=== PATIENT | male | born 2005 | race Caucasian/White ===

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

== ENCOUNTER 2025-09-18 11:54 | Emergency (ER) | payer BC, SELFPAY ==
[2025-09-18 11:54] VITALS: BP 126/90; PULSE 66; RESP 16; TEMP 36.1; O2SAT 100; BMI 19.9
[2025-09-18] MEDS: Lidocaine 1% /Epi 1:100 (20ml) 20 ML Vial INFILT (12:06)
[2025-09-18 12:18] VITALS: BP 126/90; PULSE 66; RESP 16; TEMP 36.8; O2SAT 100
--- NOTE | 2025-09-18 14:58 | ED.VIS.LOWEX ---
HPI History of Present Illness Chief Complaint: Laceration Informant: patient Narrative Narrative: 20-year-old male presenting to the emergency room with chief complaint of leg laceration. Patient states the laceration using the cutting blade. He is noted that the bleeding stopped. Since last tetanus he believes within the last 5 to 10 years. He is not wishing to be updated today. Tetanus Immunization: 5-10 years [facility] Medical History Acute frontal sinusitis, unspecified Acute otitis media, right Acute conjunctivitis, left eye Acute sinusitis, unspecified Acute pharyngitis, unspecified Lab test negative for COVID-19 virus Febrile seizure Home Medications ?Medication ?Instructions ?Recorded ?Last Taken ?Type levetiracetam 1,000 mg tablet 2,000 mg PO BID 05/19/20 09/18/25 History clobazam 10 mg tablet 10 mg PO BID 09/18/25 09/18/25 History clobazam 20 mg tablet 20 mg PO BID 09/18/25 09/18/25 History lamotrigine 100 mg tablet 100 mg PO BID 09/18/25 09/18/25 History lamotrigine 200 mg tablet 200 mg PO BID 09/18/25 09/18/25 History Allergy/AdvReac Type Severity Reaction Status Date / Time amoxicillin Allergy Hives Verified 09/18/25 11:57 hydromorphone (From Dilaudid) AdvReac Severe Other Verified 09/18/25 11:57 Family History Grandmother Hypertension Cancer CVA (cerebral vascular accident) Grandfather Hypertension Myocardial infarction Surgical History History of appendectomy S/P appendectomy Social History household members: spouse housing: house Smoking Status: Never smoker ROS ROS ED Constitutional Constitutional ED: Denies chills, fever(s) or weight loss Eyes Eyes: Denies change in vision or diplopia ENT ENT ED: Denies ear pain, rhinorrhea or sore throat Cardiovascular Cardiovascular: Denies chest pain, orthopnea, palpitations or racing heartbeat Respiratory/Chest Respiratory/Chest: Denies cough, dyspnea or orthopnea Gastrointestinal Gastrointestinal: Denies abdominal pain, diarrhea, nausea or vomiting Genitourinary Genitourinary ED: Denies dysuria, hematuria or urinary frequency Musculoskeletal Musculoskeletal: Denies arthralgias or myalgias Integumentary Reports other Details: Left leg laceration ; Denies abscess or rash Neurologic Neurologic: Denies headache(s) or weakness Psychiatric Psychiatric: Denies anxiety, depression, suicidal ideation or suicidal thoughts Endocrine Endocrinology: Denies polydipsia, polyphagia or polyuria Allergic/Immunologic Allergic/Immunologic ED: Denies mouth swelling, tongue swelling or urticaria EXAM Physical Exam Const Vital Signs: 09/18/25 11:54 09/18/25 12:18 Temperature 97 F L 98.3 F Temperature Source Temporal Pulse Rate 66 66 Respiratory Rate 16 16 Blood Pressure 126/90 H 126/90 H Blood Pressure Mean 102 102 Pulse Ox 100 100 Oxygen Delivery Method Room Air Positive well nourished and well developed General Appearance ED: well developed and NAD HEENT Reports normocephalic, head/scalp atraumatic and moist mucous membranes Eyes PERRL and EOMs intact bilaterally Neck no lymphadenopathy, supple and no JVD Resp normal respiratory effort and clear to auscultation bilaterally Cardio regular rate, regular rhythm and no murmurs GI normal to inspection, nondistended, normoactive bowel sounds and non-tender Palpation: soft Back/Spine no CVA tenderness and normal ROM Extremity Extremity Narrative: There is a 1 cm linear laceration over the anterior proximal left leg. There is no active bleeding. Neurovascular intact. No obvious foreign bodies. General Extremety ED: Negative for edema General Extremity: Negative for edema Neuro oriented x3 and CN's II-XII intact bilaterally Sensorium / Orientation: alert Motor Exam: strength 5/5 throughout Psych mental status grossly normal Mood & Affect: Negative for depressed or tearful Skin no rashes or lesions noted and no wounds MDM MDM MDM Narrative Medical decision making narrative: Differential diagnosis includes but not limited to laceration neurovascular injury tendon injury bone injury acute blood loss anemia Patient clinically appears well. Wound was locally anesthetized using 1% lidocaine with epinephrine. Was washed with Shur-Clens and explored. 2 simple interrupted 4-0 Ethilon sutures were placed. Good wound edge approximation homeostasis occurred. 1 was dressed. Local wound care discussed with patient stitches need to be removed in 10 days. History & Record Review Discussion w/independent historian: Patient Discharge Plan Triage Chief Complaint: Laceration ED Provider: Chris Guerra Dx/Rx/DC Orders Clinical Impression: Laceration of leg Instructions: ED Laceration, All Closures Prescriptions: No Action levetiracetam 1,000 MG tablet 2,000 mg PO BID clobazam 20 mg tablet 20 mg PO BID clobazam 10 mg tablet 10 mg PO BID lamotrigine 200 mg tablet 200 mg PO BID lamotrigine 100 mg tablet 100 mg PO BID Primary Care Provider: Leoncio Martínez Referrals: Leoncio Martínez MD [Primary Care Provider, Medical] - 10 Day for suture removal Print Language: Azeri Disposition Disposition: Home, Self Care Discharge Date/Time: 09/18/25 12:40
== END 2025-09-18 12:40 | disposition home or self-care (01) ==
LOC: ED 12:38
PROVIDERS: Emergency Provider Emergency Medicine; PCP Family Medicine; Visit Provider Emergency Medicine
DX: S81.812A Laceration without foreign body, left lower leg, initial encounter (principal); W26.8XXA Contact with other sharp object(s), not elsewhere classified, initial encounter
CPT/HCPCS: 12001; 99282

== ENCOUNTER 2025-09-29 14:44 | Emergency (ER) | payer BC, OTHER, SELFPAY ==
[2025-09-29 14:44] VITALS: BP 128/89; PULSE 65; RESP 18; TEMP 35.8; O2SAT 99; BMI 19.5
--- NOTE | 2025-09-29 15:31 | EX.ED.UPPERE ---
HPI History of Present Illness HPI Narrative: Patient presents with right thumb laceration that occurred today. Patient states he got a brand-new knife and was opening and closing it. Patient states that when he was closing it, the blade cut his right thumb. Patient describes the pain as burning. Patient states it is worse with movement. Patient denies any paresthesias or weakness. Patient states his last tetanus was approximately 89 years ago. Patient denies any paresthesias or weakness. Patient denies any other injuries. Chief Complaint: Laceration Informant: patient Occured/Mechanism Comment: Accidentally cut with a knife Onset/Context/Timing Onset: Today Context: Sudden Onset Timing: Continuous Quality of Pain: Burning Location: Right thumb Worsened by: Movement Relieved by: Nothing Associated Symptoms Associated Symptoms: Negative for Parasthesia, Weakness or Loss of Funtion Narrative Tetanus Immunization: 5-10 years [facility] Medical History (Updated 09/29/25 @ 16:[address] J Carlos Ricardo, DO) Seizures Acute frontal sinusitis, unspecified Acute otitis media, right Acute conjunctivitis, left eye Acute sinusitis, unspecified Acute pharyngitis, unspecified Lab test negative for COVID-19 virus Febrile seizure Home Medications ?Medication ?Instructions ?Recorded ?Last Taken ?Type levetiracetam 1,000 mg tablet 2,000 mg PO BID 05/19/20 09/18/25 History clobazam 10 mg tablet 10 mg PO BID 09/18/25 09/18/25 History clobazam 20 mg tablet 20 mg PO BID 09/18/25 09/18/25 History lamotrigine 100 mg tablet 100 mg PO BID 09/18/25 09/18/25 History lamotrigine 200 mg tablet 200 mg PO BID 09/18/25 09/18/25 History Allergy/AdvReac Type Severity Reaction Status Date / Time amoxicillin Allergy Hives Verified 09/29/25 15:24 hydromorphone (From Dilaudid) AdvReac Severe Other Verified 09/29/25 15:24 Family History Grandmother Hypertension Cancer CVA (cerebral vascular accident) Grandfather Hypertension Myocardial infarction Surgical History History of appendectomy S/P appendectomy Social History household members: spouse housing: house Smoking Status: Current every day smoker tobacco type: e-cigarettes ROS ROS ED Constitutional Constitutional ED: Denies chills or fever(s) Eyes Eyes: Denies blurry vision or change in vision ENT ENT ED: Denies rhinorrhea or sore throat Cardiovascular Cardiovascular: Denies chest pain or palpitations Respiratory/Chest Respiratory/Chest: Denies cough or dyspnea Gastrointestinal Gastrointestinal: Denies nausea or vomiting Genitourinary Genitourinary ED: Denies dysuria or hematuria Musculoskeletal Musculoskeletal: Denies back pain or neck pain Integumentary Denies abscess or rash Neurologic Neurologic: Denies headache(s) or weakness Allergic/Immunologic Allergic/Immunologic ED: Denies mouth swelling or urticaria EXAM Physical Exam Const Vital Signs: 09/29/25 14:44 Temperature 96.4 F L Temperature Source Temporal Pulse Rate 65 Respiratory Rate 18 Blood Pressure 128/89 H Blood Pressure Mean 102 Pulse Ox 99 Oxygen Delivery Method Room Air Positive well nourished and well developed General Appearance ED: well developed and NAD HEENT Reports moist mucous membranes normocephalic Neck full ROM Extremity Extremity Narrative: There is a 1.5 cm full-thickness linear laceration over the dorsal aspect of the distal phalanx of the right thumb near the IP joint. There is mild bleeding. There are no foreign bodies noted. There are no tendon lacerations noted. Strength is 5/5 in flexion and extension of the IP and MP joints. Sensation was intact to light touch in all digits. Capillary refill was less than 2 seconds in all digits. Neuro oriented x3, CN's II-XII intact bilaterally, moves all extremities, no focal motor deficits and no sensory deficits noted Sensorium / Orientation: alert Motor Exam: strength 5/5 throughout Psych mental status grossly normal MDM MDM MDM Narrative Medical decision making narrative: The wound was cleaned and irrigated with copious amounts of normal saline. The wound was anesthetized with 1% plain lidocaine via digital block. The wound was closed with 3 simple interrupted #4-0 nylon sutures under sterile technique. Patient tolerated the procedure well. Bacitracin dressing was applied. Patient was instructed to keep the wound clean and dry. Patient was instructed to follow-up in 7 to 10 days for wound recheck and suture removal. Patient understood and was agreeable with the plan. All questions were answered. Discharge Plan Triage Chief Complaint: Laceration ED Provider: J Carlos Ricardo Dx/Rx/DC Orders Clinical Impression: Laceration of right thumb without foreign body without damage to nail, Seizures Instructions: ED Hand Laceration- All Closures Prescriptions: No Action levetiracetam 1,000 MG tablet 2,000 mg PO BID clobazam 20 mg tablet 20 mg PO BID clobazam 10 mg tablet 10 mg PO BID lamotrigine 200 mg tablet 200 mg PO BID lamotrigine 100 mg tablet 100 mg PO BID Primary Care Provider: Leoncio Martínez Referrals: Leoncio Martínez MD [Primary Care Provider, Medical] - 7 Days for suture removal Print Language: Grenadian Disposition Disposition: Home, Self Care
[2025-09-29] MEDS: Lidocaine 1% (20 ml mdv) 20 ML Vial INFILT (15:36)
--- OUTSIDE RECORDS SUMMARY | 2025-09-29 15:55 | XMS RPT_ITS | CCD ---
Author Organization [facility] Care Team Providers Care Design Leader Name Role Phone ZELDA PATTERSON Unavailable Unavailable REFERRED, SELF Unavailable Unavailable DELMAR LEBRON Unavailable Unavailable ZELDA PATTERSON Unavailable Unavailable REFERRED, SELF Unavailable Unavailable DELMAR LEBRON Unavailable Unavailable Adarsh Perez MD Primary Care Provider Adarsh Perez MD Unavailable Leoncio Vallejo MD Primary Care Provider Adarsh Perez MD Unavailable Leoncio Vallejo MD Primary Care Provider Leoncio Vallejo MD Primary Care Provider Stephani Pham MD Unavailable Serjio Bhatia Attending Unavailable Adarsh Perez Primary Care Unavailable Adarsh Perez Referring Unavailable Brody Hunt Attending Unavailable Leoncio Vallejo Care Unavailable Memo CULVER, Ya Unavailable Unavailable LEONCIO VALLEJO Primary Care Unavailable GINO, ARIELID NADER Admitting Unavailgudelia ELLER, FARID NADER Attending Unavailgudelia e LEONCIO VALLEJO Primary Care Unavailable EZ LEE Attending Unavailable LEONCIO VALLEJO Referring Unavailable LEONCIO VALLEJO Primary Care Unavailable Adarsh Perez MD Unavailable Leoncio Vallejo MD Primary Care Provider Stephani Pham MD Unavailable Leoncio Vallejo MD Primary Care Provider [phone] Stephani Pham MD Unavailable Unavailable Ana KELLY MACHINE OPERATOR.PAPER TESTING SUPERVISOR, Glenis Unavailable Ritesh KELLY MACHINE OPERATOR.PAPER TESTING SUPERVISOR, Lesley A Unavailable [phone] Suppan KELLY MACHINE OPERATOR.Awilda CAMPline A Unavailable [phone] Suppan KELLY MACHINE OPERATOR.PAPER TESTING SUPERVISORLesley A Unavailable [phone] LEONCIO VALLEJO Primary Care Unavailable MEGAN DIMAS Referring Unavailable ARMIN MARTINEZ Attending UnavailLEONCIO Grijalva Primary Care Unavailable JACK ALMAZAN Attending Unavailabl anne-marie SELF Referring Unavailable LEONCIO VALLEJO Primary Care Unavailable ERNESTO NOONAN Attending Unavailable HUSAM VALENTIN Referring Unavailable LEONCIO VALLEJO Primary Care Unavailable LEONCIO VALLEJO Primary Care Unavailable YENY DO Referring Unavailable LEONCIO VALLEJO Primary Care Unavailable JACK ALMAZAN Attending Unavailabl e Allergies Allergy Classification Reported Allergen(s) Allergy Type Date of Onset Reaction(s) Facility (20 sources) amoxicillin; Translations: [AMOXICILLIN] Drug Allergy 5 [facility] Repository (2 sources) HYDROmorphone; Translations: [HYDROMORPHONE (BULK)] Drug Allergy 2 Other: See Comments [facility] Work Phone: (20 sources) HYDROmorphone; Translations: [HYDROMORPHONE] Drug Allergy 2 Vomiting [facility] Medications Current Medications Medication Drug Class(es) Dates Sig (Normalized) Sig (Original) azithromycin 250 mg oral tablet (2 sources) Macrolide Antimicrobial Start: 08-05-2021 End: 08-22-2021 Azithromycin Active 250 MG PO daily August 22, 2021 12:00am 2 tablets today, then 1 tablet daily on days 2 through 11 benzonatate 100 mg oral capsule (1 source) Non-narcotic Antitussive Start: 07-03-2025 End: 07-13-2025 take 1 capsule by mouth three times daily as needed benzonatate (TESSALON PERLE) 100 mg capsule Indications: Bacterial sinusitis Take 1 capsule by mouth three times a day as needed for up to 10 days. 30 capsule 07/03/2025 07/13/2025 Active cloBAZam 10 mg oral tablet (20 sources) Benzodiazepine Start: 05-18-2025 End: 11-14-2025 take 1 tablet by mouth twice daily cloBAZam (ONFI) 10 mg tab tablet Indications: Partial symptomatic epilepsy with complex partial seizures, intractable, with status epilepticus (HCC) Take 1 tablet by mouth two times a day for 180 days. (In addition to 20 mg tabs = 30 mg BID) 180 tablet 1 05/18/2025 11/14/2025 Active Start: 05-15-2025 End: 11-11-2025 take 1.5 tablets by mouth twice daily cloBAZam (ONFI) 20 mg tab tablet Take 1.5 tablets by mouth two times a day for 180 days. 270 tablet 1 05/15/2025 05/18/2025 Discontinued Start: 02-01-2025 End: 11-14-2025 take 1 tablet by mouth twice daily cloBAZam (ONFI) 20 mg tab tablet Indications: Partial symptomatic epilepsy with complex partial seizures, intractable, with status epilepticus (HCC) Take 1 tablet by mouth two times a day for 180 days. (In addition to 10 mg tabs = 30 mg BID) 180 tablet 1 05/18/2025 11/14/2025 Active Start: 02-01-2025 End: 02-08-2025 take 0.5 tablet by mouth once daily in the morning cloBAZam (ONFI) 10 mg tab tablet Indications: Generalized convulsive epilepsy (HCC) Take 0.5 tablets by mouth every morning for 7 days. 4 tablet 02/01/2025 02/08/2025 Active Start: 11-02-2024 End: 05-22-2025 take 1 tablet by mouth once daily at bedtime, then take 0.5 tablet by mouth once daily cloBAZam (ONFI) 20 mg tab tablet Indications: Generalized convulsive epilepsy (HCC) Take 1 tablet by mouth daily at bedtime AND 0.5 tablets once daily. Do all this for 180 days. 135 tablet 1 11/23/2024 02/01/2025 Discontinued Start: 06-13-2024 End: 12-10-2024 take 1 tablet by mouth once daily at bedtime cloBAZam (ONFI) 10 mg tab tablet Indications: Generalized convulsive epilepsy (HCC) Take 1 tablet by mouth daily at bedtime for 180 days. 90 tablet 1 06/13/2024 11/02/2024 Discontinued Start: 05-20-2024 End: 06-19-2024 cloBAZam (ONFI) 10 mg tab ta blet Indications: Generalized convulsive epilepsy (HCC) Take 0.5 tablets at bedtime for 7 days, then take 1 tablet at bedtime. 27 tablet 05/20/2024 06/13/2024 Discontinued doxycycline hyclate 100 mg oral capsule (1 source) Tetracycline-class Drug Start: 07-03-2025 End: 07-10-2025 take 1 capsule by mouth twice daily doxycycline hyclate (VIBRAMYCIN) 100 mg capsule Indications: Bacterial sinusitis Take 1 capsule by mouth two times a day for 7 days. 14 capsule 07/03/2025 07/10/2025 Active enteric contrast (will be provided with radiology test) (3 sources) Start: 08-18-2022 End: 08-19-2022 enteric contrast (will be provided with radiology test) Indications: Right upper quadrant abdominal pain , Left upper quadrant abdominal pain , Contusion of abdominal wall, subsequent encounter , Abdominal pain, unspecified abdominal location For CT ABD/PEL W IVCON Routine order Administer, As Directed One Time Only, via Oral, Rectal, both Oral and Rectal, Enteric Tube, Stoma or Indwelling Catheter, Enteric Contrast as designated per enteric contrast guidelines 1 Each 0 08/18/2022 08/19/2022 Suspended Start: 08-18-2022 End: 08-19-2022 enteric contrast (will be pr ovided with radiology test) Indications: Right upper quadrant abdominal pain , Left upper quadrant abdominal pain , Contusion of abdominal wall, subsequent encounter , Abdominal pain, unspecified abdominal location For CT ABD/PEL W IVCON Routine order Administer, As Directed One Time Only, via Oral, Rectal, both Oral and Rectal, Enteric Tube, Stoma or Indwelling Catheter, Enteric Contrast as designated per enteric contrast guidelines 1 Each 0 08/18/2022 08/19/2022 Active Comment on above: For CT ABD/PEL W IVC ON Routine order Administer, As Directed One Time Only, via Oral, Rectal, both Oral and Rectal, Enteric Tube, Stoma or Indwelling Catheter, Enteric Contrast as designated per enteric contrast guidelines famotidine 20 mg oral tablet (5 sources) Histamine-2 Receptor Antagonist Start: End: take 1 tablet by mouth twice daily famotidine (PEPCID) 20 mg tablet Take 1 tablet by mouth twice daily. 60 tablet 0 04/04/2022 05/09/2022 Discontinued Comment on above: Take 1 tablet by caitie twice daily. fluticasone propionate 0.05 mg/actuat metered dose nasal spray (1 source) Corticosteroid Start: take 2 spray(s) by mouth once daily fluticasone (FLONASE) 50 mcg/actuation nasal spray Indications: Bacterial sinusitis Use 2 sprays in each nostril once daily. Rinse mouth after use. 1 each 1 07/03/2025 Active iv contrast (will be provided with radiology test) (7 sources) Start: End: inject 1 dose intravenously once iv contrast (will be provided with radiology test) MRI Brain Inject, intravenously, once for 1 dose.No IV access, insert saline lock prior to beginning of sedation, infusion, injection of imaging exam.Discontinue saline lock post exam. If Pt. has a central line or IVAD, may access for administration according to line specific nursing protocol.Once exam is complete flush line and de-access according to line specific nursing protocol in the MR contrast administration guidelines link 1 Each 09/28/2024 09/29/2024 Active Start: 03-25-2023 End: 05-22-2023 inject 1 dose intravenously once iv contrast (will be provided with radiology test) MRI Brain Inject, intravenously, once for 1 dose.No IV access, insert saline lock prior to beginning of sedation, infusion, injection of imaging exam.Discontinue saline lock post exam. If Pt. has a central line or IVAD, may access for administration according to line specific nursing protocol.Once exam is complete flush line and de-access according to line specific nursing protocol in the MR contrast administration guidelines link 1 Each 0 03/25/2023 05/22/2023 Discontinued Start: 03-25-2023 inject 1 dose intravenously on ce iv contrast (will be provided with radiology test) MRI Brain Inject, intravenously, once for 1 dose.No IV access, insert saline lock prior to beginning of sedation, infusion, injection of imaging exam.Discontinue saline lock post exam. If Pt. has a central line or IVAD, may access for administration according to line specific nursing protocol.Once exam is complete flush line and de-access according to line specific nursing protocol in the MR contrast administration guidelines link 1 Each 0 03/25/2023 Active Start: 08-18-2022 End: 08-19-2022 iv contrast (will be provide d with radiology test) Indications: Right upper quadrant abdominal pain , Left upper quadrant abdominal pain , Contusion of abdominal wall, subsequent encounter , Abdominal pain, unspecified abdominal location CT ABD/PEL -Inject, intravenously, once for 1 dose.No IV access, insert saline lock prior to the beginning of sedation, infusion, injection of imaging exam. Discontinue saline lock post exam. If Pt. has a central line or IVAD, may access for administration according to line specific nursing protocol. Once exam is complete flush line and de-access according to line specific nursing protocol in the CT contrast administration guidelines link. 1 Each 0 08/18/2022 08/19/2022 Suspended Start: 08-18-2022 End: 08-19-2022 iv contrast (will be provide d with radiology test) Indications: Right upper quadrant abdominal pain , Left upper quadrant abdominal pain , Contusion of abdominal wall, subsequent encounter , Abdominal pain, unspecified abdominal location CT ABD/PEL -Inject, intravenously, once for 1 dose.No IV access, insert saline lock prior to the beginning of sedation, infusion, injection of imaging exam. Discontinue saline lock post exam. If Pt. has a central line or IVAD, may access for administration according to line specific nursing protocol. Once exam is complete flush line and de-access according to line specific nursing protocol in the CT contrast administration guidelines link. 1 Each 0 08/18/2022 08/19/2022 Active Start: 02-04-2022 End: 02-05-2022 inject 1 dose intravenously once iv contrast (will be provided with radiology test) MRI Brain Inject, intravenously, once for 1 dose.No IV access, insert saline lock prior to beginning of sedation, infusion, injection of imaging exam.Discontinue saline lock post exam. If Pt. has a central line or IVAD, may access for administration according to line specific nursing protocol.Once exam is complete flush line and de-access according to line specific nursing protocol in the MR contrast administration guidelines link 1 Each 0 02/04/2022 02/05/2022 Active Comment on above: MRI Brain Inject, in travenously, once for 1 dose.No IV access, insert saline lock prior to beginning of sedation, infusion, injection of imaging exam.Discontinue saline lock post exam. If Pt. has a central line or IVAD, may access for administration according to line specific nursing protocol.Once exam is complete flush line and de-access according to line specific nursing protocol in the MR contrast administration guidelines link CT ABD/PEL -Inject, intravenously, once for 1 dose.No IV access, insert saline lock prior to the beginning of sedation, infusion, injection of imaging exam. Discontinue saline lock post exam. If Pt. has a central line or IVAD, may access for administration according to line specific nursing protocol. Once exam is complete flush line and de-access according to line specific nursing protocol in the CT contrast administration guidelines link. lamoTRIgine 100 mg oral tablet (20 sources) Mood Stabilizer, Anti-epileptic Agent Start: 10-15-20 End: 05-19-20 take 1 tablet by mouth twice daily lamoTRIgine (LAMICTAL) 100 mg tablet Indications: Generalized convulsive epilepsy (HCC) Take 1 tablet by mouth two times a day. (along with 200 mg tabs, =600 mg/day) 180 tablet 3 05/19/2024 Active Start: 10-15-2023 End: 05-19-2024 take 1 tablet by mouth twice daily lamoTRIgine (LAMICTAL) 200 mg tablet Indications: Partial symptomatic epilepsy with complex partial seizures, intractable, with status epilepticus (HCC) Take 1 tablet by mouth two times a day. (along with 100 mg tabs, = 600 mg/day) 180 tablet 3 05/19/2024 Active Start: 08-10-2023 take 1 tablet by caitie th twice daily lamoTRIgine (LAMICTAL) 100 mg tablet Indications: Generalized convulsive epilepsy (HCC) Take 1 tablet by mouth two times a day. (along with 200 mg tabs, =600 mg/day) 180 tablet 1 08/10/2023 Active Start: 11-13-2021 End: 08-07-2023 take 1 tablet by mouth twice daily lamoTRIgine (LAMICTAL) 100 mg tablet Indications: Generalized convulsive epilepsy (HCC) Take 1 tablet by mouth twice daily. (along with 200 mg tabs, =600 mg/day) 180 tablet 1 02/16/2023 08/07/2023 Discontinued Start: 11-13-2021 End: 07-29-2023 take 1 tablet by mouth twice daily lamoTRIgine (LAMICTAL) 200 mg tablet Indications: Partial symptomatic epilepsy with complex partial seizures, intractable, with status epilepticus (HCC) Take 1 tablet by mouth two times a day. (along with 100 mg tabs, = 600 mg/day) 180 tablet 0 07/29/2023 Active Start: 08-22-2021 take 1 tablet by mouth once La motrigine (Lamictal) 25 mg tablet Active 25 MG PO ONCE August 22, 2021 12:00am Comment on above: Take 1 tablet by caitie th twice daily. (along with 100 mg tabs, = 600 mg/day) Take 1 tablet by caitie th twice daily. (along with 200 mg tabs, =600 mg/day) Take 1 tablet by caitie th two times a day. (along with 100 mg tabs, = 600 mg/day) Take 1 tablet by caitie th two times a day. (along with 200 mg tabs, =600 mg/day) levETIRAcetam 1000 mg oral tablet (20 sources) Start: End: take 1 tablet by mouth twice daily levETIRAcetam (KEPPRA) 500 mg tablet Take 1 tablet by mouth two times a day. Take with 750mg tablets. Total dose = 2000mg BID 180 tablet 1 08/05/2024 11/03/2024 Discontinued Start: 05-19-2024 End: 11-03-2025 take 2 tablets by mouth twice daily levETIRAcetam (KEPPRA) 1,000 mg tablet Indications: Partial symptomatic epilepsy with complex partial seizures, intractable, with status epilepticus (HCC) Take 2 tablets by mouth two times a day. 360 tablet 3 11/03/2024 11/03/2025 Active Start: 03-11-2024 End: 05-19-2024 take 1 tablet by mouth twice daily levETIRAcetam (KEPPRA) 500 mg tablet Take 1 tablet by mouth two times a day. Take with 750mg tablets. Total dose = 2000mg BID 180 tablet 1 03/11/2024 05/19/2024 Discontinued Start: 02-01-2024 End: 05-01-2024 take 1 tablet by mouth once daily at bedtime levETIRAcetam (KEPPRA) 500 mg tablet Take 1 tablet by mouth daily at bedtime. Take with two 750mg tablets at bedtime for a total night time dose of 2000mg 90 tablet 0 02/01/2024 03/11/2024 Discontinued Start: 11-12-2023 End: 11-11-2024 take 2 tablets by mouth twice daily levETIRAcetam (KEPPRA) 750 mg tablet Indications: Generalized convulsive epilepsy (HCC) Take 2 tablets by mouth two times a day. 360 tablet 3 11/12/2023 05/19/2024 Discontinued Start: 05-25-2023 End: 07-29-2023 levETIRAcetam (KEPPRA) 500 m g tablet Indications: Generalized convulsive epilepsy (HCC) 3 tabs twice daily = 3000 mg/d 540 tablet 0 07/29/2023 Active Start: 04-17-2022 End: 05-25-2023 levETIRAcetam (KEPPRA) 500 m g tablet Indications: Generalized convulsive epilepsy (HCC) 5 tabs twice daily = 5000 mg/d 900 tablet 1 02/16/2023 05/25/2023 Discontinued (Adjust Sig - Block E-Cancel) Start: 11-13-2021 levETIRAcetam (KEPPRA) 500 mg tablet Indications: Generalized convulsive epilepsy (HCC) 6 tabs twice daily = 6000 mg/d 1080 tablet 3 11/13/2021 Active Start: 05-19-2020 take 2000 mg by mout h twice daily Levetiracetam Active 2000 MG PO TWICE A DAY May 19, 2020 12:00am Comment on above: 6 tabs twice daily = 6000 mg/d 5 tabs twice daily = 5000 mg/d 3 tabs twice daily = 3000 mg/d Take 2 tablets by mo uth two times a day. Take 1 tablet by caitie th daily at bedtime. Take with two 750mg tablets at bedtime for a total night time dose of 2000mg lidocaine 0.04 mg/mg medicated patch (8 sources) Antiarrhythmic, Amide Local Anesthetic Start: 08-21-20 End: 11-28-19 23 lidocaine (SALONPAS) 4 % patch Apply 1 Patch as directed once daily as needed (pain) for up to 7 doses. 7 Patch 0 08/21/2022 11/28/2022 Discontinued Comment on above: Apply 1 Patch as dir ected once daily as needed (pain) for up to 7 doses. midazolam 50 mg/ml nasal spray (20 sources) Benzodiazepine Start: 11-13-19 End: 06-04-20 midazolam (NAYZILAM) 5 mg/spray (0.1 mL) nasal spray Indications: Generalized convulsive epilepsy (HCC) Use 1 spray in one nostril as needed for seizures. May repeat dose in alternate nostril after 10 minutes based on response and tolerability. 2 Each 05/20/2024 Active Comment on above: Use 1 spray in one n ostril as needed for seizures. May repeat dose in alternate nostril after 10 minutes based on response and tolerability. naproxen 500 mg oral tablet (1 source) Nonsteroidal Anti-inflammatory Drug Start: 08-16-20 take 1 tablet by mouth twice daily Naproxen (Naprosyn) 500 mg tablet Active 500 MG PO TWICE A DAY August 16, 2022 12:00am oxyCODONE hydrochloride 5 mg oral tablet (2 sources) Opioid Agonist Start: 08-21-20 End: 08-26-20 take 1 tablet by mouth every six hours as needed for pain oxyCODONE IR (ROXICODONE) 5 mg immediate release tablet Indications: Liver laceration, grade IV, with open wound into cavity, initial encounter , Closed fracture of multiple ribs of right side, initial encounter Take 1 tablet by mouth every 6 hours as needed for pain for up to 5 days. 10 tablet 0 08/21/2022 08/26/2022 Active Comment on above: Take 1 tablet by caitie every 6 hours as needed for pain for up to 5 days. promethazine hydrochloride 25 mg oral tablet (1 source) Phenothiazine Start: 08-17-20 take 25 mg by mouth every six hours Promethazine Active 25 MG PO EVERY 6 HOURS August 17, 2022 12:00am sennosides, senior care 8.6 mg oral tablet (2 sources) Start: 08-21-20 End: 08-26-20 take 1 tablet by mouth twice daily senna (SENOKOT) 8.6 mg tab Take 1 tablet by mouth twice daily for 5 days. 10 tablet 0 08/21/2022 08/26/2022 Active Comment on above: Take 1 tablet by caitie th twice daily for 5 days. valACYclovir 1000 mg oral tablet (2 sources) Herpesvirus Nucleoside Analog DNA Polymerase Inhibitor, Herpes Simplex Virus Nucleoside Analog DNA Polymerase Inhibitor, Herpes Zoster Virus Nucleoside Analog DNA Polymerase Inhibitor Start: 09-03-20 End: 09-10-20 take 1 tablet by mouth three times daily valACYclovir (VALTREX) 1 gram Take 1 tablet by mouth three times a day for 7 days. 21 tablet 0 09/03/2023 09/10/2023 Active Comment on above: Take 1 tablet by caitie th three times a day for 7 days. Completed/Discontinued Medications Medication Drug Class(es) Dates Sig (Normalized) Sig (Original) [id number] 200 actuat albuterol 0.09 mg/actuat metered dose inhaler (13 sources) beta2-Adrenergic Agonist Start: 12-18-2021 End: 06-25-2022 take 2 puff(s) by inhalation every four hours as needed for wheezing albuterol HFA (PROVENTIL HFA, VENTOLIN HFA) 90 mcg/actuation inhaler Inhale 2 Puffs as instructed every 4 hours as needed for wheezing/shortness of breath (and 20 min prior to exercise). 18 g 0 12/18/2021 06/25/2022 Discontinued Comment on above: Inhale 2 Puffs as in structed every 4 hours as needed for wheezing/shortness of breath (and 20 min prior to exercise). predniSONE 10 mg oral tablet (3 sources) Start: 09-03-2023 predniSONE (DELTASONE) 10 mg tablet Take 4 tabs daily for 3 days, then 2 tabs daily for 3 days, then 1 tab daily for 3 days with food. 21 tablet 0 09/03/2023 Active Comment on above: Take 4 tabs daily fo r 3 days, then 2 tabs daily for 3 days, then 1 tab daily for 3 days with food. tobramycin 3 mg/ml ophthalmic solution (1 source) Aminoglycoside Antibacterial Start: 08-05-2021 End: 08-22-2021 take 0.3 drop(s) into the eye(s) every two hours Tobramycin (Tobrex) 0.3 % drops Discontinued 1 DRP OPHTHALMIC Q2H 5 August 05, 2021 12:00am August 22, 2021 8:27am to left eye for 5 days while awake Problems Active Problems Problem Classification Problem Date Documented Date Episodic/Chronic Abdominal pain (6 sources) Right upper quadrant pain; Translations: [Right upper quadrant pain] Onset: 08-18-2022 Episodic Allergic reactions (1 source) Inflammatory dermatosis; Translations: [Dermatitis, unspecified] 09-04-2023 Episodic Asthma (20 sources) Mild intermittent asthma; Translations: [Mild intermittent asthma, uncomplicated] Onset: 05-20-2020 09-15-2020 Chronic Bacterial infection; unspecified site (1 source) Other specified bacterial agents as the cause of diseases classified elsewhere; Translations: [Bacterial sinusitis] Onset: 07-03-2025 Episodic Chronic kidney disease (20 sources) Chronic kidney disease stage 2; Translations: [Chronic kidney disease, stage 2 (mild)] Onset: 06-15-2022 Resolved: 11-28-2022 Chronic Deficiency and other anemia (1 source) Anemia; Translations: [Anemia, unspecified] Episodic Epilepsy; convulsions (20 sources) Localization-related epilepsy; Translations: [Localization-related (focal) (partial) symptomatic epilepsy and epileptic syndromes with simple partial seizures, not intractable, without status epilepticus] Onset: 04-27-2020 Resolved: 10-22-2020 10-22-2020 Chronic Esophageal disorders (1 source) Gastroesophageal reflux disease without esophagitis; Translations: [Gastro-esophageal reflux disease without esophagitis] Chronic Genitourinary symptoms and ill-defined conditions (1 source) Proteinuria; Translations: [Proteinuria, unspecified] Episodic Nausea and vomiting (2 sources) Post-tussive vomiting; Translations: [Vomiting, unspecified] Episodic Open wounds of head; neck; and trunk (1 source) Unspecified open wound of abdominal wall, unspecified quadrant without penetration into peritoneal cavity, initial encounter; Translations: [Liver laceration, grade IV, with open wound into cavity, initial encounter] Onset: 08-21-2022 Episodic Other and unspecified benign neoplasm (20 sources) Benign neoplasm of brain, supratentorial; Translations: [Benign neoplasm of brain, supratentorial] Onset: 08-02-2020 10-22-2020 Chronic Other and unspecified benign neoplasm (1 source) Benign neoplasm of brain; Translations: [Benign neoplasm of brain, unspecified] Chronic Other diseases of kidney and ureters (1 source) Renal impairment; Translations: [Disorder of kidney and ureter, unspecified] Episodic Other endocrine disorders (1 source) Hypoglycemia; Translations: [Hypoglycemia, unspecified] Chronic Other fractures (1 source) Closed fracture of multiple ribs; Translations: [Multiple fractures of ribs, right side, subsequent encounter for fracture with delayed healing] Episodic Other fractures (1 source) Multiple fractures of ribs, right side, initial encounter for closed fracture; Translations: [Closed fracture of multiple ribs of right side, initial encounter] Onset: 08-21-2022 Episodic Other hereditary and degenerative nervous system conditions (1 source) Essential tremor; Translations: [Essential tremor] Chronic Other lower respiratory disease (1 source) Pleurodynia; Translations: [Pleurodynia] Onset: 08-21-2022 Episodic Other lower respiratory disease (1 source) Cough; Translations: [Acute cough] 07-03-2025 Episodic Other nervous system disorders (20 sources) Mass lesion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 for 5 days. - lidocaine (SALONPAS) 4 % patch Apply 1 Patch as directed once daily as needed (pain) for up to 7 doses. - oxyCODONE IR (ROXICODONE) 5 mg immediate release tablet Take 1 tablet by mouth every 6 hours as needed for pain for up to 5 days. - levETIRAcetam (KEPPRA) 500 mg tablet 5 tabs twice daily = 5000 mg/d - midazolam (NAYZILAM) 5 mg/spray (0.1 mL) nasal spray Use 1 spray in one nostril as needed for seizures. May repeat dose in alternate nostril after 10 minutes based on response and tolerability. - lamoTRIgine (LAMICTAL) 200 mg tablet Take 1 tablet by mouth twice daily. (along with 100 mg tabs, = 600 mg/day) - lamoTRIgine (LAMICTAL) 100 mg tablet Take 1 tablet by mouth twice daily. (along with 200 mg tabs, =600 mg/day) Meds Comments as of 06/29/2009: Problem List As Of Date 08/22/2022 Noted Resolved Acute appendicitis with localized peritonitis [*09/22/2016 08/02/2020 Vaccination not carried out because of caregive*06/23/2019 Simple febrile convulsions (HCC) [R56.00] 04/26/2020 08/02/2020 Convulsions (HCC) [R56.9] 04/26/2020 10/22/2020 Generalized convulsive epilepsy (HCC) [G40.309] 04/27/2020 10/22/2020 Epilepsy (HCC) [G40.909] 04/30/2020 10/22/2020 Recurrent seizures (HCC) [G40.909] 05/20/2020 10/22/2020 Mild intermittent asthma without complication [*05/20/2020 Generalized seizure (HCC) [R56.9] 08/02/2020 10/22/2020 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] 08/02/2020 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] 08/02/2020 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] 10/22/2020 CKD (chronic kidney disease) stage 2, GFR 60-89*06/15/2022 Liver laceration, grade IV, without open wound *08/18/2022 Accidental collision with stationary object [W2*08/21/2022 08/21/2022 Closed fracture of multiple ribs of right side *08/21/2022 Contusion of right lung [S27.321A] 08/21/2022 ABLA (acute blood loss anemia) [D62] 08/21/2022 Encounter Status:Closed by SUNG, DEBBIE on 08/22/22 Normal [facility] Basic metabolic 2000 panelon 08-21-2022 Anion gap [Moles/Vol] 10 mmol/L Normal 9-18 [facility] Comment on above: Order Comment: Speci men Type: BLOOD SPECIMEN Ordering Facility: [facility] Address: [address] [place] [address] Performed By: #### 2 4323-8, 3040-3 #### [facility] CLIA [id number] [address] [place] [address] [place] Calcium [Mass/Vol] 9.3 mg/dL Normal 8.5-10.2 [facility] Comment on above: Order Comment: Speci men Type: BLOOD SPECIMEN Ordering Facility: [facility] Address: [address] [place] [address] Performed By: #### 2 4323-8, 3040-3 #### [facility] CLIA [id number] [address] [place] [address] [place] Chloride [Moles/Vol] 100 mmol/L Normal 97-105 [facility] Comment on above: Order Comment: Speci men Type: BLOOD SPECIMEN Ordering Facility: [facility] Address: [address] [place] [address] Performed By: #### 2 4323-8, 3040-3 #### [facility] CLIA [id number] [address] [place] [address] [place] CO2 [Moles/Vol] 31 mmol/L High 22-30 [facility] Comment on above: Order Comment: Speci men Type: BLOOD SPECIMEN Ordering Facility: [facility] Address: [address] [place] [address] Performed By: #### 2 4323-8, 3040-3 #### [facility] CLIA [id number] [address] [place] [address] [place] Creatinine [Mass/Vol] 0.94 mg/dL Normal 0.73-1.22 [facility] Comment on above: Order Comment: Speci men Type: BLOOD SPECIMEN Ordering Facility: [facility] Address: [address] [place] [address] Performed By: #### 2 4323-8, 3040-3 #### [facility] CLIA [id number] [address] [place] [address] [place] ESTIMATED GLOMERULAR FILTRATION RATE 121 mL/min/1.73m??? Normal >=60 [facility] Comment on above: Order Comment: Gokul garcia Type: BLOOD SPECIMEN Ordering Facility: [facility] Address: [address] [place] [address] Result Comment: Magda mated Glomerular Filtration Rate (eGFR) is calculated using the 2020 CKD-EPI creatinine equation. This equation utilizes serum creatinine, sex, and age as parameters. The creatinine assay has traceable calibration to isotope dilution-mass spectrometry. Refer to KDIGO guidelines for clinical interpretation. In patients with unstable renal function, e.g. those with acute kidney injury, the eGFR may not accurately reflect actual GFR. Performed By: #### 2 4323-8, 3040-3 #### [facility] CLIA [id number] [address] [place], [place] [id number] [place] Glucose [Mass/Vol] 94 mg/dL Normal 74-99 [facility] Comment on above: Order Comment: Gokul garcia Type: BLOOD SPECIMEN Ordering Facility: [facility] Address: [address] [place] [address] Result Comment: The [place] [employer] (ADA) provides guidance for cutoff values for fasting glucose and random glucose. The ADA defines fasting as no caloric intake for at least 8 hours. Fasting plasma glucose results between 100 to 125 mg/dL indicate increased risk for diabetes (prediabetes). Fasting plasma glucose results greater than or equal to 126 mg/dL meet the criteria for diagnosis of diabetes. In the absence of unequivocal hyperglycemia, results should be confirmed by repeat testing. In a patient with classic symptoms of hyperglycemia or hyperglycemic crisis, random plasma glucose results greater than or equal to 200 mg/dL meet the criteria for diagnosis of diabetes. Reference: Standards of Medical Care in Diabetes 2016, [place] [employer] Association. Diabetes Care. 2016.39(Suppl 1). Performed By: #### 2 4323-8, 3040-3 #### [facility] CLIA [id number] [address] [place] [address] [place] Potassium [Moles/Vol] 4.0 mmol/L Normal 3.7-5.1 [facility] Comment on above: Order Comment: Speci men Type: BLOOD SPECIMEN Ordering Facility: [facility] Address: [address] [place] [address] Performed By: #### 2 4323-8, 3040-3 #### [facility] CLIA [id number] [address] [place] [address] [place] Sodium [Moles/Vol] 141 mmol/L Normal 136-144 [facility] Comment on above: Order Comment: Speci men Type: BLOOD SPECIMEN Ordering Facility: [facility] Address: [address] [place] [address] Performed By: #### 2 4323-8, 3039-3 #### [facility] CLIA [id number] [address] Urea nitrogen [Mass/Vol] 10 mg/dL Normal 9-24 [facility] Comment on above: Order Comment: Speci men Type: BLOOD SPECIMEN Ordering Facility: [facility] Address: [address] [place] [address] Performed By: #### 2 4323-8, 3040-3 #### [facility] CLIA [id number] [address] [place] [address] [facility] CBC panel Auto (Bld)on 08-21 Erythrocyte distribution width (RBC) [Ratio] 13.5 % Normal 11.5-15.0 [facility] Comment on above: Order Comment: Speci men Type: BLOOD SPECIMEN Ordering Facility: [facility] Address: [address] [place] [address] Performed By: #### 2 4323-8, 3040-3 #### [facility] CLIA [id number] [address] Hematocrit (Bld) [Volume fraction] 29.2 % Low 39.0-51.0 [facility] Comment on above: Order Comment: Speci men Type: BLOOD SPECIMEN Ordering Facility: [facility] Address: [address] [place] [address] Performed By: #### 2 4323-8, 3040-3 #### [facility] CLIA [id number] [address] [place], [place] [address] [place] [address] [place] Hemoglobin (Bld) [Mass/Vol] 9.3 g/dL Low 13.0-17.0 [facility] Comment on above: Order Comment: Speci men Type: BLOOD SPECIMEN Ordering Facility: [facility] Address: [address] [place] [address] Performed By: #### 2 4323-8, 0-3 #### [facility] CLIA [id number] [address] MCH (RBC) [Entitic mass] 26.9 pg Normal 26.0-34.0 [facility] Comment on above: Order Comment: Speci men Type: BLOOD SPECIMEN Ordering Facility: [facility] Address: [address] [place] [address] Performed By: #### 2 4323-8, 3040-3 #### [facility] CLIA [id number] [address] [place] [address] [place] [facility] MCHC (RBC) [Mass/Vol] 31.8 g/dL Normal 30.5-36.0 [facility] Comment on above: Order Comment: Speci men Type: BLOOD SPECIMEN Ordering Facility: [facility] Address: [address] [place] [address] Performed By: #### 2 4323-8, 3040-3 #### [facility] CLIA [id number] [address] [place] [address] [facility] MCV (RBC) [Entitic vol] 84.4 fL Normal 80.0-100.0 [facility] Comment on above: Order Comment: Speci men Type: BLOOD SPECIMEN Ordering Facility: [facility] Address: [address] [place] [address] Performed By: #### 2 4323-8, 3040-3 #### [facility] CLIA [id number] [address] [place] [address] [place] Nucleated RBC (Bld) [#/Vol] 10*3/uL Normal <0.01 [facility] Comment on above: Order Comment: Speci men Type: BLOOD SPECIMEN Ordering Facility: [facility] Address: [address] [place] [address] Performed By: #### 2 4323-8, 3040-3 #### [facility] CLIA [id number] [address] [place] [address] [place] Platelet mean volume (Bld) [Entitic vol] 11.0 fL Normal 9.0-12.7 [facility] Comment on above: Order Comment: Speci men Type: BLOOD SPECIMEN Ordering Facility: [facility] Address: [address] [place] [address] Performed By: #### 2 4323-8, 3040-3 #### [facility] CLIA [id number] [address] [place], [place] [address] [place] [address] [place] Platelets (Bld) [#/Vol] 276 10*3/uL Normal 150-400 [facility] Comment on above: Order Comment: Speci men Type: BLOOD SPECIMEN Ordering Facility: [facility] Address: [address] [place] [address] Performed By: #### 2 4323-8, 3040-3 #### [facility] CLIA [id number] [address] [place] [address] [place] [facility] [place] RBC (Bld) [#/Vol] 3.46 10*6/uL Low 4.20-6.00 [facility] Comment on above: Order Comment: Speci men Type: BLOOD SPECIMEN Ordering Facility: [facility] Address: [address] [place] [address] Performed By: #### 2 4323-8, 3 #### [facility] CLIA [id number] [address] [place] [address] [facility] WBC (Bld) [#/Vol] 5.11 10*3/uL Normal 3.70-11.00 [facility] Comment on above: Order Comment: Speci men Type: BLOOD SPECIMEN Ordering Facility: [facility] Address: [address] [place] [address] [place] [address] Performed By: #### 2 4323-8, 3 #### [facility] CLIA [id number] [address] [place] [address] [facility] CNDSon 08-21-2022 CNDS HNO ID: [id number] Author: Yoli Graf APRN.PAPER TESTING SUPERVISOR Service: General Surgery Author Type: Nurse Practitioner Type: Discharge Summary Filed: 08/21/2022 2:32 PM Note Text: ----- Attestation signed by Maria De Jesus Hernandez MD at 08/21/2022 6:11 PM Attending Note I discussed with resident. The patient was not examined by the attending. I reviewed the resident's note. I agree with the resident's assessment and plan unless otherwise noted. Signature: Maria De Jesus Hernandez MD Date: 08/21/2022. Time: 6:11 PM ----- DISCHARGE SUMMARY PATIENT NAME: Penny Robin Code Status: Full Code Highest Readmission Risk Score: 13 The 30 day readmissions risk score is derived from an internally validated risk model which evaluates patient level characteristics, utilization history, medication orders and lab results up until the day of discharge. Patients with a score of 40 or above are considered highest risk for readmission. Specific patient level drivers will be listed at the bottom of the summary. Admission Information Admission Information ADMIT DATE: 08/18/2022 DISCHARGE DATE: 08/21/2022 MY DOCTORS AND MEDICAL TEAM: My Main Hospital Doctor: Melissa Eller MD Primary Care Provider: Leoncio Vallejo MD My Medical Team Members: Treatment Team: Attending Provider: Melissa Eller MD MY CONDITION AT DISCHARGE: Stable REASON I WAS IN THE HOSPITAL: Collision with object SUMMARY OF WHAT HAPPENED WHILE I WAS IN THE HOSPITAL: You were admitted at [facility] on 08/18/2022 following a collision with an object while playing [employer] tag. As part of your trauma evaluation you received CT scans of your chest, abdomen, and pelvis. These images revealed the following injuries: 1. RLL pulmonary contusion 2. Right 7-10 rib fractures 3. Grade IV liver injury with hemoperitoneum You were monitored closely and your blood counts remained stable. You were able to tolerate solid food and walk without assistance. Your injuries will heal over time without intervention. You will need to make follow up appointments with your primary care provider. Please call our trauma clinic at [phone] with any questions or concerns. OTHER PROBLEMS/DIAGNOSIS: Principal Problem: Liver laceration, grade IV, without open wound into cavity Active Problems: Closed fracture of multiple ribs of right side Contusion of right lung ABLA (acute blood loss anemia) Resolved Problems: Accidental collision with stationary object OPERATIONS PERFORMED WHILE IN THE HOSPITAL: None IMPORTANT TEST/PROCEDURES: No procedures performed TEST RESULTS NOT AVAILABLE AT THIS TIME: No pending results Discharge Disposition Discharge Disposition: Home With Self Care Activity When You Leave the Hospital Limited to: Do not lift more than 15lbs for the next 6 weeks No contact sports or activities which place you at risk for abdominal trauma for 6 months May bathe and shower May drive Diet Instructions Resume your pre-hospital diet For Pain When You Leave the Hospital If you become constipated, you may use any ntno-mpn-wdzsffl treatment such as Milk of Magnesia, Sennakot, Prune Juice, Suppositories, etc. in addition to the stool softener/fiber supplement No alcohol or driving while on pain medication Use acetaminophen (Tylenol) as recommended on the bottle Use the dispensed medication (see prescription) You should use an uuig-yvc-zmhtodq stool softener (Docusate sodium) and/or a fiber supplement (Metamucil, Fiber Con) every day while taking prescribed pain medication Call Your Doctor If There is severe pain at the operative site You have lightheadedness, fainting, or confusion You have pain and swelling in your legs, especially if it is only on one side and not the other You have persistent nausea/vomiting over 24 hours Your temperature is greater than 101F Follow Up Appointments Follow-Up Appointment When: In 2 weeks Patient/Parents to call for appointment?: Yes Leoncio Vallejo MD [phone] [address] [facility] [address] PCP Requested Referral Additional Provider to Provider Information: Principal Problem: Liver laceration, grade IV, without open wound into cavity Active Problems: Closed fracture of multiple ribs of right side Contusion of right lung ABLA (acute blood loss anemia) Resolved Problems: Accidental collision with stationary object Treatment Team: Attending Provider: Melissa Eller MD Transitions of Care Critical Issues: SPECIALIST FOLLOW-UP: PCP LABS AND PROCEDURES PENDING AT DISCHARGE: No pending results. FOLLOW-UP APPOINTMENTS ALREADY SCHEDULED WITH A [facility] PROVIDER: Future Appointments Date Time Provider Department Center 11/13/2022 2:40 PM [facility] (more content not included)... Normal [facility] Hepatic function 2000 panelo n 08-21-2022 Albumin [Mass/Vol] 4.5 g/dL Normal 3.9-4.9 [facility] Comment on above: Order Comment: Gokul garcia Type: BLOOD SPECIMEN Ordering Facility: [facility] Address: [address] [place] [id number] Performed By: #### 2 4323-8, 3040-3 #### [facility] CLIA [id number] [address] [place] [address] [place] ALP [Catalytic activity/Vol] 104 U/L Normal 55-149 [facility] Comment on above: Order Comment: Gokul garcia Type: BLOOD SPECIMEN Ordering Facility: [facility] Address: [address] Performed By: #### 2 4323-8, 3040-3 #### [facility] CLIA [id number] [address] [place], [place] [address] [place] [address] [place] With P-5'-P [Catalytic activity/Vol] 238 U/L High 10-54 [facility] Comment on above: Order Comment: Speci men Type: BLOOD SPECIMEN Ordering Facility: [facility] Address: [address] [place] [address] Performed By: #### 2 4323-8, 3040-3 #### [facility] CLIA [id number] [address] [place], [place] [address] [place] [address] AST With P-5'-P [Catalytic activity/Vol] 129 U/L High 14-40 [facility] Comment on above: Order Comment: Speci men Type: BLOOD SPECIMEN Ordering Facility: [facility] Address: [address] [place] [address] Performed By: #### 2 4323-8, 0-3 #### [facility] CLIA [id number] [address] [place] Bilirubin [Mass/Vol] 0.5 mg/dL Normal 0.2-1.3 [facility] Comment on above: Order Comment: Speci men Type: BLOOD SPECIMEN Ordering Facility: [facility] Address: [address] [place] [address] Performed By: #### 2 4323-8, 3040-3 #### [facility] CLIA [id number] [address] [place], [place] [address] [place] [address] Bilirubin.conjugated [Mass/Vol] mg/dL Normal <0.2 [facility] Comment on above: Order Comment: Speci men Type: BLOOD SPECIMEN Ordering Facility: [facility] Address: [address] [place] [address] Performed By: #### 2 4323-8, 3040-3 #### [facility] CLIA [id number] [address] [place] [address] [facility] Protein [Mass/Vol] 6.1 g/dL Low 6.3-8.0 [facility] Comment on above: Order Comment: Speci men Type: BLOOD SPECIMEN Ordering Facility: [facility] Address: [place] [address] Performed By: #### 2 4323-8, 3040-3 #### [facility] CLIA [id number] [address] [place] [address] [facility] [place] THERAPY NTon 08-21-2022 THERAPY NT HNO ID: [id number] Author: TONY Hernandes/Lucila Service: Occupational Therapy Author Type: Occupational Therapist Type: Therapy (PT/OT/Speech/Resp) Filed: 08/21/2022 1:19 PM Note Text: OCCUPATIONAL THERAPY MISSED VISIT SERVICE DATE: 08/21/2022 SERVICE TIME: 1317 to 1317 ROOM: [place] [address] Patient not seen due to No Skilled Needs. Reviewed pt's chart and discussed with PT. Pt has no skilled OT needs at this time. Will sign off. SIGNATURE: TONY Hernandes/Lucila PATIENT NAME: Penny Robin DATE: August 21, 2022 TIME: 1:19 PM Normal [facility] THERAPY NT HNO ID: [id number] Author: Rupal Max PT Service: Physical Therapy Author Type: Physical Therapist Type: Therapy (PT/OT/Speech/Resp) Filed: 08/21/2022 9:14 AM Note Text: Physical Therapy Evaluation SERVICE DATE: 08/21/2022 SERVICE TIME: 0837 to 0852 ROOM: [place] [address] Recommended Discharge Disposition: Home Recommended Discharge Disposition Comments: with family assist Anticipated Discharge Needs: Physical Assist at Home Physical Assist at Home for: Cleaning;Laundry;Meals PT 6 Clicks Score: 22 Reason for Hospital Admission: hit R side on barricade during laser tag Relevant Past Medical History: nothing on file Response to Therapy Interventions: Good participation in activities Home Environment Patient Lives With: Family Assistance Available: Part-Time Entry To Home: Stairs Number Of Stairs Into Home: 2 Number Of Stairs To Bed/Bath: flight Equipment Owned: (no medical equipment) Prior Functional Level: Within Functional Limits Prior Functional Level Comments: patient completely independent prior to admission Patient Report: Agreeable to PT session mobility performed during session in bold, other mobility completed during prior session and may no longer be correct or appropriate to complete. CURRENT FUNCTIONAL STATUS: Most recent performance Current Functional Mobility Assist Level Additional Information Rolling Independent Supine to Sit Independent Sit to Supine Independent Scooting Sit to Stand Stand By Assistance Stand to Sit Stand By Assistance Bed to Chair Toilet/Commode Gait Contact Guard Assistance Gait Device: None Gait Distance (feet): 2x75ft Stairs Contact Guard Assistance Stairs Device: Rail Number of Stairs: 12 Curb Step Car Transfer Blank gray indicate activity not attempted General Deviations/Observations: Michelle decreased Range of Motion: WFL Strength: WFL Balance: Static Sitting;Dynamic Sitting;Dynamic Standing;Static Standing Static Sitting Balance: Good Patient able to maintain balance without handhold support, limited postural sway Dynamic Sitting Balance: Good Patient accepts moderate challenge, able to maintain balance while picking up object off floor Static Standing Balance: Good Patient able to maintain balance without handhold support, limited postural sway Dynamic Standing Balance: Good Patient accepts moderate challenge, able to maintain balance while picking up object off floor JH-HLM: 7: Walk 25 feet or more Learning/Educational Needs: Discharge Plan Goals for Plan of Care: Patient /Caregiver Goals: Go Home Patient will be discontinued from Physical Therapy when no further skilled needs are identified in this setting. PLAN: PT Frequency: Discontinue therapy services Reasons Therapy Services Discontinued: No skilled needs Plan of Care developed with: Patient TREATMENT INTERVENTIONS: Therapy Diagnosis: No Skilled Need Interventions Provided: Evaluation $ Evaluation-Low (85692) Billed Units: 1 unit Discussed splinted coughing to assist with pain control. Discussed importance in using incentive spirometer. Training AND education provided in: Benefits of in-hospital mobility, Expected functional level, Role of Physical Therapy, Home safety The following therapeutic skills were used: Cues for sequencing/proper technique for activity, Cuing tactile, Cuing verbal, Cuing visual, Movement facilitation, Muscle activation facilitation, Postural alignment correction, Physical assist Skilled Treatment Time (minutes): 15 Please see discipline specific clinical documentation flowsheet for complete details for this therapy evaluation/treatment. SIGNATURE: Rupal Max PT PATIENT NAME: Penny Robin DATE: August 21, 2022 TIME: 9:14 AM Normal [facility] Basic metabolic 2000 panelon 08-20-2022 Anion gap [Moles/Vol] 8 mmol/L Low 9-18 [facility] Comment on above: Order Comment: Speci men Type: BLOOD SPECIMEN Ordering Facility: [facility] Address: [address] [place] [address] Performed By: #### 2 4323-8, 3040-3 #### [facility] CLIA [id number] [address] [place] [address] [place] Calcium [Mass/Vol] 9.4 mg/dL Normal 8.5-10.2 [facility] Comment on above: Order Comment: Speci men Type: BLOOD SPECIMEN Ordering Facility: [facility] Address: [address] [place] [address] Performed By: #### 2 4323-8, 3040-3 #### [facility] CLIA [id number] [address] [place] [address] [place] Chloride [Moles/Vol] 99 mmol/L Normal 97-105 [facility] Comment on above: Order Comment: Speci men Type: BLOOD SPECIMEN Ordering Facility: [facility] Address: [address] [place] [address] Performed By: #### 2 4323-8, 3040-3 #### [facility] CLIA [id number] [address] [place] [address] [place] CO2 [Moles/Vol] 29 mmol/L Normal 22-30 [facility] Comment on above: Order Comment: Speci men Type: BLOOD SPECIMEN Ordering Facility: [facility] Address: [address] [place] [address] Performed By: #### 2 4323-8, 3040-3 #### [facility] CLIA [id number] [address] [place] [address] [place] Creatinine [Mass/Vol] 0.96 mg/dL Normal 0.73-1.22 [facility] Comment on above: Order Comment: Speci men Type: BLOOD SPECIMEN Ordering Facility: [facility] Address: [address] [place] [address] Performed By: #### 2 4323-8, 0-3 #### [facility] CLIA [id number] [address] [place], [place] [address] [place] ESTIMATED GLOMERULAR FILTRATION RATE 117 mL/min/1.73m??? Normal >=60 [facility] Comment on above: Order Comment: Gokul garcia Type: BLOOD SPECIMEN Ordering Facility: [facility] Address: [address] [place] [address] Result Comment: Magda mated Glomerular Filtration Rate (eGFR) is calculated using the 2020 CKD-EPI creatinine equation. This equation utilizes serum creatinine, sex, and age as parameters. The creatinine assay has traceable calibration to isotope dilution-mass spectrometry. Refer to KDIGO guidelines for clinical interpretation. In patients with unstable renal function, e.g. those with acute kidney injury, the eGFR may not accurately reflect actual GFR. Performed By: #### 2 4323-8, 3039-3 #### [facility] CLIA [id number] [address] [place] [address] [place] Glucose [Mass/Vol] 110 mg/dL High 74-99 [facility] Comment on above: Order Comment: Gokul garcia Type: BLOOD SPECIMEN Ordering Facility: [facility] Address: [address] [place] [address] Result Comment: The [place] Diabetes Association (ADA) provides guidance for cutoff values for fasting glucose and random glucose. The ADA defines fasting as no caloric intake for at least 8 hours. Fasting plasma glucose results between 100 to 125 mg/dL indicate increased risk for diabetes (prediabetes). Fasting plasma glucose results greater than or equal to 126 mg/dL meet the criteria for diagnosis of diabetes. In the absence of unequivocal hyperglycemia, results should be confirmed by repeat testing. In a patient with classic symptoms of hyperglycemia or hyperglycemic crisis, random plasma glucose results greater than or equal to 200 mg/dL meet the criteria for diagnosis of diabetes. Reference: Standards of Medical Care in Diabetes 2016, [place] [employer] Association. Diabetes Care. 2016.39(Suppl 1). Performed By: #### 2 4323-8, 3040-3 #### [facility] CLIA [id number] [address] [place] [address] [place] Potassium [Moles/Vol] 3.7 mmol/L Normal 3.7-5.1 [facility] Comment on above: Order Comment: Speci men Type: BLOOD SPECIMEN Ordering Facility: [facility] Address: [address] [place] [address] Performed By: #### 2 4323-8, 3040-3 #### [facility] CLIA [id number] [address] [place] [address] [place] Sodium [Moles/Vol] 136 mmol/L Normal 136-144 [facility] Comment on above: Order Comment: Speci men Type: BLOOD SPECIMEN Ordering Facility: [facility] Address: [address] [place] [address] Performed By: #### 2 4323-8, 0-3 #### [facility] CLIA [id number] [address] [place] [address] [place] Urea nitrogen [Mass/Vol] 7 mg/dL Low 9-24 [facility] Comment on above: Order Comment: Speci men Type: BLOOD SPECIMEN Ordering Facility: [facility] Address: [address] [place] [address] Performed By: #### 2 4323-8, 0-3 #### [facility] CLIA [id number] [address] [place] [address] [facility] [place] CASE MANAGEMon 08-20-2022 CASE MANAGEM HNO ID: [id number] Author: BERENICE Garay Service: ? Author Type: Associate Project Manager Type: Care Mgt Progress Note Filed: 08/20/2022 10:55 AM Note Text: CARE MANAGEMENT PROGRESS NOTE SERVICE DATE: 08/20/2022 SERVICE TIME: 10:50 AM LOS: 2 days ALCOHOL USE HISTORY: 1. Consumption Screening Male 5 or more drinks in one session:No More than 2 drinks per day:No More than 14 drinks per week:No 2. Have you ever felt you should cut down on your drinking? No 3. Have people annoyed you by criticizing your drinking? No 4. Have you ever felt bad or guilty about drinking? No 5. 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 CAGE Screening? No 7. If patient has a positive screen CAGE or Consumption, what is their total number of drinks per day? 0 8. Date of last alcohol use: na ALCOHOL/DRUG HISTORY: Marijuana Has drinking/drug use affected your work performance? No Has drinking/drug use caused you to miss work? No Has drinking/drug use affected your relationships? No Has drinking/drug use affected your health? No Has drinking/drug use had legal consequences? No Do you have a history of substance abuse treatment? Yes MENTAL HEALTH HISTORY: Do you have a history of mental health issues? No Have you ever had any behavioral problems/anger management issues? No PSYCHOSOCIAL ASSESSMENT: Current living situation: mother, father, sister Social supports: family and friends. Do you have a family history of alcohol/drug use? No Do you have a family history of mental health issues? No Significant childhood events (trauma, abuse, neglect)? no Current or past history of abuse/neglect? No Cultural beliefs related to alcohol/drug use? No Self care issues? No Difficulty communicating with others? No Financial difficulties? No Currently employed? Yes Student? No Past or present ? No PLAN/RECOMMENDATIONS: Patient Education: na Recommended/Reviewed Abstinence for the following: na Motivation to seek treatment at this time: Low Barriers to seeking treatment: No barriers identified Treatment Referral: na Other Referrals: na Sw spoke to patient, patient denies any use of marijuana. Patient declined resources. Patient does not feel he has any issues with marijuana or any other drug. SIGNATURE: BERENICE Silva PATIENT NAME: Penny Robin DATE: August 20, 2022 TIME: 10:50 AM PAGER/CONTACT #: [phone] Normal [facility] CBC panel Auto (Bld)on 08-20 Erythrocyte distribution width (RBC) [Ratio] 13.3 % Normal 11.5-15.0 [facility] Comment on above: Order Comment: Speci men Type: BLOOD SPECIMEN Ordering Facility: [facility] Address: [address] [address] Performed By: #### 5 8410-2 #### [facility] CLIA [id number] [address] Hematocrit (Bld) [Volume fraction] 26.5 % Low 39.0-51.0 [facility] Comment on above: Order Comment: Speci men Type: BLOOD SPECIMEN Ordering Facility: [facility] Address: [address] [place] [address] Performed By: #### 5 8410-2 #### [facility] CLIA [id number] [address] Hemoglobin (Bld) [Mass/Vol] 8.5 g/dL Low 13.0-17.0 [facility] Comment on above: Order Comment: Speci men Type: BLOOD SPECIMEN Ordering Facility: [facility] Address: [address] [place] [address] Performed By: #### 5 8410-2 #### [facility] CLIA [id number] [address] MCH (RBC) [Entitic mass] 27.0 pg Normal 26.0-34.0 [facility] Comment on above: Order Comment: Speci men Type: BLOOD SPECIMEN Ordering Facility: [facility] Address: [address] [place] [address] Performed By: #### 5 8410-2 #### [facility] CLIA [id number] [address] STATES OF [facility] MCHC (RBC) [Mass/Vol] 32.1 g/dL Normal 30.5-36.0 [facility] Comment on above: Order Comment: Speci men Type: BLOOD SPECIMEN Ordering Facility: [facility] Address: [address] [address] Performed By: #### 5 8410-2 #### [facility] CLIA [id number] [address] MCV (RBC) [Entitic vol] 84.1 fL Normal 80.0-100.0 [facility] Comment on above: Order Comment: Speci men Type: BLOOD SPECIMEN Ordering Facility: [facility] Address: [address] [address] Performed By: #### 5 8410-2 #### [facility] CLIA [id number] [address] [place] Nucleated RBC (Bld) [#/Vol] 10*3/uL Normal <0.01 [facility] Comment on above: Order Comment: Speci men Type: BLOOD SPECIMEN Ordering Facility: [facility] Address: [address] [address] Performed By: #### 5 8410-2 #### [facility] CLIA [id number] [address] [place] Platelet mean volume (Bld) [Entitic vol] 10.5 fL Normal 9.0-12.7 [facility] Comment on above: Order Comment: Speci men Type: BLOOD SPECIMEN Ordering Facility: [facility] Address: [address] [address] Performed By: #### 5 8410-2 #### [facility] CLIA [id number] [address] [place] Platelets (Bld) [#/Vol] 259 10*3/uL Normal 150-400 [facility] Comment on above: Order Comment: Speci men Type: BLOOD SPECIMEN Ordering Facility: [facility] Address: [address] [address] Performed By: #### 5 8410-2 #### [facility] CLIA [id number] [address] [place] RBC (Bld) [#/Vol] 3.15 10*6/uL Low 4.20-6.00 [facility] Comment on above: Order Comment: Speci men Type: BLOOD SPECIMEN Ordering Facility: [facility] Address: [address] [address] Performed By: #### 5 8410-2 #### [facility] CLIA [id number] [address] [place] WBC (Bld) [#/Vol] 5.74 10*3/uL Normal 3.70-11.00 [facility] Comment on above: Order Comment: Speci men Type: BLOOD SPECIMEN Ordering Facility: [facility] Address: [address] [place] [address] Performed By: #### 5 8410-2 #### [facility] CLIA [id number] [address] [place] Erythrocyte distribution width (RBC) [Ratio] 13.2 % Normal 11.5-15.0 [facility] Comment on above: Order Comment: Speci men Type: BLOOD SPECIMEN Ordering Facility: [facility] Address: [address] [place] [address] Performed By: #### 2 4323-8, 3040-3 #### [facility] CLIA [id number] [address] [place] [address] OF [facility] Hematocrit (Bld) [Volume fraction] 27.1 % Low 39.0-51.0 [facility] Comment on above: Order Comment: Speci men Type: BLOOD SPECIMEN Ordering Facility: [facility] Address: [address] [place] [address] Performed By: #### 2 4323-8, 3040-3 #### [facility] CLIA [id number] [address] [place] Hemoglobin (Bld) [Mass/Vol] 8.6 g/dL Low 13.0-17.0 [facility] Comment on above: Order Comment: Speci men Type: BLOOD SPECIMEN Ordering Facility: [facility] Address: [address] [place] [address] Performed By: #### 2 4323-8, 3040-3 #### [facility] CLIA [id number] [address] [place], [place] [address] [place] [address] [place] MCH (RBC) [Entitic mass] 26.8 pg Normal 26.0-34.0 [facility] Comment on above: Order Comment: Speci men Type: BLOOD SPECIMEN Ordering Facility: [facility] Address: [address] [address] Performed By: #### 2 4323-8, 0-3 #### [facility] CLIA [id number] [address] [place] [address] [place] MCHC (RBC) [Mass/Vol] 31.7 g/dL Normal 30.5-36.0 [facility] Comment on above: Order Comment: Speci men Type: BLOOD SPECIMEN Ordering Facility: [facility] Address: [address] [address] Performed By: #### 2 4323-8, 3039-3 #### [facility] CLIA [id number] [address] [place] [address] [place] MCV (RBC) [Entitic vol] 84.4 fL Normal 80.0-100.0 [facility] Comment on above: Order Comment: Speci men Type: BLOOD SPECIMEN Ordering Facility: [facility] Address: [address] [place] [address] Performed By: #### 2 4323-8, 3039-3 #### [facility] CLIA [id number] [address] [place] [address] [place] Nucleated RBC (Bld) [#/Vol] 10*3/uL Normal <0.01 [facility] Comment on above: Order Comment: Speci men Type: BLOOD SPECIMEN Ordering Facility: [facility] Address: [address] [address] Performed By: #### 2 4323-8, 0-3 #### [facility] CLIA [id number] [address] [place] Platelet mean volume (Bld) [Entitic vol] 10.7 fL Normal 9.0-12.7 [facility] Comment on above: Order Comment: Speci men Type: BLOOD SPECIMEN Ordering Facility: [facility] Address: [address] [place] [address] Performed By: #### 2 4323-8, 3040-3 #### [facility] CLIA [id number] [address] [place] [address] [facility] Platelets (Bld) [#/Vol] 240 10*3/uL Normal 150-400 [facility] Comment on above: Order Comment: Speci men Type: BLOOD SPECIMEN Ordering Facility: [facility] Address: [address] [address] Performed By: #### 2 4323-8, 3040-3 #### [facility] CLIA [id number] [address] [place] [address] [facility] RBC (Bld) [#/Vol] 3.21 10*6/uL Low 4.20-6.00 [facility] Comment on above: Order Comment: Speci men Type: BLOOD SPECIMEN Ordering Facility: [facility] Address: [address] [address] Performed By: #### 2 4323-8, 3040-3 #### [facility] CLIA [id number] [address] [place] [address] [facility] WBC (Bld) [#/Vol] 5.85 10*3/uL Normal 3.70-11.00 [facility] Comment on above: Order Comment: Speci men Type: BLOOD SPECIMEN Ordering Facility: [facility] Address: [address] [place] [address] Performed By: #### 2 4323-8, 3040-3 #### [facility] CLIA [id number] [address] [place] [address] [facility] CONSULT PROGon 08-20-2022 CONSULT PROG HNO ID: [id number] Author: Melvin Blevins MD Service: General Surgery Author Type: Resident Type: Consult Progress Note Filed: 08/20/2022 7:36 AM Note Text: ----- Attestation signed by Leoncio Aguilera MD at 08/20/2022 12:40 PM Surgical Critical Care Addendum/Attestation: I evaluated Penny Robin on 08/20/2022. I have personally seen and examined this patient and participated in the valle components of this encounter with the multi-disciplinary ICU team. I discussed the management of this case with the resident and reviewed/confirmed their documentation, attached or in separate note. I personally reviewed today's actual images, the associated image reports, and current labs. I supervised the ordering of additional testing, imaging, labs, and/or consultations. The patient and/or family were fully informed of the findings and plan of care. They had the opportunity to ask questions and raise any issues of concern, all of which were answered and dealt with by me to their stated satisfaction. Appropriate to transfer to the floor. Doing well, progressive mobility. Multi-modal pain control. May need PT/OT evaluation. Leoncio Aguilera MD ----- INPATIENT SICU PROGRESS NOTE SERVICE DATE: 08/20/2022 SERVICE TIME: 7:23 AM Subjective Patient seen and examined this morning, resting in bed comfortably. He mentions that since walking yesterday he's had slightly increased pain in his right chest.. He mentions his belly pain is improving. He is currently breathing without difficulty however noted discomfort with maximal expiration on spirometry. Current Facility-Administered Medications Medication Dose Route Frequency potassium chloride ER 20-40 mEq tab(s) (K-DUR, KLOR-CON) 20-40 mEq ORAL/FEEDING TUBE PRN Or potassium chloride iv piggyback 20 mEq/100 mL 20 mEq INTRAVENOUS PRN magnesium sulfate 2 g in sterile water 50 ml 2 g INTRAVENOUS PRN phosphorus 500 mg tab(s) (K PHOS NEUTRAL) 500 mg ORAL/FEEDING TUBE PRN(NO DISPENSE) calcium gluconate 4 g in NaCl 0.9% 250 mL 4 g INTRAVENOUS PRN NaCl 0.9% iv flush bag 20 mL INTRAVENOUS PRN sodium chloride 0.9 % (flush) 3-5 mL (BD POSIFLUSH) 3-5 mL INTRAVENOUS q 12 H oxyCODONE IR 5-10 mg tab(s) (ROXICODONE) 5-10 mg ORAL q 6 H PRN lidocaine 4 % 1 Patch (SALONPAS) 1 Patch TRANSDERMAL DAILY AT 9 PM And lidocaine patch - REMOVE OTHER DAILY And lidocaine - VERIFY PATCH OTHER q 8 H methocarbamol 750 mg tab(s) (ROBAXIN) 750 mg ORAL QID PRN morphine 2 mg injection 2 mg INTRAVENOUS q 3 H PRN senna 8.6 mg tab(s) (SENOKOT) 8.6 mg ORAL BID lamoTRIgine 300 mg tab(s) (LaMICtal) 300 mg ORAL BID levETIRAcetam (KEPPRA) tab(s) 2,500 mg 2,500 mg ORAL BID ipratropium-albuterol 3 mL nebulizer solution (DUONEB) 3 mL INHALATION q 4 H PRN acetaminophen 1,000 mg tab(s) (TYLENOL) 1,000 mg ORAL QID Objective VITAL SIGNS BP 107/51 Pulse 63 Temp (Src) 96.8 (Axillary) Resp 19 Ht 5' 8 (1.73m) Wt 136 lb 11 oz (62.0kg) SpO2 99% BMI 20.79 kg/(m2). O2 Therapy: Room Air Temp (24hrs), Av.1 ?C (97 ?F), Min:36 ?C (96.8 ?F), Max:36.5 ?C (97.7 ?F) Date 08/19/22699 - 08/20/22 0659 08/20/22699 - 08/21/22 0659 Shift 2342-2302 8068-0833 5507-0659 24 Hour Total 1161-9145 5622-9060 9809-2898 24 Hour Total INTAKE PO 600 360 960 PO 600 360 960 Shift Total 600 360 960 OUTPUT Urine 1850 206 588 5179 Void (ml) 1850 570 678 7167 Shift Total 1850 948 888 0505 Weight (kg) 59.9 59.9 62 62 62 62 62 62 PHYSICAL EXAM: GENERAL: Alert. No distress. Resting comfortably. NEURO: AANDOx3. No focal neurologic deficits. Sensation grossly intact. HEENT: Normocephalic. Atraumatic. EOMI. LUNGS: Unlabored breathing. Equal excursion bilaterally. CARDIAC: Regular rate, on tele, Good perfusion throughout. ABDOMEN: TTP over the over the abdomen. No rebound or guarding. EXTREMITIES: [place]. No deformities. SKIN: No obvious jaundice or pallor. DATA: Diagnostic tests reviewed for today's visit: No results for input(s): BODSITE, CTYPE, PH, PCO2, PO2, BE, HCO3, CO2CT, O2HB, COHB, MHGB, TEMP, PHTC, PCO2T, PO2T, O2AD in the last 72 hours. Recent Labs 08/20/22 03508/19/22195508/19/22 1125 08/19/22 0356 08/18/22 1915 08/18/22 1515 08/18/22 1202 CREAT 0.96 -- -- 1.02 -- 0.98 1.03 BUN 7* -- -- 11 -- 15 15 NA 136 -- -- 140 -- 135* 139 K 3.7 -- -- 3.6* -- 3.8 4.1 CHLOR 99 -- -- 101 -- 98 101 CO2 29 -- -- 31* -- 28 28 ANION 8* -- -- 8* -- 9 10 GLUC 110* -- -- 100* -- 94 90 CA 9.4 -- -- 9.1 -- 8.9 9.3 P 3.5 -- -- 3.7 -- -- -- MG 1.8 -- -- 2.0 -- -- -- ALB 4.5 -- -- 4.3 -- 4.4 4.7 AST 94* -- -- 101* -- 132* 156* ALT 212* -- -- 239* -- 266* 311* ALKPHOS 87 -- -- 79 -- 76 82 TBILI 0.5 -- -- 0.4 -- 0.5 0.5 WBC 5.85 6.37 6.00 6.61 8.21 7.28 10.59 HB 8.6* 8.3* 8.3* 8.1* 8 (more content not included)... Normal [facility] Hepatic function 2000 panelo n 08-20-2022 Albumin [Mass/Vol] 4.5 g/dL Normal 3.9-4.9 [facility] Comment on above: Order Comment: Speci men Type: BLOOD SPECIMEN Ordering Facility: [facility] Address: [address] [place] [address] Performed By: #### 2 4323-8, 3040-3 #### [facility] CLIA [id number] [address] ALP [Catalytic activity/Vol] 87 U/L Normal 55-149 [facility] Comment on above: Order Comment: Gokul garcia Type: BLOOD SPECIMEN Ordering Facility: [facility] Address: [address] [place] [address] Performed By: #### 2 4323-8, 3040-3 #### [facility] CLIA [id number] [address] [place] ALT With P-5'-P [Catalytic activity/Vol] 212 U/L High 10-54 [facility] Comment on above: Order Comment: Speci men Type: BLOOD SPECIMEN Ordering Facility: [facility] Address: [address] [place] [address] Performed By: #### 2 4323-8, 3040-3 #### [facility] CLIA [id number] [address] [place] AST With P-5'-P [Catalytic activity/Vol] 94 U/L High 14-40 [facility] Comment on above: Order Comment: Speci men Type: BLOOD SPECIMEN Ordering Facility: [facility] Address: [address] [place] [address] Performed By: #### 2 4323-8, 3040-3 #### [facility] CLIA [id number] [address] [place] [address] [place] Bilirubin [Mass/Vol] 0.5 mg/dL Normal 0.2-1.3 [facility] Comment on above: Order Comment: Speci men Type: BLOOD SPECIMEN Ordering Facility: [facility] Address: [address] [place] [address] Performed By: #### 2 4323-8, 3040-3 #### [facility] CLIA [id number] [address] [place] [address] [place] Bilirubin.conjugated [Mass/Vol] mg/dL Normal <0.2 [facility] Comment on above: Order Comment: Speci men Type: BLOOD SPECIMEN Ordering Facility: [facility] Address: [address] [place] [address] Performed By: #### 2 4323-8, 3040-3 #### [facility] CLIA [id number] [address] [place] Protein [Mass/Vol] 6.0 g/dL Low 6.3-8.0 [facility] Comment on above: Order Comment: Speci men Type: BLOOD SPECIMEN Ordering Facility: [facility] Address: [address] [place] [address] Performed By: #### 2 4323-8, 3040-3 #### [facility] CLIA [id number] [address] [place] [address] [place] Magnesium SerPl-mCncon 08-20 Magnesium [Mass/Vol] 1.8 mg/dL Normal 1.7-2.3 [facility] [facility] Comment on above: Order Comment: Speci men Type: BLOOD SPECIMEN Ordering Facility: [facility] Address: [address] [place] [address] Performed By: #### 2 4323-8, 3040-3 #### [facility] CLIA [id number] [address] [place] [address] [facility] Phosphate SerPl-mCncon 08-20 Phosphate [Mass/Vol] 3.5 mg/dL Normal 2.7-4.8 [facility] Comment on above: Order Comment: Gokul garcia Type: BLOOD SPECIMEN Ordering Facility: [facility] Address: [address] [place] [address] Performed By: #### 2 4323-8, 3040-3 #### [facility] CLIA [id number] [address] [place], [place] [address] [place] ALLIED HEALTHon 08-19-2022 ALLIED HEALTH HNO ID: [id number] Author: RT Jacqueline(R) Service: Radiology Author Type: Technologist Type: Allied Health Filed: 08/19/2022 1:13 AM Note Text: Radiology Service Progress Note PATIENT NAME: Penny Robin DATE OF SERVICE: August 19, 2022 TIME: 1:13 AM PATIENT IDENTITY VERIFICATION COMPLETED USING TWO (2) IDENTIFIERS: Name and Date of confirmed by patient verbally and Name and Date of confirmed by identification band. FALL SCREENING: Has the patient had 2 falls in the last year or 1 fall with injury or currently using an Ambulatory Assistive Device (Walker, Cane, Wheelchair, Crutches, etc.)? Inpatient: Screened on floor PATIENT GENDER DATA: Male PATIENT RELEVANT IMPLANT DATA REVIEWED: Not Applicable RADIOLOGY DEPARTMENT: CT; Exam(s) Completed: Chest PERIPHERAL IV DATA: Not applicable SIGNED BY: RT Jacqueline(R) August 19, 2022 1:13 AM Normal [facility] Basic metabolic 2000 panelon 08-19-2022 Anion gap [Moles/Vol] 8 mmol/L Low 9-18 [facility] Comment on above: Order Comment: Gokul garcia Type: BLOOD SPECIMEN Ordering Facility: [facility] Address: [address] [place] [id number] Performed By: #### 2 4323-8, 0-3 #### [facility] CLIA [id number] [address] [place], [place] [address] [facility] [place] Calcium [Mass/Vol] 9.1 mg/dL Normal 8.5-10.2 [facility] Comment on above: Order Comment: Gokul garcia Type: BLOOD SPECIMEN Ordering Facility: [facility] Address: [address] [place] [address] Performed By: #### 2 4323-8, 3040-3 #### [facility] CLIA [id number] [address] [place] [address] [place] Chloride [Moles/Vol] 101 mmol/L Normal 97-105 [facility] Comment on above: Order Comment: Speci men Type: BLOOD SPECIMEN Ordering Facility: [facility] Address: [address] [place] [address] Performed By: #### 2 4323-8, 0-3 #### [facility] CLIA [id number] [address] [place] [address] [place] CO2 [Moles/Vol] 31 mmol/L High 22-30 [facility] Comment on above: Order Comment: Speci men Type: BLOOD SPECIMEN Ordering Facility: [facility] Address: [address] [place] [address] Performed By: #### 2 4323-8, 0-3 #### [facility] CLIA [id number] [address] [place] [address] [place] Creatinine [Mass/Vol] 1.02 mg/dL Normal 0.73-1.22 [facility] Comment on above: Order Comment: Speci men Type: BLOOD SPECIMEN Ordering Facility: [facility] Address: [address] [place] [address] Performed By: #### 2 4323-8, 3040-3 #### [facility] CLIA [id number] [address] [place] [address] [facility] ESTIMATED GLOMERULAR FILTRATION RATE 109 mL/min/1.73m??? Normal >=60 [facility] Comment on above: Order Comment: Speci men Type: BLOOD SPECIMEN Ordering Facility: [facility] Address: [address] [place] [address] Result Comment: Magda mated Glomerular Filtration Rate (eGFR) is calculated using the 2020 CKD-EPI creatinine equation. This equation utilizes serum creatinine, sex, and age as parameters. The creatinine assay has traceable calibration to isotope dilution-mass spectrometry. Refer to KDIGO guidelines for clinical interpretation. In patients with unstable renal function, e.g. those with acute kidney injury, the eGFR may not accurately reflect actual GFR. Performed By: #### 2 4323-8, 0-3 #### [facility] CLIA [id number] [address] [place] [address] [place] Glucose [Mass/Vol] 100 mg/dL High 74-99 [facility] Comment on above: Order Comment: Gokul garcia Type: BLOOD SPECIMEN Ordering Facility: [facility] Address: [address] [place], [place] [address] Result Comment: The [place] Diabetes Association (ADA) provides guidance for cutoff values for fasting glucose and random glucose. The ADA defines fasting as no caloric intake for at least 8 hours. Fasting plasma glucose results between 100 to 125 mg/dL indicate increased risk for diabetes (prediabetes). Fasting plasma glucose results greater than or equal to 126 mg/dL meet the criteria for diagnosis of diabetes. In the absence of unequivocal hyperglycemia, results should be confirmed by repeat testing. In a patient with classic symptoms of hyperglycemia or hyperglycemic crisis, random plasma glucose results greater than or equal to 200 mg/dL meet the criteria for diagnosis of diabetes. Reference: Standards of Medical Care in Diabetes 2016, [place] Diabetes Association. Diabetes Care. 2016.39(Suppl 1). Performed By: #### 2 4323-8, 3039-3 #### [facility] CLIA [id number] [address] [place] [address] [place] Potassium [Moles/Vol] 3.6 mmol/L Low 3.7-5.1 [facility] Comment on above: Order Comment: Gokul garcia Type: BLOOD SPECIMEN Ordering Facility: [facility] Address: [address] [place] [address] Performed By: #### 2 4323-8, 3039-3 #### [facility] CLIA [id number] [address] [place] [address] [place] Sodium [Moles/Vol] 140 mmol/L Normal 136-144 [facility] Comment on above: Order Comment: Gokul garcia Type: BLOOD SPECIMEN Ordering Facility: [facility] Address: [place] [address] Performed By: #### 2 4323-8, 3040-3 #### [facility] CLIA [id number] [address] [place] [address] [facility] Urea nitrogen [Mass/Vol] 11 mg/dL Normal 9-24 [facility] Comment on above: Order Comment: Speci men Type: BLOOD SPECIMEN Ordering Facility: [facility] Address: [place] [address] Performed By: #### 2 4323-8, 3040-3 #### [facility] CLIA [id number] [address] [place] [address] [facility] CASE MGT INIT ASSESon 2021 CASE MGT INIT ASSES HNO ID: [id number] Author: BERENICE Garay Service: ? Author Type: Associate Project Manager Type: Care Mgt Initial Assessment Filed: 08/19/2022 3:09 PM Note Text: CARE MANAGEMENT: ASSESSMENT AND DISCHARGE PLAN SERVICE DATE: August 19, 2022 SERVICE TIME: 1:29 PM PRIMARY CARE PHYSICIAN: Leoncio Vallejo MD Primary Contact: Extended Emergency Contact Information Primary Emergency Contact: Rashard Duarte Address: [address] [place] [address] Relation: Mother Secondary Emergency Contact: Ez Robin Address: [address] [place] [address] Mobile Relation: Father ADMISSION STATUS: Inpatient Insurance Provider: [employer] PPO NEEDS PRIOR TO DISCHARGE Needs Prior to Discharge: (medical clearance) POTENTIAL TRANSITION PLANS To Be Determined Based on clinical judgement, Care Management will address the following needs: Medical;Cognitive;Social; Functional Patient's perception of need for this admission: ADVANCE DIRECTIVES Current Advance Directive: 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: To have reduction in pain;To have reduction in symptoms;To improve my functional status;To return home to life as it was Under the care of a PCP?: Yes, Internal Provider Provider Name: dr vallejo Does the patient have transportation upon discharge?: Yes Use of any community resources?: No Does the patient have a stable and supportive living arrangement and home setting?: Yes Any potential risks related to substance abuse and/or behavioral health?: Yes Based on clinical judgement, Care Management will address the following needs: Medical;Cognitive;Social; Functional CAREGIVER ASSESSMENT Caregiver is ready, willing and able to meet the patient's needs as recommended by the inter-professional team:: Yes Patient's transition needs and plan for meeting these needs: dc tbd MEDICAL Medical Needs: Two or more chronic diseases Health Issues Impacting Discharge Plan: (trauma ran into barricade at [employer], liver lac grade iv, hx brain tumor, +marijuana) Medication Adherance I am convinced of the importance of my prescription medication: 0 - Agree Completely I worry that my prescription medication will do more harm than good to me : 0 - Disagree Completely I feel financially burdened by my qcw-sq-xemtnv expenses for my prescription medication:: 0 - Disagree Completely Risk Score: 0 Patient is categorized as: Low risk < 2 SOCIAL Living Arrangements: Home Lives With: Mother;Father;Other: See Comment (sister) Financial Resources: Employed Supportive Patient Contact:: Yes Contact Resources: Family Family Name/Phone: rashard crawford [phone] Is Patient Psychosocially Complex?: Yes, refer to Social Work Contact Resources: Family Family Name/Phone: rashard crawford [phone] Health Literacy How often do you need to have someone help you when you read instructions, pamphlets, or other written material from your doctor or pharmacy? : 1 - Never How confident are you filling out medical forms by yourself?: 1 - Extremely If Patient scores > 3 on either question, the following interventions were put into place:: Patient did not score > 3 on either question. Food Insecurity: No Food Insecurity Worried About Running Out of Food in the Last Year: Never true Ran Out of Food in the Last Year: Never true Financial Resource Strain: Low Risk Difficulty of Paying Living Expenses: Not hard at all Transportation Needs: No Transportation Needs Lack of Transportation (Medical): No Lack of Transportation (Non-Medical): No Housing Stability: Low Risk Unable to Pay for Housing in the Last Year: No Number of Places Lived in the Last Year: 1 Unstable Housing in the Last Year: No BEHAVIORAL/COGNITIVE Psychosocial Psychosocial Needs: Chemical Dependency Drug of Choice: marijuana Treatment: None FUNCTIONAL How do you manage to accomplish the following: Independent: Ambulation;Bathe/Shower;D ress;Meals/Meal Prep;Going to the bathroom;Medication Management;Transportation to appointments/community Services/Needs//Equipment Does Patient Currently Receive Any Community Services or Home Care?: None Equipment Prior to Admission: None Has the Patient Been in a Skilled Nu (more content not included)... Normal [facility] CBC panel Auto (Bld)on 08-19 Erythrocyte distribution width (RBC) [Ratio] 13.2 % Normal 11.5-15.0 [facility] Comment on above: Order Comment: Gokul garcia Type: BLOOD SPECIMEN Ordering Facility: [facility] Address: [address] [place] [address] Performed By: #### 5 8410-2 #### [facility] CLIA [id number] [address] [place] [address] [place] Hematocrit (Bld) [Volume fraction] 25.3 % Low 39.0-51.0 [facility] Comment on above: Order Comment: Gokul garcia Type: BLOOD SPECIMEN Ordering Facility: [facility] Address: [address] [place] [address] Performed By: #### 5 8410-2 #### [facility] CLIA [id number] [address] [place] [address] [place] Hemoglobin (Bld) [Mass/Vol] 8.3 g/dL Low 13.0-17.0 [facility] Comment on above: Order Comment: Gokul garcia Type: BLOOD SPECIMEN Ordering Facility: [facility] Address: [address] [place], [place] [address] Performed By: #### 5 8410-2 #### [facility] CLIA [id number] [address] [place] [address] MCH (RBC) [Entitic mass] 27.6 pg Normal 26.0-34.0 [facility] Comment on above: Order Comment: Speci men Type: BLOOD SPECIMEN Ordering Facility: [facility] Address: [address] [place] [address] Performed By: #### 5 8410-2 #### [facility] CLIA [id number] [address] [place] [address] MCHC (RBC) [Mass/Vol] 32.8 g/dL Normal 30.5-36.0 [facility] Comment on above: Order Comment: Speci men Type: BLOOD SPECIMEN Ordering Facility: [facility] Address: [address] [place] [address] Performed By: #### 5 8410-2 #### [facility] CLIA [id number] [address] [place] [address] MCV (RBC) [Entitic vol] 84.1 fL Normal 80.0-100.0 [facility] Comment on above: Order Comment: Speci men Type: BLOOD SPECIMEN Ordering Facility: [facility] Address: [address] [place] [address] Performed By: #### 5 8410-2 #### [facility] CLIA [id number] [address] [place] [address] Nucleated RBC (Bld) [#/Vol] 10*3/uL Normal <0.01 [facility] Comment on above: Order Comment: Speci men Type: BLOOD SPECIMEN Ordering Facility: [facility] Address: [address] [place] [address] Performed By: #### 5 8410-2 #### [facility] CLIA [id number] [address] [place] [address] Platelet mean volume (Bld) [Entitic vol] 10.6 fL Normal 9.0-12.7 [facility] Comment on above: Order Comment: Speci men Type: BLOOD SPECIMEN Ordering Facility: [facility] Address: [address] [place] [address] Performed By: #### 5 8410-2 #### [facility] CLIA [id number] [address] [place] [address] [place] Platelets (Bld) [#/Vol] 211 10*3/uL Normal 150-400 [facility] Comment on above: Order Comment: Speci men Type: BLOOD SPECIMEN Ordering Facility: [facility] Address: [address] [place] [address] Performed By: #### 5 8410-2 #### [facility] CLIA [id number] [address] [place] [address] [place] RBC (Bld) [#/Vol] 3.01 10*6/uL Low 4.20-6.00 [facility] Comment on above: Order Comment: Speci men Type: BLOOD SPECIMEN Ordering Facility: [facility] Address: [address] [place] [address] Performed By: #### 5 8410-2 #### [facility] CLIA [id number] [address] [place], [place] [address] [place] [address] [place] WBC (Bld) [#/Vol] 6.37 10*3/uL Normal 3.70-11.00 [facility] Comment on above: Order Comment: Speci men Type: BLOOD SPECIMEN Ordering Facility: [facility] Address: [address] [place] [address] Performed By: #### 5 8410-2 #### [facility] CLIA [id number] [address] [place], [place] [address] [place] [address] [place] Erythrocyte distribution width (RBC) [Ratio] 13.2 % Normal 11.5-15.0 [facility] Comment on above: Order Comment: Speci men Type: BLOOD SPECIMEN Ordering Facility: [facility] Address: [address] [place] [address] Performed By: #### 2 4323-8, 0-3 #### [facility] CLIA [id number] [address] [place], [place] [address] [place] [address] [place] Hematocrit (Bld) [Volume fraction] 25.6 % Low 39.0-51.0 [facility] Comment on above: Order Comment: Speci men Type: BLOOD SPECIMEN Ordering Facility: [facility] Address: [address] [place] [address] Performed By: #### 2 4323-8, 3039-3 #### [facility] CLIA [id number] [address] [place] [address] [facility] [place] Hemoglobin (Bld) [Mass/Vol] 8.3 g/dL Low 13.0-17.0 [facility] Comment on above: Order Comment: Speci men Type: BLOOD SPECIMEN Ordering Facility: [facility] Address: [address] [place] [address] Performed By: #### 2 4323-8, 3039-3 #### [facility] CLIA [id number] [address] [place] MCH (RBC) [Entitic mass] 27.0 pg Normal 26.0-34.0 [facility] Comment on above: Order Comment: Speci men Type: BLOOD SPECIMEN Ordering Facility: [facility] Address: [address] [place] [address] Performed By: #### 2 4323-8, 3039-3 #### [facility] CLIA [id number] [address] [place] [address] [place] MCHC (RBC) [Mass/Vol] 32.4 g/dL Normal 30.5-36.0 [facility] Comment on above: Order Comment: Speci men Type: BLOOD SPECIMEN Ordering Facility: [facility] Address: [address] [place] [address] Performed By: #### 2 4323-8, 0-3 #### [facility] CLIA [id number] [address] [place] [address] [place] MCV (RBC) [Entitic vol] 83.4 fL Normal 80.0-100.0 [facility] Comment on above: Order Comment: Speci men Type: BLOOD SPECIMEN Ordering Facility: [facility] Address: [address] [place] [address] Performed By: #### 2 4323-8, 3040-3 #### [facility] CLIA [id number] [address] [place] [address] [place] Nucleated RBC (Bld) [#/Vol] 10*3/uL Normal <0.01 [facility] Comment on above: Order Comment: Speci men Type: BLOOD SPECIMEN Ordering Facility: [facility] Address: [address] [place] [address] Performed By: #### 2 4323-8, 3040-3 #### [facility] CLIA [id number] [address] [place] [address] [place] Platelet mean volume (Bld) [Entitic vol] 10.9 fL Normal 9.0-12.7 [facility] Comment on above: Order Comment: Speci men Type: BLOOD SPECIMEN Ordering Facility: [facility] Address: [address] [place] [address] Performed By: #### 2 4323-8, 3040-3 #### [facility] CLIA [id number] [address] [place] [address] [place] Platelets (Bld) [#/Vol] 214 10*3/uL Normal 150-400 [facility] Comment on above: Order Comment: Speci men Type: BLOOD SPECIMEN Ordering Facility: [facility] Address: [address] [place] [address] Performed By: #### 2 4323-8, 3040-3 #### [facility] CLIA [id number] [address] [place] [address] [place] RBC (Bld) [#/Vol] 3.07 10*6/uL Low 4.20-6.00 [facility] Comment on above: Order Comment: Speci men Type: BLOOD SPECIMEN Ordering Facility: [facility] Address: [address] [place] [address] Performed By: #### 2 4323-8, 3040-3 #### [facility] CLIA [id number] [address] [place] [address] [place] WBC (Bld) [#/Vol] 6.00 10*3/uL Normal 3.70-11.00 [facility] Comment on above: Order Comment: Speci men Type: BLOOD SPECIMEN Ordering Facility: [facility] Address: [address] [place] [address] Performed By: #### 2 4323-8, 0-3 #### [facility] CLIA [id number] [address] [place] [address] [place] Erythrocyte distribution width (RBC) [Ratio] 13.2 % Normal 11.5-15.0 [facility] Comment on above: Order Comment: Speci men Type: BLOOD SPECIMEN Ordering Facility: [facility] Address: [address] [place] [address] Performed By: #### 2 4323-8, 0-3 #### [facility] CLIA [id number] [address] [place] [address] [place] Hematocrit (Bld) [Volume fraction] 24.9 % Low 39.0-51.0 [facility] Comment on above: Order Comment: Speci men Type: BLOOD SPECIMEN Ordering Facility: [facility] Address: [address] [place] [address] Performed By: #### 2 4323-8, 3040-3 #### [facility] CLIA [id number] [address] [place] [address] [place] Hemoglobin (Bld) [Mass/Vol] 8.1 g/dL Low 13.0-17.0 [facility] Comment on above: Order Comment: Speci men Type: BLOOD SPECIMEN Ordering Facility: [facility] Address: [address] [place] [address] Performed By: #### 2 4323-8, 0-3 #### [facility] CLIA [id number] [address] MCH (RBC) [Entitic mass] 27.4 pg Normal 26.0-34.0 [facility] Comment on above: Order Comment: Speci men Type: BLOOD SPECIMEN Ordering Facility: [facility] Address: [address] [place] [address] Performed By: #### 2 4323-8, 3039-3 #### [facility] CLIA [id number] [address] MCHC (RBC) [Mass/Vol] 32.5 g/dL Normal 30.5-36.0 [facility] Comment on above: Order Comment: Speci men Type: BLOOD SPECIMEN Ordering Facility: [facility] Address: [address] [place] [address] Performed By: #### 2 4328, 3039-3 #### [facility] CLIA [id number] [address] MCV (RBC) [Entitic vol] 84.1 fL Normal 80.0-100.0 [facility] Comment on above: Order Comment: Speci men Type: BLOOD SPECIMEN Ordering Facility: [facility] Address: [address] [place] [address] Performed By: #### 2 [address], 3039-3 #### [facility] CLIA [id number] [address] Nucleated RBC (Bld) [#/Vol] 10*3/uL Normal <0.01 [facility] Comment on above: Order Comment: Speci men Type: BLOOD SPECIMEN Ordering Facility: [facility] Address: [address] [place] [address] Performed By: #### 2 4323-8, 0-3 #### [facility] CLIA [id number] [address] [place], [place] [address] [place] [address] [place] Platelet mean volume (Bld) [Entitic vol] 10.6 fL Normal 9.0-12.7 [facility] Comment on above: Order Comment: Speci men Type: BLOOD SPECIMEN Ordering Facility: [facility] Address: [address] [place] [address] Performed By: #### 2 4323-8, 3040-3 #### [facility] CLIA [id number] [address] [place] [address] [facility] [place] Platelets (Bld) [#/Vol] 193 10*3/uL Normal 150-400 [facility] Comment on above: Order Comment: Speci men Type: BLOOD SPECIMEN Ordering Facility: [facility] Address: [address] [place] [address] Performed By: #### 2 4323-8, 3040-3 #### [facility] CLIA [id number] [address] [place] [address] [place] RBC (Bld) [#/Vol] 2.96 10*6/uL Low 4.20-6.00 [facility] Comment on above: Order Comment: Speci men Type: BLOOD SPECIMEN Ordering Facility: [facility] Address: [address] [place] [address] Performed By: #### 2 4323-8, 3040-3 #### [facility] CLIA [id number] [address] [place] [address] [place] WBC (Bld) [#/Vol] 6.61 10*3/uL Normal 3.70-11.00 [facility] Comment on above: Order Comment: Speci men Type: BLOOD SPECIMEN Ordering Facility: [facility] Address: [address] [place] [address] Performed By: #### 2 4323-8, 3040-3 #### [facility] CLIA [id number] [address] [place] [address] [facility] CT CHEST WO IVCONon 08-19-[address] CHEST WO IVCON * * *Final Report* * * DATE OF EXAM: Aug 19 2022 1:12AM [facility] 0541 - CT CHEST WO IVCON / PROCEDURE REASON: Chest trauma, blunt (Ped 0-18y) * * * * Physician Interpretation * * * * EXAMINATION: CHEST CT WITHOUT CONTRAST CLINICAL HISTORY: Blunt trauma Technique: Spiral CT acquisition of the chest from the thoracic inlet to the upper abdomen without contrast. MQ: CTCWO_6 CT Radiation dose: Integrated Dose-length product (DLP) for this visit = 213 mGy*cm CT Dose Reduction Employed: mAs-kVp adjusted based on patient size-age Comparison: Chest radiograph 08/18/2022, CT abdomen and pelvis 08/18/2022 RESULT: Limitations: Lack of IV contrast. Lines, tubes, and devices: None. Lung parenchyma and airways: Groundglass opacities at the right lower lobe favored to represent contusion. Pleural space: No pleural effusion. No pleural thickening. Lower neck, lymph nodes, and mediastinum: The imaged thyroid gland is normal. No lymphadenopathy in the supraclavicular, axillary, mediastinal, or hilar regions. Heart, pericardium, and thoracic vessels: Limited evaluation of the mediastinum and vasculature due to lack of IV contrast. Bones and soft tissues: Transverse fracture of the posterior ninth rib. Contour deformities of the lateral 10th and anterior seventh and eighth ribs suspicious for nondisplaced fractures. Upper abdomen: Laceration at the right hepatic lobe is seen but better characterized on the study with IV contrast performed on 08/18/2022. Similar degree of hemoperitoneum in the upper abdomen. Persistent intraluminal enteric contrast into the colon. [employer] (topogram) images: No additional findings. IMPRESSION: 1. Right lower lobe pulmonary contusion. 2. Transverse fracture of the posterior ninth rib and nondisplaced fractures of the right seventh, eighth, and 10th ribs. 3. Right hepatic lobe laceration and hemoperitoneum better visualized on the prior study. Ergonomics Engineer: PSCJenna Transcribe Date/Time: Aug 19 2022 1:19A Dictated by : NINO DIOR MD This examination was interpreted and the report reviewed and electronically signed by: NINO DIOR MD on Aug 19 2022 1:37AM EST [id number] Normal [facility] Hepatic function 2000 panelo n 11-01-2022 Albumin [Mass/Vol] 4.3 g/dL Normal 3.9-4.9 [facility] Comment on above: Order Comment: Speci men Type: BLOOD SPECIMEN Ordering Facility: [facility] Address: [address] [place] [address] Performed By: #### 2 4323-8, 3040-3 #### [facility] CLIA [id number] [address] [place], [place] [address] [place] [address] [place] ALP [Catalytic activity/Vol] 79 U/L Normal 55-149 [facility] Comment on above: Order Comment: Speci men Type: BLOOD SPECIMEN Ordering Facility: [facility] Address: [address] [place] [address] Performed By: #### 2 4323-8, 3040-3 #### [facility] CLIA [id number] [address] [place] [address] [place] ALT With P-5'-P [Catalytic activity/Vol] 239 U/L High 10-54 [facility] Comment on above: Order Comment: Speci men Type: BLOOD SPECIMEN Ordering Facility: [facility] Address: [address] [place] [address] Performed By: #### 2 4323-8, 3040-3 #### [facility] CLIA [id number] [address] [place], [place] [address] [place] [address] [place] AST With P-5'-P [Catalytic activity/Vol] 101 U/L High 14-40 [facility] Comment on above: Order Comment: Speci men Type: BLOOD SPECIMEN Ordering Facility: [facility] Address: [address] [place] [address] Performed By: #### 2 4323-8, 3040-3 #### [facility] CLIA [id number] [address] [place] [address] [place] Bilirubin [Mass/Vol] 0.4 mg/dL Normal 0.2-1.3 [facility] Comment on above: Order Comment: Speci men Type: BLOOD SPECIMEN Ordering Facility: [facility] Address: [address] [place] [address] Performed By: #### 2 4323-8, 3040-3 #### [facility] CLIA [id number] [address] [place] [address] Bilirubin.conjugated [Mass/Vol] mg/dL Normal <0.2 [facility] Comment on above: Order Comment: Speci men Type: BLOOD SPECIMEN Ordering Facility: [facility] Address: [address] [place] [address] Performed By: #### 2 4323-8, 3040-3 #### [facility] CLIA [id number] [address] [place] [address] OF [facility] Protein [Mass/Vol] 5.8 g/dL Low 6.3-8.0 [facility] Comment on above: Order Comment: Speci men Type: BLOOD SPECIMEN Ordering Facility: [facility] Address: [address] [place] [address] Performed By: #### 2 4323-8, 0-3 #### [facility] CLIA [id number] [address] [place] [address] Magnesium SerPl-mCncon 08-19 Magnesium [Mass/Vol] 2.0 mg/dL Normal 1.7-2.3 [facility] Comment on above: Order Comment: Speci men Type: BLOOD SPECIMEN Ordering Facility: [facility] Address: [address] [place] [address] Performed By: #### 2 4323-8, 3040-3 #### [facility] CLIA [id number] [address] Microorganism Spec Culton Microorganism identified Cx Nom (Unsp spec) CULTURE, MRSA SCREEN: Negative for methicillin resistant Staphylococcus aureus Normal [facility] Comment on above: Performed By: #### 1 1475-1 ####[facility] [id number] [address] STATES OF [facility] NUTRITIONon 08-19-2022 NUTRITION HNO ID: [id number] Author: Varun Ramirez RD Service: Nutrition Therapy Author Type: Registered Dietitian Type: Nutrition Filed: 08/19/2022 2:22 PM Note Text: NUTRITION THERAPY INITIAL ASSESSMENT SERVICE DATE: 08/19/2022 SERVICE TIME: 2:20 PM Nutrition Assessment: Recommended Malnutrition Diagnosis: Mild Protein-Calorie Malnutrition In the context of: Acute Illness or Injury Based on: Insufficient Energy Intake;Decline in Functional Status Nutrition Diagnosis: Problem: Increased nutrient needs Related to: Trauma As evidenced by: Medical condition;Medications and treatments;Imaging studies Estimated kilocalorie needs: 1717-9493 Calorie Calculation Method: 30-35 kcals/kg Estimated protein needs (grams): 90-120 Grams protein determined by: 1.5 - 2.0 g/kg Care Plan: Follow for diet advancement to goal Supplements: Ensure Clear 1) remains on clears, patient reports tolerating liquids well. Will order ensure clear for now, change to high protein/higher kcal supplement as diet advances. Monitor and Evaluation: Meet greater than 75% of estimated needs;Monitor bowel function;Monitor labs, I/Os, vital signs, weight;Monitor fluid/electrolyte balance HPI: 16 yo male presents with Trauma/ran into [employer] while playing laser tag. Injuries include: liver laceration, rib Fx.resides in ICU Active Hospital Problems Diagnosis Date Noted Liver laceration, grade IV, with open wound into cavity, initial encounter 08/18/2022 Intake History: Nutrition Intake Prior to Admission: Less than 75% estimated energy needs greater than or equal to 5 days Current Nutrition Intake: 0-25% estimated energy needs Diet Orders (From admission, onward) Start Ordered 08/18/221899 DIET LIQUID START NOW Question Answer Comment Liquid Diet CLEAR LIQUID Child's Feeding Age/Diet YOUTH (7-18YRS) 08/18/22 1855 Anthropometrics: Height: 172.7 cm (5' 8) Weight: 59.9 kg (132 lb 0.9 oz) Dosing Weight: 60 kg (132 lb 4.4 oz) Body mass index is 20.08 kg/m?. Normal Weight change percentage over time: pt endorses stable wt, noted per historical documented wts that wt has decreased by 6% over the past 9 monthls-not clinically significant in this time frame-unclear etiology Physical Exam: Subcutaneous fat loss: Mild (suspect baseline) Muscle loss: No muscle loss Potential micronutrient deficiency: No deficiency identified Edema/Ascites: No edema GI Symptoms: Abdominal pain;Early satiety;Anorexia Functional Status: Regressed Potential Signs of Inflammation: Imaging studies;Critically ill MNT Billing: $ Initial Assessment: 1-15 minutes SIGNATURE: Varun Ramirez RD PATIENT NAME: Penny Robin DATE: August 19, 2022 TIME: 2:20 PM Normal [facility] Phosphate SerPl-mCncon 08-19 Phosphate [Mass/Vol] 3.7 mg/dL Normal 2.7-4.8 [facility] Comment on above: Order Comment: Gokul garcia Type: BLOOD SPECIMEN Ordering Facility: [facility] Address: [address] [place] [address] Performed By: #### 2 4323-8, 3040-3 #### [facility] CLIA [id number] [address] OF [facility] CBC panel Auto (Bld)on 08-18 Erythrocyte distribution width (RBC) [Ratio] 13.1 % Normal 11.5-15.0 [facility] Comment on above: Order Comment: Gokul garcia Type: BLOOD SPECIMEN Ordering Facility: [facility] Address: [address] [place] [address] Performed By: #### 2 4323-8, 3040-3 #### [facility] CLIA [id number] [address] [place] [address] [place] Hematocrit (Bld) [Volume fraction] 24.4 % Low 39.0-51.0 [facility] Comment on above: Order Comment: Gokul garcia Type: BLOOD SPECIMEN Ordering Facility: [facility] Address: [address] [place] [address] Performed By: #### 2 4323-8, 3040-3 #### [facility] CLIA [id number] [address] [place] [address] [place] Hemoglobin (Bld) [Mass/Vol] 8.1 g/dL Low 13.0-17.0 [facility] Comment on above: Order Comment: Speci men Type: BLOOD SPECIMEN Ordering Facility: [facility] Address: [address] [place] [address] Performed By: #### 2 4323-8, 0-3 #### [facility] CLIA [id number] [address] [place] [address] MCH (RBC) [Entitic mass] 27.5 pg Normal 26.0-34.0 [facility] Comment on above: Order Comment: Speci men Type: BLOOD SPECIMEN Ordering Facility: [facility] Address: [address] [place] [address] Performed By: #### 2 4323-8, 3039-3 #### [facility] CLIA [id number] [address] [place] [address] MCHC (RBC) [Mass/Vol] 33.2 g/dL Normal 30.5-36.0 [facility] Comment on above: Order Comment: Speci men Type: BLOOD SPECIMEN Ordering Facility: [facility] Address: [address] [place] [address] Performed By: #### 2 4323-8, 3039-3 #### [facility] CLIA [id number] [address] [place] [address] OF [facility] MCV (RBC) [Entitic vol] 82.7 fL Normal 80.0-100.0 [facility] Comment on above: Order Comment: Speci men Type: BLOOD SPECIMEN Ordering Facility: [facility] Address: [address] [place] [address] Performed By: #### 2 4323-8, 0-3 #### [facility] CLIA [id number] [address] [place] [address] Nucleated RBC (Bld) [#/Vol] 10*3/uL Normal <0.01 [facility] Comment on above: Order Comment: Speci men Type: BLOOD SPECIMEN Ordering Facility: [facility] Address: [address] Performed By: #### 2 4323-8, 3040-3 #### [facility] CLIA [id number] [address] [place] [address] [place] Platelet mean volume (Bld) [Entitic vol] 11.2 fL Normal 9.0-12.7 [facility] Comment on above: Order Comment: Speci men Type: BLOOD SPECIMEN Ordering Facility: [facility] Address: [address] [place] [address] Performed By: #### 2 4323-8, 3040-3 #### [facility] CLIA [id number] [address] [place] [address] [facility] [place] Platelets (Bld) [#/Vol] 197 10*3/uL Normal 150-400 [facility] Comment on above: Order Comment: Speci men Type: BLOOD SPECIMEN Ordering Facility: [facility] Address: [address] [place], [place] [address] Performed By: #### 2 4323-8, 0-3 #### [facility] CLIA [id number] [address] [place] [address] [place] RBC (Bld) [#/Vol] 2.95 10*6/uL Low 4.20-6.00 [facility] Comment on above: Order Comment: Speci men Type: BLOOD SPECIMEN Ordering Facility: [facility] Address: [address] Performed By: #### 2 4323-8, 3040-3 #### [facility] CLIA [id number] [address] [place] [address] [place] WBC (Bld) [#/Vol] 8.21 10*3/uL Normal 3.70-11.00 [facility] Comment on above: Order Comment: Speci men Type: BLOOD SPECIMEN Ordering Facility: [facility] Address: [address] [place] [address] Performed By: #### 2 4323-8, 3040-3 #### [facility] CLIA [id number] [address] [place] [address] [place] Erythrocyte distribution width (RBC) [Ratio] 12.6 % Normal 11.5-15.0 [facility] Comment on above: Order Comment: Speci men Type: BLOOD SPECIMEN Ordering Facility: [facility] Address: [address] [place] [address] Performed By: #### 5 8410-2 #### [facility] CLIA [id number] [address] [place] Hematocrit (Bld) [Volume fraction] 24.8 % Low 39.0-51.0 [facility] Comment on above: Order Comment: Speci men Type: BLOOD SPECIMEN Ordering Facility: [facility] Address: [address] [place] [address] Performed By: #### 5 8410-2 #### [facility] CLIA [id number] [address] [place] Hemoglobin (Bld) [Mass/Vol] 8.0 g/dL Low 13.0-17.0 [facility] Comment on above: Order Comment: Speci men Type: BLOOD SPECIMEN Ordering Facility: [facility] Address: [address] [place] [address] Performed By: #### 5 8410-2 #### [facility] CLIA [id number] [address] [place] MCH (RBC) [Entitic mass] 27.3 pg Normal 26.0-34.0 [facility] Comment on above: Order Comment: Speci men Type: BLOOD SPECIMEN Ordering Facility: [facility] Address: [address] [place] [address] Performed By: #### 5 8410-2 #### [facility] CLIA [id number] [address] [place] MCHC (RBC) [Mass/Vol] 32.3 g/dL Normal 30.5-36.0 [facility] Comment on above: Order Comment: Speci men Type: BLOOD SPECIMEN Ordering Facility: [facility] Address: [address] [place] [address] Performed By: #### 5 8410-2 #### [facility] CLIA [id number] [address] [place] [id number] [place] [address] [place] MCV (RBC) [Entitic vol] 84.6 fL Normal 80.0-100.0 [facility] Comment on above: Order Comment: Speci men Type: BLOOD SPECIMEN Ordering Facility: [facility] Address: [address] [place] [address] Performed By: #### 5 8410-2 #### [facility] CLIA [id number] [address] [place] [address] [place] Platelet mean volume (Bld) [Entitic vol] 10.8 fL Normal 9.0-12.7 [facility] Comment on above: Order Comment: Speci men Type: BLOOD SPECIMEN Ordering Facility: [facility] Address: [address] [place] [address] Performed By: #### 5 8410-2 #### [facility] CLIA [id number] [address] [place] [address] [place] Platelets (Bld) [#/Vol] 190 10*3/uL Normal 150-400 [facility] Comment on above: Order Comment: Speci men Type: BLOOD SPECIMEN Ordering Facility: [facility] Address: [address] [place] [address] Performed By: #### 5 8410-2 #### [facility] CLIA [id number] [address] [place] [address] [place] RBC (Bld) [#/Vol] 2.93 10*6/uL Low 4.20-6.00 [facility] Comment on above: Order Comment: Speci men Type: BLOOD SPECIMEN Ordering Facility: [facility] Address: [address] [place] [address] Performed By: #### 5 8410-2 #### [facility] CLIA [id number] [address] [place] [address] [place] WBC (Bld) [#/Vol] 7.28 10*3/uL Normal 3.70-11.00 [facility] Comment on above: Order Comment: Speci men Type: BLOOD SPECIMEN Ordering Facility: [facility] Address: [address] [place] [id number] Performed By: #### 5 8410-2 #### [facility] CLIA [id number] [address] [place] [address] [facility] [place] CT ABD/PEL W IVCONon 022 CT ABD/PEL W IVCON * * *Final Report* * * DATE OF EXAM: Aug 18 2022 2:38PM [facility] 0530 - CT ABD/PEL W IVCON / PROCEDURE REASON: multiple diagnoses * * * * Physician Interpretation * * * * EXAMINATION: CT ABDOMEN AND PELVIS WITH IV CONTRAST CLINICAL HISTORY: Acute trauma, history of seizures. TECHNIQUE: CT of the abdomen and pelvis was performed using standard technique, scanning from just above the dome of the diaphragm to the symphysis pubis. MQ: CTAP_3 Contrast: IV: 100 ml of Omnipaque 300 Oral: 50 ml of 50ML Omnipaque [address] Radiation dose: Integrated Dose-length product (DLP) for this visit = 301.14 mGy*cm. CT Dose Reduction Employed: Automated exposure control (AEC) COMPARISON: None. RESULT: Liver: Significant posttraumatic parenchymal injury involve segment 7 and 5 consistent with parenchymal hematoma and laceration of at least grade 3 level.. Biliary: No bile duct dilation. Gallbladder is unremarkable. Spleen: No mass. No splenomegaly. No CT evidence of acute splenic injury Pancreas: No mass or duct dilation. Adrenals: No mass. Kidneys: Symmetrical nephrogram phase. No signs of acute renal trauma. GI tract: No dilation or wall thickening. Lymph nodes: No abdominal or pelvic lymphadenopathy. Mesentery/Peritoneum: Moderate volume of free fluid throughout the abdomen and pelvis with increased density dependent portion of the pelvis on axial image 101 most consistent with hematoma level related to hemoperitoneum. Retroperitoneum: No mass. Vasculature: Aorta appears unremarkable. Pelvis: No mass, ascites or fluid collection. Bones/Soft Tissues: Nonspecific sclerotic changes upper lumbar vertebral bodies. Correlation with medical history. No destructive lesions or acute fracture of the lumbosacral spine or pelvis. Lower thorax: Slightly displaced acute fracture posterior lateral right ninth rib axial image 14 and coronal image 59. IMPRESSION: 1.Significant posttraumatic parenchymal injury involve segment 7 and 5 consistent with parenchymal hematoma and laceration of at least grade 3 level.. 2.Moderate volume of free fluid throughout the abdomen and pelvis with increased density dependent portion of the pelvis on axial image 101 most consistent with hematoma level related to hemoperitoneum. 3.Slightly displaced acute fracture posterior lateral right ninth rib axial image 14 and coronal image 59. Note. Patient was sent immediately/directly from outpatient radiology to the emergency room upon visualization of the CT images. CRITICAL TEST/RESULTS: Acuity: Critical Finding: Active (arterial) bleeding, e.g. GI retroperitoneal, aortic rupture, leaking/ruptured aneurysm, etc. Communication: Communicated with Dr. Lee on 1447 hours on 08/18/2022 via verbal communication. Ergonomics Engineer: MARICHUY Transcribe Date/Time: Aug 18 2022 2:42P Dictated by : DANNA GLOVER MD This examination was interpreted and the report reviewed and electronically signed by: DANNA GLOVER MD on Aug 18 2022 2:56PM EST [id number] CRITICAL!! Invalid Interpretation Code [facility] Radiology Result CRITICAL!! Abnormal [facility] Comprehensive metabolic 2000 panelon 08-18-2022 Albumin [Mass/Vol] 4.4 g/dL Normal 3.9-4.9 [facility] Comment on above: Order Comment: Gokul garcia Type: BLOOD SPECIMEN Ordering Facility: [facility] Address: [address] [id number] Performed By: #### 2 4323-8, 3040-3 #### [facility] CLIA [id number] [address] [place] [address] OF [facility] ALP [Catalytic activity/Vol] 76 U/L Normal 55-149 [facility] Comment on above: Order Comment: Gokul garcia Type: BLOOD SPECIMEN Ordering Facility: [facility] Address: [address] [place] [place] [address] Performed By: #### 2 4323-8, 3040-3 #### [facility] CLIA [id number] [address] [facility] [place] [place] [address] [place] ALT With P-5'-P [Catalytic activity/Vol] 266 U/L High 10-54 [facility] Comment on above: Order Comment: Speci men Type: BLOOD SPECIMEN Ordering Facility: [facility] Address: [address] [place] [address] Performed By: #### 2 4323-8, 3040-3 #### [facility] CLIA [id number] [address] [place] [address] [place] Anion gap [Moles/Vol] 9 mmol/L Normal 9-18 [facility] Comment on above: Order Comment: Speci men Type: BLOOD SPECIMEN Ordering Facility: [facility] Address: [address] [place] [address] Performed By: #### 2 4323-8, 3040-3 #### [facility] CLIA [id number] [address] [place] [address] [place] AST With P-5'-P [Catalytic activity/Vol] 132 U/L High 14-40 [facility] Comment on above: Order Comment: Speci men Type: BLOOD SPECIMEN Ordering Facility: [facility] Address: [address] [place] [address] Performed By: #### 2 4323-8, 3040-3 #### [facility] CLIA [id number] [address] [place] [address] [place] Bilirubin [Mass/Vol] 0.5 mg/dL Normal 0.2-1.3 [facility] Comment on above: Order Comment: Speci men Type: BLOOD SPECIMEN Ordering Facility: [facility] Address: [address] [place] [address] Performed By: #### 2 4323-8, 3040-3 #### [facility] CLIA [id number] [address] [place] [address] [place] Calcium [Mass/Vol] 8.9 mg/dL Normal 8.5-10.2 [facility] Comment on above: Order Comment: Speci men Type: BLOOD SPECIMEN Ordering Facility: [facility] Address: [address] [place] [address] Performed By: #### 2 4323-8, 3040-3 #### [facility] CLIA [id number] [address] [place] [address] [place] Chloride [Moles/Vol] 98 mmol/L Normal 97-105 [facility] Comment on above: Order Comment: Speci men Type: BLOOD SPECIMEN Ordering Facility: [facility] Address: [address] [place] [address] Performed By: #### 2 4323-8, 0-3 #### [facility] CLIA [id number] [address] [place] [address] [place] CO2 [Moles/Vol] 28 mmol/L Normal 22-30 [facility] Comment on above: Order Comment: Speci men Type: BLOOD SPECIMEN Ordering Facility: [facility] Address: [address] [place] [address] Performed By: #### 2 4323-8, 3039-3 #### [facility] CLIA [id number] [address] [place] [address] [place] Creatinine [Mass/Vol] 0.98 mg/dL Normal 0.73-1.22 [facility] Comment on above: Order Comment: Speci men Type: BLOOD SPECIMEN Ordering Facility: [facility] Address: [address] [place] [address] Performed By: #### 2 4323-8, 3040-3 #### [facility] CLIA [id number] [address] [place] [address] [place] ESTIMATED GLOMERULAR FILTRATION RATE 115 mL/min/1.73m??? Normal >=60 [facility] Comment on above: Order Comment: Speci men Type: BLOOD SPECIMEN Ordering Facility: [facility] Address: [address] [place] [address] Result Comment: Magda mated Glomerular Filtration Rate (eGFR) is calculated using the 2020 CKD-EPI creatinine equation. This equation utilizes serum creatinine, sex, and age as parameters. The creatinine assay has traceable calibration to isotope dilution-mass spectrometry. Refer to KDIGO guidelines for clinical interpretation. In patients with unstable renal function, e.g. those with acute kidney injury, the eGFR may not accurately reflect actual GFR. Performed By: #### 2 4323-8, 0-3 #### [facility] CLIA [id number] [address] [place] [address] [place] Glucose [Mass/Vol] 94 mg/dL Normal 74-99 [facility] Comment on above: Order Comment: Gokul garcia Type: BLOOD SPECIMEN Ordering Facility: [facility] Address: [address] [place] [address] Result Comment: The [place] Diabetes Association (ADA) provides guidance for cutoff values for fasting glucose and random glucose. The ADA defines fasting as no caloric intake for at least 8 hours. Fasting plasma glucose results between 100 to 125 mg/dL indicate increased risk for diabetes (prediabetes). Fasting plasma glucose results greater than or equal to 126 mg/dL meet the criteria for diagnosis of diabetes. In the absence of unequivocal hyperglycemia, results should be confirmed by repeat testing. In a patient with classic symptoms of hyperglycemia or hyperglycemic crisis, random plasma glucose results greater than or equal to 200 mg/dL meet the criteria for diagnosis of diabetes. Reference: Standards of Medical Care in Diabetes 2016, [place] [employer] Association. Diabetes Care. 2016.39(Suppl 1). Performed By: #### 2 4323-8, 3039-3 #### [facility] CLIA [id number] [address] [place] [address] [place] Potassium [Moles/Vol] 3.8 mmol/L Normal 3.7-5.1 [facility] Comment on above: Order Comment: Gokul garcia Type: BLOOD SPECIMEN Ordering Facility: [facility] Address: [address] [place], [place] [address] Performed By: #### 2 4323-8, 0-3 #### [facility] CLIA [id number] [address] [place] [address] [place] Protein [Mass/Vol] 5.7 g/dL Low 6.3-8.0 [facility] Comment on above: Order Comment: Speci men Type: BLOOD SPECIMEN Ordering Facility: [facility] Address: [address] [place] [address] Performed By: #### 2 4323-8, 3040-3 #### [facility] CLIA [id number] [address] [place] [address] [place] Sodium [Moles/Vol] 135 mmol/L Low 136-144 [facility] Comment on above: Order Comment: Speci men Type: BLOOD SPECIMEN Ordering Facility: [facility] Address: [address] [place] [address] Performed By: #### 2 4323-8, 3040-3 #### [facility] CLIA [id number] [address] [place] Urea nitrogen [Mass/Vol] 15 mg/dL Normal 9-24 [facility] Comment on above: Order Comment: Speci men Type: BLOOD SPECIMEN Ordering Facility: [facility] Address: [address] [place] [address] Performed By: #### 2 4323-8, 3040-3 #### [facility] CLIA [id number] [address] [place] [address] [facility] [place] ED NOTEon 08-18-2022 ED NOTE HNO ID: [id number] Author: Zoya Farooq RN Service: Emergency Medicine Author Type: Registered Nurse Type: ED Notes Filed: 08/18/2022 6:39 PM Note Text: Waiting on Keppra from pharmacy. Med room checked [facility] ED NOTE HNO ID: [id number] Author: Zoya Farooq RN Service: Emergency Medicine Author Type: Registered Nurse Type: ED Notes Filed: 08/18/2022 5:51 PM Note Text: Surgery resident at bedside [facility] ED NOTE HNO ID: [id number] Author: Zoya Farooq RN Service: Emergency Medicine Author Type: Registered Nurse Type: ED Notes Filed: 08/18/2022 5:48 PM Note Text: Called away from patient care for trauma [facility] ED NOTE HNO ID: [id number] Author: Zoya Farooq RN Service: Emergency Medicine Author Type: Registered Nurse Type: ED Notes Filed: 08/18/2022 5:13 PM Note Text: PT PLACED ON [employer] FOR CLINICAL MONITORING [facility] ED NOTE HNO ID: [id number] Author: Timothy Rod RN Service: ? Author Type: Registered Nurse Type: ED Notes Filed: 08/18/2022 5:08 PM Note Text: Bed: 08-ED Expected date: Expected time: Means of arrival: Comments: [place] tx-liver lac [facility] ED NOTE HNO ID: [id number] Author: Sharmaine Harvey RN Service: ? Author Type: Registered Nurse Type: ED Notes Filed: 08/18/2022 4:18 PM Note Text: [facility] arrives Report given [facility] ED NOTE HNO ID: [id number] Author: Sharmaine Harvey RN Service: ? Author Type: Registered Nurse Type: ED Notes Filed: 08/18/2022 3:24 PM Note Text: Radiology at bedside for CXR [facility] ED NOTE HNO ID: [id number] Author: Sharmaine Harvey RN Service: ? Author Type: Registered Nurse Type: ED Notes Filed: 08/18/2022 3:00 PM Note Text: Pt arrives awake, alert Denies dizziness, denies nausea States abdominal pain has improved since Thursday but still hurts [facility] ED NOTE HNO ID: [id number] Author: Sharmaine Harvey RN Service: ? Author Type: Registered Nurse Type: ED Notes Filed: 08/18/2022 2:59 PM Note Text: Pt arrives via hospital wheelchair from radiology Reports playing laser tag on Thursday evening when he ran into a crate hitting right side of abdomen Seen in [place] ED Thursday night Pain continued, seen by PCP. Outpatient CT ordered Pt to [place] radiology for CT Radiologist reading CT directed pt to ED due to liver laceration [facility] ED PROV NOTEon 08-18-2022 ED PROV NOTE HNO ID: [id number] Author: Briana Kirby MD Service: Emergency Medicine Author Type: Physician Type: ED Provider Notes Filed: 08/19/2022 12:31 AM Note Text: ED Provider Note Patient Name: Penny Robin : 2005 SERVICE DATE: 08/18/22 History Patient presents with: Abdominal Pain: Pt arrives to the ED aox[facility] from [facility]. Pt is a transfer for surgery consult. Pt was playing laser tag on Thursday when he ran into a box and hit his right side. Pt went to [place] Thursday night was told he had a rib fracture sent home. Pt went to his pcp and was sent back to [facility] for CT and found to have a grade 3 liver lac. Pt denies pain at this time. This patient is an 16-year-old male presented to the emergency department as transfer from outside hospital for a grade 3 liver laceration. Patient past medical history significant for seizures. The rest of his reported past medical and surgical history as documented below in the chart. Patient was playing laser tag on Thursday. While playing laser tag, he hit his right lower ribs against something. For this reason, he went to [facility]. At that time, patient was noted to have rib fracture. Patient went to his primary care physician for follow-up today. Primary care physician recommended that the patient go to the emergency department for CT. Patient evaluated in the [place] emergency department where CT was done and showed at least grade 3 liver laceration. Patient complaining of pain in abdomen. He states that it is generalized, however worse in the right upper quadrant. Patient denies nausea, constipation, diarrhea. Patient denies fevers, chills, nausea, vomiting, chest pain, shortness of breath, abdominal pain, urinary symptoms or numbness milligram. PAST MEDICAL HISTORY Diagnosis Date Acute appendicitis with localized peritonitis 09/22/2016 Brain tumor (HCC) [facility] - PAST MEDICAL HISTORY OF 02/05/2005 Febrile Seizure Simple febrile convulsions (HCC) 04/26/2020 PAST SURGICAL HISTORY Procedure Laterality Date LAPAROSCOPIC APPENDECTOMY 09/19/16 FAMILY HISTORY Problem Relation Age of Onset Hypertension Maternal Grandfather Heart Maternal Grandfather 2 [place], living Stroke Maternal Grandfather living No Known Problems Mother No Known Problems Father No Known Problems Maternal Grandmother Diabetes Paternal Grandmother Hypertension Paternal Grandfather No Known Problems Sister Social History Tobacco Use Smoking status: Never Passive exposure: Yes Smokeless tobacco: Never Tobacco comments: Both parents - outside the home Vaping Use Vaping Use: Never used Substance and Sexual Activity Alcohol use: Not on file Drug use: Not on file Sexual activity: Not on file ALLERGIES Allergen Reactions Amoxicillin Hives Dilaudid [[employer]* Other: See Comments Vasovagal syncope Review of Systems Constitutional: Negative for chills and fever. HENT: Negative for ear discharge, ear pain, hearing loss, sinus pressure, sinus pain, sore throat and voice change. Eyes: Negative for photophobia, pain, discharge, redness, itching and visual disturbance. Respiratory: Negative for cough, chest tightness, shortness of breath and wheezing. Cardiovascular: Negative for chest pain, palpitations and leg swelling. Gastrointestinal: Positive for abdominal pain. Negative for abdominal distention, blood in stool, constipation, diarrhea, nausea and vomiting. Genitourinary: Negative for decreased urine volume, dysuria, flank pain, frequency and hematuria. Musculoskeletal: Negative for back pain, neck pain and neck stiffness. Skin: Negative for color change and rash. Neurological: Negative for dizziness, syncope, light-headedness, numbness and headaches. Hematological: Negative for adenopathy. Does not bruise/bleed easily. Physical Exam Vitals [08/18/22 1711] BP Pulse Temp Temp src Resp SpO2 Weight Height 104/69 75 36.7 ?C (98.1 ?F) Oral 18 100 % 62.1 kg (137 lb) 1.727 m (5' 8) Physical Exam Constitutional: General: He is not in acute distress. Appearance: He is not toxic-appearing. HENT: Head: Normocephalic and atraumatic. Right Ear: Tympanic membrane, ear canal and external ear normal. There is no impacted cerumen. Left Ear: Tympanic membrane, ear canal and external ear normal. There is no impacted cerumen. Nose: Nose normal. No congestion or rhinorrhea. Mouth/Throat: Mouth: Mucous membranes are moist. Pharynx: Oropharynx is clear. No oropharyngeal exudate or posterior oropharyngeal erythema. Eyes: General: No scleral icterus. Right eye: No discharge. Left eye: No discharge. Extraocular Movements: Extraocular movements intact. Conjunctiva/sclera: Conjunctivae normal. Pupils: Pupils are equal, round, and reactive to light. Cardiovascular: Rate and Rhythm: Normal rate and regular rhythm. Pulses: Normal pulses. Heart sounds: Normal heart sounds. (more content not included)... [facility] ED PROV NOTE HNO ID: [id number] Author: Ez Lee MD Service: Emergency Medicine Author Type: Physician Type: ED Provider Notes Filed: 08/18/2022 11:19 PM Note Text: ED Provider Note Patient Name: Penny Robin : 2005 SERVICE DATE: 08/18/22 History Patient presents with: Abdominal Pain This is an 16-year-old white male presenting from outpatient radiology. Patient states that on Thursday evening he was playing laser tag with friends and they were going hard at it and he ran into a crate with his right lower rib area. He states that he went to [facility] that evening and they did an x-ray and that prior to discharge he passed out and states that they thought it was related to the Dilaudid medication he was given. He does not believe that he had CT imaging or lab work. He states he saw his doctor today who ordered an outpatient CT and he was told to immediately come to the ER. He complains of pain in his right lower rib/right upper abdominal area. He has had no syncopal episodes since. He denied that he hit his head or sustained loss of consciousness initially. He denies neck pain or back pain. He denies significant shortness of breath. He has had no rectal bleeding no vomiting no fevers or chills. No extremity injury other than an abrasion to the elbow that is nontender. No numbness or tingling. PAST MEDICAL HISTORY Diagnosis Date - Acute appendicitis with localized peritonitis 09/22/2016 - Brain tumor (HCC) - [facility] - PAST MEDICAL HISTORY OF 02/05/2005 Febrile Seizure - Simple febrile convulsions (HCC) 04/26/2020 PAST SURGICAL HISTORY Procedure Laterality Date - LAPAROSCOPIC APPENDECTOMY 09/19/16 FAMILY HISTORY Problem Relation Age of Onset - Hypertension Maternal Grandfather - Heart Maternal Grandfather 2 [place], living - Stroke Maternal Grandfather living - No Known Problems Mother - No Known Problems Father - No Known Problems Maternal Grandmother - Diabetes Paternal Grandmother - Hypertension Paternal Grandfather - No Known Problems Sister Social History Tobacco Use - Smoking status: Never Passive exposure: Yes - Smokeless tobacco: Never - Tobacco comments: Both parents - outside the home Vaping Use - Vaping Use: Never used Substance and Sexual Activity - Alcohol use: Not on file - Drug use: Not on file - Sexual activity: Not on file ALLERGIES Allergen Reactions - Amoxicillin Hives Review of Systems All other systems reviewed and are negative. Physical Exam Vitals [08/18/22 1452] BP Pulse Temp Temp src Resp SpO2 Weight Height 128/82 90 36.8 ?C (98.2 ?F) Temporal 18 100 % 60.3 kg (133 lb) -- Physical Exam Vitals and nursing note reviewed. Constitutional: Appearance: He is well-developed. HENT: Head: Normocephalic and atraumatic. Mouth/Throat: Mouth: Mucous membranes are moist. Pharynx: No pharyngeal swelling or oropharyngeal exudate. Eyes: Extraocular Movements: Extraocular movements intact. Pupils: Pupils are equal, round, and reactive to light. Cardiovascular: Rate and Rhythm: Normal rate and regular rhythm. Heart sounds: Normal heart sounds. Pulmonary: Effort: Pulmonary effort is normal. Breath sounds: Normal breath sounds. Chest: Chest wall: Tenderness (Right lower posterior lateral) present. Abdominal: General: There is no distension. Palpations: Abdomen is soft. Tenderness: There is generalized abdominal tenderness (Tenderness worse in the right upper quadrant and right lower quadrant). Hernia: No hernia is present. Genitourinary: Comments: Pelvis stable Musculoskeletal: Comments: No CT LS spine tenderness, no extremity bony tenderness, full range of motion throughout Skin: General: Skin is warm and dry. Capillary Refill: Capillary refill takes less than 2 seconds. Comments: Abrasion and ecchymosis noted over the right lower rib/right upper quadrant area Minimal abrasion over right elbow no bony tenderness Neurological: General: No focal deficit present. Mental Status: He is alert. Psychiatric: Mood and Affect: Mood normal. Diagnostic Testing ED Labs Ordered and Reviewed CBC - Abnormal; Notable for the following components: Result Value Ref Range RBC 2.93 (*) 4.20 - 6.00 m/uL Hemoglobin 8.0 (*) 13.0 - 17.0 g/dL Hematocrit 24.8 (*) 39.0 - 51.0 % All other components within normal limits COMP METABOLIC PANEL - Abnormal; Notable for the following components: Protein, Total 5.7 (*) 6.3 - 8.0 g/dL AST 132 (*) 14 - 40 U/L ALT 266 (*) 10 - 54 U/L Sodium 135 (*) 136 - 144 mmol/L All other components within normal limits ALCOHOL/ETHANOL BLD - Normal LIPASE BLD - Normal PROTHROMBIN TIME/PT - Normal ACTIVATED PTT - Normal Narrative: Unfractionated Heparin Therapeutic Ranges: Standard Heparin Nomogram: 53 to 78 seconds (anti-Xa level of 0.3 to 0.7 U/ml) Low Dose/ACS Nomogram: 49 to 67 seconds (anti-Xa level of 0.2 to 0.5 (more content not included)... [facility] Ethanol SerPl-mCncon 022 Ethanol [Mass/Vol] mg/dL Normal <11 [facility] Comment on above: Order Comment: Speci men Type: BLOOD SPECIMEN Ordering Facility: [facility] Address: [address] [place], [place] [address] Performed By: #### 5 8410-2 #### [facility] CLIA [id number] [address] [place] [address] [place] HISTORY PHYSICALon HISTORY PHYSICAL HNO ID: [id number] Author: Melissa Eller MD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 pressure has progressively worsened particularly over the last 5 to 7 days. No complaints of fever, chills, sweats, cough/shortness of breath, myalgias, fatigue, headache, loss of taste/smell, runny nose, or nausea/vomiting/diarrhea appreciated. No bivj-gal-[id number] products currently being taken to assist with symptoms. No other associated symptoms and no other alleviating/aggravating factors. ROS Const Constitutional: No other (As above) Exam Const General: cooperative, healthy appearing, uncomfortable and no acute distress Nutritional Appearance: average body habitus and well nourished Orientation: alert, awake and oriented x3 HENMT Head: normal to inspection Ears: hearing grossly normal bilaterally, external ears normal, TM's normal bilaterally and EAC's normal Nose: external nose normal, nares normal, septum normal and no nasal discharge Face and sinus: normal facial exam, face symmetric and sinus tenderness frontal (Exacerbated with flexion at the waist/forehead down); not ethmoid and not maxillary Mouth: oral mucosae normal, lip normal, tongue normal and moist mucous membranes Throat: posterior oropharynx normal, tonsils normal, uvula midline and postnasal drainage (Trace purulent) Eyes General: appearance normal, both eyes and all related structures Neck Neck: normal visual inspection, full ROM, no lymphadenopathy, no meningeal signs and supple Neck mass: No Thyroid: thyroid normal Lymphatic: no lymphadenopathy noted Chest Chest palpation inspection: normal inspection of the chest Resp Effort Inspection: normal respiratory effort, able to speak in complete sentences and no cough Auscultation: Bilateral: Clear to Auscultation Cardio Palpation: normal PMI Rate: regular rate Rhythm: regular rhythm Heart Sounds: S1 normal, S2 normal, no gallops, no murmurs and no rubs Pulses: radial pulses present GI Inspection: normal to inspection Skin General: no rashes or lesions noted Neuro General: patient alert, patient awake, patient oriented x3 and gait normal Cognition: normal cognition Speech: speech normal Gait: normal gait Motor: muscle tone normal throughout Sensory Exam: no sensory deficits noted Psych Appearance: grossly normal Mental Status: mental status grossly normal Mood: congruent mood Affect: normal affect Speech and Movement: speech and movement normal Attitude: cooperative Thought Process: normal Thought Content: normal Judgment: judgment good Coding Level of Care Code Off vis,est,level 2 Diagnoses Acute frontal sinusitis, unspecified J01.10 Acute pharyngitis, unspecified J02.9 Assessment and Plan Assessment and Plan (1) Acute frontal sinusitis, unspecified: Status: Acute (2) Acute pharyngitis, unspecified: Status: Acute Orders: Orders: POC Rapid Strep A Today J02.9 Plan - Serjio Small (more content not included)... Normal [facility] EMERGENCY DEPARTMENTon 04-22 [place] [address] HEALTH INFORMATION MANAGEMENT EMERGENCY DEPARTMENT : Signed Patient: Penny Robin Acct:[id number] MRUN : [id number] : 2005 Sex: M Loc: ED ADM Date: Room/Bed: DISC Date: 04/21/20 _ History of Present Illness - General Chief Complaint: Seizure Stated Complaint: unresponsiveness for minutes Symptom onset: 1950 HPI: Pt comes in via EMS - states Dad witnessed seizure. Unsure of exactly how long it lasted. EMS states postictal upon arrival to patient; however has lessened en route to hospital. Pt alert and oriented upon arrival to ED. Time Seen by Provider: 04/21/20 20:14 Nurses Notes Reviewed and Agreed With?: Yes EMS Run Sheet Reviewed: Not available @ present Source: Patient, Family, EMS Mode of Transport: [facility] - History of Present Illness Initial Comments: 14-year-old male who was brought in by EMS with history of unresponsiveness that lasted a few minutes. The event was witnessed by the father and it may have been a seizure. They noticed him go to the ground and shake. Mother states history of febrile seizures but no actual seizures presently. Patient is alert and oriented presently. Patient was at a barbecue. Has had no alcohol. Patient has eaten and drink as usual. No recent fever or illness. NO Exposure to the coronavirus. Pt is from out of town. Complaint: possible seizure, shaking Onset/Timin -: minutes(s) Description of Episode: Complains of: loss of consciousness, shaking -: minutes(s) Witnessed: yes - by other (father) Context: Complains of: other (history of febrile seizure). Denies: known seizure disorder Place: street/outdoors Possible Precipitating Event: denies: head injury, fever, drug use, alcohol withdrawal, lack of sleep, stress, medication Associated Symptoms: confusion, malaise, syncope. denies: chest pain, fever/chills, loss of appetite, rash, shortness of breath Treatments Prior to Arrival: none - Related Data Allergies Allergy/AdvReac Type Severity Reaction Status Date / Time amoxicillin Allergy Verified 04/21/20 20:24 Home medications and allergies reviewed: Yes Review of System - Constitutional Constitutional: Present: see HPI, Well developed, Well nourished, well hydrated, Non-toxic, malaise, other (? seizure). Absent: fever - Eyes Both Eyes (ROS): Present: no symptoms reported. Absent: drainage, decreased acuity, inflammation, pain, vision change - Nose,Throat,Mouth Nose (ROS): Absent: no symptoms reported, clots, pain Throat: Present: no symptoms reported. Absent: pain, swelling, discharge Mouth: Present: no symptoms reported. Absent: clots, pain, swelling - Respiratory Respiratory: Present: no symptoms reported. Absent: cough, short of breath, wheezing - CV Cardiology: Present: syncope. Absent: chest pain, edema, palpitations - GI Gastrointestinal/Abdomina l: Absent: abdominal pain, diarrhea, nausea, vomiting - Genitourinary Symptoms: Absent: no symptoms reported, dysuria, frequency, hematuria, pain, urgency - Neuro Neurological: Present: see HPI, headache, seizure. Absent: anxiety, emotional problems, numbness, paresthesia, tingling, tremors, weakness - Muskuloskeletal Musculoskeletal: Present: no symptoms reported. Absent: back pain, joint pain, joint swelling - Integumentary Skin: Present: no symptoms reported. Absent: lesions, rash - Allergic/Immunologic Immunological/Allergic: Present: no symptoms reported - Hematologic Hematologic/Lymphatic: Present: no symptoms reported. Absent: easy bleeding, easy bruising, swollen glands - Endocrine Endocrine: Present: no symptoms reported - Psychiatric Psychiatric: Present: Normal Affect, Normal Mood, Oriented. Absent: Depressed - All Others/Exceptions All Other Systems: Reviewed and Negative Except Where Noted in Documentation ED PMH/Social HX/Family HX - [place]-Suicide Severity Rating Scale 1) Wish to be :: No 2) Suicidal Thoughts:: No General Exam - General Limitations: Complains of: altered mental status Constitutional: Present: see HPI, Well developed, Well nourished, well hydrated, Non-toxic, malaise, other (? seizure). Absent: fever - Head Head exam: Present: atraumatic, normocephalic, normal inspection - Eye Eye exam: Present: normal apperance, normal accomodation, EOMI Pupils: Present: PERRL - ENT ENT exam: Present: normal orophraynx, mucous membranes moist, TMs clear w/ good light reflex, normal external ear exam, No Nasal Discharge, Posterior Pharynx Non-erethemetous - Neck Neck exam: Present: full ROM, Supple. Absent: tenderness, meningismus, Posterior Lymphadenopathy, Anterior Lymphadenopathy - Respiratory Respiratory exam: Present: lungs clear and equal bilaterally. Absent: respiratory distress, wheezes, rales, rhonchi, decreased breath sounds, accessory muscle use, chest wall tenderness, prolonged expiratory phase - Cardiovascular Cardiovascular Exam: Present: regular rate, normal rhythm, normal heart sounds. Absent: murmur, rubs, gallop, clicks - GI/Abdominal GI/Abdominal exam: Present: soft, non tender, normal bowel sounds. Absent: guarding, rebound, rigid, diminished bowel sounds, mass, bruit, tenderness - Extremities Exam Extremities exam: Present: normal inspection, neurovascularly intact, full ROM, normal reflexes, normal/equal pulses. Absent: calf tenderness, tenderness - Back Exam Back exam: Present: normal inspection, full ROM. Absent: tenderness, muscle spasm, cervical tenderness, thoracic tenderness, lumbar tenderness - Neurological Exam Neurological exam: Present: alert, oriented X3, CN II-XII intact, normal gait - Psychiatric Psychiatric exam: Present: normal affect, normal mood, flat affect - Skin Skin Color: Present: Normal, [place]. Absent: Rash Skin exam: Present: warm, dry - Vital Signs Vital Signs 04/21/20 20:10 Temperature 98.2 F Pulse Rate [ 96 Pulse Ox] Respiratory 17 Rate Blood Pressure 135/78 [right arm] O2 Sat by Pulse 96 Oximetry(%) Course - Reevaluation(s) Reevaluation #1: 04/21/20 20:44 Lab work. Urinalysis and CT scan brain pending. Fluid bolus continued Seizure MDM - Lab Data Result diagrams: 04/21/20 20:31 04/21/20 20:31 Lab Results 04/21/20 04/21/20 04/21/20 Range/Units 20:31 20:31 20:31 WBC 8.2 (3.6-10.8) K/uL RBC 5.52 (4.13-5.69) M/uL Hgb 15.0 (12.4-17.3) g/dL Hct 45.1 (36.7-50.6) % MCV 81.7 (80.0-94.0) fL MCH 27.2 (27.0-31.0) pg MCHC 33.3 (33.0-37.0) g/dL RDW 13.6 (11.5-14.5) % Plt Count 268 (148-402) K/uL MPV 9.3 (7.4-10.4) fL Neut % (Auto) 54.7 (43.0-65.0) % Lymph % (Auto) 36.7 (17.0-45.5) % [place] % (Auto) 6.8 (5.5-11.7) % Eos % (Auto) 1.3 (0.9-2.9) % Baso % (Auto) 0.5 (0.2-1.0) % Absolute Neuts (auto) 4.5 (2.2-4.8) K/uL Absolute Lymphs (auto) 3.0 H (1.3-2.9) K/uL Absolute Monos (auto) 0.6 (0.3-0.8) K/uL Absolute Eos (auto) 0.1 (0.0-0.2) K/uL Absolute Basos (auto) 0 (0.0-0.1) K/uL Nucleated RBC % 0 % Nucleated RBCs # 0 K/uL Sodium 140 (132-145) mmol/L Potassium 3.4 (3.3-5.1) mmol/L Chloride 102 (94-110) mmol/L Total Carbon Dioxide 26 (21-34) mmol/L Anion Gap 15.4 (8.0-16.0) mmol/L BUN 11.9 (3.2-26.9) mg/dL Creatinine 0.97 (0.50-1.17) mg/dL Est GFR (MDRD) Af Amer > 60 (>60) Est GFR (MDRD) Non-Af > 60 (>60) BUN/Creatinine Ratio 12 (6-20) Glucose 87 (65-100) mg/dL Specific [place] (1.015-1.025) Calcium 8.7 (8.2-10.0) mg/dL Total Bilirubin 0.50 (0.00-0.99) mg/dL AST 20 (3-39) U/L ALT 26 (13-66) U/L Alkaline Phosphatase 102 (40-530) U/L Total Protein 7.0 (6.1-8.2) g/dL Albumin 4.5 (3.4-5.0) g/dL Globulin 2.5 (1.5-4.5) g/dL Albumin/Globulin Ratio 1.8 (1.1-2.5) Urine Color P. yellow (Yellow) Urine Appearance Clear (Clear) Urine pH 5 Ur Specific [place] 1.025 (1.015-1.025) Urine Protein 25 A (Negative) Urine Ketones 5 A (Negative) Urine Blood 25 A (Negative) Urine Nitrite Negative (Negative) Urine Bilirubin Negative (Negative) Urine Urobilinogen Normal (Normal-1.0) mg/dL Ur Leukocyte Esterase Negative (Negative) Urine RBC 0-2 (0 - 2) /hpf Urine WBC 0-2 (0 - 6) /hpf Urine Bacteria 1+ (0 - 1+) /hpf Urine Glucose Normal (Negative) Opiates Screen ng/mL Ur Barbiturates Screen ng/mL Phencyclidine Screen ng/mL Amphetamines Screen ng/mL Benzodiazepines Screen ng/mL Cocaine Screen ng/mL Marijuana (THC) Screen ng/mL 04/21/20 Range/Units 20:31 WBC (3.6-10.8) K/uL RBC (4.13-5.69) M/uL Hgb (12.4-17.3) g/dL Hct (36.7-50.6) % MCV (80.0-94.0) fL MCH (27.0-31.0) pg MCHC (33.0-37.0) g/dL RDW (11.5-14.5) % Plt Count (148-402) K/uL MPV (7.4-10.4) fL Neut % (Auto) (43.0-65.0) % Lymph % (Auto) (17.0-45.5) % [place] % (Auto) (5.5-11.7) % Eos % (Auto) (0.9-2.9) % Baso % (Auto) (0.2-1.0) % Absolute Neuts (auto) (2.2-4.8) K/uL Absolute Lymphs (auto) (1.3-2.9) K/uL Absolute Monos (auto) (0.3-0.8) K/uL Absolute Eos (auto) (0.0-0.2) K/uL Absolute Basos (auto) (0.0-0.1) K/uL Nucleated RBC % % Nucleated RBCs # K/uL Sodium (132-145) mmol/L Potassium (3.3-5.1) mmol/L Chloride (94-110) mmol/L Total Carbon Dioxide (21-34) mmol/L Anion Gap (8.0-16.0) mmol/L BUN (3.2-26.9) mg/dL Creatinine (0.50-1.17) mg/dL Est GFR (MDRD) Af Amer (>60) Est GFR (MDRD) Non-Af (>60) BUN/Creatinine Ratio (6-20) Glucose (65-100) mg/dL Specific [place] 1.025 (1.015-1.025) Calcium (8.2-10.0) mg/dL Total Bilirubin (0.00-0.99) mg/dL AST (3-39) U/L ALT (13-66) U/L Alkaline Phosphatase (40-530) U/L Total Protein (6.1-8.2) g/dL Albumin (3.4-5.0) g/dL Globulin (1.5-4.5) g/dL Albumin/Globulin Ratio (1.1-2.5) Urine Color (Yellow) Urine Appearance (Clear) Urine pH 5.0 Ur Specific [place] (1.015-1.025) Urine Protein (Negative) Urine Ketones (Negative) Urine Blood (Negative) Urine Nitrite (Negative) Urine Bilirubin (Negative) Urine Urobilinogen (Normal-1.0) mg/dL Ur Leukocyte Esterase (Negative) Urine RBC (0 - 2) /hpf Urine WBC (0 - 6) /hpf Urine Bacteria (0 - 1+) /hpf Urine Glucose (Negative) Opiates Screen Negative ng/mL Ur Barbiturates Screen Negative ng/mL Phencyclidine Screen Negative ng/mL Amphetamines Screen Negative ng/mL Benzodiazepines Screen Negative ng/mL Cocaine Screen Negative ng/mL Marijuana (THC) Screen Negative ng/mL Orders: Medications Sodium Chloride (Sodium Chloride 0.9 % 1000 Ml) 1,000 mls @ 999 mls/hr IV .Q1H1M PRN PRN Reason: INTRAVENOUS Stop: 05/22/20 20:16 Last Admin: 04/21/20 21:02 Dose: 999 mls/hr Documented by: BRITTNEE Discontinued Medications Sodium Chloride (Squad 0.9% Sodium Chloride) 1,000 mls @ 1,000 mls/hr IV .Q1H STA Stop: 04/21/20 21:36 Last Infusion: 04/21/20 21:03 Dose: 0 mls/hr Documented by: BRITTNEE Ibuprofen (Motrin 600 Mg Tablet) 600 mg PO ONE ONE Stop: 04/21/20 20:16 Last Admin: 04/21/20 20:33 Dose: 600 mg Documented by: BRITTNEE Ondansetron HCl (Zofran 4 Mg/2 Ml Injection) 4 mg IVP ONE ONE Stop: 04/21/20 20:16 Last Admin: 04/21/20 20:33 Dose: 4 mg Documented by: BRITTNEE Labs 04/21/20 20:14 CT BRAIN WO [CT] Stat 04/21/20 20:15 Ibuprofen [Motrin 600 mg Tablet] 600 mg PO ONE ONE Normal Saline 0.9% 1000 ml [Sodium Chloride 0.9 % 1000 ml] 1,000 ml IV 999 mls/hr Ondansetron HCl/Pf [Zofran 4 mg/2 ml Injection] 4 mg IVP ONE ONE 04/21/20 20:31 CBC w/Auto Differential [HEM] Stat Comprehensive Metabolic Panel [CHM] Stat UA w/micrscopic-reflex culture [URN] Stat Urine Drug Screening [CHM] Stat 04/21/20 20:37 Squad 0.9% Sodium Chloride 1,000 ml IV 1,000 mls/hr 04/21/20 20:56 RIBS 2V UNIL INCL PA CHEST [DIAG] Stat 04/21/20 21:39 Incentive Spirometry(Resp) [RESP] ONE - Radiology Data Radiology Report: Radiology report reviewed,see report for findings IMPRESSIONS Brain CT 04/21/20 20:14 IMPRESSION: No acute intracranial abnormality. Ribs w/Chest X-Ray 04/21/20 20:56 IMPRESSION: Nondisplaced incomplete fracture right 9th rib may be present seen on a single view. No acute displaced fractures or pneumothorax. - Medical Decision Making 14-year-old male who was brought in by EMS with history of unresponsiveness that lasted a few minutes. The event was witnessed by the father and it may have been a seizure. They noticed him go to the ground and shake. Mother states history of febrile seizures but no actual seizures presently. Patient is alert and oriented presently. Patient was at a barbecue. Has had no alcohol. Patient has eaten and drink as usual. No recent fever or illness. NO Exposure to the coronavirus. Pt is from out of town. IV placed IV bolus [address] scan brain completed negative. Chest x-ray rib series shows R 9th rib nondisplaced fracture on the right. Lab work reviewed generally normal some mild dehydration noted on UA. Pain improved with Motrin. Syncopal event of unknown etiology could be dehydration but possibly seizure related. No history of seizures other than febrile as a child. Patient did fractures rib on the fall. Patient improved though after IV fluids. Diagnosis syncope with collapse/? seizure/ninth rib fracture right/mild dehydration. Fluids rest. Incentive spirometer as needed. Motrin [id number] for pain. Return if seizure recurs or syncope recurs. Call pediatrics on Thursday. - Differential Diagnosis Seizure Differential Diagonsis: Considered: Syncope, Arrhythmia, Other Metabolic condition Other Differential Diagnosis: ? seizure ED Discharge Summary - Discharge Data Clinical Impression: Syncope and collapse, Seizure, R 9th rib fracture, Dehydration Condition: Good Disposition: 01 HOME, SELF-CARE Referrals: MARCO COVARRUBIAS APRN PAPER TESTING SUPERVISOR [Primary Care Provider] - Additional Instructions: Use incentive spirometer as directed. Motrin as needed for pain. Follow up with PCP. Return if symptoms reoccur. Fluids. Rest. Don't overexert. Home medications and allergies reviewed: Yes Time Seen by Provider: 04/21/20 20:14 - Consultation I saw and examined the patient: Yes Nurses Notes Reviewed and Agreed With?: Yes - Dictation Amendments/Documentation: [employer] Document Only Electronically Generated By: JERE KIRKPATRICK DO Generated Date/Time: 04/21/202037 Electronically Signed By: JERE KIRKPATRICK DO Signed Date/Time 04/21/202203 Co Signed Electronically By: Co Signed Date/Time: CC: MARCO COVARRUBIAS APRN, CNP Normal [facility] CBC w/Auto Differentialon Anemia [employer] Normal [facility] Comment on above: Performed By: #### C BC #### [facility] [address] [place], [place] [id number] Anisocytosis Ql (Bld) [employer] Normal [facility] Comment on above: Performed By: #### C BC #### [facility] [address] [place], [place] [id number] Basophils Abs. # 0.0 K/uL Normal 0.0-0.1 [facility] Comment on above: Performed By: #### C BC #### [facility] [address] [place], [place] [id number] Basophils/100 WBC (Bld) [employer] Normal [facility] Comment on above: Performed By: #### C BC #### [facility] [place] [address] [place] [address] Basophils/100 WBC (Bld) 0.5 % Normal 0.2-1.0 [facility] Comment on above: Performed By: #### C BC #### [facility] [place] [address] [place] [address] Bosophillia # [employer] Normal [facility] Comment on above: Performed By: #### C BC #### [facility] [place] [address] [place] [address] Eosinophils (Bld) [#/Vol] 0.1 10*3/uL Normal 0.0-0.2 [facility] Comment on above: Performed By: #### C BC #### [facility] [place] [address] [place] [address] Eosinophils (Bld) [#/Vol] [employer] Normal [facility] Comment on above: Performed By: #### C BC #### [facility] [place] [address] [place] [address] Eosinophils/100 WBC (Bld) 1.3 % Normal 0.9-2.9 [facility] Comment on above: Performed By: #### C BC #### [facility] [place] [address] [place] [address] Eosinophils/100 WBC (Bld) [employer] Normal [facility] Comment on above: Performed By: #### C BC #### [facility] [place] [address] [place] [address] Erythocytosis [employer] Normal [facility] Comment on above: Performed By: #### C BC #### [facility] [place] [address] [place] [address] Erythrocyte distribution width (RBC) [Ratio] 13.6 % Normal 11.5-14.5 [facility] Comment on above: Performed By: #### C BC #### [facility] [place] [address] [place] [address] Hematocrit (Bld) [Volume fraction] 45.1 % Normal 36.7-50.6 [facility] Comment on above: Performed By: #### C BC #### [facility] [place] [address] [facility] [place] [address] Hemoglobin (Bld) [Mass/Vol] 15.0 g/dL Normal 12.4-17.3 [facility] Comment on above: Performed By: #### C BC #### [facility] [place] [address] [place] [address] Hypochromia [employer] Normal [facility] Comment on above: Performed By: #### C BC #### [facility] [place] [address] [place] [address] Large Platelets [employer] Normal [facility] Comment on above: Performed By: #### C BC #### [facility] [place] [address] [place] [address] Leukocytosis [employer] Normal [facility] Comment on above: Performed By: #### C BC #### [facility] [place] [address] [place] [address] Leukopenia [employer] Normal [facility] Comment on above: Performed By: #### C BC #### [facility] [place] [address] [place] [address] Lymphocytes (Bld) [#/Vol] [employer] Normal [facility] Comment on above: Performed By: #### C BC #### [facility] [place] [address] [place] [address] Lymphocytes (Bld) [#/Vol] 3.0 10*3/uL High 1.3-2.9 [facility] Comment on above: Performed By: #### C BC #### [facility] [place] [address] [place] [address] Lymphocytes/100 WBC (Bld) [employer] Normal [facility] Comment on above: Performed By: #### C BC #### [facility] [place] [address] [place] [address] Lymphocytes/100 WBC (Bld) 36.7 % Normal 17.0-45.5 [facility] Comment on above: Performed By: #### C BC #### [facility] [address] [place] [address] Lymphocytosis # [employer] Normal [facility] Comment on above: Performed By: #### C BC #### [facility] [address] [place] [address] Lymphocytosis % [employer] Normal [facility] Comment on above: Performed By: #### C BC #### [facility] [address] [place] [address] Macrocytosis [employer] Normal [facility] Comment on above: Performed By: #### C BC #### [facility] [address] [place] [address] MCH (RBC) [Entitic mass] 27.2 pg Normal 27.0-31.0 [facility] Comment on above: Performed By: #### C BC #### [facility] [place] [address] [place] [address] MCHC (RBC) [Mass/Vol] 33.3 g/dL Normal 33.0-37.0 [facility] Comment on above: Performed By: #### C BC #### [facility] [place] [address] [facility] [address] MCV (RBC) [Entitic vol] 81.7 fL Normal 80.0-94.0 [facility] Comment on above: Performed By: #### C BC #### [facility] [place] [address] [place] [address] Microcytosis [employer] Normal [facility] Comment on above: Performed By: #### C BC #### [facility] [place] [address] [facility] [address] Monocytes (Bld) [#/Vol] 0.6 10*3/uL Normal 0.3-0.8 [facility] Comment on above: Performed By: #### C BC #### [facility] [place] [address] [facility] [address] Monocytes/100 WBC (Bld) 6.8 % Normal 5.5-11.7 [facility] Comment on above: Performed By: #### C BC #### [facility] [place] [address] [facility] [address] Monocytosis % [employer] Normal [facility] Comment on above: Performed By: #### C BC #### [facility] [place] [address] [facility] [address] Neutropenia # [employer] Normal [facility] Comment on above: Performed By: #### C BC #### [facility] [place] [address] [facility] [address] Neutropenia % [employer] Normal [facility] Comment on above: Performed By: #### C BC #### [facility] [place] [address] [facility] [address] Neutrophils (Bld) [#/Vol] [employer] Normal [facility] Comment on above: Performed By: #### C BC #### [facility] [place] [address] [place] [address] Neutrophils Abs. # 4.5 K/uL Normal 2.2-4.8 [facility] Comment on above: Performed By: #### C BC #### [facility] [place] [address] [place] [address] Neutrophils/100 WBC (Bld) [employer] Normal [facility] Comment on above: Performed By: #### C BC #### [facility] [place] [address] [place] [address] Neutrophils/100 WBC (Bld) 54.7 % Normal 43.0-65.0 [facility] Comment on above: Performed By: #### C BC #### [facility] [place] [address] [place] [address] Nucleated RBC (Bld) [#/Vol] 0.0 10*3/uL Normal [facility] Comment on above: Performed By: #### C BC #### [facility] [place] [address] [place] [address] Nucleated RBC/100 WBC (Bld) [Ratio] 0.0 % Normal [facility] Comment on above: Performed By: #### C BC #### [facility] [place] [address] [place] [address] Pancytopenia [employer] Normal [facility] Comment on above: Performed By: #### C BC #### [facility] [place] [address] [place] [address] Platelet mean volume (Bld) [Entitic vol] 9.3 fL Normal 7.4-10.4 [facility] Comment on above: Performed By: #### C BC #### [facility] [place] [address] [place] [address] Platelets (Bld) [#/Vol] 268 10*3/uL Normal 148-402 [facility] Comment on above: Performed By: #### C BC #### [facility] [place] [address] [place] [address] Poikilocytosis [employer] Normal [facility] Comment on above: Performed By: #### C BC #### [facility] [place] [address] [place] [address] RBC (Bld) [#/Vol] 5.52 10*6/uL Normal 4.13-5.69 [facility] Comment on above: Performed By: #### C BC #### [facility] [place] [address] [place] [address] Small Platelets [employer] Normal [facility] Comment on above: Performed By: #### C BC #### [facility] [place] [address] [place] [address] Thrombocytopenia [employer] Normal [facility] Comment on above: Performed By: #### C BC #### [facility] [place] [address] [place] [address] Thrombocytopenia. [employer]ODUCER Normal [facility] Comment on above: Performed By: #### C BC #### [facility] [place] [address] [facility] [place] [address] Thrombocytosis [employer] Normal [facility] Comment on above: Performed By: #### C BC #### [facility] [place] [address] [place] [address] WBC (Bld) [#/Vol] 8.2 10*3/uL Normal 3.6-10.8 [facility] Comment on above: Performed By: #### C BC #### [facility] [address] [place] [address] CT BRAIN WOon 04-21-2020 CT BRAIN WO EXAMINATION: CT OF THE HEAD WITHOUT CONTRAST 04/21/2020 8:44 pm TECHNIQUE: CT of the head was performed without the administration of intravenous contrast. COMPARISON: None. HISTORY: ORDERING SYSTEM PROVIDED HISTORY: ?seizure FINDINGS: BRAIN/VENTRICLES: There is no acute intracranial hemorrhage, mass effect or midline shift. No abnormal extra-axial fluid collection. The quinones-white differentiation is maintained without evidence of an acute infarct. There is no evidence of hydrocephalus. ORBITS: The visualized portion of the orbits demonstrate no acute abnormality. SINUSES: The visualized paranasal sinuses and mastoid air cells demonstrate no acute abnormality. SOFT TISSUES/SKULL: No acute abnormality of the visualized skull or soft tissues. IMPRESSION: No acute intracranial abnormality. Normal [facility] Comprehensive Metabolic Pane brisa 04-21-2020 Albumin [Mass/Vol] 4.5 g/dL Normal 3.4-5.0 [facility] Comment on above: Performed By: #### C MP #### [facility] [address] [place] [address] Albumin/Globulin [Mass ratio] 1.8 {ratio} Normal 1.1-2.5 [facility] Comment on above: Performed By: #### C MP #### [facility] [address] [place] [address] ALP [Catalytic activity/Vol] 102 U/L Normal 40-530 [facility] Comment on above: Performed By: #### C MP #### [facility] [address] [place] [address] ALT [Catalytic activity/Vol] 26 U/L Normal 13-66 [facility] Comment on above: Performed By: #### C MP #### [facility] [address] [place] [address] Anion gap [Moles/Vol] 15.4 mmol/L Normal 8.0-16.0 [facility] Comment on above: Performed By: #### C MP #### [facility] [place] [address] [place] [address] AST [Catalytic activity/Vol] 20 U/L Normal 3-39 [facility] Comment on above: Performed By: #### C MP #### [facility] [address] [place] [address] Bilirubin Ql (U) 0.50 mg/dL Normal 0.00-0.99 [facility] Comment on above: Performed By: #### C MP #### [facility] [address] [place] [address] Calcium [Mass/Vol] 8.7 mg/dL Normal 8.2-10.0 [facility] Comment on above: Performed By: #### C MP #### [facility] [address] [place] [address] Chloride [Moles/Vol] 102 mmol/L Normal 94-110 [facility] Comment on above: Performed By: #### C MP #### [facility] [address] [place] [address] CO2 [Moles/Vol] 26 mmol/L Normal 21-34 [facility] Comment on above: Performed By: #### C MP #### [facility] [address] [place] [address] Creatinine [Mass/Vol] 0.97 mg/dL Normal 0.50-1.17 [facility] Comment on above: Performed By: #### C MP #### [facility] [address] [place] [address] GFR/1.73 sq M predicted among blacks MDRD (S/P/Bld) [Vol rate/Area] mL/min/{1.73_m2} Normal >60 [facility] Comment on above: Performed By: #### C MP #### [facility] [address] [place] [address] GFR/1.73 sq M predicted among non-blacks MDRD (S/P/Bld) [Vol rate/Area] mL/min/{1.73_m2} Normal >60 [facility] Comment on above: Performed By: #### C MP #### [facility] [address] [place] [address] Globulin (S) [Mass/Vol] 2.5 g/dL Normal 1.5-4.5 [facility] Comment on above: Performed By: #### C MP #### [facility] [address] [place] [address] Glucose [Mass/Vol] 87 mg/dL Normal 65-100 [facility] Comment on above: Performed By: #### C MP #### [facility] [address] [place] [address] Potassium [Moles/Vol] 3.4 mmol/L Normal 3.3-5.1 [facility] Comment on above: Performed By: #### C MP #### [facility] [address] [place] [address] Protein [Mass/Vol] 7.0 g/dL Normal 6.1-8.2 [facility] Comment on above: Performed By: #### C MP #### [facility] [address] [place] [address] Sodium [Moles/Vol] 140 mmol/L Normal 132-145 [facility] Comment on above: Performed By: #### C MP #### [facility] [address] [place] [address] Urea nitrogen [Mass/Vol] 11.9 mg/dL Normal 3.2-26.9 [facility] Comment on above: Performed By: #### C MP #### [facility] [address] [place] [address] Urea nitrogen/Creatinine [Mass ratio] 12 mg/mg Normal 6-20 [facility] Comment on above: Performed By: #### C MP #### [facility] [address] [place] [address] RIBS 2V UNIL INCL PA CHESTon 04-21-2020 RIBS 2V UNIL INCL PA CHEST EXAMINATION: XRAY VIEWS OF RIGHT RIBS WITH 2 XRAY VIEWS OF THE CHEST 04/21/2020 9:11 pm COMPARISON: None. HISTORY: ORDERING SYSTEM PROVIDED HISTORY: R lower rib pain FINDINGS: No displaced rib fractures. Nondisplaced, incompletely fracture of the right 9th rib may be present. No pneumothorax. Normal bone density. IMPRESSION: Nondisplaced incomplete fracture right 9th rib may be present seen on a single view. No acute displaced fractures or pneumothorax. Normal [facility] UA w/Micrscopic-reflex cultu reon 04-21-2020 Appearance (U) Clear Normal Clear [facility] Comment on above: Performed By: #### U AMRC #### [facility] [address] [place] [address] Bacteria 1+ /hpf Normal 0 - 1+ [facility] Comment on above: Performed By: #### U AMRC #### [facility] [address] [place] [address] Bilirubin Ql (U) Negative Normal Negative [facility] Comment on above: Performed By: #### U AMRC #### [facility] [address] [place] [address] Blood 25 Abnormal Negative [facility] Comment on above: Performed By: #### U AMRC #### [facility] [place] [address] [facility] [place] [address] Casts LM.LPF (Urine sed) [#/Area] [employer] Normal [facility] Comment on above: Performed By: #### U AMRC #### [facility] [place] [address] [facility] [place] [address] Color (U) P. YELLOW Normal Yellow [facility] Comment on above: Performed By: #### U AMRC #### [facility] [place] [address] [facility] [place] [address] Crystals LM Nom (Urine sed) [employer] Normal [facility] Comment on above: Performed By: #### U AMRC #### [facility] [place] [address] [place] [address] Epithelial cells LM.HPF (Urine sed) [#/Area] [employer] Normal 0 - 6 [facility] Comment on above: Performed By: #### U AMRC #### [facility] [place] [address] [place] [address] Glucose [Mass/Vol] NORMAL Normal Negative [facility] Comment on above: Performed By: #### U AMRC #### [facility] [place] [address] [facility] [place] [address] Ketones Ql (U) 5 Abnormal Negative [facility] Comment on above: Performed By: #### U AMRC #### [facility] [place] [address] [facility] [place] [address] Leukocytes Esterase Negative Normal Negative [facility] Comment on above: Performed By: #### U AMRC #### [facility] [place] [address] [facility] [place] [address] Mucus Ql (Urine sed) [employer] Normal [facility] Comment on above: Performed By: #### U AMRC #### [facility] [place] [address] [place] [address] Nitrite Ql (U) Negative Normal Negative [facility] Comment on above: Performed By: #### U AMRC #### [facility] [address] [place] [address] pH (U) 5 [pH] Normal [facility] Comment on above: Performed By: #### U AMRC #### [facility] [address] [place] [address] Protein [Mass/Vol] 25 Abnormal Negative [facility] Comment on above: Performed By: #### U AMRC #### [facility] [address] [place] [address] RBC (Bld) [#/Vol] 0-2 Normal 0 - 2 [facility] Comment on above: Performed By: #### U AMRC #### [facility] [address] [place] [address] Trichomonas [employer] Normal [facility] Comment on above: Performed By: #### U AMRC #### [facility] [place] [address] [place] [address] Urobilinogen Qn (U) NORMAL Normal Normal-1.0 [facility] Comment on above: Performed By: #### U AMRC #### [facility] [place] [address] [place] [address] WBC (Bld) [#/Vol] 0-2 Normal 0 - 6 [facility] Comment on above: Performed By: #### U AMRC #### [facility] [place] [address] [place] [address] Yeast LM Ql (Urine sed) [employer] [facility] Comment on above: Performed By: #### U AMRC #### [facility] [place] [address] [place] [address] Other [employer] [facility] Comment on above: Performed By: #### U AMRC #### [facility] [place] [address] [place] [address] Urine Drug Screeningon 04-21 Amphetamines Ql (U) Negative [facility] Comment on above: Order Comment: Drug Screen Comment No Result Comment: cuto ff 1000 ng/mL Performed By: #### D RUGR #### [facility] [place] [address] [place] [address] Barbiturates Negative [facility] Comment on above: Order Comment: Drug Screen Comment No Result Comment: cuto ff 200 ng/mL Performed By: #### D RUGR #### [facility] [place] [address] [place] [address] Benzodiazepines Ql (U) Negative [facility] Comment on above: Order Comment: Drug Screen Comment No Result Comment: cuto ff 200 ng/mL Performed By: #### D RUGR #### [facility] [place] [address] [place] [address] Cocaine Ql (U) Negative [facility] Comment on above: Order Comment: Drug Screen Comment No Result Comment: cuto ff 300 ng/mL Performed By: #### D RUGR #### [facility] [place] [address] [place] [address] Opiates Ql (U) Negative [facility] Comment on above: Order Comment: Drug Screen Comment No Result Comment: cuto ff 300 ng/mL Performed By: #### D RUGR #### [facility] [place] [address] [facility] [place] [address] pH (Bld) 5.0 Normal 5.0-8.0 [facility] Comment on above: Order Comment: Drug Screen Comment No Performed By: #### D RUGR #### [facility] [place] [address] [facility] [place] [address] Phencyclidine Ql (U) Negative Normal [facility] Comment on above: Order Comment: Drug Screen Comment No Result Comment: cuto ff 25 ng/mL Performed By: #### D RUGR #### [facility] [place] [address] [place] [address] Specific gravity (U) [Rel density] 1.025 Normal 1.015-1.025 [facility] Comment on above: Order Comment: Drug Screen Comment No Performed By: #### D RUGR #### [facility] [place] [address] [place] [address] Performed By: #### U AMRC #### [facility] [place] [address] [place] [address] THC Negative [facility] Comment on above: Order Comment: Drug Screen Comment No Result Comment: cuto ff 50 ng/mL Performed By: #### D RUGR #### [facility] [place] [address] [place] [address] - - Normal [facility] Comment on above: Order Comment: Drug Screen Comment No Result Comment: . Drug Screen Comment: This assay provides a preliminary unconfirmed analytical test result that may be suitable for the clinical management of patients in certain situations. Some rcmn-cdv-mrfrhor medications, as well as adulterants, may cause inaccurate results. Screen only testing does not meet the [facility] Forensic Urine Drug Testing Program requirements as a forensic urine drug test for workplace testing. . Performed By: #### D RUGR #### [facility] [place] [address] [place] [id number] Progress Noteon 08-19-2017 [employer] Authentication Interface Message Text Patient ID: Penny Robin is a 11 y.o. male. His chief complaint(s)include: Fever (headache).Assessment:1. Viral syndrome2. Nonintractable episodic headache, unspecified headache typePlan:Penny was seen today for fever.Diagnoses and all orders for this visit:Viral syndromeNonintractable episodic headache, unspecified headache type- ibuprofen (MOTRIN) 200 MG tablet; Take 2 Tabs (400 mg) by mouth every 6hours as needed for Pain Take with meals.No Follow-up on file.Likely viral syndrome with maybe some migraine. He is developing congestion.Subjective:He is accompanied by his mother.FeverThe duration has been 3 days.The patient's symptoms have included headaches. The patient's symptoms haveincluded no congestion, no rhinorrhea, no cough, no diarrhea and no vomiting.The patient has had a maximum temperature of 100.4 degrees. The patient's homemanagement has included acetaminophen and ibuprofen.Review of SystemsConstitutional: Positive for fever.Objective:Physical ExamConstitutional: He appears well. He is active. No distress.HENT:Head: Atraumatic.Right Ear: Tympanic membrane normal.Left Ear: Tympanic membrane normal.Nose: Nasal discharge (mild) present.Mouth/Throat: Mucous membranes are moist.Eyes: Conjunctivae are normal.Cardiovascular: Normal rate and regular rhythm.No murmur heard.Pulmonary/Chest: Breath sounds normal. There is normal air entry.Neurological: He is alert. No cranial nerve deficit. Coordination and gaitnormal.Vitals reviewed: Temperature 36.9 C (98.4 F), temperature source Temporal,weight 57 kg. Normal [facility] Progress Noteon 06-01-2017 [employer] Authentication Interface Message Text Patient ID: Penny Robin is a 11 y.o. male. His chief complaint(s)include: 11 YEAR WELL CHILD.Assessment:1. Encounter for routine child health examination without abnormal findings2. Exercise counseling3. Encounter for dietary counseling and surveillancePlan:Penny was seen today for 11 year well child.Diagnoses and all orders for this visit:Encounter for routine child health examination without abnormal findings- Behavioral/Emotional Assessment w Score - PHQ-9Exercise counselingEncounter for dietary counseling and surveillanceNo Follow-up on file.No Hep A today. Cannot wait the 15 minute wait.HPV refused at this time by Mom.Subjective:The patient's reason for visit is Well Check 11 Year. He is accompanied by hismother.11 YEAR WELL CHILDSchool and ActivitiesSchool Grade: 8th grade.His school performance includes: doing well and getting A's.Eating:Penny eats regular meals including fruits and vegetables.Activities & Sports:He plays individual sports and plays competitive sports. (Band)Drugs:He does not use tobacco.Suicidality:He has ways to cope with stress. He has no depression.OutputUrine and Stool Pattern:Urine and Stool Pattern: Normal stool pattern, normal urine pattern.Stool Consistency: softSleepSleeping Difficulty: no difficulty sleepingHours of sleep at a time: 8Teen Anticipatory GuidanceThe following anticipatory guidance was reviewed during the visit:Nutrition: limit junk food/fast food and soft drinks.Safety: use safety helmet/gear with activities.Health: don't use tobacco/ alcohol/ drugs/ diet pills/ inhalants.Primary Care Review of SystemsObjective:Physical ExamConstitutional: He appears well. He is active. No distress.HENT:Head: Atraumatic.Right Ear: Tympanic membrane and external ear normal.Left Ear: Tympanic membrane and external ear normal.Nose: Nose normal.Mouth/Throat: Mucous membranes are moist. Dentition is normal. Oropharynx isclear.Eyes: Conjunctivae and EOM are normal. No strabismus. Pupils are equal, round,and reactive to light.Neck: Normal range of motion. Neck supple. Thyroid normal. No adenopathy.Cardiovascular : Normal rate, regular rhythm, S1 normal and S2 normal. Pulsesare palpable.No murmur heard.Pulmonary/Chest: Breath sounds normal. No respiratory distress. Exhibits nodeformity.Abdominal: Soft. Bowel sounds are normal. He exhibits no distension and no mass.There is no hepatosplenomegaly. There is no tenderness.Genitourinary: Testes normal and penis normal. No inguinal hernia noted.Musculoskeletal: Normal range of motion. Back: He exhibits no scoliosis.Neurological: He is alert. He has normal strength. He exhibits normal muscletone. Gait normal.Skin: No rash noted. No pallor. Skin is warm. Normal [facility] Vital Signs Date Time Vital Sign Value Performing Clinician Faci lity 07-03-2025 10:02-0400 Body height 170.2 cm Armin Martinez MD Work Phone: [facility] 07-03-2025 10:02-0400 Body mass index (BMI) [Ratio] 21.02 kg/m2 Armin Martinez MD Work Phone: [facility] 07-03-2025 10:02-0400 Body temperature 98.1 [degF] Armin Martinez MD Work Phone: [facility] 07-03-2025 10:02-0400 Body weight 60.87 kg Armin Martinez MD Work Phone: [facility] 07-03-2025 10:02-0400 Diastolic blood pressure 82 mm[Hg] Armin Martinez MD Work Phone: [facility] 07-03-2025 10:02-0400 Heart rate 81 /min Armin Martinez MD Work Phone: [facility] 07-03-2025 10:02-0400 SaO2% (BldA) [Mass fraction] 95 % Armin Martinez MD Work Phone: [facility] 07-03-2025 10:02-0400 Systolic blood pressure 120 mm[Hg] Armin Martinez MD Work Phone: [facility] 02-21-2025 12:55-0400 Body height 171.8 cm Ernesto Noonan DO Work Phone: [facility] 02-21-2025 12:55-0400 Body mass index (BMI) [Ratio] 21.04 kg/m2 Ernesto Noonan DO Work Phone: [facility] 02-21-2025 12:55-0400 Body temperature 98.01 [degF] Ernesto Noonan DO Work Phone: [facility] 02-21-2025 12:55-0400 Body weight 62.1 kg Ernestoluis Shelbyer DO Work Phone: [facility] 02-21-2025 12:55-0400 Diastolic blood pressure 64 mm[Hg] Ernesto Zahler DO Work Phone: [facility] 02-21-2025 12:55-0400 Heart rate 72 /min Ernesto Maggiehler DO Work Phone: [facility] 02-21-2025 12:55-0400 Respiratory rate 18 /min Ernestoluis Shelbyer DO Work Phone: [facility] 02-21-2025 12:55-0400 SaO2% (BldA) [Mass fraction] 98 % Ernesto Shelbyer DO Work Phone: [facility] 02-21-2025 12:55-0400 Systolic blood pressure 116 mm[Hg] Ernesto Heroner DO Work Phone: [facility] 09-04-2023 09:59-0500 Body temperature 97 [degF] Leoncio Vallejo MD Work Phone: [facility] 09-04-2023 09:59-0500 Body weight 57.61 kg Leoncio Vallejo MD Work Phone: [facility] 09-04-2023 09:59-0500 Diastolic blood pressure 72 mm[Hg] Leoncio Vallejo MD Work Phone: [facility] 09-04-2023 09:59-0500 Heart rate 64 /min Leoncio Vallejo MD Work Phone: [facility] 09-04-2023 09:59-0500 SaO2% (BldA) [Mass fraction] 97 % Leoncio Vallejo MD Work Phone: [facility] 09-04-2023 09:59-0500 Systolic blood pressure 104 mm[Hg] Leoncio Vallejo MD Work Phone: [facility] 09-03-2023 11:32-0500 Body temperature 97.7 [degF] Izzy Grady APRN.CNP Work Phone: [facility] 09-03-2023 11:32-0500 Body weight 57.7 kg Izzy Grady KELLY MACHINE OPERATOR.PAPER TESTING SUPERVISOR Work Phone: [facility] 09-03-2023 11:32-0500 Diastolic blood pressure 78 mm[Hg] Izzy Grady KELLY MACHINE OPERATOR.PAPER TESTING SUPERVISOR Work Phone: [facility] 09-03-2023 11:32-0500 Heart rate 71 /min Izzy Grady KELLY MACHINE OPERATOR.PAPER TESTING SUPERVISOR Work Phone: [facility] 09-03-2023 11:32-0500 Respiratory rate 16 /min Izzy Grady KELLY MACHINE OPERATOR.PAPER TESTING SUPERVISOR Work Phone: [facility] 09-03-2023 11:32-0500 SaO2% (BldA) [Mass fraction] 97 % Izzy Grady KELLY MACHINE OPERATOR.PAPER TESTING SUPERVISOR Work Phone: [facility] 09-03-2023 11:32-0500 Systolic blood pressure 118 mm[Hg] Izzy Grady KELLY MACHINE OPERATOR.PAPER TESTING SUPERVISOR Work Phone: [facility] 05-22-2023 11:46-0400 Body height 170.2 cm Leoncio Vallejo MD Work Phone: [facility] 05-22-2023 11:46-0400 Body temperature 97.2 [degF] Leoncio Vallejo MD Work Phone: [facility] 05-22-2023 11:46-0400 Body weight 58.97 kg Leoncio Vallejo MD Work Phone: [facility] 05-22-2023 11:46-0400 Diastolic blood pressure 92 mm[Hg] Leoncio Vallejo MD Work Phone: [facility] 05-22-2023 11:46-0400 Heart rate 68 /min Leoncio Vallejo MD Work Phone: [facility] 05-22-2023 11:46-0400 SaO2% (BldA) [Mass fraction] 98 % Leoncio Vallejo MD Work Phone: [facility] 05-22-2023 11:46-0400 Systolic blood pressure 116 mm[Hg] Leoncio Vallejo MD Work Phone: [facility] 02-19-2023 10:42-0400 Body height 172.4 cm Husam Valentin MD Work Phone: [facility] 02-19-2023 10:42-0400 Body temperature 97.39 [degF] Husam Valentin MD Work Phone: [facility] 02-19-2023 10:42-0400 Body weight 63.7 kg Husam Valentin MD Work Phone: [facility] 02-19-2023 10:42-0400 Diastolic blood pressure 65 mm[Hg] Husam Valentin MD Work Phone: [facility] 02-19-2023 10:42-0400 Heart rate 59 /min Husam Valentin MD Work Phone: [facility] 02-19-2023 10:42-0400 Respiratory rate 18 /min Husam Valentin MD Work Phone: [facility] 02-19-2023 10:42-0400 SaO2% (BldA) [Mass fraction] 100 % Husam Valentin MD Work Phone: [facility] 02-19-2023 10:42-0400 Systolic blood pressure 119 mm[Hg] Husam Valentin MD Work Phone: [facility] 11-28-2022 08:31-0500 Body height 175.3 cm Leoncio Vallejo MD Work Phone: [facility] 11-28-2022 08:31-0500 Body weight 58.97 kg Leoncio Vallejo MD Work Phone: [facility] 11-28-2022 08:31-0500 Diastolic blood pressure 78 mm[Hg] Leoncio Vallejo MD Work Phone: [facility] 11-28-2022 08:31-0500 Heart rate 65 /min Leoncio Vallejo MD Work Phone: [facility] 11-28-2022 08:31-0500 SaO2% (BldA) [Mass fraction] 98 % Leoncio Vallejo MD Work Phone: [facility] 11-28-2022 08:31-0500 Systolic blood pressure 108 mm[Hg] Leoncio Vallejo MD Work Phone: [facility] 09-02-2022 13:52-0500 Body height 175.3 cm Leoncio Vallejo MD Work Phone: [facility] 09-02-2022 13:52-0500 Body weight 59.24 kg Leoncio Vallejo MD Work Phone: [facility] 09-02-2022 13:52-0500 Diastolic blood pressure 58 mm[Hg] Leoncio Vallejo MD Work Phone: [facility] 09-02-2022 13:52-0500 Heart rate 72 /min Leoncio Vallejo MD Work Phone: [facility] 09-02-2022 13:52-0500 SaO2% (BldA) [Mass fraction] 97 % Leoncio Vallejo MD Work Phone: [facility] 09-02-2022 13:52-0500 Systolic blood pressure 92 mm[Hg] Leoncio Vallejo MD Work Phone: [facility] 08-18-2022 11:17-0400 Body weight 60.33 kg Leoncio Vallejo MD Work Phone: [facility] 08-18-2022 11:17-0400 Diastolic blood pressure 68 mm[Hg] Leoncio Vallejo MD Work Phone: [facility] 08-18-2022 11:17-0400 Heart rate 83 /min Leoncio Vallejo MD Work Phone: [facility] 08-18-2022 11:17-0400 SaO2% (BldA) [Mass fraction] 98 % Leoncio Vallejo MD Work Phone: [facility] 08-18-2022 11:17-0400 Systolic blood pressure 102 mm[Hg] Leoncio Vallejo MD Work Phone: [facility] 08-17-2022 02:01-0400 Diastolic blood pressure 65 mm[Hg] [facility] Work Phone: 08-17-2022 02:01-0400 Heart rate 65 /min [facility] Work Phone: 08-17-2022 02:01-0400 Respiratory rate 18 /min [facility] Work Phone: 08-17-2022 02:01-0400 SaO2% (BldA) [Mass fraction] 100 % [facility] Work Phone: 08-17-2022 02:01-0400 Systolic blood pressure 116 mm[Hg] [facility] Work Phone: 08-16-2022 19:37-0400 Body height 175.26 cm [facility] Work Phone: 08-16-2022 19:37-0400 Body mass index (BMI) [Percentile] Per age and sex 25.3 % [facility] Work Phone: 08-16-2022 19:37-0400 Body mass index (BMI) [Ratio] 20.7 kg/m2 [facility] Work Phone: 08-16-2022 19:37-0400 Body temperature 98.1 [degF] [facility] Work Phone: 08-16-2022 19:37-0400 Body weight 63.5 kg [facility] Work Phone: 06-25-2022 12:34-0400 Body height 175.3 cm Eric Le DO Work Phone: [facility] 06-25-2022 12:34-0400 Body mass index (BMI) [Percentile] Per age and sex 9.35 % Eric Le DO Work Phone: [facility] 06-25-2022 12:34-0400 Body weight 59.05 kg Eric Le DO Work Phone: [facility] 09-07-2022 12:34-0400 Diastolic blood pressure 72 mm[Hg] Eric Caseycio DO Work Phone: [facility] 06-25-2022 12:34-0400 Heart rate 77 /min Ericanthony Caseycio DO Work Phone: [facility] 06-25-2022 12:34-0400 Systolic blood pressure 113 mm[Hg] Ericanthony Caseycio DO Work Phone: [facility] 05-09-2022 08:44-0400 Body weight 58.06 kg Leoncio Vallejo MD Work Phone: [facility] 05-09-2022 08:44-0400 Diastolic blood pressure 62 mm[Hg] Leoncio Vallejo MD Work Phone: [facility] 05-09-2022 08:44-0400 Heart rate 60 /min Leoncio Vallejo MD Work Phone: [facility] 05-09-2022 08:44-0400 Systolic blood pressure 98 mm[Hg] Leoncio Vallejo MD Work Phone: [facility] 04-04-2022 08:20-0400 Body temperature 97.59 [degF] Adarsh Perez MD Work Phone: [facility] 04-04-2022 08:20-0400 Body weight 61.78 kg Adarsh Perez MD Work Phone: [facility] 04-04-2022 08:20-0400 Heart rate 60 /min Adarsh Perez MD Work Phone: [facility] 04-04-2022 08:20-0400 Respiratory rate 18 /min Adarsh Perez MD Work Phone: [facility] Encounters Encounter Date Encounter Type Care Provider Facility Start: 07-03-2025 End: 07-03-2025 Patient encounter procedure Armin Martinez MD Work Phone: [facility] [place] Comment on above: Bacterial sinusitis (Primary Dx); Acute cough; Acute pharyngitis, unspecified etiology Start: 07-03-2025 End: 07-03-2025 ambulatory ARMIN MARTINEZ Facility:[facility] Start: 05-17-2025 End: 05-18-2025 ambulatory Jack Almazan MD Work Phone: Neurology Comment on above: Clobazam pills Start: 05-16-2025 End: 05-19-2025 Telephone encounter Jack Almazan MD Work Phone: Neurology Comment on above: Forms (BMV) Start: 05-15-2025 End: 05-15-2025 Telemedicine consultation with patient Jack Almazan MD Work Phone: Neurology Start: 05-15-2025 End: 05-15-2025 ambulatory Jack Almazan MD Work Phone: Neurology Comment on above: Localization-related (focal) (partial) symptomatic epilepsy and epileptic syndromes with complex partial seizures, intractable, without status epilepticus (HCC) Start: 02-21-2025 End: 03-20-2025 Patient encounter procedure Ernesto Noonan DO Work Phone: Pediatric Hematology Start: 02-21-2025 End: 03-20-2025 ambulatory Ernesto Noonan DO Work Phone: Pediatric Hematology Comment on above: Temporal lobe lesion (Primary Dx); 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); Partial symptomatic epilepsy with complex partial seizures, not intractable, without status epilepticus (HCC) Start: 02-21-2025 ambulatory LEONCIO VALLEJO Facility :[facility] Start: 02-21-2025 End: 02-21-2025 Subsequent hospital visit by physician Mri 6 Radio Main Q (I-Stat/1.5t/3t) Work Phone: MRI Q Comment on above: 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] Start: 01-29-2025 End: 02-01-2025 ambulatory Jack Almazan MD Work Phone: Neurology Comment on above: Focal seizures Start: 11-24-2024 End: 11-24-2024 Telephone encounter Jack Almazan MD Work Phone: Neurology Start: 11-23-2024 End: 11-23-2024 ambulatory Jack Almazan MD Work Phone: Neurology Comment on above: Partial symptomatic epilepsy with complex partial seizures, intractable, with status epilepticus (HCC) (Primary Dx); Generalized convulsive epilepsy (HCC) Start: 11-23-2024 End: 11-23-2024 Telemedicine consultation with patient Jack Almazan MD Work Phone: Neurology Start: 11-03-2024 End: 11-03-2024 Refill Jack Almazan MD Work Phone: Neurology Comment on above: Refill Request Start: 11-03-2024 End: 11-08-2024 Refill Jack Almazan MD Work Phone: Neurology Comment on above: Refill Request Missed work for foca ls Start: 11-02-2024 End: 11-02-2024 Telephone encounter Megan Dimas APRN.PAPER TESTING SUPERVISOR Work Phone: [facility] Comment on above: Seizures (/) Start: 09-28-2024 End: 09-28-2024 Orders Only Yeny Do APRN.PAPER TESTING SUPERVISOR Work Phone: Pediatric Hematology Comment on above: Temporal lobe lesion (Primary Dx); Partial symptomatic epilepsy with complex partial seizures, not intractable, without status epilepticus (HCC) Start: 09-05-2024 End: 09-06-2024 ambulatory Jack Almazan MD Work Phone: Neurology Comment on above: Medical card Start: 08-05-2024 End: 08-05-2024 Refill Jack Almazan MD Work Phone: Neurology Comment on above: Refill Request Start: 07-12-2024 End: 07-12-2024 Telephone encounter Timothy Johnson Research Coordinator Neurology Comment on above: Research (IRB [id number]) Start: 06-29-2024 End: 06-29-2024 Telephone encounter Timothy Johnson Research Coordinator Neurology Comment on above: Research (IRB [id number] 5) Start: 06-22-2024 End: 06-22-2024 Telephone encounter Timothy Johnson Research Coordinator Neurology Comment on above: Research (IRB [id number]) Start: 06-13-2024 End: 06-13-2024 ambulatory Jack Almazan MD Work Phone: Neurology Comment on above: Clobazam Refill Request Start: 05-23-2024 Telephone encounter Jack Almazan MD Work Phone: Neurology Comment on above: Medication Authoriza tion (Clobazam) Start: 05-20-2024 Telephone encounter Selena davila PA-C Work Phone: Neurology Start: 05-19-2024 End: 05-19-2024 ambulatory Jack Almazan MD Work Phone: Neurology Comment on above: Partial symptomatic epilepsy with complex partial seizures, intractable, with status epilepticus (HCC) (Primary Dx); Generalized convulsive epilepsy (HCC) Start: 05-19-2024 End: 05-19-2024 Telemedicine consultation with patient Jack Almazan MD Work Phone: Neurology Start: 03-07-2024 Telephone encounter Jack Almazan MD Work Phone: Neurology Comment on above: Medication Concern Start: 02-01-2024 Telephone encounter Reshma sarmiento PA-C Work Phone: [facility] Comment on above: Patient Question Seizures Start: 09-18-2023 Telephone encounter Stephani hawley MD Work Phone: Neurology Comment on above: Other (Call to [facility] next physician after Dr. Pham retires) Start: 09-04-2023 End: 09-04-2023 Patient encounter procedure Leoncio Vallejo MD Work Phone: [facility] [place] Comment on above: Dermatitis (Primary Dx) Start: 09-03-2023 End: 09-03-2023 Patient encounter procedure Izzy Grady APRN.PAPER TESTING SUPERVISOR Work Phone: [facility] Comment on above: Rash (Primary Dx) Start: 08-07-2023 Refill Stephnai Pham MD Work Phone: Neurology Comment on above: Refill Request Start: 07-29-2023 Refill Stephani Pham MD Work Phone: Neurology Comment on above: Refill Request Start: 05-25-2023 Chart abstracting Stephani xie MD Work Phone: Neurology Comment on above: Clinical Update Start: 05-25-2023 Telephone encounter Stephani hawley MD Work Phone: Neurology Comment on above: Patient Update; Tasneem tment Planning Start: 05-22-2023 End: 05-22-2023 Patient encounter procedure Leoncio Vallejo MD Work Phone: [facility] [place] Comment on above: Vomiting, unspecifie d vomiting type, unspecified whether nausea present (Primary Dx); Partial symptomatic epilepsy with complex partial seizures, not intractable, without status epilepticus (HCC); Weight loss; Insomnia, unspecified type Start: 02-20-2023 Chart abstracting Stephani xie MD Work Phone: Neurology Comment on above: Clinical Update Start: 02-19-2023 End: 02-19-2023 ambulatory Husam Valentin MD Work Phone: Pediatric Hematology Comment on above: Temporal lobe lesion (Primary Dx); 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); Partial symptomatic epilepsy with complex partial seizures, not intractable, without status epilepticus (HCC) Start: 02-19-2023 End: 02-19-2023 Patient encounter procedure Husam Valentin MD Work Phone: [facility] Start: 02-17-2023 Telephone encounter Stephani hawley MD Work Phone: Neurology Comment on above: Medication Authoriza tion (Nayzilam) Start: 02-16-2023 Refill Stephani Pham MD Work Phone: Neurology Comment on above: Refill Request Start: 12-11-2022 ambulatory Stephani Pham MD Work Phone: Neurology Comment on above: Labs for Kodleo Start: 12-11-2022 E-mail encounter fro m caregiver Stephani Pham MD Work Phone: [facility] Start: 12-11-2022 Telephone encounter Leoncio Vallejo MD Work Phone: [facility] [place] Comment on above: Patient Update Start: 11-28-2022 End: 11-28-2022 Patient encounter procedure Leoncio Vallejo MD Work Phone: [facility] [place] Comment on above: Contusion of right l nithin, subsequent encounter (Primary Dx); Liver laceration, grade IV, without open wound into cavity, subsequent encounter; Anemia, unspecified type Start: 10-24-2022 End: 10-24-2022 ambulatory Stephani Pham MD Work Phone: Neurology Comment on above: Partial symptomatic epilepsy with complex partial seizures, not intractable, without status epilepticus (HCC) (Primary Dx); Generalized convulsive epilepsy (HCC); Partial symptomatic epilepsy with complex partial seizures, intractable, with status epilepticus (HCC) Start: 10-24-2022 End: 10-24-2022 Telemedicine consultation with patient Stephani Pham MD Work Phone: [facility] Start: 10-15-2022 Telephone encounter Stephani hawley MD Work Phone: Neurology Comment on above: Forms (BMV) Start: 09-03-2022 Telephone encounter Lenocio Vallejo MD Work Phone: [facility] [place] Comment on above: critical lab value; Results Start: 09-02-2022 End: 09-02-2022 Patient encounter procedure Leoncio Vallejo MD Work Phone: [facility] [place] Comment on above: Liver laceration, gr naeem IV, without open wound into cavity, subsequent encounter (Primary Dx); CKD (chronic kidney disease) stage 2, GFR 60-89 ml/min; ABLA (acute blood loss anemia); Closed fracture of multiple ribs of right side with delayed healing, subsequent encounter Start: 08-29-2022 Telephone encounter Kimberly RIBEIRO Comment on above: Follow Up Phone Call (All Clear) Start: 08-22-2022 Telephone encounter Leoncio Vallejo MD Work Phone: Family [facility] Comment on above: Follow Up Phone Call Question Start: 08-19-2022 Chart abstracting Stephani xie MD Work Phone: Neurology Comment on above: Clinical Update Start: 08-18-2022 End: 08-21-2022 Evaluation and management of inpatient [facility] Facility:[facility] Start: 08-18-2022 End: 08-18-2022 Emergency department patient visit [facility] Facility:[facility] Start: 08-18-2022 ambulatory [facility] Facility :[facility] Start: 08-18-2022 End: 08-18-2022 Subsequent hospital visit by physician [facility] Comment on above: Left upper quadrant pain [R10.12] Start: 08-18-2022 End: 08-18-2022 Patient encounter procedure Leoncio Vallejo MD Work Phone: [facility] Comment on above: Contusion of rib on right side, subsequent encounter (Primary Dx); Right upper quadrant abdominal pain; Left upper quadrant abdominal pain; Contusion of abdominal wall, subsequent encounter; Abdominal pain, unspecified abdominal location Start: 08-16-2022 End: 08-17-2022 Emergency department patient visit [facility] Facility:[facility] Start: 08-16-2022 End: 08-17-2022 Emergency department patient visit [facility]gency Department Start: 06-25-2022 End: 06-25-2022 Patient encounter procedure Eric Le DO Work Phone: [facility] Comment on above: Non-nephrotic range proteinuria (Primary Dx); Elevated serum creatinine Start: 06-20-2022 End: 06-20-2022 Subsequent hospital visit by physician [facility] Work Phone: Radiology Comment on above: CKD (chronic kidney disease) stage 2, GFR 60-89 ml/min [N18.2] Start: 06-15-2022 Telephone encounter Leoncio Vallejo MD Work Phone: [facility] [place] Comment on above: Results; Appointment ; Additional Labs Start: 05-20-2022 Telephone encounter Stephani hawley MD Work Phone: Neurology Comment on above: Medication Authoriza tion Start: 05-12-2022 Telephone encounter Leoncio Vallejo MD Work Phone: [facility] [place] Comment on above: Results Start: 05-09-2022 End: 05-09-2022 Patient encounter procedure Leoncio Vallejo MD Work Phone: [facility] [place] Comment on above: Well adult exam (Malka marco Dx); Temporal lobe lesion; Partial symptomatic epilepsy with complex partial seizures, not intractable, without status epilepticus (HCC); Mild intermittent asthma without complication; GERD without esophagitis; 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) Start: 05-09-2022 End: 05-09-2022 Patient encounter status Leoncio Vallejo MD Work Phone: [facility] [place] Start: 04-21-2022 Chart abstracting Stephani xie MD Work Phone: Neurology Comment on above: Clinical Update Start: 04-14-2022 Telephone encounter Stephani hawley MD Work Phone: Neurology Comment on above: Patient Update Start: 04-10-2022 Telephone encounter Adarsh gaytan MD Work Phone: [facility] [place] Comment on above: Results Start: 04-04-2022 End: 04-04-2022 Office outpatient visit 25 minutes Adarsh Perez MD Work Phone: [facility] [place] Comment on above: Post-tussive emesis (Primary Dx); Essential tremor; Mild intermittent asthma without complication; Partial symptomatic epilepsy with complex partial seizures, not intractable, without status epilepticus (HCC) Start: 03-31-2022 Chart abstracting Stephani xie MD Work Phone: Neurology Comment on above: Clinical Update Start: 03-06-2022 Telephone encounter Stephani hawley MD Work Phone: Neurology Comment on above: Forms ([facility] - Patient Assistance Program Application) Start: 02-04-2022 Orders Only Barb Gray APRN.PAPER TESTING SUPERVISOR Work Phone: Pediatric Hematology Comment on above: Brain mass Start: 08-22-2021 End: 08-22-2021 ambulatory Serjio Bhatia Facility:[facility] Start: 08-19-2017 End: 08-19-2017 Ambulatory [facility] Start: 06-01-2017 End: 06-01-2017 Ambulatory [facility] Procedures Date Procedure Procedure Detail Performing Clinician Start: 02-21-2025 Mri brain brain stem w/o w/contrast material Yeny Do APRN.PAPER TESTING SUPERVISOR Work Phone: Start: 08-18-2022 Ct abdomen & pelvis w/contrast material Leoncio Vallejo MD Work Phone: Start: 08-16-2022 X-ray of chest posteroanterior view Start: 06-20-2022 Us retroperitoneal r eal time w/image complete Leoncio Vallejo MD Work Phone: Start: 12-18-2021 Adult depression scr eening assessment Barb Gray APRN.PAPER TESTING SUPERVISOR Work Phone: Plan of Treatment Date Care Activity Detail Author Start: 07-03-2026 Annual PCP Team Bridge Painter Helper nancy Disease Visit Annual PCP Team Chronic Disease Visit [facility] Start: 05-29-2026 Urine microalbumin profile [facility] Start: 06-19-2025 Influenza vaccination C [facility] Start: 04-24-2025 End: 04-24-2025 ambulatory Neurology Comment on above: LMOM & sent MYC msg to R/S 02/09/25 EA; LVM 03/15/25 - AT , LMOM & sent MYC msg to R/S 02/09/25 EA; Start: 02-21-2025 End: 02-21-2025 ambulatory 02/21/2025 1:15 PM EDT Visit (SP) Office Pediatric Hematology [address] [place] [address] Husam Valentin MD [address] [place] [id number] F/U Pediatric Hematology Comment on above: F/U Start: 02-21-2025 End: 02-21-2025 Patient encounter procedure 02/21/2025 11:10 AM EDT Appointment MRI Q [address] [id number] MRI BRAIN WO/W IVCON [52672 (CPT )] MRI Q Comment on above: MRI BRAIN WO/W IVCON [61789 (CPT )] Start: 02-20-2025 End: 02-20-2025 ambulatory 02/20/2025 2:00 PM EDT [facility] [address] [place] [address] Jack Almazan MD [address] [place] [address] 3mo [facility] Comment on above: 3mo [facility] Start: 02-16-2025 End: 10-28-2025 MR Brain WO and W contrast IV MRI BRAIN WO/W IVCON Radiology Routine Temporal lobe lesion Partial symptomatic epilepsy with complex partial seizures, not intractable, without status epilepticus (HCC) Expected: 02/16/2025 (Approximate), Expires: 10/28/2025 [facility] Work Phone: Comment on above: Expected: 02/16/2025 (Approximate), Expires: 10/28/2025 Start: 11-23-2024 End: 11-23-2024 [facility] 11/23/2024 2:40 PM EST [facility] [address] [place] [address] Jack Almazan MD [address] [place] [address] Medical card for driving renewal and med refills Neurology Comment on above: Medical card for dri ving renewal and med refills Start: 11-03-2024 End: 11-03-2024 ambulatory 11/03/2024 7:00 AM EST Results Only [place] [facility] [address] [place] [address] [place] [facility] Start: 11-02-2024 End: 02-01-2025 CLOBAZAM CLOBAZAM Lab Routine Generalized convulsive epilepsy (HCC) Expected: 11/02/2024, Expires: 02/01/2025 [facility] Work Phone: Comment on above: Expected: 11/02/2024 , Expires: 02/01/2025 Start: 11-02-2024 End: 02-01-2025 lamoTRIgine [Mass/volume] in Serum or Plasma LAMOTRIGINE Lab Routine Generalized convulsive epilepsy (HCC) Expected: 11/02/2024, Expires: 02/01/2025 [facility] Comment on above: Expected: 11/02/2024 , Expires: 02/01/2025 Start: 11-02-2024 End: 02-01-2025 levETIRAcetam [Mass/volume] in Serum or Plasma LEVETIRACETAM Lab Routine Generalized convulsive epilepsy (HCC) Expected: 11/02/2024, Expires: 02/01/2025 [facility] Comment on above: Expected: 11/02/2024 , Expires: 02/01/2025 Start: 09-04-2024 Annual PCP Team Bridge Painter Helper nancy Disease Visit Annual PCP Team Chronic Disease Visit [facility] Start: 08-22-2024 Mri brain brain stem w/o w/contrast material MRI BRAIN WO/W IVCON Radiology Routine Temporal lobe lesion 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) Expected: 08/22/2024 (Approximate) [facility] Work Phone: Comment on above: Expected: 08/22/2024 (Approximate) Start: 07-08-2024 Annual PCP Team Bridge Painter Helper nancy Disease Visit Annual PCP Team Chronic Disease Visit [facility] Start: 06-19-2024 Covid-19 Vaccine () Covid-19 Vaccine () [facility] Start: 09-01-2024 Covid-19 Vaccine ( season) Covid-19 Vaccine ( season) [facility] Start: 06-19-2024 Influenza vaccination [facility] Start: 05-22-2024 ANNUAL PCP TEAM MACHINE SPLITTER NANCY DISEASE VISIT ANNUAL PCP TEAM CHRONIC DISEASE VISIT [facility] Start: 05-19-2024 End: 05-19-2024 Follow-up encounter 05/19/2024 2:00 PM EDT [facility] [address] [facility] [place] [address] Jack Almazan MD [address] [place] [address] follow up Neurology Comment on above: follow up Start: 04-17-2024 Influenza vaccination Influenza Vacc ine (#1) [facility] Comment on above: Postponed from 06/19 (Declined at this time) Start: 11-28-2023 ANNUAL PCP TEAM MACHINE SPLITTER NANCY DISEASE VISIT ANNUAL PCP TEAM CHRONIC DISEASE VISIT [facility] Start: 11-28-2023 COVID-19 VACCINE (#1) COVID-19 VACCI NE (#1) [facility] Comment on above: Postponed from 02/25 (Declined at this time) Start: 09-03-2023 End: 12-03-2023 Herpes simplex virus+Varicella zoster virus DNA [Presence] in Unspecified specimen by ERICA with probe detection HSV1,2/VZV [facility] Lab Routine Rash Expected: 09/03/2023, Expires: 12/03/2023 [facility] Work Phone: Comment on above: Expected: 09/03/2023 , Expires: 12/03/2023 Start: 09-02-2023 ANNUAL PCP TEAM MACHINE SPLITTER NANCY DISEASE VISIT ANNUAL PCP TEAM CHRONIC DISEASE VISIT [facility] Start: 09-02-2023 SERUM CREATININE SERUM CREATININE [facility] Start: 08-21-2023 SERUM CREATININE SERUM CREATININE [facility] Start: 08-19-2023 SERUM CREATININE SERUM CREATININE [facility] Start: 08-18-2023 ANNUAL PCP TEAM MACHINE SPLITTER NANCY DISEASE VISIT ANNUAL PCP TEAM CHRONIC DISEASE VISIT [facility] Start: 06-25-2023 SERUM CREATININE SERUM CREATININE [facility] Start: 06-19-2023 Covid-19 Vaccine ( season) Covid-19 Vaccine () [facility] Start: 06-19-2023 Influenza vaccination C [facility] Start: 06-14-2023 SERUM CREATININE SERUM CREATININE [facility] Start: 05-22-2023 End: 07-22-2023 Comprehensive metabolic 2000 panel - Serum or Plasma [facility] Work Phone: Comment on above: Expected: 05/22/2023 , Expires: 07/22/2023 Start: 05-22-2023 End: 07-22-2023 lamoTRIgine [Mass/volume] in Serum or Plasma [facility] Work Phone: Comment on above: Expected: 05/22/2023 , Expires: 07/22/2023 Start: 05-22-2023 End: 07-22-2023 levETIRAcetam [Mass/volume] in Serum or Plasma [facility] Work Phone: Comment on above: Expected: 05/22/2023 , Expires: 07/22/2023 Start: 05-22-2023 End: 07-22-2023 Thyrotropin [Units/volume] in Serum or Plasma [facility] Work Phone: Comment on above: Expected: 05/22/2023 , Expires: 07/22/2023 Start: 05-09-2023 ANNUAL PCP TEAM MACHINE SPLITTER NANCY DISEASE VISIT ANNUAL PCP TEAM CHRONIC DISEASE VISIT [facility] Start: 04-17-2023 Influenza vaccination INFLUENZA (#1) [facility] Comment on above: Postponed from 06/19 (Declined at this time) Start: 04-04-2023 ANNUAL PCP TEAM MACHINE SPLITTER NANCY DISEASE VISIT ANNUAL PCP TEAM CHRONIC DISEASE VISIT [facility] Start: 12-18-2022 Adult depression screening assessment DEPRESSION SCREENING [facility] Start: 11-28-2022 End: 01-28-2023 CBC W Auto Differential panel - Blood CBC + DIFF Lab Routine Anemia, unspecified type Expected: 11/28/2022, Expires: 01/28/2023 [facility] Work Phone: Comment on above: Expected: 11/28/2022 , Expires: 01/28/2023 Start: 11-28-2022 End: 01-28-2023 Hepatic function 2000 panel - Serum or Plasma HEPATIC FUNCTION PNL Lab Routine Liver laceration, grade IV, without open wound into cavity, subsequent encounter Expected: 11/28/2022, Expires: 01/28/2023 [facility] Work Phone: Comment on above: Expected: 11/28/2022 , Expires: 01/28/2023 Start: 10-24-2022 End: 12-24-2022 lamoTRIgine [Mass/volume] in Serum or Plasma LAMOTRIGINE Lab Routine Partial symptomatic epilepsy with complex partial seizures, not intractable, without status epilepticus (HCC) Expected: 10/24/2022, Expires: 12/24/2022 [facility] Work Phone: Comment on above: Expected: 10/24/2022 , Expires: 12/24/2022 Start: 10-24-2022 End: 12-24-2022 levETIRAcetam [Mass/volume] in Serum or Plasma LEVETIRACETAM Lab Routine Partial symptomatic epilepsy with complex partial seizures, not intractable, without status epilepticus (HCC) Expected: 10/24/2022, Expires: 12/24/2022 [facility] Work Phone: Comment on above: Expected: 10/24/2022 , Expires: 12/24/2022 Start: 10-19-2022 DEPRESSION ASSESSMENT DEPRESSION ASS ESSMENT [facility] Start: 09-15-2022 ASTHMA ACTION PLAN ASTHMA ACTION RAJAN N [facility] Start: 09-03-2022 End: 11-03-2022 Glucose [Mass/volume] in Serum or Plasma GLUCOSE RANDOM BLD Lab Routine Hypoglycemia Expected: 09/03/2022, Expires: 11/03/2022 [facility] Work Phone: Comment on above: Expected: 09/03/2022 , Expires: 11/03/2022 Start: 09-03-2022 End: 11-03-2022 Hemoglobin A1c in Blood HGB A1C Lab Routine Hypoglycemia Expected: 09/03/2022, Expires: 11/03/2022 [facility] Work Phone: Comment on above: Expected: 09/03/2022 , Expires: 11/03/2022 Start: 09-02-2022 End: 11-02-2022 CBC W Auto Differential panel - Blood [facility] Work Phone: Comment on above: Expected: 09/02/2022 , Expires: 11/02/2022 Start: 09-02-2022 End: 11-02-2022 Comprehensive metabolic 2000 panel - Serum or Plasma [facility] Work Phone: Comment on above: Expected: 09/02/2022 , Expires: 11/02/2022 Start: 09-02-2022 End: 11-02-2022 Iron and Iron binding capacity panel - Serum or Plasma [facility] Work Phone: Comment on above: Expected: 09/02/2022 , Expires: 11/02/2022 Start: 08-18-2022 End: 10-18-2022 CBC W Auto Differential panel - Blood [facility] Work Phone: Comment on above: Expected: 08/18/2022 , Expires: 10/18/2022 Start: 08-18-2022 End: 10-18-2022 Comprehensive metabolic 2000 panel - Serum or Plasma [facility] Work Phone: Comment on above: Expected: 08/18/2022 , Expires: 10/18/2022 Start: 08-18-2022 End: 10-18-2022 Lipase [Enzymatic activity/volume] in Serum or Plasma [facility] Work Phone: Comment on above: Expected: 08/18/2022 , Expires: 10/18/2022 Start: 08-17-2022 Incentive spirometry [facility] Work Phone: Start: 07-31-2022 ANNUAL PCP TEAM MACHINE SPLITTER NANCY DISEASE VISIT ANNUAL PCP TEAM CHRONIC DISEASE VISIT [facility] Start: 06-25-2022 End: 08-25-2022 ALBUMIN/CREAT RATIO RND UR [facility] Work Phone: Comment on above: Expected: 06/25/2022 , Expires: 08/25/2022 Start: 06-19-2022 Influenza vaccination C [facility] Start: 05-12-2022 End: 07-12-2022 Basic metabolic 2000 panel - Serum or Plasma BASIC METABOLIC PNL Lab Routine Renal insufficiency Expected: 05/12/2022, Expires: 07/12/2022 [facility] Work Phone: Comment on above: Expected: 05/12/2022 , Expires: 07/12/2022 Start: 05-12-2022 End: 07-12-2022 Urinalysis complete panel - Urine URINALYSIS, WITH MICROSCOPIC Lab Routine Renal insufficiency Expected: 05/12/2022, Expires: 07/12/2022 [facility] Work Phone: Comment on above: Expected: 05/12/2022 , Expires: 07/12/2022 Start: 05-09-2022 End: 07-09-2022 CBC W Auto Differential panel - Blood [facility] Work Phone: Comment on above: Expected: 05/09/2022 , Expires: 07/09/2022 Start: 05-09-2022 End: 07-09-2022 Comprehensive metabolic 2000 panel - Serum or Plasma [facility] Work Phone: Comment on above: Expected: 05/09/2022 , Expires: 07/09/2022 Start: 04-14-2022 End: 06-14-2022 lamoTRIgine [Mass/volume] in Serum or Plasma LAMOTRIGINE Lab Routine Partial symptomatic epilepsy with complex partial seizures, not intractable, without status epilepticus (HCC) Expected: 04/14/2022, Expires: 06/14/2022 [facility] Work Phone: Comment on above: Expected: 04/14/2022 , Expires: 06/14/2022 Start: 04-14-2022 End: 06-14-2022 levETIRAcetam [Mass/volume] in Serum or Plasma LEVETIRACETAM Lab Routine Partial symptomatic epilepsy with complex partial seizures, not intractable, without status epilepticus (HCC) Expected: 04/14/2022, Expires: 06/14/2022 [facility] Work Phone: Comment on above: Expected: 04/14/2022 , Expires: 06/14/2022 Start: 04-04-2022 End: 06-04-2022 GLUC RYANN, 5-HR NON-GEST, 75 GM, FASTING GLUC RYANN, 5-HR NON-GEST, 75 GM, FASTING Lab Routine Post-tussive emesis Essential tremor Expected: 04/04/2022, Expires: 06/04/2022 [facility] Work Phone: Comment on above: Expected: 04/04/2022 , Expires: 06/04/2022 Start: 10-19-2021 DEPRESSION ASSESSMENT DEPRESSION ASS ESSMENT [facility] Start: 09-15-2021 ASTHMA CONTROL TEST ASTHMA CONTROL T EST [facility] Start: 2021 Anxiety Screening Anxiety Screening [facility] Start: 2021 Depression Screening Depression Scre ening [facility] Start: 2021 HEPATITIS C SCREENING HEPATITIS C [facility] Start: 2021 Hepatitis C screening Hepatitis C [facility] Start: 2021 HIV SCREENING HIV SCREENING [facility] Start: 2021 HIV screening HIV Screening [facility] Start: 2021 SPIROMETRY SPIROMETRY [facility] Start: 2019 Meningococcal B Vacc ine (1 of 2 - Standard) Meningococcal B Vaccine (1 of 2 - Standard) [facility] Start: 2019 Meningococcal B Vaccine: Consider Based On Risk (1 of 2 - Patient Seeks Protection) Meningococcal B Vaccine: Consider Based On Risk (1 of 2 - Patient Seeks Protection) [facility] Start: 2019 MENINGOCOCCAL B: Consider based on risk (1 of 2 - Patient Seeks Protection) MENINGOCOCCAL B: Consider based on risk (1 of 2 - Patient Seeks Protection) [facility] Start: 2018 HPV Vaccine (1 - Mal e 3-dose series) HPV Vaccine (1 - Male 3-dose series) [facility] Start: 2017 PEDS TO ADULT TRANSITION ANNUAL ASSESSMENT PEDS TO ADULT TRANSITION ANNUAL ASSESSMENT [facility] Start: 2015 PEDS TO ADULT TRANSITION INITIAL DISCUSSION PEDS TO ADULT TRANSITION INITIAL DISCUSSION [facility] Start: 2014 HPV VACCINE (1 - Mal e 2-dose series) HPV VACCINE (1 - Male 2-dose series) [facility] Start: 2013 MENINGOCOCCAL B: Consider based on risk (1 of 2 - Risk Bexsero 2-dose series) MENINGOCOCCAL B: Consider based on risk (1 of 2 - Risk Bexsero 2-dose series) [facility] Start: 2012 HPV VACCINE (1 - Mal e 2-dose series) HPV VACCINE (1 - Male 2-dose series) [facility] Start: 2009 PNEUMOCOCCAL (1 - PCV) PNEUMOCOCCAL (1 - PCV) [facility] Start: 2009 Pneumococcal vaccination Pneumococcal Vaccine (1 - PCV) [facility] Start: 2008 COVID-19 VACCINE (#1) COVID-19 VACCI NE (#1) [facility] Start: 2008 COVID-19 VACCINE (1) COVID-19 VACCIN E (1) [facility] Start: 02-26-2004 COVID-19 VACCINE (#1) COVID-19 VACCI NE (#1) [facility] Microalbumin/Creatin ine panel in random Urine ALBUMIN QUANT 24H UR Lab Routine CKD (chronic kidney disease) stage 2, GFR 60-89 ml/min Ordered: 06/15/2022 [facility] Work Phone: Comment on above: Ordered: 06/15/2022 End: 03-06-2023 Mri brain brain stem w/o w/contrast material MRI BRAIN WO/W IVCON Radiology Routine Brain mass 1 Occurrences starting 02/04/2022 until 03/06/2023 [facility] Work Phone: Comment on above: 1 Occurrences starti ng 02/04/2022 until 03/06/2023 Patient Education Bruises (Contu sions) Understanding Vasovagal Syncope ED Bruise, Rib [facility] Work Phone: Patient referral [facility] Work Phone: End: 07-15-2023 US KIDNEY/BLADDER US KIDNEY/BLADDER Radiology Routine CKD (chronic kidney disease) stage 2, GFR 60-89 ml/min 1 Occurrences starting 06/15/2022 until 07/15/2023 [facility] Work Phone: Comment on above: 1 Occurrences starti ng 06/15/2022 until 07/15/2023 [facility] Immunizations Immunization Date Immunization Notes Care Provider Fa cili 09-15-2020 influenza, injectabl e, quadrivalent, contains preservative Barb Gray KELLY MACHINE OPERATOR.PAPER TESTING SUPERVISOR Work Phone: [facility] 09-15-2020 meningococcal polysaccharide (groups A, C, Y and W-135) diphtheria toxoid conjugate vaccine (MCV4P) Barb Gray KELLY MACHINE OPERATOR.PAPER TESTING SUPERVISOR Work Phone: [facility] 09-15-2020 influenza virus vacc ine, unspecified formulation Stephani Pham MD Work Phone: [facility] 05-29-2016 hepatitis A vaccine, pediatric/adolescent dosage, 2 dose schedule Barb Gray KELLY MACHINE OPERATOR.PAPER TESTING SUPERVISOR Work Phone: [facility] Work Phone: 05-29-2016 meningococcal polysaccharide (groups A, C, Y and W-135) diphtheria toxoid conjugate vaccine (MCV4P) Barb Isaac KELLY MACHINE OPERATOR.PAPER TESTING SUPERVISOR Work Phone: [facility] 05-29-2016 tetanus toxoid, redu ronen diphtheria toxoid, and acellular pertussis vaccine, adsorbed Barb Gray KELLY MACHINE OPERATOR.PAPER TESTING SUPERVISOR Work Phone: [facility] 09-08-2014 influenza, seasonal, injectable Barb Gray KELLY MACHINE OPERATOR.PAPER TESTING SUPERVISOR Work Phone: [facility] Work Phone: 07-31-2012 influenza virus vacc ine, live, attenuated, for intranasal use Barb Gray KELLY MACHINE OPERATOR.PAPER TESTING SUPERVISOR Work Phone: [facility] Work Phone: 08-08-2011 influenza virus vacc ine, live, attenuated, for intranasal use Barb Gray KELLY MACHINE OPERATOR.PAPER TESTING SUPERVISOR Work Phone: [facility] Work Phone: 09-13-2010 influenza virus vacc ine, live, attenuated, for intranasal use Barb Gray KELLY MACHINE OPERATOR.PAPER TESTING SUPERVISOR Work Phone: [facility] Work Phone: 08-13-2010 influenza virus vacc ine, live, attenuated, for intranasal use Barb Gray KELLY MACHINE OPERATOR.PAPER TESTING SUPERVISOR Work Phone: [facility] Work Phone: 08-22-2009 novel Influenza-H1N1 -09, live virus for nasal administration Leoncio Vallejo MD Work Phone: [facility] 09-08-2008 diphtheria, tetanus toxoids and acellular pertussis vaccine Barb Gray KELLY MACHINE OPERATOR.PAPER TESTING SUPERVISOR Work Phone: [facility] 09-08-2008 measles, mumps and rubella virus vaccine Barb Gray KELLY MACHINE OPERATOR.PAPER TESTING SUPERVISOR Work Phone: [facility] 09-08-2008 poliovirus vaccine, inactivated Barb Gray KELLY MACHINE OPERATOR.PAPER TESTING SUPERVISOR Work Phone: [facility] 09-08-2008 varicella virus vaccine Chanell on Gray KELLY MACHINE OPERATOR.PAPER TESTING SUPERVISOR Work Phone: [facility] 08-09-2008 influenza virus vacc ine, live, attenuated, for intranasal use Barb Gray KELLY MACHINE OPERATOR.PAPER TESTING SUPERVISOR Work Phone: [facility] Work Phone: 09-06-2007 influenza virus vacc ine, unspecified formulation Barb Gray KELLY MACHINE OPERATOR.PAPER TESTING SUPERVISOR Work Phone: [facility] Work Phone: 09-02-2006 influenza virus vacc ine, unspecified formulation Barb Gray KELLY MACHINE OPERATOR.PAPER TESTING SUPERVISOR Work Phone: [facility] Work Phone: 11-28-2004 diphtheria, tetanus toxoids and acellular pertussis vaccine Barb Gray KELLY MACHINE OPERATOR.PAPER TESTING SUPERVISOR Work Phone: [facility] 11-28-2004 haemophilus influenz ae type b vaccine, HbOC conjugate Barb Gray KELLY MACHINE OPERATOR.PAPER TESTING SUPERVISOR Work Phone: [facility] 11-28-2004 pneumococcal conjuga te vaccine, 7 valent Barb Gray KELLY MACHINE OPERATOR.PAPER TESTING SUPERVISOR Work Phone: [facility] 09-24-2004 influenza virus vacc ine, unspecified formulation Barb Gray KELLY MACHINE OPERATOR.PAPER TESTING SUPERVISOR Work Phone: [facility] Work Phone: 08-30-2004 measles, mumps and rubella virus vaccine Barb Gray KELLY MACHINE OPERATOR.PAPER TESTING SUPERVISOR Work Phone: [facility] 08-30-2004 varicella virus vaccine Chanell on Gray KELLY MACHINE OPERATOR.PAPER TESTING SUPERVISOR Work Phone: [facility] 05-29-2004 hepatitis B vaccine, pediatric or pediatric/adolescent dosage Barb Gray KELLY MACHINE OPERATOR.PAPER TESTING SUPERVISOR Work Phone: [facility] 05-25-2004 pneumococcal conjuga te vaccine, 7 valent Barb Gray KELLY MACHINE OPERATOR.PAPER TESTING SUPERVISOR Work Phone: [facility] 02-26-2004 diphtheria, tetanus toxoids and acellular pertussis vaccine Barb Gray KELLY MACHINE OPERATOR.PAPER TESTING SUPERVISOR Work Phone: [facility] 02-26-2004 haemophilus influenz ae type b vaccine, HbOC conjugate Barb Gray KELLY MACHINE OPERATOR.PAPER TESTING SUPERVISOR Work Phone: [facility] 02-26-2004 poliovirus vaccine, inactivated Barb Gray KELLY MACHINE OPERATOR.PAPER TESTING SUPERVISOR Work Phone: [facility] 01-03-2004 diphtheria, tetanus toxoids and acellular pertussis vaccine Barb Gray KELLY MACHINE OPERATOR.PAPER TESTING SUPERVISOR Work Phone: [facility] 01-03-2004 haemophilus influenz ae type b vaccine, HbOC conjugate Barb Gray KELLY MACHINE OPERATOR.PAPER TESTING SUPERVISOR Work Phone: [facility] 01-03-2004 pneumococcal conjuga te vaccine, 7 valent Barb Gray KELLY MACHINE OPERATOR.PAPER TESTING SUPERVISOR Work Phone: [facility] 01-03-2004 poliovirus vaccine, inactivated Barb Gray KELLY MACHINE OPERATOR.PAPER TESTING SUPERVISOR Work Phone: [facility] 2003 hepatitis B vaccine, pediatric or pediatric/adolescent dosage Barb Gray KELLY MACHINE OPERATOR.PAPER TESTING SUPERVISOR Work Phone: [facility] 2003 diphtheria, tetanus toxoids and acellular pertussis vaccine Barb Gray KELLY MACHINE OPERATOR.PAPER TESTING SUPERVISOR Work Phone: [facility] 2003 haemophilus influenz ae type b vaccine, HbOC conjugate Barb Gray KELLY MACHINE OPERATOR.PAPER TESTING SUPERVISOR Work Phone: [facility] 2003 pneumococcal conjuga te vaccine, 7 valent Barb Gray KELLY MACHINE OPERATOR.PAPER TESTING SUPERVISOR Work Phone: [facility] 2003 poliovirus vaccine, inactivated Barb Gray KELLY MACHINE OPERATOR.PAPER TESTING SUPERVISOR Work Phone: [facility] 2003 hepatitis B vaccine, pediatric or pediatric/adolescent dosage Barb Gray KELLY MACHINE OPERATOR.PAPER TESTING SUPERVISOR Work Phone: [facility] Payers Date Payer Category Payer Private Health Insurance [facility] DIONI EST [id number] 2024 Unknown [id number] 2022 [facility] BLUE CARD PPO OOS [id number] 2022 Unknown [id number] 2021 Unknown [employer]ERE[employer] PANCHAL SS PPO [id number] 2021-Present [phone] [address] [place] [address] PPO [id number] 2021 Unknown [id number] 2021 Unknown [id number] 2021 Self-pay [id number] Unknown [id number] Unknown [id number] Unknown [id number] Social History Date Type Detail Facility Start: 04-13-2018 End: 06-25-2022 Tobacco smoking status NHIS Never smoked tobacco [facility] Work Phone: Start: 08-01-2021 End: 07-03-2025 Alcohol intake Not Asked [facility] Start: 2003 Sex Assigned At Male [facility] Start: 03-24-2022 End: 09-02-2022 Exposure to SARS-CoV-2 (event) Not sure [facility] Start: 05-08-2022 End: 11-28-2022 History SDOH Alcohol Frequency 1 [facility] Start: 05-08-2022 History SDOH Alcohol Std Drinks 98 [facility] Start: 05-08-2022 End: 11-28-2022 History SDOH Social Connections Phone 5 [facility] Start: 05-08-2022 End: 11-28-2022 History SDOH Social Connections [employer] 2 [facility] Start: 05-08-2022 End: 11-28-2022 History SDOH Social Connections Living 7 [facility] Start: 05-08-2022 End: 11-28-2022 History SDOH Physical Activity MPS 9 [facility] History of tobacco use Passive smoker [facility] Start: 04-13-2018 End: 06-25-2022 Tobacco use and exposure Smokeless tobacco non-user [facility] Start: 06-06-2022 End: 06-16-2022 Exposure to SARS-CoV-2 (event) Unable to assess [facility] Work Phone: Start: 06-25-2022 Tobacco Comment Both parents - outside the home [facility] Start: 08-16-2022 Tobacco smoking status NHIS Unknown if ever smoked [facility] Work Phone: Start: 09-19-2016 None [facility] Work Phone: Start: 10-21-2020 With Family [facility] Work Phone: Start: 11-28-2022 History SDOH Alcohol Std Drinks 0 [facility] Start: 11-27-2022 End: 02-19-2023 History of Social function [facility] Start: 11-27-2022 End: 02-19-2023 Social connection and isolation panel [facility] Do you belong to any clubs or organizations such as sikh groups, unions, fraternal or athletic groups, or school groups? No [facility] Are you now , , , , never or living with a partner? Never [facility] How often to you hav e a drink containing alcohol? Never [facility] Start: 09-19-2012 How many standard drinks containing alcohol do you have on a typical day? Patient does not drink [facility] Do you feel stress - tense, restless, nervous, or anxious, or unable to sleep at night because your mind is troubled all the time - these days [OSQ] Not at all [facility] (I/We) worried wheth er (my/our) food would run out before (I/we) got money to buy more. Never true [facility] Start: 04-27-2020 Gender identity Identifies as male gender (finding) [facility] Start: 04-27-2020 Sexual orientation Heterosexual (finding) [facility] Functional Status Date Assessment Result Facility 08-21-2022 Are you deaf, or do you have serious difficulty hearing No 08/21/2022 3:14 PM Tere Alcala, ABIOLA No [facility] 08-21-2022 Are you blind, or do you have serious difficulty seeing, even when wearing glasses No 08/21/2022 3:14 PM Tere Alcala, ABIOLA No [facility] 08-21-2022 Do you have serious difficulty walking or climbing stairs No 08/21/2022 3:14 PM Tere Alcala RN No [facility] 08-21-2022 Do you have difficul ty dressing or bathing No 08/21/2022 3:14 PM Tere Alcala, ABIOLA No [facility] 08-21-2022 Because of a physica l, mental, or emotional condition, do you have difficulty doing errands alone such as visiting a physician's office or shopping No 08/21/2022 3:14 PM Tere Alcala, ABIOLA No [facility] Mental Status Date Assessment Result Facility 08-21-2022 Because of a physica l, mental, or emotional condition, do you have serious difficulty concentrating, remembering, or making decisions No 08/21/2022 3:14 PM Tere Alcala, ABIOLA No [facility] Clinical Notes 08-02-2020 to 07-03-2025 Patient InstructionsArmin Martinez MD - 07/03/2025 10:08 AM EDTTelephone Encounter - Isabel Issa RN - 05/19/2025 1:52 PM EDTPatient InstructionsPatient Instructions Note Date & Type Note Facility 07-03-2025 Instructions Armin Martinez MD - 07/03/2025 10:25 AM EDT - Begin doxycycline 1 pill twice daily for 7 days to treat sinusitis. - Use Flonase nasal spray (nasal steroid): 2 sprays in each nostril once daily; rinse your mouth after each use to help prevent thrush. - Take Tessalon Perles for cough up to 3 times a day as needed for up to 10 days. - Perform nasal saline rinses or use a neti pot 1-2 times daily, following package directions. - Run a humidifier in your room at night to relieve nasal dryness. - Drink plenty of fluids to help thin mucus and stay hydrated. - Wash your hands frequently and wear a mask when coughing to reduce spread to others. - If you develop high fever, worsening cough, increased green/yellow or bloody mucus, new chest pain, shortness of breath, or wheezing, call our office. - If symptoms do not improve within 1 week or get worse at any time, contact us sooner. - You may return to work tomorrow; a note for today s absence has been provided. documented in this encounter [facility] 07-03-2025 Note HNO ID: [id number] Author: ARMIN MARTINEZ MD Service: ? Author Type: Physician Type: Progress Notes Filed: 07/03/2025 10:35 Note Text: Chief Complaint Patient presents with: Nasal Congestion: Started on or around 9/4 or 9/5 Cough: Coughing so hard that it causes him to vomit. Chest tightness and shortness of breath. Some wheezing. Recording using [employer] software for draft documentation of the visit was discussed with the patient/authorized healthcare representative; all questions welcomed and answered. Patient/authorized healthcare representative agreed to proceed HPI Penny Robin is a 19 year old male who presents here today for Above Complaints. Accompanied today by his mother. URI Symptoms: - Onset 10-11 days ago. - Persistent rhinorrhea, postnasal drip, and cough. - Coughing episodes severe enough to induce emesis 1-2 times daily. - Penny reports myalgias, managed with Tylenol; Advil used once with less efficacy. - Denies use of OTC medications for cough or nasal congestion. - Symptoms initially improved but worsened today. - Daughter contracted illness from Penny. - No at-home COVID or flu testing performed. - Reports chills, but no documented fevers. - Sore throat throughout illness, possibly secondary to coughing. - Occasional headaches, not necessarily related to current illness. - Coughing episodes lead to transient dyspnea, lasting until forgotten. - Increased fatigue noted. - Anosmia due to nasal congestion. - Sinus pain and pressure, particularly in the nasal bridge. - Denies otalgia or aural fullness. - Denies lymphadenopathy. - Reports purulent sputum, described as dark yellow orange and occasionally green. - No history of asthma or COPD; history of exercise-induced bronchospasm. Past medical history, appointments, medications, allergies reviewed. Previous Medical History PAST MEDICAL HISTORY Diagnosis Date Acute appendicitis with localized peritonitis 09/22/2016 Brain tumor (HCC) [facility] - PAST MEDICAL HISTORY OF 02/05/2005 Febrile Seizure Simple febrile convulsions (HCC) 04/26/2020 Previous Surgical History PAST SURGICAL HISTORY Procedure Laterality Date LAPAROSCOPIC APPENDECTOMY 09/19/16 Family History FAMILY HISTORY Problem Relation Age of Onset Hypertension Maternal Grandfather Heart Maternal Grandfather 2 MN, living Stroke Maternal Grandfather living No Known Problems Mother No Known Problems Father No Known Problems Maternal Grandmother Diabetes Paternal Grandmother Hypertension Paternal Grandfather No Known Problems Sister Patient Allergies ALLERGIES Allergen Reactions Amoxicillin Hives Dilaudid [[employer]* Vomiting Current Medications Current Outpatient Medications on File Prior to Visit Medication Sig cloBAZam (ONFI) 20 mg tab tablet Take 1 tablet by mouth two times a day for 180 days. (In addition to 10 mg tabs = 30 mg BID) cloBAZam (ONFI) 10 mg tab tablet Take 1 tablet by mouth two times a day for 180 days. (In addition to 20 mg tabs = 30 mg BID) levETIRAcetam (KEPPRA) 1,000 mg tablet Take 2 tablets by mouth two times a day. midazolam (NAYZILAM) 5 mg/spray (0.1 mL) nasal spray Use 1 spray in one nostril as needed for seizures. May repeat dose in alternate nostril after 10 minutes based on response and tolerability. lamoTRIgine (LAMICTAL) 200 mg tablet Take 1 tablet by mouth two times a day. (along with 100 mg tabs, = 600 mg/day) lamoTRIgine (LAMICTAL) 100 mg tablet Take 1 tablet by mouth two times a day. (along with 200 mg tabs, =600 mg/day) No current facility-administered medications on file prior to visit. Social History SOCIAL HISTORY[1] Review of Symptoms REVIEW OF SYSTEMS See HPI EXAM: BP 120/82 Pulse 81 Temp 36.7 ?C (98.1 ?F) Ht 170.2 cm (5' 7) Wt 60.9 kg (134 lb 3.2 oz) SpO2 95% BMI 21.02 kg/m? General Appearance: Ill appearing, non toxic. Skin: Skin color, texture, turgor normal, no suspicious rashes or lesions. Head: Normocephalic, no masses, lesions, tenderness or abnormalities. Eyes: Anicteric sclera. Pupils are equally round and reactive to light. Extraocular movements are intact. . Ears: External ears normal, canals clear. Nose/Sinuses: Positive findings: mucosa erythematous and swollen. Negative for TTP over sinuses. Oropharynx: Negative findings: lips normal without lesions, buccal mucosa normal, gums healthy, teeth intact, non-carious, palate normal, tongue midline and normal and Positive findings: mild oropharyngeal erythema. Neck: Supple, no adenopathy; thyroid symmetric, normal size, no bruits. Lungs: Lungs clear to auscultation. No wheezing, rhonchi, rales.. Heart: RRR without murmur, gallop, or rubs. No ectopy. Health Maintenance List HPV Vaccine(1 - Male 3-dose series) Never done Meningococcal B Vaccine(1 of 2 - Standard) Never done Depression Screening Never done Anxiety Screening Never done Hepatitis C Screening Never done HIV (more content not included)... [facility] 07-03-2025 History of Presen t illness Narrative Chief Complaint Patient presents with: Nasal Congestion: Started on or around 4 or 06/23 Cough: Coughing so hard that it causes him to vomit. Chest tightness and shortness of breath. Some wheezing. Recording using [employer] software for draft documentation of the visit was discussed with the patient/authorized healthcare representative; all questions welcomed and answered. Patient/authorized healthcare representative agreed to proceed HPI Penny Robin is a 19 year old male who presents here today for Above Complaints. Accompanied today by his mother. URI Symptoms: - Onset 10-11 days ago. - Persistent rhinorrhea, postnasal drip, and cough. - Coughing episodes severe enough to induce emesis 1-2 times daily. - Penny reports myalgias, managed with Tylenol; Advil used once with less efficacy. - Denies use of OTC medications for cough or nasal congestion. - Symptoms initially improved but worsened today. - Daughter contracted illness from Penny. - No at-home COVID or flu testing performed. - Reports chills, but no documented fevers. - Sore throat throughout illness, possibly secondary to coughing. - Occasional headaches, not necessarily related to current illness. - Coughing episodes lead to transient dyspnea, lasting until forgotten. - Increased fatigue noted. - Anosmia due to nasal congestion. - Sinus pain and pressure, particularly in the nasal bridge. - Denies otalgia or aural fullness. - Denies lymphadenopathy. - Reports purulent sputum, described as dark yellow orange and occasionally green. - No history of asthma or COPD; history of exercise-induced bronchospasm. Past medical history, appointments, medications, allergies reviewed. Previous Medical History PAST MEDICAL HISTORY Diagnosis Date Acute appendicitis with localized peritonitis 09/22/2016 Brain tumor (HCC) PMH - PAST MEDICAL HISTORY OF 02/05/2005 Febrile Seizure Simple febrile convulsions (HCC) 04/26/2020 Previous Surgical History PAST SURGICAL HISTORY Procedure Laterality Date LAPAROSCOPIC APPENDECTOMY 09/19/16 Family History FAMILY HISTORY Problem Relation Age of Onset Hypertension Maternal Grandfather Heart Maternal Grandfather 2 MN, living Stroke Maternal Grandfather living No Known Problems Mother No Known Problems Father No Known Problems Maternal Grandmother Diabetes Paternal Grandmother Hypertension Paternal Grandfather No Known Problems Sister Patient Allergies ALLERGIES Allergen Reactions Amoxicillin Hives Dilaudid [Hydromorp* Vomiting Current Medications Current Outpatient Medications on File Prior to Visit Medication Sig cloBAZam (ONFI) 20 mg tab tablet Take 1 tablet by mouth two times a day for 180 days. (In addition to 10 mg tabs = 30 mg BID) cloBAZam (ONFI) 10 mg tab tablet Take 1 tablet by mouth two times a day for 180 days. (In addition to 20 mg tabs = 30 mg BID) levETIRAcetam (KEPPRA) 1,000 mg tablet Take 2 tablets by mouth two times a day. midazolam (NAYZILAM) 5 mg/spray (0.1 mL) nasal spray Use 1 spray in one nostril as needed for seizures. May repeat dose in alternate nostril after 10 minutes based on response and tolerability. lamoTRIgine (LAMICTAL) 200 mg tablet Take 1 tablet by mouth two times a day. (along with 100 mg tabs, = 600 mg/day) lamoTRIgine (LAMICTAL) 100 mg tablet Take 1 tablet by mouth two times a day. (along with 200 mg tabs, =600 mg/day) No current facility-administered medications on file prior to visit. Social History SOCIAL HISTORY[1] Review of Symptoms REVIEW OF SYSTEMS See HPI EXAM: BP 120/82 Pulse 81 Temp 36.7 C (98.1 F) Ht 170.2 cm (5' 7) Wt 60.9 kg (134 lb 3.2 oz) SpO2 95% BMI 21.02 kg/m General Appearance: Ill appearing, non toxic. Skin: Skin color, texture, turgor normal, no suspicious rashes or lesions. Head: Normocephalic, no masses, lesions, tenderness or abnormalities. Eyes: Anicteric sclera. Pupils are equally round and reactive to light. Extraocular movements are intact. . Ears: External ears normal, canals clear. Nose/Sinuses: Positive findings: mucosa erythematous and swollen. Negative for TTP over sinuses. Oropharynx: Negative findings: lips normal without lesions, buccal mucosa normal, gums healthy, teeth intact, non-carious, palate normal, tongue midline and normal and Positive findings: mild oropharyngeal erythema. Neck: Supple, no adenopathy; thyroid symmetric, normal size, no bruits. Lungs: Lungs clear to auscultation. No wheezing, rhonchi, rales.. Heart: RRR without murmur, gallop, or rubs. No ectopy. Health Maintenance List HPV Vaccine(1 - Male 3-dose series) Never done Meningococcal B Vaccine(1 of 2 - Standard) Never done Depression Screening Never done Anxiety Screening Never done Hepatitis C Screening Never done HIV Screening Never done Asthma Control Test due on 09/15/2021 Asthma Action Plan due on 09/15/2022 Influenza Vaccine(1) due on 06/19/2025 DTaP,Tdap,Td Vaccine(7 - Td or Tdap) due on 05/29/2026 Annual PCP Team Chronic Disease Visit due on 07/03/2026 Hepatitis B Vaccine Completed 1. Bacterial sinusitis (J32.9) 2. Acute cough (R05.1) 3. Acute pharyngitis, unspecified etiology (J02.9) - Persistent symptoms for 10-11 days with ongoing sinus pain, nasal congestion, postnasal drip, and cough with emesis. - Exam notable for mild pharyngeal erythema and swelling/redness of nasal mucosa; no evidence of pneumonia or otitis media. - Start doxycycline 1 tablet PO BID for 7 days. - Start Tessalon Perles TID PRN for 10 days. - Start Flonase 2 sprays per nostril once daily; instructed to rinse mouth after use to prevent thrush. - Advised use of humidifier at night and nasal saline rinses or neti pot 1-2 times daily as directed. - Encourage increased fluid intake, hand hygiene, and mask use when coughing to reduce transmission. - Reviewed [id number] options (Mucinex, Delsym, cough drops) if additional symptom relief needed. - Discussed signs warranting earlier follow-up: high fever, worsening cough, increased or bloody sputum, new chest pain, shortness of breath, or wheezing. - Return if no improvement in one week or sooner if symptoms worsen. Armin Martinez MD [1] Social History Tobacco Use Smoking status: Never Passive exposure: Yes Smokeless tobacco: Never Tobacco comments: Both parents - outside the home Vaping Use Vaping status: Never Used documented in this encounter [facility] 05-19-2025 Telephone encounter Note BMV form signed. Isabel Issa RN [facility] 05-19-2025 Miscellaneous Notes BMV form signed. Isabel Issa RN BMV form completed, sent to Dr. Almazan via [employer] [place] for review and signature. Copies to [employer]. Isabel Issa RN Seizures started - 5yrs ago Last seizure - 04/2025 ASM's - LEV, LTG, CLB Last levels - 11/03/24 Last visit - 05/15/25 BMV form pended for signed visit note. Isabel Issa RN Form received: From (agency / facility): BMV line service person (if given): Penny Robin Phone #: [phone] (home) Fax # : [phone] Information requested: Request for physician statement Patient of Dr. Almazan Forwarded to nurse. documented in this encounter [facility] 05-17-2025 Telephone encounter Note BMV form completed, sent to Dr. Almazan via [employer] [place] for review and signature. Copies to [employer]. Isabel Issa RN [facility] 05-17-2025 Jack Angel MD - 05/17/2025 3:00 PM EDT Summary of the things we discussed today: - For the next week, take clobazam 20 mg in the morning and 30 mg at bedtime. - Beginning the following week, increase clobazam to 30 mg in the morning and 30 mg at bedtime. - Continue your current doses of Keppra (levetiracetam) 2000 mg twice daily and lamotrigine 300 mg twice daily. - Have blood drawn to check levels of your seizure medications as ordered. - Consider presurgical evaluation for further management of your seizures. - If you experience intolerable side effects or any new concerns, contact the clinic promptly. Please call my office if you have more seizures or with any seizure related concerns. Seizure precautions - No driving in the state of [place] until seizure free for 6 months. Please check with local state authorities for state specific driving regulations. - No operating heavy machines - No swimming without supervision or bathing in a bathtub due to risk of drowning in the event of a seizure. Patient may shower. - Avoid unsafe heights, including ladders, due to risk of fall-related injury in the event of a seizure. - Seizure precipitating factors discussed including not taking seizure medications as prescribed, stress, excessive caffeine intake, energy drinks, alcohol, sleep deprivation or any identifiable seizure precipitating factor. Jack Almazan MD Associate Staff, Epilepsy [facility] May 17, 2025 Office phone: [phone] documented in this encounter [facility] 05-17-2025 Note HNO ID: [id number] Author: JACK ALMAZAN MD Service: ? Author Type: Physician Type: Progress Notes Filed: 05/17/2025 15:03 Note Text: [facility] Patient Name: Penny Robin Date of : 2005 ESTABLISHED EPILEPSY CLINIC NOTE 05/15/2025 3:20 PM Reason for Visit: Epilepsy and Follow Up Clinical Summary: Mr. Robin is a 18 year old right-handed male seen in [facility]. We had a visit using: [employer] I received consent from the patient to perform the visit using this platform. I have communicated my name and active licensure. The patient's identity and physical location were verified at the time of this visit. Either the patient or their legal healthcare representative has been informed of the risks and benefit of - and alternatives to - treatment through a remote evaluation and consents to proceed with the evaluation remotely. At today's visit, the patient is accompanied by: Mom Recording using [employer] software for draft documentation of the visit was discussed with the patient/authorized healthcare representative; all questions welcomed and answered. Patient/authorized healthcare representative agreed to proceed EPILEPSY CLASSIFICATION Left Temporal Lobe Epilepsy Seizures: 1. 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 Previously, at 1 year of age, he had a single brief brief febrile seizure (his sister also had a single febrile seizure at 2 years of age). EEG in 04/2020 showed left temporo-parietal sharp waves (P7>T7,P3) and continuous slowing in that area. MRI in 04/2020 showed a focal region of cortical expansion and T2 / FLAIR hyperintensity centered along the mid to posterior aspect of the lateral left temporal lobe. Features are consistent with low grade tumor or malformation of cortical development. Dr. 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 In 04/2020, Penny was started on levetiracetam. On 05/20/2020, he was admitted following seizure recurrence (his second seizure ever). Levetiracetam was increased from 2000 mg/d to 4000 mg/d. Overnight video EEG again showed sharp waves and continuous slowing in the left temporo-parietal region. In 07/2020, repeat MRI showed no change in size or configuration of the low-grade tumor, with faint gadolinium enhancement. On 10/21/2020, on levetiracetam 4000 mg/d, Penny had a 3-minute generalized tonic clonic seizure with tongue bite, followed by vomiting, lethargy, and confusion. The seizure occurred shortly after going back to bed after awakening early to take his morning medication - his mother heard a thud, went into the room, and found him in the convulsion. In summary - Penny has experienced the following generalized tonic clonic seizures. - 04/21/2020 - on no medication - 05/20/2020 - on levetiracetam 2000 mg/d, with level 13.1 mg/l - 10/21/2020 - on levetiracetam 4000 mg/d, with level 35.7 mg/l in 08/2020 (usual range 12-45 mg/l) In 10/2020, We discussed the potential risks and benefits of surgery for tumor resection in detail, as well as the potential risks of ongoing epilepsy. On 10/22/2020, Penny expressed that he wished to defer surgery if possible. On 10/26/2020, Penny expressed that he had changed his mind and wanted to pursue surgery sooner rather than later. In 01/2021, functional MRI showed significant left dominance for language tasks. Rhyming / passive listening task activation overlaped with the left temporal cortical lesion. Surgical options may be complicated. If seizures persist despite strong trials of at least 2 medications, then we will proceed to Epilepsy Management Conference. After extensive discussion, it was elected to try at least one more medications before proceeding to consider surgery. In 10/2020, he changed to oxcarbazepine, with no further seizures since then. In 12/2020, a change to lamotrigine was initiated, because of stuttering speech on the oxcarbazepine. In 05/2021, on lamotrigine 400 mg/d, level was 6.3 mg/l on 400 mg/d (usual range 1-13 mg/l). Lamotrigine was increased to 500 (more content not included)... [facility] 05-17-2025 History of Presen t illness Narrative [facility] Patient Name: Penny Robin Date of : 2005 ESTABLISHED EPILEPSY CLINIC NOTE 05/15/2025 3:20 PM Reason for Visit: Epilepsy and Follow Up Clinical Summary: Mr. Robin is a 18 year old right-handed male seen in [facility]. We had a visit using: [employer] I received consent from the patient to perform the visit using this platform. I have communicated my name and active licensure. The patient's identity and physical location were verified at the time of this visit. Either the patient or their legal healthcare representative has been informed of the risks and benefit of - and alternatives to - treatment through a remote evaluation and consents to proceed with the evaluation remotely. At today's visit, the patient is accompanied by: Mom Recording using ambient AI software for draft documentation of the visit was discussed with the patient/authorized healthcare representative; all questions welcomed and answered. Patient/authorized healthcare representative agreed to proceed EPILEPSY CLASSIFICATION Left Temporal Lobe Epilepsy Seizures: 1. 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 Previously, at 1 year of age, he had a single brief brief febrile seizure (his sister also had a single febrile seizure at 2 years of age). EEG in 04/2020 showed left temporo-parietal sharp waves (P7>T7,P3) and continuous slowing in that area. MRI in 04/2020 showed a focal region of cortical expansion and T2 / FLAIR hyperintensity centered along the mid to posterior aspect of the lateral left temporal lobe. Features are consistent with low grade tumor or malformation of cortical development. Dr. 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 In 04/2020, Penny was started on levetiracetam. On 05/20/2020, he was admitted following seizure recurrence (his second seizure ever). Levetiracetam was increased from 2000 mg/d to 4000 mg/d. Overnight video EEG again showed sharp waves and continuous slowing in the left temporo-parietal region. In 07/2020, repeat MRI showed no change in size or configuration of the low-grade tumor, with faint gadolinium enhancement. On 10/21/2020, on levetiracetam 4000 mg/d, Penny had a 3-minute generalized tonic clonic seizure with tongue bite, followed by vomiting, lethargy, and confusion. The seizure occurred shortly after going back to bed after awakening early to take his morning medication - his mother heard a thud, went into the room, and found him in the convulsion. In summary - Penny has experienced the following generalized tonic clonic seizures. - 04/21/2020 - on no medication - 05/20/2020 - on levetiracetam 2000 mg/d, with level 13.1 mg/l - 10/21/2020 - on levetiracetam 4000 mg/d, with level 35.7 mg/l in 08/2020 (usual range 12-45 mg/l) In 10/2020, We discussed the potential risks and benefits of surgery for tumor resection in detail, as well as the potential risks of ongoing epilepsy. On 10/22/2020, Penny expressed that he wished to defer surgery if possible. On 10/26/2020, Penny expressed that he had changed his mind and wanted to pursue surgery sooner rather than later. In 01/2021, functional MRI showed significant left dominance for language tasks. Rhyming / passive listening task activation overlaped with the left temporal cortical lesion. Surgical options may be complicated. If seizures persist despite strong trials of at least 2 medications, then we will proceed to Epilepsy Management Conference. After extensive discussion, it was elected to try at least one more medications before proceeding to consider surgery. In 10/2020, he changed to oxcarbazepine, with no further seizures since then. In 12/2020, a change to lamotrigine was initiated, because of stuttering speech on the oxcarbazepine. In 05/2021, on lamotrigine 400 mg/d, level was 6.3 mg/l on 400 mg/d (usual range 1-13 mg/l). Lamotrigine was increased to 500 mg/d and oxcarbazepine was weaned (last dose 07/17/2021). Lamotrigine level on 07/24/2021 was 9.6 mg/l (with levetiracetam) and 7.9 mg/l on 08/14/2021. It was recommended to increase the lamotrigine to 600 mg/d. Since then, on lamotrigine and levetiracetam, Penny has had no further seizures and the stuttering resolved. NOTE - On 08/16/2022, Penny sustained severe traumatic abdominal injury when he ran full force into a barricade while playing laser tag with friends. Injuries included right hepatic lobe laceration and hemoperitoneum, transverse fracture of the posterior ninth 9th rib and nondisplaced fractures of the right 7th, 8th, and 10th ribs, and right lower lobe pulmonary contusion. He was admitted for care of the injuries, and healed without sequelae. In 03/2022, levetiracetam level was again on the high side - 53.7 mg/l (usual range 12-45 mg/l). It was recommended to decrease the dose from 6000 to 5000 mg/d (with lamotrigine). In 05/2023, Lobito reported a 2-week history of not sleeping well and a 1-week history of vomiting every 3 days or so at about 20 minutes after taking his medication. In 05/2023, 5-hour post-dose peak levetiracetam and lamotrigine levels were high. In 05/2023, Lobito reported a 2-week history of not sleeping well and a 1-week history of vomiting every 3 days or so at about 20 minutes after taking his medication. In 05/2023, 5-hour post-dose peak levetiracetam and lamotrigine levels were high. It was recommended to reduce the levetiracetam incrementally from 5000 to 3000 mg/d and continue the current lamotrigine. Levetiracetam and lamotrigine could be further reduced if needed. If vomiting persists, then I recommend to consult with his PCP for assessment of possible effects from the previous abdominal trauma and surgery. 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 MRIs have shown stable findings. Generalized tonic clonic seizures started at 14 years of age and persisted on high dose levetiracetam, then came under control when lamotrigine was added. Last seizure was in 10/2020, on levetiracetam alone. Penny has been hesitant to wean the levetiracetam. With the lesion not growing and seizures under good control, it was elected to defer resection for now. The lesion is close to speech (rhyming) and thus lesionectomy cannot be performed easily. Dr. Valentin is following and MRI in 02/2023 was stable. Interval Seizure History Penny Robin is a 19-year-old male with a history of seizures, presenting for follow-up. He is accompanied by his mother, who provides additional history. Penny has been experiencing focal seizures, with the most recent episode occurring on Thursday. He reports feeling dizzy and sick at work, leading to multiple episodes of emesis. He describes the emesis as stomach acid and notes that he had not eaten much prior. Following this, he developed a throbbing headache and went home. Later that evening, during dinner, he reportedly had a focal seizure characterized by a blank stare, nonsensical speech, lip tremors, deep inhalations, and dry heaving. His mother reports that coworkers observed him as a little bit off earlier in the day, and she wonders if the emesis was part of an unwitnessed seizure. He does not recall seeing any pills in the emesis and notes that it occurred around 10 or 11 AM, several hours after taking his medications at 7 AM. He is currently taking clobazam 20 mg twice daily, levetiracetam (Keppra), and lamotrigine 300 mg twice daily. His mother reports that after increasing the clobazam dose, he initially appears well, but seizures recur unpredictably. The longest seizure-free period since starting clobazam was approximately three months. He does not report excessive sleepiness or fatigue as side effects of clobazam. Past Diagnostic Results: - (02/2023) MRI: No major growth or ticket dispenser changer several years. Total # of Current Anti-seizure Medications: Side Effects to Current Anti-seizure Medications: Seizure Frequency at First Visit: Longest Seizure-free Interval: CURRENT OUTPATIENT ANTISEIZURE MEDICATIONS (as of the start of the encounter) cloBAZam (ONFI) 20 mg tab tablet Take 1 tablet by mouth two times a day for 180 days. levETIRAcetam (KEPPRA) 1,000 mg tablet Take 2 tablets by mouth two times a day. midazolam (NAYZILAM) 5 mg/spray (0.1 mL) nasal spray Use 1 spray in one nostril as needed for seizures. May repeat dose in alternate nostril after 10 minutes based on response and tolerability. lamoTRIgine (LAMICTAL) 200 mg tablet Take 1 tablet by mouth two times a day. (along with 100 mg tabs, = 600 mg/day) lamoTRIgine (LAMICTAL) 100 mg tablet Take 1 tablet by mouth two times a day. (along with 200 mg tabs, =600 mg/day) Prior Anti-seizure Therapies: Trial Adequacy: Max Daily Dose Achieved: Side Effects: Effectiveness: Comments: Lamotrigine Levetiracetam Oxcarbazepine PRIOR RESCUE THERAPIES Intranasal midazolam Comorbidities: Episode Description: SEIZURE TYPE 1: Generalized tonic clonic seizures Description: Loss of awareness, arrest of activity, whole body stiffening, injurious fall (abrasion, bruises, and rib fracture), cyanosis, drooling, tongue bite, and unconsciousness for 5 minutes or less (untimed), followed by vomiting and confusion. Loss of awareness: Duration: Frequency: Last occurred: Patient Entered Data: EPILEPSY SCORE 05/18/2024 10:05 PM 05/18/2024 10:04 PM 05/18/2024 10:04 PM First answer obtained - 02/17/2023 10:00 PM PHQ-9 SCORE - - - - FREDDY 2 SCORE 0 [Negative Anxiety Screen] - - - FREDDY 7 SCORE - - - - QOLIE-10 SCORE (0=worst; 100=best QoL - higher scores represent better function) - - - - LSSS SCORE (0- no seizures 100- most severe possible seizures) - - - - C-SSRS SCREEN - - - - On average, how many hours of sleep do you get in a 24-hour period? - 8 - - PROMIS Sleep Disturbance T-SCORE - - - 49 [within normal limits] Have you been diagnosed with Sleep Apnea? 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 This region measures approximately 2.0 AP by 1.8 transverse centimeters. Features are consistent with low grade tumor or malformation of cortical development. EEG 04/2020 Sharp waves, regional left temporo-parietal (P7>T7,P3). Continuous slow, regional left temporo-parietal OVERNIGHT VIDEO EEG, 05/2020 Sharp waves and continuous slowing, regional left temporo-pareital No seizures recorded MRI 07/2020, with gadolinium No change in size or configuration of the low-grade tumor, with faint gadolinium enhancement. 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 Rhyming / passive listening task activation overlaps with the left temporal cortical lesion. MRI 02/2023 No significant interval change in the slightly expansile, subtle enhancing lesion in the left temporal lobe, when compared to most recent prior MRI and over MRIs dating back to 07/25/2020. Primary differential considerations remain the same which includes a low-grade cortical based neoplasm. Other caregivers: Primary Care Provider: Leoncio Vallejo MD Current Outpatient Medications Medication Sig cloBAZam (ONFI) 20 mg tab tablet Take 1.5 tablets by mouth two times a day for 180 days. levETIRAcetam (KEPPRA) 1,000 mg tablet Take 2 tablets by mouth two times a day. midazolam (NAYZILAM) 5 mg/spray (0.1 mL) nasal spray Use 1 spray in one nostril as needed for seizures. May repeat dose in alternate nostril after 10 minutes based on response and tolerability. lamoTRIgine (LAMICTAL) 200 mg tablet Take 1 tablet by mouth two times a day. (along with 100 mg tabs, = 600 mg/day) lamoTRIgine (LAMICTAL) 100 mg tablet Take 1 tablet by mouth two times a day. (along with 200 mg tabs, =600 mg/day) No current facility-administered medications for this visit. ALLERGIES Allergen Reactions Amoxicillin Hives Dilaudid [Hydromorp* Vomiting PAST MEDICAL HISTORY Diagnosis Date Acute appendicitis with localized peritonitis 09/22/2016 Brain tumor (HCC) PMH - PAST MEDICAL HISTORY OF 02/05/2005 Febrile Seizure Simple febrile convulsions (HCC) 04/26/2020 PAST SURGICAL HISTORY Procedure Laterality Date LAPAROSCOPIC APPENDECTOMY 09/19/16 FAMILY HISTORY Problem Relation Age of Onset Hypertension Maternal Grandfather Heart Maternal Grandfather 2 MN, living Stroke Maternal Grandfather living No Known Problems Mother No Known Problems Father No Known Problems Maternal Grandmother Diabetes Paternal Grandmother Hypertension Paternal Grandfather No Known Problems Sister SOCIAL HISTORY: -Lives in [place], [place] -Patient lives alone? -Vocation: -Education: -Cigarette, alcohol, substance use: -Functional status: -Patient driving? Review of Systems All other systems reviewed and are negative. VITAL SIGNS: There were no vitals taken for this visit. General Examination: He is accompanied by his mom. General: Awake, alert, interactive, no acute distress, good nutritional status, normal development, well-kept Neurological Exam Mental Status Alert, fully oriented, attentive, with normal cognition, memory, speech and affect. Cranial Nerves Face symmetric. Hearing intact with conversational speech. Motor Examination and Coordination Distance Motor Examination Arms: Well-coordinated symmetrical movements of both arms. Manipulates phone and small objects well. No tremor or adventitious movements. No apparent muscle atrophy or deformity/contracture. 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 MRIs have shown stable findings (most recently in 02/2025). Generalized tonic clonic seizures started at 14 years of age and persisted on high dose levetiracetam, then stopped when oxcarbazepine and then lamotrigine were added. Currently on Keppra, LTG and Clobazam. With the lesion not growing and seizures under good control, it was elected to defer resection initially. The lesion is close to speech (rhyming) and thus lesionectomy cannot be performed easily. Oncology team is following and MRI was stable. 05/17/2025: Continues to have breakthrough seizures (01/29 and then last week) characterized by behavioral arrest, non-sensical speech, oral automatisms and vomiting. Initially had good response to Clobazam but did not sustain seizure freedom. From a lesion stand point, recently met with [facility] oncology team (Dr. Noonan) and was felt to have a stable lesion on MRI with recommendation for repeating imaging in 2 yrs. We discussed the following. 1. Increasing Clobazam to 30 mg BID over 2 weeks. 2. Re-discussed surgical evaluation since he has recurrence of seizures, previously failed Keppra, Lamictal, currently not responding to Clobazam. We discussed the challenges with direct resection of the lesion given its proximity to language areas. (fmRI 2020-Rhyming/passive listening task activation overlaps with cortical lesion)- alternate options include RNS(would interfere with serial imaging for lesion monitoring), DBS. If signs of growth noted on MRI, he might need resection from a tumor stand point as well. 3. Additional medication options were discussed which can be done parallel to presurgical work up. PLAN: Increase Onfi to 20-30 for 1 week and then to 30 mg BID Continue Keppra 2000 mg BID, Lamictal 300 mg BID. Discussed potential for medication-refractory epilepsy and surgical options, including resection, RNS, and DBS; Future options: Xcopri, Fycompa, switching Keppra to BRV, lamictal to Aptiom. Presurgical evaluation- vEEG, ALEM, PET, Neuropsych testing. (Already had fmRI)- will need to coordinate with Oncology team for PMC. Data reviewed as above including: electronic medical record, MRI images Education Seizure precautions - No driving in the state [facility] until seizure free for 6 months. Please check with local state authorities for state specific driving regulations. - No operating heavy machines - No swimming without supervision or bathing in a bathtub due to risk of drowning in the event of a seizure. Patient may shower. - Avoid unsafe heights, including ladders, due to risk of fall-related injury in the event of a seizure. - Seizure precipitating factors discussed including not taking seizure medications as prescribed, stress, excessive caffeine intake, energy drinks, alcohol, sleep deprivation or any identifiable seizure precipitating factor. I discussed the risks, benefits and alternatives of the medical plan with the patient. Questions were answered. The patient agreed with the plan as discussed. FOLLOW-UP: Return in about 3 months (around 08/15/2025). I spent a total of 45 minutes on the date of the service which included: preparing to see the patient [id number] patient care completing clinical documentation obtaining and/or reviewing separately obtained history performing a medically appropriate examination ordering medications, tests, or procedures counseling and educating the patient/family/caregiver Jack Almazan MD cc: Primary Care Physician: Leoncio Vallejo MD [id number] [facility] [address] Referring: Patient: Mr. Penny Robin [address] [facility] [address] documented in this encounter [facility] 05-16-2025 Telephone encounter Note Seizures started - 5yrs ago Last seizure - 04/2025 ASM's - LEV, LTG, CLB Last levels - 11/03/24 Last visit - 05/15/25 BMV form pended for signed visit note. Isabel Issa RN [facility] 05-16-2025 Telephone encounter Note Form received: From (agency / facility): BMV line service person (if given): Penny Robin Phone #: [phone] (home) Fax # : [phone] Information requested: Request for physician statement Patient of Dr. Almazan Forwarded to nurse. [facility] 03-20-2025 Instructions Ernesto Noonan DO - 03/20/2025 8:13 AM EDT Images from the original note were not included. How to Reach the Department of Pediatric Hematology/Oncology & Bone Marrow Transplant During business hours (Thursday thru Thursday 8am to 4:30pm) Office number: [phone] You will get a series of prompts If your child is sick, select option #1 After business hours (Weekends/Holidays/Evenings 4:30pm-8am) [facility] Tariff Inspector: [phone] Ask for the Pediatric [employer] Consultant/Oncologist non destructive evaluation manager Please provide the patient's name, date of and phone number to the excavator operator. The doctor will call you back at the number you provided. If your call has not been returned in 10 minutes, please call the excavator operator and ask for the doctor to be paged again. If after an additional 10 minutes you have still not received a call, please call [phone]. If you are long distance, you may call the toll free number 1-960-AEN-CARE or This will direct you to the excavator operator This is available 24 hours/day, 7 days/week. documented in this encounter [facility] 02-21-2025 Note HNO ID: [id number] Author: ERNESTO NOONAN DO Service: ? Author Type: Physician Type: Progress Notes Filed: 03/20/2025 08:19 Note Text: FOLLOW-UP APPOINTMENT [facility] [address] [place] [address] SERVICE DATE: 02/21/2025 Leoncio Vallejo MD Family Medicine [place] [address] [facility] [id number] Vallejo, We had the pleasure of meeting Penny Robin in the [facility] Pediatric Neurooncology Clinic on 02/21/2025 for comprehensive clinic evaluation, review of the MRI scan and ongoing management of his underlying left temporal lesion noted on the MRI scan performed during the work-up for seizure. He is being seen today for physical exam and review of imaging. As you know, Penny Robin is a now 19-year old previously healthy boy who developed a generalized tonic clonic seizure in April 2020, EEG revealed sharp epileptic waves originating from left temporo-parietal region. Non-contrast MRI brain from 05/15/2020 revealed slight cortical expansion centered along the mid to posterior aspect of the lateral left temporal lobe along with T2 and FLAIR hyperintensity, measuring 2 x 1.8 cms. Interval History: Since our last visit, Penny is doing fairly well. He developed episodes of inability to like a scene change in a movie. His face goes blank and he becomes pale, then says things that don't make sense (for instance, didn't recall that his grandmother had when that occurred 2 years ago, or he'll try to citrus picker a puddle of water. The episode lasts a few minutes, but then his memory doesn't go back to baseline for a day or two. Angry when comes out of it. Thus, Dr. Almazan added clobazam in May, and dose has been incrementally increased. Mom states he looks better/clearer in the face the day after every time the dose is increased. He has had a 'handful' of these episodes in the last year (about 5 or so total). No headaches, no change in vision, no altered gait or balance. Good appetite and energy level. No recent fevers or illnesses. Had a root canal the other day that went well. PAST MEDICAL HISTORY Diagnosis Date Acute appendicitis with localized peritonitis 09/22/2016 Brain tumor (HCC) PMH - PAST MEDICAL HISTORY OF 02/05/2005 Febrile Seizure Simple febrile convulsions (HCC) 04/26/2020 PAST SURGICAL HISTORY Procedure Laterality Date LAPAROSCOPIC APPENDECTOMY 09/19/16 Social History Social History Narrative Penny Robin lives with both parents and has 1 sibling. His mother, Ms. Duarte, is a nurse aide at [employer]. His father, Mr. Robin, works at a [employer] factory. 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 Younger sister is 18.5yo. FAMILY HISTORY Problem Relation Age of Onset Hypertension Maternal Grandfather Heart Maternal Grandfather 2 MN, living Stroke Maternal Grandfather living No Known Problems Mother No Known Problems Father No Known Problems Maternal Grandmother Diabetes Paternal Grandmother Hypertension Paternal Grandfather No Known Problems Sister Current Outpatient Medications Medication Sig cloBAZam (ONFI) 20 mg tab tablet Take 1 tablet by mouth two times a day for 180 days. levETIRAcetam (KEPPRA) 1,000 mg tablet Take 2 tablets by mouth two times a day. midazolam (NAYZILAM) 5 mg/spray (0.1 mL) nasal spray Use 1 spray in one nostril as needed for seizures. May repeat dose in alternate nostril after 10 minutes based on response and tolerability. lamoTRIgine (LAMICTAL) 200 mg tablet Take 1 tablet by mouth two times a day. (along with 100 mg tabs, = 600 mg/day) lamoTRIgine (LAMICTAL) 100 mg tablet Take 1 tablet by mouth two times a day. (along with 200 mg tabs, =600 mg/day) No current facility-administered medications for this visit. The above histories have been reviewed and updated as necessary. Physical Exam: BP 116/64 Pulse 72 Temp 36.7 ?C (98 ?F) (Oral) Resp 18 Ht 171.8 cm (5' 7.64) Wt 62.1 kg (136 lb 14.5 oz) SpO2 98% BMI 21.04 kg/m? Last 5 Encounter Wt Readings: Date: Wt: 02/21/2025 62.1 kg (136 lb 14.5 oz) 11/12/2023 57.6 kg (127 lb) 09/04/2023 57.6 kg (127 lb) 09/03/2023 57.7 kg (127 lb 3.2 oz) 07/08/2023 61 kg (134 lb 6.4 oz) (17%, Z= -0.96)* General: appears well and in no distress. HEENT: PERRLA; EOMI Lungs: Clear to auscultation bilaterally. Heart: RRR; no murmur Abdomen: soft non-tender Neuro: alert; oriented to time place and person. Normal speech. Cranial nerves II-XII normal; Motor stength 5/5; normal sensory. Normal gait; normal coordination and balance. No neurological deficits. IMAGING: I have independently reviewed the images, discussed with radiology, and have shown them to the family. -SZ FUNCTIONAL MRI 01/31/2021 IMPRESSION: 1. Stable left lateral mid temporal cortical lesion. 2. Normal remaining brain. 3. (more content not included)... [facility] 02-21-2025 History of Presen t illness Narrative Images from the original note were not included. FOLLOW-UP APPOINTMENT [facility] [address] [place] [address] [place] [address] SERVICE DATE: 02/21/2025 Leoncio Vallejo MD Family Medicine [facility] [address] [facility] [address] Vallejo, We had the pleasure of meeting Penny Robin in the [facility] Pediatric Neurooncology Clinic on 02/21/2025 for comprehensive clinic evaluation, review of the MRI scan and ongoing management of his underlying left temporal lesion noted on the MRI scan performed during the work-up for seizure. He is being seen today for physical exam and review of imaging. As you know, Penny Robin is a now 19-year old previously healthy boy who developed a generalized tonic clonic seizure in April 2020, EEG revealed sharp epileptic waves originating from left temporo-parietal region. Non-contrast MRI brain from 05/15/2020 revealed slight cortical expansion centered along the mid to posterior aspect of the lateral left temporal lobe along with T2 and FLAIR hyperintensity, measuring 2 x 1.8 cms. Interval History: Since our last visit, Penny is doing fairly well. He developed episodes of inability to like a scene change in a movie. His face goes blank and he becomes pale, then says things that don't make sense (for instance, didn't recall that his grandmother had when that occurred 2 years ago, or he'll try to citrus picker a puddle of water. The episode lasts a few minutes, but then his memory doesn't go back to baseline for a day or two. Angry when comes out of it. Thus, Dr. Almazan added clobazam in May, and dose has been incrementally increased. Mom states he looks better/clearer in the face the day after every time the dose is increased. He has had a 'handful' of these episodes in the last year (about 5 or so total). No headaches, no change in vision, no altered gait or balance. Good appetite and energy level. No recent fevers or illnesses. Had a root canal the other day that went well. PAST MEDICAL HISTORY Diagnosis Date Acute appendicitis with localized peritonitis 09/22/2016 Brain tumor (HCC) PMH - PAST MEDICAL HISTORY OF 02/05/2005 Febrile Seizure Simple febrile convulsions (HCC) 04/26/2020 PAST SURGICAL HISTORY Procedure Laterality Date LAPAROSCOPIC APPENDECTOMY 09/19/16 Social History Social History Narrative Penny Robin lives with both parents and has 1 sibling. His mother, Ms. Duarte, is a nurse aide at [employer]. His father, Mr. Robin, works at a [employer] factory. 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 Younger sister is 18.5yo. FAMILY HISTORY Problem Relation Age of Onset Hypertension Maternal Grandfather Heart Maternal Grandfather 2 MN, living Stroke Maternal Grandfather living No Known Problems Mother No Known Problems Father No Known Problems Maternal Grandmother Diabetes Paternal Grandmother Hypertension Paternal Grandfather No Known Problems Sister Current Outpatient Medications Medication Sig cloBAZam (ONFI) 20 mg tab tablet Take 1 tablet by mouth two times a day for 180 days. levETIRAcetam (KEPPRA) 1,000 mg tablet Take 2 tablets by mouth two times a day. midazolam (NAYZILAM) 5 mg/spray (0.1 mL) nasal spray Use 1 spray in one nostril as needed for seizures. May repeat dose in alternate nostril after 10 minutes based on response and tolerability. lamoTRIgine (LAMICTAL) 200 mg tablet Take 1 tablet by mouth two times a day. (along with 100 mg tabs, = 600 mg/day) lamoTRIgine (LAMICTAL) 100 mg tablet Take 1 tablet by mouth two times a day. (along with 200 mg tabs, =600 mg/day) No current facility-administered medications for this visit. The above histories have been reviewed and updated as necessary. Physical Exam: BP 116/64 Pulse 72 Temp 36.7 C (98 F) (Oral) Resp 18 Ht 171.8 cm (5' 7.64) Wt 62.1 kg (136 lb 14.5 oz) SpO2 98% BMI 21.04 kg/m Last 5 Encounter Wt Readings: Date: Wt: 02/21/2025 62.1 kg (136 lb 14.5 oz) 11/12/2023 57.6 kg (127 lb) 09/04/2023 57.6 kg (127 lb) 09/03/2023 57.7 kg (127 lb 3.2 oz) 07/08/2023 61 kg (134 lb 6.4 oz) (17%, Z= -0.96)* General: appears well and in no distress. HEENT: PERRLA; EOMI Lungs: Clear to auscultation bilaterally. Heart: RRR; no murmur Abdomen: soft non-tender Neuro: alert; oriented to time place and person. Normal speech. Cranial nerves II-XII normal; Motor stength 5/5; normal sensory. Normal gait; normal coordination and balance. No neurological deficits. IMAGING: I have independently reviewed the images, discussed with radiology, and have shown them to the family. -SZ FUNCTIONAL MRI 01/31/2021 IMPRESSION: 1. Stable left lateral mid temporal cortical lesion. 2. Normal remaining brain. 3. Significant left dominant language task. 4. Rhyming/passive listening task activation overlaps with cortical lesion. MRI brain done 02/21/2025: IMPRESSION: Stable appearance of the brain from 02/19/2023 including stable lateral LEFT temporal lobe subtly enhancing lesion which appears grossly unchanged compared to multiple prior serial exams extending back to 05/15/2020. 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 His seizure is under good control on current antiepileptics which he is tolerating as well. Today's MRI imaging does not show any evidence of growth of the lesion when compared to the first imaging from 2019. The functional MRI from 2020 demonstrated significant left dominant language task and rhyming/passive listening task activation overlaps with this left cortical lesion. Left posterior temporal lesion: With the lesion not growing since 2019 and seizures under better control now, and given the lesion overlaps with passive listening- we will continue with surveillance imaging and no surgical intervention. Partial complex epilepsy - Recent resurfacing of partial seizures - Currently on triple AEDs with clobazam, lamotrigine & levetiracetam - Continue management under the care of Dr. Jack Almazan. Follow up - Next MRI to be performed in 2 years-summer - Penny knows to call us with any questions or concerns NOTE: Any copied data or physical exam from my previous notes, or from other provider's notes on to today's note, has been reviewed by me on February 21, 2025 and is changed, updated or confirmed to reiterate continued relevant clinical elements and is reflected in the medical decision making during this clinic appointment. I have also confirmed and edited as necessary the previously documented review of systems, past medical, family and surgical history and are current and accurate for today's visit. I spent a total of 50 minutes on the date of the service which included preparing to see the patient, [id number] patient care, completing clinical documentation, obtaining and/or reviewing separately obtained history, performing a medically appropriate examination, counseling and educating the patient/family/caregiver, ordering medications, tests, or procedures, communicating with other HCPs (not separately reported), independently interpreting results (not separately reported), communicating results to the patient/family/caregiver, and care coordination (not separately reported). Greater than 50% of the time was spent counseling the patient/family and/or coordination of care. Ernesto Noonan DO CC: MD Leoncio Yoder MD (PCP) documented in this encounter [facility] 02-21-2025 History of Presen t illness Narrative Radiology Service Progress Note DATE OF SERVICE: February 21, 2025 TIME: 11:31 AM PATIENT WEIGHT: 135 LBS PATIENT IDENTITY VERIFICATION COMPLETED USING TWO (2) STANDARD IDENTIFIERS: Name and Date of confirmed by patient verbally and Name and Date of confirmed by identification band. FALL SCREENING: Has the patient had 2 falls in the last year or 1 fall with injury or currently using an Ambulatory Assistive Device (Walker, Cane, Wheelchair, Crutches, etc.)? No PATIENT GENDER DATA: Assigned male at ALLERGIES: Reviewed and unchanged CONTRAST ALLERGY: No EXAM: MRI - CONTRAST TYPE: GROUP II IV SITE: Ambulatory: A peripheral IV was started in the Left antecubital site with a Angio cath: 22 gauge. and A Saline lock was inserted per protocol IV SITE APPEARANCE: Clean,Dry and Intact SIGNATURE: Lori Dunn RN PATIENT NAME: Penny Robin DATE: February 21, 2025 TIME: 11:31 AM Radiology Service Progress Note PATIENT NAME: Penny Robin DATE OF SERVICE: February 21, 2025 TIME: 12:13 PM PATIENT IDENTITY VERIFICATION COMPLETED USING TWO (2) IDENTIFIERS: Name and Date of confirmed by patient verbally. FALL SCREENING: Has the patient had 2 falls in the last year or 1 fall with injury or currently using an Ambulatory Assistive Device (Walker, Cane, Wheelchair, Crutches, etc.)? No PATIENT GENDER DATA: Assigned male at PATIENT RELEVANT IMPLANT DATA REVIEWED: Yes PATIENT PRESENTS WITH AN IMPLANTABLE OR ATTACHED WATER TREATMENT TECHNICIAN: No RADIOLOGY DEPARTMENT: MR; Exam(s) Completed: Head: Routine Brain. Lavender Administered: No PERIPHERAL IV DATA: Site assessment: Clean,Dry and Intact, Site disposition Discontinued SIGNED BY: RT Mihir(R) February 21, 2025 12:13 PM documented in this encounter [facility] 02-21-2025 Note HNO ID: [id number] Author: LORI DUNN RN Service: Radiology Author Type: Registered Nurse Type: Progress Notes Filed: 02/21/2025 11:35 Note Text: Radiology Service Progress Note DATE OF SERVICE: February 21, 2025 TIME: 11:31 AM PATIENT WEIGHT: 135 LBS PATIENT IDENTITY VERIFICATION COMPLETED USING TWO (2) STANDARD IDENTIFIERS: Name and Date of confirmed by patient verbally and Name and Date of confirmed by identification band. FALL SCREENING: Has the patient had 2 falls in the last year or 1 fall with injury or currently using an Ambulatory Assistive Device (Walker, Cane, Wheelchair, Crutches, etc.)? No PATIENT GENDER DATA: Assigned male at ALLERGIES: Reviewed and unchanged CONTRAST ALLERGY: No EXAM: MRI - CONTRAST TYPE: GROUP II IV SITE: Ambulatory: A peripheral IV was started in the Left antecubital site with a Angio cath: 22 gauge. and A Saline lock was inserted per protocol IV SITE APPEARANCE: Clean,Dry and Intact SIGNATURE: Lori Dunn RN PATIENT NAME: Penny Robin DATE: February 21, 2025 TIME: 11:31 AM [facility] 02-21-2025 Note HNO ID: [id number] Author: TAMIKO PRESTON RT(Darío) Service: Radiology Author Type: Technologist Type: Progress Notes Filed: 02/21/2025 12:13 Note Text: Radiology Service Progress Note PATIENT NAME: Penny Robin DATE OF SERVICE: February 21, 2025 TIME: 12:13 PM PATIENT IDENTITY VERIFICATION COMPLETED USING TWO (2) IDENTIFIERS: Name and Date of confirmed by patient verbally. FALL SCREENING: Has the patient had 2 falls in the last year or 1 fall with injury or currently using an Ambulatory Assistive Device (Walker, Cane, Wheelchair, Crutches, etc.)? No PATIENT GENDER DATA: Assigned male at PATIENT RELEVANT IMPLANT DATA REVIEWED: Yes PATIENT PRESENTS WITH AN IMPLANTABLE OR ATTACHED WATER TREATMENT TECHNICIAN: No RADIOLOGY DEPARTMENT: MR; Exam(s) Completed: Head: Routine Brain. Lavender Administered: No PERIPHERAL IV DATA: Site assessment: Clean,Dry and Intact, Site disposition Discontinued SIGNED BY: Tamiko Preston, RT(R) February 21, 2025 12:13 PM [facility] 01-31-2025 Telephone encounter Note 11/23/2024: Clobazam was added due to breakthrough focal seizures. We discussed increasing the dose to 10-20 mg. If seizures continue, even though these are not generalized tonic-clonic seizures, we discussed presurgical evaluation. PLAN: Increase clobazam to 10-20 mg Continue Keppra 2000 mg twice daily, lamotrigine 300 mg twice daily We discussed that if he has episodes of staring/behavioral arrest/zoning out, he should refrain from driving for 6 months. He may be allowed to drive if he only has word finding difficulty without behavioral arrest. Future options: Optimize clobazam to 20 mg twice daily, low threshold for presurgical evaluation. Trial of Xcopri, zonisamide. Forwarded to NAIMA 2 for review. Isabel Issa RN [facility] 01-31-2025 Miscellaneous Notes 11/23/2024: Clobazam was added due to breakthrough focal seizures. We discussed increasing the dose to 10-20 mg. If seizures continue, even though these are not generalized tonic-clonic seizures, we discussed presurgical evaluation. PLAN: Increase clobazam to 10-20 mg Continue Keppra 2000 mg twice daily, lamotrigine 300 mg twice daily We discussed that if he has episodes of staring/behavioral arrest/zoning out, he should refrain from driving for 6 months. He may be allowed to drive if he only has word finding difficulty without behavioral arrest. Future options: Optimize clobazam to 20 mg twice daily, low threshold for presurgical evaluation. Trial of Xcopri, zonisamide. Forwarded to NAIMA 2 for review. Isabel Issa RN documented in this encounter [facility] 11-24-2024 Telephone encounter Note Forms to be filled out and signed. Mary Carmen Vazquez LPN November 24, 2024 3:31 PM Scan on 11/24/2024 2:44 PM by ProviderRenee PA-C: Miscellaneous Correspondence [facility] 11-24-2024 Miscellaneous Notes Forms to be filled out and signed. Mary Carmen Vazquez LPN November 24, 2024 3:31 PM Scan on 11/24/2024 2:44 PM by ProviderRenee PA-C: Miscellaneous Correspondence documented in this encounter [facility] 11-23-2024 Jack Angel MD - 11/23/2024 3:00 PM EST Summary of the things we discussed today: Increase clobazam (Onfi) to 10 mg in the morning and 20 mg at bedtime. Continue Levetiracetam (Keppra) 2000 mg twice daily Continue Lamictal (lamotrigine) 300 mg twice daily If focal seizures continue despite changes to clobazam, we should consider getting evaluation for potential surgical options. While a traditional resection may not be possible due to the presence of lesion close to your language areas, other options to consider are laser surgery or pacemaker called RNS (responsive neurostimulation). Before we do any of these procedures, we would go through extensive testing in the hospital. Please call my office if you have more seizures or with any seizure related concerns. Seizure precautions - No driving in the state of [place] until seizure free for 6 months. Please check with local state authorities for state specific driving regulations. - No operating heavy machines - No swimming without supervision or bathing in a bathtub due to risk of drowning in the event of a seizure. Patient may shower. - Avoid unsafe heights, including ladders, due to risk of fall-related injury in the event of a seizure. - Seizure precipitating factors discussed including not taking seizure medications as prescribed, stress, excessive caffeine intake, energy drinks, alcohol, sleep deprivation or any identifiable seizure precipitating factor. Jack Almazan MD Associate Staff, Epilepsy [facility] November 23, 2024 Office phone: [phone] documented in this encounter [facility] 11-23-2024 Note HNO ID: [id number] Author: JACK ALMAZAN MD Service: ? Author Type: Physician Type: Progress Notes Filed: 11/23/2024 15:03 Note Text: [facility] Patient Name: Penny Robin Date of : 2005 ESTABLISHED EPILEPSY CLINIC NOTE 11/23/2024 2:40 PM Reason for Visit: Epilepsy and Follow Up Clinical Summary: Mr. Robin is a 18 year old right-handed male seen in [facility]. We had a visit using: [employer] I received consent from the patient to perform the visit using this platform. I have communicated my name and active licensure. The patient's identity and physical location were verified at the time of this visit. Either the patient or their legal healthcare representative has been informed of the risks and benefit of - and alternatives to - treatment through a remote evaluation and consents to proceed with the evaluation remotely. There is no one accompanying the patient during today's visit. EPILEPSY CLASSIFICATION Left Temporal Lobe Epilepsy Seizures: 1. 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 Previously, at 1 year of age, he had a single brief brief febrile seizure (his sister also had a single febrile seizure at 2 years of age). EEG in 04/2020 showed left temporo-parietal sharp waves (P7>T7,P3) and continuous slowing in that area. MRI in 04/2020 showed a focal region of cortical expansion and T2 / FLAIR hyperintensity centered along the mid to posterior aspect of the lateral left temporal lobe. Features are consistent with low grade tumor or malformation of cortical development. Dr. 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 In 04/2020, Penny was started on levetiracetam. On 05/20/2020, he was admitted following seizure recurrence (his second seizure ever). Levetiracetam was increased from 2000 mg/d to 4000 mg/d. Overnight video EEG again showed sharp waves and continuous slowing in the left temporo-parietal region. In 07/2020, repeat MRI showed no change in size or configuration of the low-grade tumor, with faint gadolinium enhancement. On 10/21/2020, on levetiracetam 4000 mg/d, Penny had a 3-minute generalized tonic clonic seizure with tongue bite, followed by vomiting, lethargy, and confusion. The seizure occurred shortly after going back to bed after awakening early to take his morning medication - his mother heard a thud, went into the room, and found him in the convulsion. In summary - Penny has experienced the following generalized tonic clonic seizures. - 04/21/2020 - on no medication - 05/20/2020 - on levetiracetam 2000 mg/d, with level 13.1 mg/l - 10/21/2020 - on levetiracetam 4000 mg/d, with level 35.7 mg/l in 08/2020 (usual range 12-45 mg/l) In 10/2020, We discussed the potential risks and benefits of surgery for tumor resection in detail, as well as the potential risks of ongoing epilepsy. On 10/22/2020, Penny expressed that he wished to defer surgery if possible. On 10/26/2020, Penny expressed that he had changed his mind and wanted to pursue surgery sooner rather than later. In 01/2021, functional MRI showed significant left dominance for language tasks. Rhyming / passive listening task activation overlaped with the left temporal cortical lesion. Surgical options may be complicated. If seizures persist despite strong trials of at least 2 medications, then we will proceed to Epilepsy Management Conference. After extensive discussion, it was elected to try at least one more medications before proceeding to consider surgery. In 10/2020, he changed to oxcarbazepine, with no further seizures since then. In 12/2020, a change to lamotrigine was initiated, because of stuttering speech on the oxcarbazepine. In 05/2021, on lamotrigine 400 mg/d, level was 6.3 mg/l on 400 mg/d (usual range 1-13 mg/l). Lamotrigine was increased to 500 mg/d and oxcarbazepine was weaned (last dose 07/17/2021). Lamotrigine level on 07/24/2021 was 9.6 mg/l (with levetiracetam) and 7.9 mg/l on 08/14/2021. It was recommended to increase the lamotrigine to 600 mg/d. (more content not included)... [facility] 11-23-2024 History of Presen t illness Narrative [facility] Patient Name: Penny Robin Date of : 2005 ESTABLISHED EPILEPSY CLINIC NOTE 11/23/2024 2:40 PM Reason for Visit: Epilepsy and Follow Up Clinical Summary: Mr. Robin is a 18 year old right-handed male seen in [facility]. We had a visit using: [employer] I received consent from the patient to perform the visit using this platform. I have communicated my name and active licensure. The patient's identity and physical location were verified at the time of this visit. Either the patient or their legal healthcare representative has been informed of the risks and benefit of - and alternatives to - treatment through a remote evaluation and consents to proceed with the evaluation remotely. There is no one accompanying the patient during today's visit. EPILEPSY CLASSIFICATION Left Temporal Lobe Epilepsy Seizures: 1. 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 Previously, at 1 year of age, he had a single brief brief febrile seizure (his sister also had a single febrile seizure at 2 years of age). EEG in 04/2020 showed left temporo-parietal sharp waves (P7>T7,P3) and continuous slowing in that area. MRI in 04/2020 showed a focal region of cortical expansion and T2 / FLAIR hyperintensity centered along the mid to posterior aspect of the lateral left temporal lobe. Features are consistent with low grade tumor or malformation of cortical development. Dr. 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 In 04/2020, Penny was started on levetiracetam. On 05/20/2020, he was admitted following seizure recurrence (his second seizure ever). Levetiracetam was increased from 2000 mg/d to 4000 mg/d. Overnight video EEG again showed sharp waves and continuous slowing in the left temporo-parietal region. In 07/2020, repeat MRI showed no change in size or configuration of the low-grade tumor, with faint gadolinium enhancement. On 10/21/2020, on levetiracetam 4000 mg/d, Penny had a 3-minute generalized tonic clonic seizure with tongue bite, followed by vomiting, lethargy, and confusion. The seizure occurred shortly after going back to bed after awakening early to take his morning medication - his mother heard a thud, went into the room, and found him in the convulsion. In summary - Penny has experienced the following generalized tonic clonic seizures. - 04/21/2020 - on no medication - 05/20/2020 - on levetiracetam 2000 mg/d, with level 13.1 mg/l - 10/21/2020 - on levetiracetam 4000 mg/d, with level 35.7 mg/l in 08/2020 (usual range 12-45 mg/l) In 10/2020, We discussed the potential risks and benefits of surgery for tumor resection in detail, as well as the potential risks of ongoing epilepsy. On 10/22/2020, Penny expressed that he wished to defer surgery if possible. On 10/26/2020, Penny expressed that he had changed his mind and wanted to pursue surgery sooner rather than later. In 01/2021, functional MRI showed significant left dominance for language tasks. Rhyming / passive listening task activation overlaped with the left temporal cortical lesion. Surgical options may be complicated. If seizures persist despite strong trials of at least 2 medications, then we will proceed to Epilepsy Management Conference. After extensive discussion, it was elected to try at least one more medications before proceeding to consider surgery. In 10/2020, he changed to oxcarbazepine, with no further seizures since then. In 12/2020, a change to lamotrigine was initiated, because of stuttering speech on the oxcarbazepine. In 05/2021, on lamotrigine 400 mg/d, level was 6.3 mg/l on 400 mg/d (usual range 1-13 mg/l). Lamotrigine was increased to 500 mg/d and oxcarbazepine was weaned (last dose 07/17/2021). Lamotrigine level on 07/24/2021 was 9.6 mg/l (with levetiracetam) and 7.9 mg/l on 08/14/2021. It was recommended to increase the lamotrigine to 600 mg/d. Since then, on lamotrigine and levetiracetam, Penny has had no further seizures and the stuttering resolved. NOTE - On 08/16/2022, Penny sustained severe traumatic abdominal injury when he ran full force into a barricade while playing laser tag with friends. Injuries included right hepatic lobe laceration and hemoperitoneum, transverse fracture of the posterior ninth 9th rib and nondisplaced fractures of the right 7th, 8th, and 10th ribs, and right lower lobe pulmonary contusion. He was admitted for care of the injuries, and healed without sequelae. In 03/2022, levetiracetam level was again on the high side - 53.7 mg/l (usual range 12-45 mg/l). It was recommended to decrease the dose from 6000 to 5000 mg/d (with lamotrigine). In 05/2023, Lobito reported a 2-week history of not sleeping well and a 1-week history of vomiting every 3 days or so at about 20 minutes after taking his medication. In 05/2023, 5-hour post-dose peak levetiracetam and lamotrigine levels were high. In 05/2023, Lobito reported a 2-week history of not sleeping well and a 1-week history of vomiting every 3 days or so at about 20 minutes after taking his medication. In 05/2023, 5-hour post-dose peak levetiracetam and lamotrigine levels were high. It was recommended to reduce the levetiracetam incrementally from 5000 to 3000 mg/d and continue the current lamotrigine. Levetiracetam and lamotrigine could be further reduced if needed. If vomiting persists, then I recommend to consult with his PCP for assessment of possible effects from the previous abdominal trauma and surgery. 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 MRIs have shown stable findings. Generalized tonic clonic seizures started at 14 years of age and persisted on high dose levetiracetam, then came under control when lamotrigine was added. Last seizure was in 10/2020, on levetiracetam alone. Penny has been hesitant to wean the levetiracetam. With the lesion not growing and seizures under good control, it was elected to defer resection for now. The lesion is close to speech (rhyming) and thus lesionectomy cannot be performed easily. Dr. Valentin is following and MRI in 02/2023 was stable. Interval Seizure History Last seizure last week. Clobazam was added in May 2024 due to increased focal seizures where he would have difficulty speaking. He continues to report occasional breakthrough focal seizures. No longer experiencing G TCS. Total # of Current Anti-seizure Medications: Side Effects to Current Anti-seizure Medications: Seizure Frequency at First Visit: Longest Seizure-free Interval: CURRENT OUTPATIENT ANTISEIZURE MEDICATIONS (as of the start of the encounter) levETIRAcetam (KEPPRA) 1,000 mg tablet Take 2 tablets by mouth two times a day. cloBAZam (ONFI) 20 mg tab tablet Take 1 tablet by mouth daily at bedtime for 180 days. midazolam (NAYZILAM) 5 mg/spray (0.1 mL) nasal spray Use 1 spray in one nostril as needed for seizures. May repeat dose in alternate nostril after 10 minutes based on response and tolerability. lamoTRIgine (LAMICTAL) 200 mg tablet Take 1 tablet by mouth two times a day. (along with 100 mg tabs, = 600 mg/day) lamoTRIgine (LAMICTAL) 100 mg tablet Take 1 tablet by mouth two times a day. (along with 200 mg tabs, =600 mg/day) Prior Anti-seizure Therapies: Trial Adequacy: Max Daily Dose Achieved: Side Effects: Effectiveness: Comments: Lamotrigine Levetiracetam Oxcarbazepine PRIOR RESCUE THERAPIES Intranasal midazolam Comorbidities: Episode Description: SEIZURE TYPE 1: Generalized tonic clonic seizures Description: Loss of awareness, arrest of activity, whole body stiffening, injurious fall (abrasion, bruises, and rib fracture), cyanosis, drooling, tongue bite, and unconsciousness for 5 minutes or less (untimed), followed by vomiting and confusion. Loss of awareness: Duration: Frequency: Last occurred: Patient Entered Data: EPILEPSY SCORE 05/18/2024 10:05 PM 05/18/2024 10:04 PM 05/18/2024 10:04 PM First answer obtained - 02/17/2023 10:00 PM PHQ-9 SCORE - - - - FREDDY 2 SCORE 0 [Negative Anxiety Screen] - - - FREDDY 7 SCORE - - - - QOLIE-10 SCORE (0=worst; 100=best QoL - higher scores represent better function) - - - - LSSS SCORE (0- no seizures 100- most severe possible seizures) - - - - C-SSRS SCREEN - - - - On average, how many hours of sleep do you get in a 24-hour period? - 8 - - PROMIS Sleep Disturbance T-SCORE - - - 49 [within normal limits] Have you been diagnosed with Sleep Apnea? 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 This region measures approximately 2.0 AP by 1.8 transverse centimeters. Features are consistent with low grade tumor or malformation of cortical development. EEG 04/2020 Sharp waves, regional left temporo-parietal (P7>T7,P3). Continuous slow, regional left temporo-parietal OVERNIGHT VIDEO EEG, 05/2020 Sharp waves and continuous slowing, regional left temporo-pareital No seizures recorded MRI 07/2020, with gadolinium No change in size or configuration of the low-grade tumor, with faint gadolinium enhancement. 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 Rhyming / passive listening task activation overlaps with the left temporal cortical lesion. MRI 02/2023 No significant interval change in the slightly expansile, subtle enhancing lesion in the left temporal lobe, when compared to most recent prior MRI and over MRIs dating back to 07/25/2020. Primary differential considerations remain the same which includes a low-grade cortical based neoplasm. Other caregivers: Primary Care Provider: Leoncio Vallejo MD Current Outpatient Medications Medication Sig cloBAZam (ONFI) 20 mg tab tablet Take 1 tablet by mouth daily at bedtime AND 0.5 tablets once daily. Do all this for 180 days. levETIRAcetam (KEPPRA) 1,000 mg tablet Take 2 tablets by mouth two times a day. midazolam (NAYZILAM) 5 mg/spray (0.1 mL) nasal spray Use 1 spray in one nostril as needed for seizures. May repeat dose in alternate nostril after 10 minutes based on response and tolerability. lamoTRIgine (LAMICTAL) 200 mg tablet Take 1 tablet by mouth two times a day. (along with 100 mg tabs, = 600 mg/day) lamoTRIgine (LAMICTAL) 100 mg tablet Take 1 tablet by mouth two times a day. (along with 200 mg tabs, =600 mg/day) No current facility-administered medications for this visit. ALLERGIES Allergen Reactions Amoxicillin Hives Dilaudid [Hydromorp* Vomiting PAST MEDICAL HISTORY Diagnosis Date Acute appendicitis with localized peritonitis 09/22/2016 Brain tumor (HCC) PMH - PAST MEDICAL HISTORY OF 02/05/2005 Febrile Seizure Simple febrile convulsions (HCC) 04/26/2020 PAST SURGICAL HISTORY Procedure Laterality Date LAPAROSCOPIC APPENDECTOMY 09/19/16 FAMILY HISTORY Problem Relation Age of Onset Hypertension Maternal Grandfather Heart Maternal Grandfather 2 MN, living Stroke Maternal Grandfather living No Known Problems Mother No Known Problems Father No Known Problems Maternal Grandmother Diabetes Paternal Grandmother Hypertension Paternal Grandfather No Known Problems Sister SOCIAL HISTORY: -Lives in [place], [place] -Patient lives alone? -Vocation: -Education: -Cigarette, alcohol, substance use: -Functional status: -Patient driving? Review of Systems All other systems reviewed and are negative. VITAL SIGNS: There were no vitals taken for this visit. General Examination: He is alone. General: Awake, alert, interactive, no acute distress, good nutritional status, normal development, well-kept Neurological Exam Mental Status Alert, fully oriented, attentive, with normal cognition, memory, speech and affect. Cranial Nerves Face symmetric. Hearing intact with conversational speech. Motor Examination and Coordination Distance Motor Examination Arms: Well-coordinated symmetrical movements of both arms. Manipulates phone and small objects well. No tremor or adventitious movements. No apparent muscle atrophy or deformity/contracture. 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 MRIs have shown stable findings (most recently in 12/2021). Generalized tonic clonic seizures started at 14 years of age and persisted on high dose levetiracetam, then stopped when oxcarbazepine and then lamotrigine were added. Last seizure was in 10/2020, on levetiracetam alone. Lamotrigine was added, with no further seizures since then. In , Dorotaon requested to make no change for now With the lesion not growing and seizures under good control, it was elected to defer resection for now. The lesion is close to speech (rhyming) and thus lesionectomy cannot be performed easily. Dr. Valentin is following and MRI in 02/2023 was stable. Breakthrough seizures in January and February 2024 despite compliance with medications and normal ASM levels. Keppra dose increased to 2000 mg twice a day with subsequent improvement in symptoms. 05/19/2024: No further seizures since increasing Keppra. We discussed continuing same dose of Keppra and Lamictal. Refills were sent. We had a discussion again about consideration of presurgical evaluation. Patient expresses his wishes that he wants to defer surgical evaluation unless he experiences G TCS. We discussed that the focal seizures he is experiencing should be taken into account even though he may not recall these episodes as these consists of behavioral arrest and loss of awareness.. We discussed trial of more medication for now with low threshold for presurgical evaluation. 11/23/2024: Clobazam was added due to breakthrough focal seizures. We discussed increasing the dose to 10-20 mg. If seizures continue, even though these are not generalized tonic-clonic seizures, we discussed presurgical evaluation. PLAN: Increase clobazam to 10-20 mg Continue Keppra 2000 mg twice daily, lamotrigine 300 mg twice daily We discussed that if he has episodes of staring/behavioral arrest/zoning out, he should refrain from driving for 6 months. He may be allowed to drive if he only has word finding difficulty without behavioral arrest. Future options: Optimize clobazam to 20 mg twice daily, low threshold for presurgical evaluation. Trial of Xcopri, zonisamide. Data reviewed as above including: electronic medical record Education Seizure precautions - No driving in the [facility] until seizure free for 6 months. Please check with local state authorities for state specific driving regulations. - No operating heavy machines - No swimming without supervision or bathing in a bathtub due to risk of drowning in the event of a seizure. Patient may shower. - Avoid unsafe heights, including ladders, due to risk of fall-related injury in the event of a seizure. - Seizure precipitating factors discussed including not taking seizure medications as prescribed, stress, excessive caffeine intake, energy drinks, alcohol, sleep deprivation or any identifiable seizure precipitating factor. I discussed the risks, benefits and alternatives of the medical plan with the patient. Questions were answered. The patient agreed with the plan as discussed. FOLLOW-UP: Return in about 3 months (around 02/20/2025). I spent a total of 30 minutes on the date of the service which included: preparing to see the patient completing clinical documentation [id number] patient care obtaining and/or reviewing separately obtained history performing a medically appropriate examination counseling and educating the patient/family/caregiver ordering medications, tests, or procedures Jack Almazan MD cc: Primary Care Physician: Leoncio Vallejo MD [address] [id number] Referring: Patient: Mr. Penny Robin [address] [place] [address] [address] [facility] [address] documented in this encounter [facility] 11-04-2024 Telephone encounter Note Letter completed, sent to NAIMA for review and signature. Copies to patient's email. Isabel Issa RN [facility] 11-04-2024 Miscellaneous Notes Letter completed, sent to NAIMA for review and signature. Copies to patient's email. Isabel Issa RN documented in this encounter [facility] 11-03-2024 Telephone encounter Note The following approved medication requests have been transmitted electronically. Requested Prescriptions Signed Prescriptions Disp Refills levETIRAcetam (KEPPRA) 1,000 mg tablet 360 tablet 3 Sig: Take 2 tablets by mouth two times a day. Authorizing Provider: BRADY OH APRN.PAPER TESTING SUPERVISOR [facility] 11-03-2024 Miscellaneous Notes The following approved medication requests have been transmitted electronically. Requested Prescriptions Signed Prescriptions Disp Refills levETIRAcetam (KEPPRA) 1,000 mg tablet 360 tablet 3 Sig: Take 2 tablets by mouth two times a day. Authorizing Provider: BRADY OH APRN.CNP Prescription Refill: Requested by: patient Please E-Scribe Caller Contact Number: Pharmacy Name: [facility] Pharmacy Number: [phone] Generic/ brand: 30 or 90 day supply requested: 90 Last appointment: 05/19/24 Next Appointment: 11/23/[address] Lou Robin [id number] [address] [address] documented in this encounter [facility] 11-03-2024 Telephone encounter Note Prescription Refill: Requested by: patient Please E-Scribe Caller Contact Number: Pharmacy Name: [facility] Pharmacy Number: [phone] Generic/ brand: 30 or 90 day supply requested: 90 Last appointment: 05/19/24 Next Appointment: 11/23/[address] Lou Robin [id number] [address] [address] [facility] 11-03-2024 Telephone encounter Note Pt using 1000 mg tablets The following approved medication requests have been transmitted electronically. Requested Prescriptions Refused Prescriptions Disp Refills levETIRAcetam (KEPPRA) 750 mg tablet [Pharmacy Med Name: LEVETIRACETAM 750 MG TABLET] 360 tablet 3 Sig: TAKE 2 TABLETS BY MOUTH TWICE A DAY Brady Oh APRN.CONRADO [facility] 11-03-2024 Miscellaneous Notes Pt using 1000 mg tablets The following approved medication requests have been transmitted electronically. Requested Prescriptions Refused Prescriptions Disp Refills levETIRAcetam (KEPPRA) 750 mg tablet [Pharmacy Med Name: LEVETIRACETAM 750 MG TABLET] 360 tablet 3 Sig: TAKE 2 TABLETS BY MOUTH TWICE A DAY Brady Oh APRN.CONRADO Sent in by pharmacy; 750mg disc. documented in this encounter [facility] 11-03-2024 Telephone encounter Note Sent in by pharmacy; 750mg disc. [facility] 11-02-2024 Telephone encounter Note Returned NOC and spoke with mother. Penny recently started a new job and is having increased stressed. Had a cluster of 3 focal seizures in 30 minutes yesterday. Stayed home and rested today but had another breakthrough seizure this evening. All seizures described as blank staring, incoherent speech, lasting <5 minutes. Denies any recent illness of missed medication doses. Current medication regimen: LEV 2000 mg BID LTG 300 mg BID CLB 10 mg qHS Instructed mother to increase clobazam dosing to 20 mg qHS. Ordered drug levels to be completed at their earliest convenience. Told to call Dr. Almazan's office to follow up on results. This message will be sent to Dr. Almazan's office. Mother voiced her understanding. Megan Dimas APRN.CONRADO [facility] 11-02-2024 Miscellaneous Notes Returned NOC and spoke with mother. Penny recently started a new job and is having increased stressed. Had a cluster of 3 focal seizures in 30 minutes yesterday. Stayed home and rested today but had another breakthrough seizure this evening. All seizures described as blank staring, incoherent speech, lasting <5 minutes. Denies any recent illness of missed medication doses. Current medication regimen: LEV 2000 mg BID LTG 300 mg BID CLB 10 mg qHS Instructed mother to increase clobazam dosing to 20 mg qHS. Ordered drug levels to be completed at their earliest convenience. Told to call Dr. Almazan's office to follow up on results. This message will be sent to Dr. Almazan's office. Mother voiced her understanding. Megan Dimas APRN.CONRADO documented in this encounter [facility] 08-05-2024 Telephone encounter Note The following approved medication requests have been transmitted electronically. Requested Prescriptions Signed Prescriptions Disp Refills levETIRAcetam (KEPPRA) 500 mg tablet 180 tablet 1 Sig: Take 1 tablet by mouth two times a day. Take with 750mg tablets. Total dose = 2000mg BID Authorizing Provider: BRADY OH APRN.CONRADO [facility] 08-05-2024 Miscellaneous Notes The following approved medication requests have been transmitted electronically. Requested Prescriptions Signed Prescriptions Disp Refills levETIRAcetam (KEPPRA) 500 mg tablet 180 tablet 1 Sig: Take 1 tablet by mouth two times a day. Take with 750mg tablets. Total dose = 2000mg BID Authorizing Provider: BRADY OH APRN.PAPER TESTING SUPERVISOR Prescription Refill: The last entry for Levetiracetam 500 mg is a med update. Requested by: patient Please E-Scribe Caller Contact Number: Pharmacy Name: [facility] Pharmacy Number: [phone] Generic/ brand: 30 or 90 day supply requested: 90 Last appointment: 05/19/24 Next Appointment: none Patient of Dr. Almazan documented in this encounter [facility] 08-05-2024 Telephone encounter Note Prescription Refill: The last entry for Levetiracetam 500 mg is a med update. Requested by: patient Please E-Scribe Caller Contact Number: Pharmacy Name: [facility] Pharmacy Number: [phone] Generic/ brand: 30 or 90 day supply requested: 90 Last appointment: 05/19/24 Next Appointment: none Patient of Dr. Almazan [facility] 07-12-2024 Telephone encounter Note IRB 22-1005. Cognitive Enhancement Intervention for Creating a Healthy L.I.F.E (Lifestyle Interventions for Epilepsy) Clinical Nursing Assistant: Lorene Blum, PhD, Printed Circuit Boards Inspector: Timothy Johnson Research Coordinator and Email: [email or web address] Patient: Penny Robin : 2005 Left voicemail message to introduce the study. Provided phone number, , for Penny Robin to contact Timothy Johnson, Research Coordinator, to further discuss the study. Timothy Johnson Research Coordinator [facility] 07-12-2024 Miscellaneous Notes IRB 22-1005. Cognitive Enhancement Intervention for Creating a Healthy L.I.F.E (Lifestyle Interventions for Epilepsy) Clinical Nursing Assistant: Lorene Blum, PhD, Printed Circuit Boards Inspector: Timothy Johnson, Research Coordinator and Email: [email or web address] Patient: Penny Robin : 2005 Left voicemail message to introduce the study. Provided phone number, , for Penny Robin to contact Timothy Johnson, Research Coordinator, to further discuss the study. Timothy Johnson Research Coordinator documented in this encounter [facility] 06-29-2024 Telephone encounter Note IRB 22-1005. Cognitive Enhancement Intervention for Creating a Healthy L.I.F.E (Lifestyle Interventions for Epilepsy) Clinical Nursing Assistant: Lorene Blum, PhD, Printed Circuit Boards Inspector: Timothy Johnson Research Coordinator and Email: [email or web address] Patient: Penny Robin : 2005 Left voicemail message to introduce the study. Provided phone number, , for Penny Robin to contact Timothy Johnson, Research Coordinator, to further discuss the study. Timothy Johnson Research Coordinator [facility] 06-29-2024 Miscellaneous Notes IRB 22-1005. Cognitive Enhancement Intervention for Creating a Healthy L.I.F.E (Lifestyle Interventions for Epilepsy) Clinical Nursing Assistant: Lorene Blum, PhD, Printed Circuit Boards Inspector: Timothy Johnson Research Coordinator and Email: Patient: Penny Robin : 2005 Left voicemail message to introduce the study. Provided phone number, , for Penny Robin to contact Timothy Johnson Research Coordinator, to further discuss the study. Timothy Johnson Research Coordinator documented in this encounter [facility] 06-22-2024 Telephone encounter Note IRB 22-1005. Cognitive Enhancement Intervention for Creating a Healthy L.I.F.E (Lifestyle Interventions for Epilepsy) Clinical Nursing Assistant: Lorene Blum, PhD, Printed Circuit Boards Inspector: Timothy Johnson, Research Coordinator and Email: [email or web address] Patient: Penny Robin : 2005 Left voicemail message to introduce the study. Provided phone number, , for Penny Roibn to contact Timothy Johnson Research Coordinator, to further discuss the study. Timothy Johnson Research Coordinator [facility] 06-22-2024 Miscellaneous Notes IRB 22-1005. Cognitive Enhancement Intervention for Creating a Healthy L.I.F.E (Lifestyle Interventions for Epilepsy) Clinical Nursing Assistant: Lorene Blum, PhD, Printed Circuit Boards Inspector: Timothy Johnson Research Coordinator and Email: [email or web address] Patient: Penny Robin : 2005 Left voicemail message to introduce the study. Provided phone number, , for Penny Robin to contact Timothy Johnson Research Coordinator, to further discuss the study. Timothy Johnson Research Coordinator documented in this encounter [facility] 06-13-2024 Telephone encounter Note The following approved medication requests have been transmitted electronically. Requested Prescriptions Signed Prescriptions Disp Refills cloBAZam (ONFI) 10 mg tab tablet 90 tablet 1 Sig: Take 1 tablet by mouth daily at bedtime for 180 days. Authorizing Provider: BRADY OH APRN.PAPER TESTING SUPERVISOR [facility] 06-13-2024 Miscellaneous Notes The following approved medication requests have been transmitted electronically. Requested Prescriptions Signed Prescriptions Disp Refills cloBAZam (ONFI) 10 mg tab tablet 90 tablet 1 Sig: Take 1 tablet by mouth daily at bedtime for 180 days. Authorizing Provider: BRADY OH APRN.CNP Prescription Refill: Requested by: patient Please E-Scribe Caller Contact Number: Pharmacy Name: [facility] Pharmacy Number: [phone] Generic/ brand: 30 or 90 day supply requested: 90 Last appointment: 05/19/24 Next Appointment: none Patient of Dr. Almazan documented in this encounter [facility] 06-13-2024 Telephone encounter Note Prescription Refill: Requested by: patient Please E-Scribe Caller Contact Number: Pharmacy Name: [facility] Pharmacy Number: [phone] Generic/ brand: 30 or 90 day supply requested: 90 Last appointment: 05/19/24 Next Appointment: none Patient of Dr. Almazan [facility] 05-25-2024 Telephone encounter Note Called patient's mom and pharmacy, informing PA denied through [employer]. No PA need through [facility] BIN: [id number] PCN: [id number] GRP: [id number] ID: [id number] Option for discount card cost of $19.22 Isabel Issa RN [facility] 05-25-2024 Miscellaneous Notes Called patient's mom and pharmacy, informing PA denied through [employer]. No PA need through [facility] BIN: [id number] PCN: [id number] GRP: [id number] ID: [id number] Option for discount card cost of $19.22 Isabel Issa RN PA completed via [facility]: [id number] ========= Spoke with the pharmacy for [facility] BIN: [id number] PCN: [id number] GRP: [id number] Isabel Issa RN Prior Authorization Needed: Mother called in stating pharmacy sent PA but has not been received yet Received by: Fax Requested by (pharmacy name): [facility] Phone number: [phone] Name of medication: clobazam Strength and dosage: 10MG Insurance company name and phone #: [employer] Patient ID: PCN #: BIN#: Group #: [id number] Patient of Dr. ALMAZAN documented in this encounter [facility] 05-24-2024 Telephone encounter Note PA completed via [facility]: [id number] ========= Spoke with the pharmacy for [facility] BIN: [id number] PCN: [id number] GRP: [id number] Isabel Issa RN [facility] 05-23-2024 Telephone encounter Note Prior Authorization Needed: Mother called in stating pharmacy sent PA but has not been received yet Received by: Fax Requested by (pharmacy name): [facility] Phone number: [phone] Name of medication: clobazam Strength and dosage: 10MG Insurance company name and phone #: [employer] Patient ID: PCN #: BIN#: Group #: [id number] Patient of Dr. ALMAZAN [facility] 05-20-2024 Telephone encounter Note TELEPHONE ENCOUNTER: Mother of patient calling regarding concerns for breakthrough seizure. Reports patient began acting strange and did not remember that his grandmother had a few years ago. Unclear how long this lasted, possibly up to 20 minutes. No rescue medication given. Mother states he is currently angry which is typical after seizures as he feels frustrated that he is now aware of them. But he is now oriented and remembers the passing of his grandmother. Patient was seen for follow-up visit yesterday with Dr. Almazan at which time he had been seizure free since increase of LEV to 2,000 mg BID in addition to LTG 300 mg BID. Adding an additional medication (CLB, ZNS or CNB) as well as presurgical evaluation were discussed but patient deferred both. Recommended to add Onfi to regimen, 5 mg QHS for one week followed by 10 mg QSH. Also sent refill of [place] rescue. Advised to contact office with concerns for additional seizures and to present to ED/contact EMS for prolonged seizures not responding to rescue or multiple seizures without return to baseline. Advised to contact office in 1-2 weeks for update, sooner as needed. PDMP website checked and validated. All prescriptions have been APPROPRIATELY filled. No suspicious activity was identified. The following approved medication requests have been transmitted electronically. Requested Prescriptions Signed Prescriptions Disp Refills cloBAZam (ONFI) 10 mg tab tablet 27 tablet 0 Sig: Take 0.5 tablets at bedtime for 7 days, then take 1 tablet at bedtime. Authorizing Provider: SELENA WHITAKER midazolam (NAYZILAM) 5 mg/spray (0.1 mL) nasal spray 2 Each 0 Sig: Use 1 spray in one nostril as needed for seizures. May repeat dose in alternate nostril after 10 minutes based on response and tolerability. Authorizing Provider: SELENA WHITAKER PA-C May 20, 2024 [facility] 05-20-2024 Miscellaneous Notes TELEPHONE ENCOUNTER: Mother of patient calling regarding concerns for breakthrough seizure. Reports patient began acting strange and did not remember that his grandmother had a few years ago. Unclear how long this lasted, possibly up to 20 minutes. No rescue medication given. Mother states he is currently angry which is typical after seizures as he feels frustrated that he is now aware of them. But he is now oriented and remembers the passing of his grandmother. Patient was seen for follow-up visit yesterday with Dr. Almazan at which time he had been seizure free since increase of LEV to 2,000 mg BID in addition to LTG 300 mg BID. Adding an additional medication (CLB, ZNS or CNB) as well as presurgical evaluation were discussed but patient deferred both. Recommended to add Onfi to regimen, 5 mg QHS for one week followed by 10 mg QSH. Also sent refill of IN rescue. Advised to contact office with concerns for additional seizures and to present to ED/contact EMS for prolonged seizures not responding to rescue or multiple seizures without return to baseline. Advised to contact office in 1-2 weeks for update, sooner as needed. PDMP website checked and validated. All prescriptions have been APPROPRIATELY filled. No suspicious activity was identified. The following approved medication requests have been transmitted electronically. Requested Prescriptions Signed Prescriptions Disp Refills cloBAZam (ONFI) 10 mg tab tablet 27 tablet 0 Sig: Take 0.5 tablets at bedtime for 7 days, then take 1 tablet at bedtime. Authorizing Provider: SELENA WHITAKER midazolam (NAYZILAM) 5 mg/spray (0.1 mL) nasal spray 2 Each 0 Sig: Use 1 spray in one nostril as needed for seizures. May repeat dose in alternate nostril after 10 minutes based on response and tolerability. Authorizing Provider: SELENA WHITAKER PA-C May 20, 2024 documented in this encounter [facility] 05-19-2024 Instructions Jack Almazan MD - 05/19/2024 2:15 PM EDT Summary of the things we discussed today: Continue Keppra 2000 mg twice a day. You are currently taking one 500 mg tablet and two 750 mg tablets in the morning and evening. We may eventually change the prescription to two 1000 mg tablets twice a day for future refills. Continue lamotrigine 300 mg twice a day (100 mg +200 mg tablet twice a day) You were Keppra and lamotrigine levels checked in February were normal If seizures continue, we will consider other medications like clobazam, Xcopri, zonisamide. Please think about considering surgical options if seizures continue. Please call my office if you have more seizures or with any seizure related concerns. Follow-up in 6 months. Please message my office to schedule this follow-up Seizure precautions - No driving in the state [facility] until seizure free for 6 months. Please check with local state authorities for state specific driving regulations. - No operating heavy machines - No swimming without supervision or bathing in a bathtub due to risk of drowning in the event of a seizure. Patient may shower. - Avoid unsafe heights, including ladders, due to risk of fall-related injury in the event of a seizure. - Seizure precipitating factors discussed including not taking seizure medications as prescribed, stress, excessive caffeine intake, energy drinks, alcohol, sleep deprivation or any identifiable seizure precipitating factor. Jack Almazan MD Associate Staff, Epilepsy [facility] May 19, 2024 Office phone: [phone] documented in this encounter [facility] 05-19-2024 History of Presen t illness Narrative [facility] Patient Name: Penny Robin Date of : 2005 ESTABLISHED EPILEPSY CLINIC NOTE 05/19/2024 2:00 PM Reason for Visit: Epilepsy and Follow Up Clinical Summary: Mr. Robin is a 18 year old right-handed male seen in [facility]. We had a visit using: [employer] I received consent from the patient to perform the visit using this platform. I have communicated my name and active licensure. The patient's identity and physical location were verified at the time of this visit. Either the patient or their legal healthcare representative has been informed of the risks and benefit of - and alternatives to - treatment through a remote evaluation and consents to proceed with the evaluation remotely. There is no one accompanying the patient during today's visit. EPILEPSY CLASSIFICATION Left Temporal Lobe Epilepsy Seizures: 1. 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 Previously, at 1 year of age, he had a single brief brief febrile seizure (his sister also had a single febrile seizure at 2 years of age). EEG in 04/2020 showed left temporo-parietal sharp waves (P7>T7,P3) and continuous slowing in that area. MRI in 04/2020 showed a focal region of cortical expansion and T2 / FLAIR hyperintensity centered along the mid to posterior aspect of the lateral left temporal lobe. Features are consistent with low grade tumor or malformation of cortical development. Dr. 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 In 04/2020, Penny was started on levetiracetam. On 05/20/2020, he was admitted following seizure recurrence (his second seizure ever). Levetiracetam was increased from 2000 mg/d to 4000 mg/d. Overnight video EEG again showed sharp waves and continuous slowing in the left temporo-parietal region. In 07/2020, repeat MRI showed no change in size or configuration of the low-grade tumor, with faint gadolinium enhancement. On 10/21/2020, on levetiracetam 4000 mg/d, Penny had a 3-minute generalized tonic clonic seizure with tongue bite, followed by vomiting, lethargy, and confusion. The seizure occurred shortly after going back to bed after awakening early to take his morning medication - his mother heard a thud, went into the room, and found him in the convulsion. In summary - Penny has experienced the following generalized tonic clonic seizures. - 04/21/2020 - on no medication - 05/20/2020 - on levetiracetam 2000 mg/d, with level 13.1 mg/l - 10/21/2020 - on levetiracetam 4000 mg/d, with level 35.7 mg/l in 08/2020 (usual range 12-45 mg/l) In 10/2020, We discussed the potential risks and benefits of surgery for tumor resection in detail, as well as the potential risks of ongoing epilepsy. On 10/22/2020, Penny expressed that he wished to defer surgery if possible. On 10/26/2020, Penny expressed that he had changed his mind and wanted to pursue surgery sooner rather than later. In 01/2021, functional MRI showed significant left dominance for language tasks. Rhyming / passive listening task activation overlaped with the left temporal cortical lesion. Surgical options may be complicated. If seizures persist despite strong trials of at least 2 medications, then we will proceed to Epilepsy Management Conference. After extensive discussion, it was elected to try at least one more medications before proceeding to consider surgery. In 10/2020, he changed to oxcarbazepine, with no further seizures since then. In 12/2020, a change to lamotrigine was initiated, because of stuttering speech on the oxcarbazepine. In 05/2021, on lamotrigine 400 mg/d, level was 6.3 mg/l on 400 mg/d (usual range 1-13 mg/l). Lamotrigine was increased to 500 mg/d and oxcarbazepine was weaned (last dose 07/17/2021). Lamotrigine level on 07/24/2021 was 9.6 mg/l (with levetiracetam) and 7.9 mg/l on 08/14/2021. It was recommended to increase the lamotrigine to 600 mg/d. Since then, on lamotrigine and levetiracetam, Penny has had no further seizures and the stuttering resolved. NOTE - On 08/16/2022, Penny sustained severe traumatic abdominal injury when he ran full force into a barricade while playing laser tag with friends. Injuries included right hepatic lobe laceration and hemoperitoneum, transverse fracture of the posterior ninth 9th rib and nondisplaced fractures of the right 7th, 8th, and 10th ribs, and right lower lobe pulmonary contusion. He was admitted for care of the injuries, and healed without sequelae. In 03/2022, levetiracetam level was again on the high side - 53.7 mg/l (usual range 12-45 mg/l). It was recommended to decrease the dose from 6000 to 5000 mg/d (with lamotrigine). In 05/2023, Lobito reported a 2-week history of not sleeping well and a 1-week history of vomiting every 3 days or so at about 20 minutes after taking his medication. In 05/2023, 5-hour post-dose peak levetiracetam and lamotrigine levels were high. In 05/2023, Lobito reported a 2-week history of not sleeping well and a 1-week history of vomiting every 3 days or so at about 20 minutes after taking his medication. In 05/2023, 5-hour post-dose peak levetiracetam and lamotrigine levels were high. It was recommended to reduce the levetiracetam incrementally from 5000 to 3000 mg/d and continue the current lamotrigine. Levetiracetam and lamotrigine could be further reduced if needed. If vomiting persists, then I recommend to consult with his PCP for assessment of possible effects from the previous abdominal trauma and surgery. 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 MRIs have shown stable findings. Generalized tonic clonic seizures started at 14 years of age and persisted on high dose levetiracetam, then came under control when lamotrigine was added. Last seizure was in 10/2020, on levetiracetam alone. Penny has been hesitant to wean the levetiracetam. With the lesion not growing and seizures under good control, it was elected to defer resection for now. The lesion is close to speech (rhyming) and thus lesionectomy cannot be performed easily. Dr. Valentin is following and MRI in 02/2023 was stable. Interval Seizure History Since last visit, he had 3 breakthrough seizures Semiology described as behavioral arrest, staring,breathing heavy. He was confused, his face was flushed. He had no recollection of the episodes. Keppra was increased to 0638-8386 mg. Also noted her episodes of word finding difficulty that happens couple of hours before his evening dose of medication, Keppra dose subsequently increased to 2000 mg twice daily He denies depression, anger, irritability. He is also taking lamotrigine 300 mg twice a day Total # of Current Anti-seizure Medications: Side Effects to Current Anti-seizure Medications: Seizure Frequency at First Visit: Longest Seizure-free Interval: CURRENT OUTPATIENT ANTISEIZURE MEDICATIONS (as of the start of the encounter) levETIRAcetam (KEPPRA) 500 mg tablet Take 1 tablet by mouth two times a day. Take with 750mg tablets. Total dose = 2000mg BID levETIRAcetam (KEPPRA) 750 mg tablet Take 2 tablets by mouth two times a day. midazolam (NAYZILAM) 5 mg/spray (0.1 mL) nasal spray Use 1 spray in one nostril as needed for seizures. May repeat dose in alternate nostril after 10 minutes based on response and tolerability. lamoTRIgine (LAMICTAL) 200 mg tablet Take 1 tablet by mouth two times a day. (along with 100 mg tabs, = 600 mg/day) lamoTRIgine (LAMICTAL) 100 mg tablet Take 1 tablet by mouth two times a day. (along with 200 mg tabs, =600 mg/day) Prior Anti-seizure Therapies: Trial Adequacy: Max Daily Dose Achieved: Side Effects: Effectiveness: Comments: Lamotrigine Levetiracetam Oxcarbazepine PRIOR RESCUE THERAPIES Intranasal midazolam Comorbidities: Episode Description: SEIZURE TYPE 1: Generalized tonic clonic seizures Description: Loss of awareness, arrest of activity, whole body stiffening, injurious fall (abrasion, bruises, and rib fracture), cyanosis, drooling, tongue bite, and unconsciousness for 5 minutes or less (untimed), followed by vomiting and confusion. Loss of awareness: Duration: Frequency: Last occurred: Patient Entered Data: EPILEPSY SCORE 05/18/2024 10:05 PM 05/18/2024 10:04 PM 05/18/2024 10:04 PM First answer obtained - 02/17/2023 10:00 PM PHQ-9 SCORE - - - - FREDDY 2 SCORE 0 [Negative Anxiety Screen] - - - FREDDY 7 SCORE - - - - QOLIE-10 SCORE (0=worst; 100=best QoL - higher scores represent better function) - - - LSSS SCORE (0- no seizures 100- most severe possible seizures) - - - - C-SSRS SCREEN - - - - On average, how many hours of sleep do you get in a 24-hour period? - 8 - - PROMIS Sleep Disturbance T-SCORE - - - 49 [within normal limits] Have you been diagnosed with Sleep Apnea? 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 This region measures approximately 2.0 AP by 1.8 transverse centimeters. Features are consistent with low grade tumor or malformation of cortical development. EEG 04/2020 Sharp waves, regional left temporo-parietal (P7>T7,P3). Continuous slow, regional left temporo-parietal OVERNIGHT VIDEO EEG, 05/2020 Sharp waves and continuous slowing, regional left temporo-pareital No seizures recorded MRI 07/2020, with gadolinium No change in size or configuration of the low-grade tumor, with faint gadolinium enhancement. 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 Rhyming / passive listening task activation overlaps with the left temporal cortical lesion. MRI 02/2023 No significant interval change in the slightly expansile, subtle enhancing lesion in the left temporal lobe, when compared to most recent prior MRI and over MRIs dating back to 07/25/2020. Primary differential considerations remain the same which includes a low-grade cortical based neoplasm. Other caregivers: Primary Care Provider: Leoncio Vallejo MD Current Outpatient Medications Medication Sig lamoTRIgine (LAMICTAL) 200 mg tablet Take 1 tablet by mouth two times a day. (along with 100 mg tabs, = 600 mg/day) lamoTRIgine (LAMICTAL) 100 mg tablet Take 1 tablet by mouth two times a day. (along with 200 mg tabs, =600 mg/day) levETIRAcetam (KEPPRA) 1,000 mg tablet Take 2 tablets by mouth two times a day. midazolam (NAYZILAM) 5 mg/spray (0.1 mL) nasal spray Use 1 spray in one nostril as needed for seizures. May repeat dose in alternate nostril after 10 minutes based on response and tolerability. No current facility-administered medications for this visit. ALLERGIES Allergen Reactions Amoxicillin Hives Dilaudid [Hydromorp* Vomiting PAST MEDICAL HISTORY 09/22/2016: Acute appendicitis with localized peritonitis No date: Brain tumor (HCC) 02/05/2005: [facility] - PAST MEDICAL HISTORY OF Comment: Febrile Seizure 04/26/2020: Simple febrile convulsions (HCC) PAST SURGICAL HISTORY 09/19/16: LAPAROSCOPIC APPENDECTOMY FAMILY HISTORY Problem Relation Age of Onset Hypertension Maternal Grandfather Heart Maternal Grandfather 2 MN, living Stroke Maternal Grandfather living No Known Problems Mother No Known Problems Father No Known Problems Maternal Grandmother Diabetes Paternal Grandmother Hypertension Paternal Grandfather No Known Problems Sister SOCIAL HISTORY: -Lives in [place], [place] -Patient lives alone? -Vocation: -Education: -Cigarette, alcohol, substance use: -Functional status: -Patient driving? Review of Systems All other systems reviewed and are negative. VITAL SIGNS: There were no vitals taken for this visit. General Examination: He is alone. General: Awake, alert, interactive, no acute distress, good nutritional status, normal development, well-kept Neurological Exam Mental Status Alert, fully oriented, attentive, with normal cognition, memory, speech and affect. Cranial Nerves Face symmetric. Hearing intact with conversational speech. Motor Examination and Coordination Distance Motor Examination Arms: Well-coordinated symmetrical movements of both arms. Manipulates phone and small objects well. No tremor or adventitious movements. No apparent muscle atrophy or deformity/contracture. 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 MRIs have shown stable findings (most recently in 12/2021). Generalized tonic clonic seizures started at 14 years of age and persisted on high dose levetiracetam, then stopped when oxcarbazepine and then lamotrigine were added. Last seizure was in 10/2020, on levetiracetam alone. Lamotrigine was added, with no further seizures since then. In , Ji requested to make no change for now With the lesion not growing and seizures under good control, it was elected to defer resection for now. The lesion is close to speech (rhyming) and thus lesionectomy cannot be performed easily. Dr. Valentin is following and MRI in 02/2023 was stable. Breakthrough seizures in January and February 2024 despite compliance with medications and normal ASM levels. Keppra dose increased to 2000 mg twice a day with subsequent improvement in symptoms. 05/19/2024: No further seizures since increasing Keppra. We discussed continuing same dose of Keppra and Lamictal. Refills were sent. We had a discussion again about consideration of presurgical evaluation. Patient expresses his wishes that he wants to defer surgical evaluation unless he experiences G TCS. We discussed that the focal seizures he is experiencing should be taken into account even though he may not recall these episodes as these consists of behavioral arrest and loss of awareness.. We discussed trial of more medication for now with low threshold for presurgical evaluation. PLAN: Continue Keppra 2000 mg twice daily (500 mg tablet + 2X 750 mg tablets twice a day)- could switch to 1000 mg pills for future refills. Continue Lamotrigine 300 mg BID Future options: trial of Onfi, Xcopri, ZNS. Consider pre-surgical evaluation Data reviewed as above including: electronic medical record Education Seizure precautions - No driving in the state [facility] until seizure free for 6 months. Please check with local state authorities for state specific driving regulations. - No operating heavy machines - No swimming without supervision or bathing in a bathtub due to risk of drowning in the event of a seizure. Patient may shower. - Avoid unsafe heights, including ladders, due to risk of fall-related injury in the event of a seizure. - Seizure precipitating factors discussed including not taking seizure medications as prescribed, stress, excessive caffeine intake, energy drinks, alcohol, sleep deprivation or any identifiable seizure precipitating factor. I discussed the risks, benefits and alternatives of the medical plan with the patient. Questions were answered. The patient agreed with the plan as discussed. FOLLOW-UP: Return in about 6 months (around 11/19/2024). I spent a total of 20 minutes on the date of the service which included: preparing to see the patient [id number] patient care completing clinical documentation performing a medically appropriate examination obtaining and/or reviewing separately obtained history counseling and educating the patient/family/caregiver ordering medications, tests, or procedures Jack Almazan MD cc: Primary Care Physician: Leoncio Vallejo MD [id number] [facility] [id number] Referring: Patient: Mr. Penny Robin [address] [facility] [address] [facility] [id number] documented in this encounter [facility] 03-11-2024 Note Addended by: BRADY MENDOZA on: 03/11/2024 04:00 PM Modules accepted: Orders [facility] 03-11-2024 Telephone encounter Note The following approved medication requests have been transmitted electronically. Requested Prescriptions Signed Prescriptions Disp Refills levETIRAcetam (KEPPRA) 500 mg tablet 180 tablet 1 Sig: Take 1 tablet by mouth two times a day. Take with 750mg tablets. Total dose = 2000mg BID Authorizing Provider: BRADY OH APRN.CNP [facility] 03-11-2024 Miscellaneous Notes Addended by: BRADY OH on: 03/11/2024 04:00 PM Modules accepted: Orders The following approved medication requests have been transmitted electronically. Requested Prescriptions Signed Prescriptions Disp Refills levETIRAcetam (KEPPRA) 500 mg tablet 180 tablet 1 Sig: Take 1 tablet by mouth two times a day. Take with 750mg tablets. Total dose = 2000mg BID Authorizing Provider: BRADY OH APRN.CNP Called the patient's mom, phone call was full of static. Informed her of recommendation. She agrees and will send a MC message clarifying if they will add to AM dose or in the afternoon. ======= They will add Keppra 500mg to current AM dose. Isabel Issa RN Latest Ref Rng 03/09/2024 Lamotrigine 1.0 - 13.0 ug/mL 10.7 Levetiracetam 12.0 - 46.0 ug/mL 30.9 Based on level could trial increasing am dose of Keppra by 500 mg or giving mid day dose of 500 mg Brady Oh APRN.PAPER TESTING SUPERVISOR LTG pending Latest Ref Rng 03/09/2024 Levetiracetam 12.0 - 46.0 ug/mL 30.9 Isabel Issa RN Informed patient's mom of recommendations and trough levels. Isabel Issa RN Orders placed If levels come back in range may consider increasing am dose or given small mid day dose if there is a concern for sz's prior to pm dose Brady Oh APRN.PAPER TESTING SUPERVISOR Spoke with the patient's mom. LEV dose increased to 1500/2000 on 02/01/24. In the last 2 weeks, he has had a couple episodes of difficulty finding words, may be a focal seizure. It happens about 2 hours before he takes evening doses of medication. Unsure if the same is happening before taking AM dose. Verified no missed doses, no clear triggers. Taking LEV 1500/2000 and LTG 300/300. Mom is requesting repeat levels. Last completed 12/02/23. Isabel Issa RN Returned call. Left [facility] with office number. Isabel Issa RN Medication Concern Person Calling Rashard Duarte (home) Name of medication didn't specify, message from voicemail Concern with medication pt is off, wants bloodwork Patient of Dr. Almazan documented in this encounter [facility] 03-11-2024 Telephone encounter Note Called the patient's mom, phone call was full of static. Informed her of recommendation. She agrees and will send a MC message clarifying if they will add to AM dose or in the afternoon. ======= They will add Keppra 500mg to current AM dose. Isabel Issa RN [facility] 03-11-2024 Telephone encounter Note Latest Ref Rng 03/09/2024 Lamotrigine 1.0 - 13.0 ug/mL 10.7 Levetiracetam 12.0 - 46.0 ug/mL 30.9 Based on level could trial increasing am dose of Keppra by 500 mg or giving mid day dose of 500 mg Brady Oh APRN.PAPER TESTING SUPERVISOR [facility] 03-10-2024 Telephone encounter Note LTG pending Latest Ref Rng 03/09/2024 Levetiracetam 12.0 - 46.0 ug/mL 30.9 [facility]-07-[facility]24 Telephone encounter Note Informed patient's mom of recommendations and trough levels. Isabel Issa RN [facility] 03-07-2024 Telephone encounter Note Orders placed If levels come back in range may consider increasing am dose or given small mid day dose if there is a concern for sz's prior to pm dose Brady Oh APRN.PAPER TESTING SUPERVISOR [facility] 03-07-2024 Telephone encounter Note Spoke with the patient's mom. LEV dose increased to 1500/2000 on 02/01/24. In the last 2 weeks, he has had a couple episodes of difficulty finding words, may be a focal seizure. It happens about 2 hours before he takes evening doses of medication. Unsure if the same is happening before taking AM dose. Verified no missed doses, no clear triggers. Taking LEV 1500/2000 and LTG 300/300. Mom is requesting repeat levels. Last completed 12/02/23. Isabel Issa RN [facility] 03-07-2024 Telephone encounter Note Returned call. Left vmm with office number. Isabel Issa RN [facility] 03-07-2024 Telephone encounter Note Medication Concern Person Calling Rashard Duarte (home) Name of medication didn't specify, message from voicemail Concern with medication pt is off, wants bloodwork Patient of Dr. Almazan [facility] 02-01-2024 Miscellaneous Notes Patients mom called in regarding breakthrough seizure on 01/30. At that time it was recommend the patient increase LEV from 1500 mg BID to LEV 1500/2000 mg daily. Patient was advised to continue LTG 300 mg BID. His mother reports they gave him the evening dose of LEV at roughly 6 PM and then at 6:05 PM he had a brief seizure. His mother states he was in the car with his father - he was not answering a question appropriately and then his lip quivered. Seizure was less roughly 30 seconds in duration. Mother states this is the first night he is getting the increased Keppra. Advised mother to continue to monitor for now and discussed that the we need to allow increased Keppra dosage time to be effective. Mother in agreement with plan. Advised her to call the office back with any questions or concerns. Reshma Cota PA-C documented in this encounter [facility] 02-01-2024 Miscellaneous Notes The following approved medication requests have been transmitted electronically. Requested Prescriptions Signed Prescriptions Disp Refills levETIRAcetam (KEPPRA) 500 mg tablet 90 tablet 0 Sig: Take 1 tablet by mouth daily at bedtime. Take with two 750mg tablets at bedtime for a total night time dose of 2000mg Authorizing Provider: ELLEN WILL PA-C Spoke with the patient. He agrees with recommendations. Please send Rx for LEV increase. Isabel Issa, RN Based on last Keppra level in 11/2023 (25.1), can try increasing LEV to 1500/2000 if patient/family are interested in increasing medication. Recommend continuing to utilize rescue medication as needed, staying hydrated, and avoiding potential triggers for seizures. Ellen Will PA-C [facility] 11/12/23 IMPRESSION: In 05/2023, Lobito reported a 2-week history of not sleeping well and a 1-week history of vomiting every 3 days or so at about 20 minutes after taking his medication. In 05/2023, 5-hour post-dose peak levetiracetam and lamotrigine levels were high. It was recommended to reduce the levetiracetam incrementally from 5000 to 3000 mg/d and continue the current lamotrigine. Levetiracetam and lamotrigine could be further reduced if needed. If vomiting persists, then I recommend to consult with his PCP for assessment of possible effects from the previous abdominal trauma and surgery. 11/12/2023: Doing well on current regimen of keppra 1500 mg BID, Lamictal 300 mg BID. We discussed checking serum levels as the last levels were high in May 2023. PLAN: Continue Keppra 1500 mg BID ( changed pill size from 500 mg to 750 mg today) Continue Lamictal 300 mg BID Nayzilam for seizure rescue Check trough LEV, LTG levels. Encouraged patient to discuss concerns about weight loss with PCP. Patient may need nutritional consult after other causes of weight loss are evaluated. Future options: Vimpat, Onfi. We had discussed considering presurgical evaluation if he fails 2 seizure medications. Given eloquent cortex location of the lesion, resection options may be difficult but not ruled out. Other option is neuromodulation if resection is not an option. Seizure Call - spoke with the patient's mom Last Visit: 11/12/23 Next Visit: 05/19/24 Date and Time of seizure: 01/30, afternoon Seizure description: he was at work, he told his sister he was going to clock out. He stopped and stared and was breathing heavy, had CARI. Went to clock out in the break room and was found sitting at the table. He was confused, his face was flushed. He had no recollection of the episode. Duration: a couple minutes Witnessed: by sister Aura: unknown TB: no UI: no Rescue Medication used: no ASM: LEV 1500/1500 LTG 300/300 Nayzilam 5mg spray for rescue Triggers: unsure, may be dehydration. He only drank a pop, no water. No missed ASM doses. Back to [place]: yes Isabel Issa RN Seizure activity: Name of Caller : Rashard Duarte ([facility]) Relationship to patient: Mother Contact phone number: [phone] (home) Date of seizure: 01/31/24 Duration: unsure Back to Baseline (Yes/No): Emergency treatment needed (Yes/No): Patient of Dr. Almazan documented in this encounter [facility] 09-21-2023 Miscellaneous Notes Spoke with Ms. Gerry MC message sent re transition of care. Simran Moss RN General call : Full name of person calling: Rashard Duarte Relationship to patient: mom Phone # : [phone] Reason for call: Call mom to discuss whether patient should continue in Pediatrics or transition to Adults. Patient of Dr. Pham documented in this encounter [facility] 09-04-2023 History of Presen t illness Narrative Patient presents with: Rash HPI: Patient presents today for office visit for follow up. Rash to left reyna for 3 days with a little on thigh. Lymph nodes noticeable in his groin. Pain in his leg and knee. Noticed yesterday feels like light sunburn to his back. Started valtrex and has had 2 doses but did not start the pred yet. Just seen yesterday at urgent care. Back is sore in midline although more to the right. Left leg now shoes rash extending up the anterior reyna in medial thigh on the left. No changes in soap or detergent. No fever or chills. Itches on his leg. Less pain. No drainage. 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 The history is provided by the patient. No chinese language professor was used. Rash This is a new problem. Episode onset: 2 days ago. The problem is unchanged. Location: left leg. The rash is characterized by redness, pain and burning. He was exposed to nothing. Pertinent negatives include no anorexia, congestion, cough, diarrhea, eye pain, facial edema, fatigue, fever, joint pain, nail changes, rhinorrhea, shortness of breath, sore throat or vomiting. Past treatments include nothing. The treatment provided no relief. There is no history of allergies, asthma, eczema or varicella. MEDICATIONS: Current Outpatient Medications Medication Sig predniSONE (DELTASONE) 10 mg tablet Take 4 tabs daily for 3 days, then 2 tabs daily for 3 days, then 1 tab daily for 3 days with food. valACYclovir (VALTREX) 1 gram Take 1 tablet by mouth three times a day for 7 days. lamoTRIgine (LAMICTAL) 100 mg tablet Take 1 tablet by mouth two times a day. (along with 200 mg tabs, =600 mg/day) lamoTRIgine (LAMICTAL) 200 mg tablet Take 1 tablet by mouth two times a day. (along with 100 mg tabs, = 600 mg/day) levETIRAcetam (KEPPRA) 500 mg tablet 3 tabs twice daily = 3000 mg/d midazolam (NAYZILAM) 5 mg/spray (0.1 mL) nasal spray Use 1 spray in one nostril as needed for seizures. May repeat dose in alternate nostril after 10 minutes based on response and tolerability. No current facility-administered medications for this visit. ALLERGIES: ALLERGIES Allergen Reactions Amoxicillin Hives Dilaudid [Hydromorp* Vomiting PAST MEDICAL HISTORY Diagnosis Date Acute appendicitis with localized peritonitis 09/22/2016 Brain tumor (HCC) PMH - PAST MEDICAL HISTORY OF 02/05/2005 Febrile Seizure Simple febrile convulsions (HCC) 04/26/2020 PAST SURGICAL HISTORY Procedure Laterality Date LAPAROSCOPIC APPENDECTOMY 09/19/16 FAMILY HISTORY Problem Relation Age of Onset Hypertension Maternal Grandfather Heart Maternal Grandfather 2 [place], living Stroke Maternal Grandfather living No Known Problems Mother No Known Problems Father No Known Problems Maternal Grandmother Diabetes Paternal Grandmother Hypertension Paternal Grandfather No Known Problems Sister Social History Tobacco Use Smoking status: Never Passive exposure: Yes Smokeless tobacco: Never Tobacco comments: Both parents - outside the home Vaping Use Vaping Use: Never used Reviewed current medications, allergies, past medical history, surgical history, family history and social history today. REVIEW OF SYSTEMS All other reviewed and negative other than HPI. VITALS: BP 104/72 Pulse 64 Temp 36.1 C (97 F) Wt 57.6 kg (127 lb) SpO2 97% BMI 19.89 kg/m Last 4 Encounter Wt Readings: Date: Wt: 09/03/2023 57.7 kg (127 lb 3.2 oz) 07/08/2023 61 kg (134 lb 6.4 oz) (17 %, Z= -0.96)* 05/22/2023 59 kg (130 lb) (12 %, Z= -1.19)* 02/19/2023 63.7 kg (140 lb 6.9 oz) (27 %, Z= -0.61)* PHYSICAL EXAMINATION: General appearance: Well appearing, alert, in no acute distress, well-hydrated, well nourished. Back: Normal exam Extremities: no edema. Patches of vesicles on red base extending in areas a above. No open vesicles. Per family. None had opened yet when swab obtained so may explain negative results. ASSESSMENT/PLAN: 1. Dermatitis - ICD9: 692.9, ICD10: L30.9 - I suspect it may be zoster. Agree with current plan. 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 Red flags for re-assessment reviewed with patient in detail. -call with update on Thursday or . Leoncio Vallejo MD documented in this encounter [facility] 09-03-2023 History of Presen t illness Narrative This note was created using Zenefitsriter. Subjective Penny Robin is a 18 year old male. 18 year old male with PMH epilepsy, asthma presents for rash. 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 The history is provided by the patient. No chinese language professor was used. Rash This is a new problem. Episode onset: 2 days ago. The problem is unchanged. Location: left leg. The rash is characterized by redness, pain and burning. He was exposed to nothing. Pertinent negatives include no anorexia, congestion, cough, diarrhea, eye pain, facial edema, fatigue, fever, joint pain, nail changes, rhinorrhea, shortness of breath, sore throat or vomiting. Past treatments include nothing. The treatment provided no relief. There is no history of allergies, asthma, eczema or varicella. PAST MEDICAL HISTORY Diagnosis Date Acute appendicitis with localized peritonitis 09/22/2016 Brain tumor (HCC) PMH - PAST MEDICAL HISTORY OF 02/05/2005 Febrile Seizure Simple febrile convulsions (HCC) 04/26/2020 PAST SURGICAL HISTORY Procedure Laterality Date LAPAROSCOPIC APPENDECTOMY 09/19/16 ALLERGIES Amoxicillin and Dilaudid [Hydromorphone] MEDICATIONS lamoTRIgine (LAMICTAL) 100 mg tablet Take 1 tablet by mouth two times a day. (along with 200 mg tabs, =600 mg/day) lamoTRIgine (LAMICTAL) 200 mg tablet Take 1 tablet by mouth two times a day. (along with 100 mg tabs, = 600 mg/day) levETIRAcetam (KEPPRA) 500 mg tablet 3 tabs twice daily = 3000 mg/d midazolam (NAYZILAM) 5 mg/spray (0.1 mL) nasal spray Use 1 spray in one nostril as needed for seizures. May repeat dose in alternate nostril after 10 minutes based on response and tolerability. predniSONE (DELTASONE) 10 mg tablet Take 4 tabs daily for 3 days, then 2 tabs daily for 3 days, then 1 tab daily for 3 days with food. valACYclovir (VALTREX) 1 gram Take 1 tablet by mouth three times a day for 7 days. FAMILY HISTORY Problem Relation Age of Onset Hypertension Maternal Grandfather Heart Maternal Grandfather 2 [place], living Stroke Maternal Grandfather living No Known Problems Mother No Known Problems Father No Known Problems Maternal Grandmother Diabetes Paternal Grandmother Hypertension Paternal Grandfather No Known Problems Sister Social History Tobacco Use Smoking status: Never Passive exposure: Yes Smokeless tobacco: Never Tobacco comments: Both parents - outside the home Vaping Use Vaping Use: Never used Review of Systems Constitutional: Negative for fatigue and fever. HENT: Negative for congestion, rhinorrhea and sore throat. Eyes: Negative for pain. Respiratory: Negative for cough and shortness of breath. Gastrointestinal: Negative for anorexia, diarrhea and vomiting. Endocrine: Negative for cold intolerance, heat intolerance, polydipsia, polyphagia and polyuria. Musculoskeletal: Negative for joint pain. Skin: Positive for rash. Negative for nail changes. Allergic/Immunologic: Negative for environmental allergies, food allergies and immunocompromised state. Neurological: Negative for dizziness, facial asymmetry, light-headedness, numbness and headaches. Hematological: Negative for adenopathy. Does not bruise/bleed easily. Psychiatric/Behavioral: Negative for agitation and behavioral problems. Objective BP 118/78 Pulse 71 Temp 36.5 C (97.7 F) (Tympanic) Resp 16 Wt 57.7 kg (127 lb 3.2 oz) SpO2 97% BMI 19.92 kg/m Physical Exam Vitals and nursing note reviewed. Constitutional: General: He is not in acute distress. Appearance: Normal appearance. He is not ill-appearing, toxic-appearing or diaphoretic. HENT: Head: Normocephalic and atraumatic. Right Ear: External ear normal. Left Ear: External ear normal. Nose: Nose normal. No congestion or rhinorrhea. Mouth/Throat: Mouth: Mucous membranes are moist. Pharynx: Oropharynx is clear. No oropharyngeal exudate or posterior oropharyngeal erythema. Eyes: General: Right eye: No discharge. Left eye: No discharge. Extraocular Movements: Extraocular movements intact. Conjunctiva/sclera: Conjunctivae normal. Pupils: Pupils are equal, round, and reactive to light. Cardiovascular: Rate and Rhythm: Normal rate and regular rhythm. Pulses: Normal pulses. Heart sounds: Normal heart sounds. No murmur heard. No friction rub. No gallop. Pulmonary: Effort: Pulmonary effort is normal. No respiratory distress. Breath sounds: Normal breath sounds. No stridor. No wheezing, rhonchi or rales. Chest: Chest wall: No tenderness. Abdominal: General: Abdomen is flat. There is no distension. Palpations: Abdomen is soft. There is no mass. Tenderness: There is no abdominal tenderness. There is no guarding or rebound. Hernia: No hernia is present. Musculoskeletal: General: No swelling, tenderness, deformity or signs of injury. Normal range of motion. Cervical back: Normal range of motion and neck supple. No rigidity or tenderness. Right lower leg: No edema. Left lower leg: No edema. Lymphadenopathy: Cervical: No cervical adenopathy. Skin: General: Skin is warm and dry. Capillary Refill: Capillary refill takes less than 2 seconds. Coloration: Skin is not jaundiced or pale. Findings: Rash (left leg with erythematic rash, slightly vesicular. No petechia. No abscess. No red streaking. No crepitus. +neuro) present. No bruising or lesion. Neurological: General: No focal deficit present. Mental Status: He is alert and oriented to person, place, and time. Cranial Nerves: No cranial nerve deficit. Sensory: No sensory deficit. Motor: No weakness. Coordination: Coordination normal. Gait: Gait normal. Deep Tendon Reflexes: Reflexes normal. Psychiatric: Mood and Affect: Mood normal. Behavior: Behavior normal. Thought Content: Thought content normal. Assessment and Plan ASSESSMENT/PLAN: 1. Rash - ICD9: 782.1, ICD10: R21 X 2 days ??? HSV vs. Dermatitis Slightly vesicular, Unilateral Had prodromal period - HSV1,2/VZV NAAT LESION-obtained and pending RX Valtrex RX Prednisone Follow up with PCP Izzy Grady APRN.PAPER TESTING SUPERVISOR documented in this encounter [facility] 08-10-2023 Miscellaneous Notes The following approved medication requests have been transmitted electronically. Requested Prescriptions Signed Prescriptions Disp Refills lamoTRIgine (LAMICTAL) 100 mg tablet 180 tablet 1 Sig: Take 1 tablet by mouth two times a day. (along with 200 mg tabs, =600 mg/day) Authorizing Provider: STEPHANI PHAM MD Date of service: August 07, 2023 Penny Robin is a 17 year old. Last seen by Dr. Pham on 10/24/22 Now requesting LTG refill -Prescription appropriate, please file and document electronically. Thank you. -Routed to Dr. Vero Moss RN Socorro Butsos LPN Prescription Refill: Requested by: pharmacy Please E-Scribe Caller Contact Number: Pharmacy Name: [facility] Pharmacy Number: [id number] Generic/ brand: 30 or 90 day supply requested: 90 Last appointment: 10/24/22 Next Appointment: none Patient of Dr. Pham documented in this encounter [facility] 07-29-2023 Miscellaneous Notes The following approved medication requests have been transmitted electronically. Requested Prescriptions Pending Prescriptions Disp Refills lamoTRIgine (LAMICTAL) 200 mg tablet 180 tablet 0 Sig: Take 1 tablet by mouth two times a day. (along with 100 mg tabs, = 600 mg/day) levETIRAcetam (KEPPRA) 500 mg tablet 540 tablet 0 Si tabs twice daily = 3000 mg/d Stephani Pham MD Date of service: July 29, 2023 Penny Robin is a 17 year old. Last seen by Dr. Pham on 10/24/22 Now requesting lamotrigine, levetiracetam refill -Prescription appropriate, please file and document electronically. Thank you. -Routed to Dr. Vero Moss RN Prescription Refill: Requested by: pharmacy Please E-Scribe Caller Contact Number: [phone] (home) Pharmacy Name: [facility] Pharmacy Number: [id number] Generic/ brand: generic 30 or 90 day supply requested: 90 Last appointment: 10/24/22 Next Appointment: none Patient of Dr. pham documented in this encounter [facility] 05-25-2023 Miscellaneous Notes Spoke with Teresita Gerald and advised per Dr. Pham. She verbalized understanding and agrees with plan. Med update done in Epic. Simran Moss RN I recommend the following. - Continue lamotrigine 600 mg/d and reduce the high-dose levetiracetam Levetiracetam (Keppra) 500 mg tabs - now taking 5 tabs twice daily = 5000 mg/d 4 tabs twice daily for 1 week 3 tabs twice daily = 3000 mg/d - If vomiting persists - then I recommend consultation with his PCP for assessment of possible effects from the previous abdominal trauma and surgery. Stephani Pham MD Neuro Peds Epilepsy Care Coordination Post-seizure/Medication Concerns/Side Effects Date of service : May 25, 2023 Penny Robin is a 17 year old. Last seen by Dr. Pham on 10/24/22. Now~Ms. Duarte reports that Penny has not been sleeping well for the last two weeks, and he began vomiting on 05/19/23 - he will vomit every couple of days in the morning about 20 minutes after taking medications (vomited 05/19, 05/22 and 05/25). He re-doses if he sees pills in emesis. Ms. Duarte has confirms no seizures seen since Oct. Penny provided same details as Ms. Duarte. The day of lab draw, he took his medications at 7 am, and labs were drawn about noon. Current weight : 59 kg Current AEDs ( mg/kg/d) / recent drug level: Levetiracetam 5000 mg/day - random level on 05/22/23 was 80.9 mg/L (range 12-46 mg/L) Lamotrigine 600 mg/day - random level on 05/22/23 was 16.4 mg/L (range 1-13 mg/L) Recent changes/side effects: Disrupted sleep x 2 weeks Vomiting every couple of days since 05/19, will re-dose if he sees pills in emesis No seizures Labs done about 5 hours after medications were taken Main concern: Update as above in view of lab results. Routed to Dr. Vero Moss RN documented in this encounter [facility] 05-25-2023 History of Presen t illness Narrative Images from the original note were not included. [facility] [place], Epilepsy Center Pediatric Epilepsy Date of Service: 05/25/2023 EPILEPSY CENTER - CLINICAL UPDATE Last Epilepsy Visit: 10/24/2022 AGE: Penny is now 17 year old. 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 Previously, at 1 year of age, he had a single brief brief febrile seizure (his sister also had a single febrile seizure at 2 years of age). EEG in 04/2020 showed left temporo-parietal sharp waves (P7>T7,P3) and continuous slowing in that area. MRI in 04/2020 showed a focal region of cortical expansion and T2 / FLAIR hyperintensity centered along the mid to posterior aspect of the lateral left temporal lobe. Features are consistent with low grade tumor or malformation of cortical development. Dr. 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 In 04/2020, Penny was started on levetiracetam. On 05/20/2020, he was admitted following seizure recurrence (his second seizure ever). Levetiracetam was increased from 2000 mg/d to 4000 mg/d. Overnight video EEG again showed sharp waves and continuous slowing in the left temporo-parietal region. In 07/2020, repeat MRI showed no change in size or configuration of the low-grade tumor, with faint gadolinium enhancement. On 10/21/2020, on levetiracetam 4000 mg/d, Penny had a 3-minute generalized tonic clonic seizure with tongue bite, followed by vomiting, lethargy, and confusion. The seizure occurred shortly after going back to bed after awakening early to take his morning medication - his mother heard a thud, went into the room, and found him in the convulsion. In summary - Penny has experienced the following generalized tonic clonic seizures. - 04/21/2020 - on no medication - 05/20/2020 - on levetiracetam 2000 mg/d, with level 13.1 mg/l - 10/21/2020 - on levetiracetam 4000 mg/d, with level 35.7 mg/l in 08/2020 (usual range 12-45 mg/l) In 10/2020, We discussed the potential risks and benefits of surgery for tumor resection in detail, as well as the potential risks of ongoing epilepsy. On 10/22/2020, Penny expressed that he wished to defer surgery if possible. On 10/26/2020, Penny expressed that he had changed his mind and wanted to pursue surgery sooner rather than later. In 01/2021, functional MRI showed significant left dominance for language tasks. Rhyming / passive listening task activation overlaped with the left temporal cortical lesion. Surgical options may be complicated. If seizures persist despite strong trials of at least 2 medications, then we will proceed to Epilepsy Management Conference. After extensive discussion, it was elected to try at least one more medications before proceeding to consider surgery. In 10/2020, he changed to oxcarbazepine, with no further seizures since then. In 12/2020, a change to lamotrigine was initiated, because of stuttering speech on the oxcarbazepine. In 05/2021, on lamotrigine 400 mg/d, level was 6.3 mg/l on 400 mg/d (usual range 1-13 mg/l). Lamotrigine was increased to 500 mg/d and oxcarbazepine was weaned (last dose 07/17/2021). Lamotrigine level on 07/24/2021 was 9.6 mg/l (with levetiracetam) and 7.9 mg/l on 08/14/2021. It was recommended to increase the lamotrigine to 600 mg/d. Since then, on lamotrigine and levetiracetam, Penny has had no further seizures and the stuttering resolved. NOTE - On 08/16/2022, Penny sustained severe traumatic abdominal injury when he ran full force into a barricade while playing laser tag with friends. Injuries included right hepatic lobe laceration and hemoperitoneum, transverse fracture of the posterior ninth 9th rib and nondisplaced fractures of the right 7th, 8th, and 10th ribs, and right lower lobe pulmonary contusion. He was admitted for care of the injuries, and healed without sequelae. In 03/2022, levetiracetam level was again on the high side - 53.7 mg/l (usual range 12-45 mg/l). It was recommended to decrease the dose from 6000 to 5000 mg/d (with lamotrigine). In 05/2023, Lobito reported a 2-week history of not sleeping well and a 1-week history of vomiting every 3 days or so at about 20 minutes after taking his medication. In 05/2023, 5-hour post-dose peak levetiracetam and lamotrigine levels were high. 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 MRIs have shown stable findings (most recently in 12/2021). Generalized tonic clonic seizures started at 14 years of age and persisted on high dose levetiracetam, then stopped when oxcarbazepine and then lamotrigine were added. Last seizure was in 10/2020, on levetiracetam alone. Lamotrigine was added, with no further seizures since then. Penny has been hesitant to wean the levetiracetam. In 05/2023, Lobito reported a 2-week history of not sleeping well and a 1-week history of vomiting every 3 days or so at about 20 minutes after taking his medication. In 05/2023, 5-hour post-dose peak levetiracetam and lamotrigine levels were high. It was recommended to reduce the levetiracetam incrementally from 5000 to 3000 mg/d and continue the current lamotrigine. Levetiracetam and lamotrigine could be further reduced if needed. If vomiting persists, then I recommend to consult with his PCP for assessment of possible effects from the previous abdominal trauma and surgery. With the lesion not growing and seizures under good control, it was elected to defer resection for now. The lesion is close to speech (rhyming) and thus lesionectomy cannot be performed easily. Dr. Valentin is following and MRI in 02/2023 was stable. SEIZURE / EPISODE TYPE(S) Seizure Type 1 Generalized tonic clonic seizures Description: Loss of awareness, arrest of activity, whole body stiffening, injurious fall (abrasion, bruises, and rib fracture), cyanosis, drooling, tongue bite, and unconsciousness for 5 minutes or less (untimed), followed by vomiting and confusion. Frequency: Infrequent ASSOCIATED CONDITIONS, DEVELOPMENTAL HISTORY, AND SCHOOL Kodleo earns straight A's in regular and gifted classes in public school. He enjoys cross country, track, baseball, and marching band (base drum). He is not driving currently. There are no behavioral or mental health issues. ANTISEIZURE THERAPIES CURRENT ANTISEIZURE THERAPIES - Lamotrigine 600 mg/d - level 10.6 mg/l in 11/2022 (usual range 1-13 mg/l) - Levetiracetam 5000 mg/d - level 41.6 mg/l - on 6000 mg/d, level was 53.7 mgl in 03/2022 - level 44.2 mg/l in 11/2021 (usual range 12-45 mg/l) ANTISEIZURE MEDICATION LEVELS (LAST 3) Antiseizure Med Levels Latest Ref Rng & Units 05/22/2023 12/05/2022 04/17/2022 10HYDROXYCARBAZEPINE 3.0 - 35.0 ug/mL - - - LAMOTRIGINE 1.0 - 13.0 ug/mL 16.4(H) 10.6 10.7 LEVETIRACETAM 12.0 - 46.0 ug/mL 80.9(H) 41.6 53.7(H) CURRENT RESCUE MEDICATIONS Intranasal midazolam PRIOR/CURRENT ANTISEIZURE THERAPIES Lamotrigine Levetiracetam Oxcarbazepine ALLERGIES Allergen Reactions Amoxicillin Hives Dilaudid [Hydromorp* Vomiting PREVIOUS EPILEPSY EVALUATIONS: HEAD CT 04/2020 Normal MRI 04/2020 There is a focal region of cortical expansion and T2 / FLAIR hyperintensity centered along the mid to posterior aspect of the lateral left temporal lobe. This region measures approximately 2.0 AP by 1.8 transverse centimeters. Features are consistent with low grade tumor or malformation of cortical development. EEG 04/2020 Sharp waves, regional left temporo-parietal (P7>T7,P3). Continuous slow, regional left temporo-parietal OVERNIGHT VIDEO EEG, 05/2020 Sharp waves and continuous slowing, regional left temporo-pareital No seizures recorded MRI 07/2020, with gadolinium No change in size or configuration of the low-grade tumor, with faint gadolinium enhancement. 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 Rhyming / passive listening task activation overlaps with the left temporal cortical lesion. MRI 02/2023 No significant interval change in the slightly expansile, subtle enhancing lesion in the left temporal lobe, when compared to most recent prior MRI and over MRIs dating back to 07/25/2020. Primary differential considerations remain the same which includes a low-grade cortical based neoplasm. 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 MRIs have shown stable findings (most recently in 12/2021). Generalized tonic clonic seizures started at 14 years of age and persisted on high dose levetiracetam, then stopped when oxcarbazepine and then lamotrigine were added. Last seizure was in 10/2020, on levetiracetam alone. Lamotrigine was added, with no further seizures since then. In , Ji requested to make no change for now With the lesion not growing and seizures under good control, it was elected to defer resection for now. The lesion is close to speech (rhyming) and thus lesionectomy cannot be performed easily. Dr. Valentin is following and MRI in 02/2023 was stable. In 05/2023, Lobito reported a 2-week history of not sleeping well and a 1-week history of vomiting every 3 days or so at about 20 minutes after taking his medication. In 05/2023, 5-hour post-dose peak levetiracetam and lamotrigine levels were high. It was recommended to reduce the levetiracetam incrementally from 5000 to 3000 mg/d and continue the current lamotrigine. Levetiracetam and lamotrigine could be further reduced if needed. If vomiting persists, then I recommend to consult with his PCP for assessment of possible effects from the previous abdominal trauma and surgery. RECOMMENDATIONS - Continue lamotrigine 600 mg/d and reduce the high-dose levetiracetam Levetiracetam (Keppra) 500 mg tabs - now taking 5 tabs twice daily = 5000 mg/d 4 tabs twice daily for 1 week 3 tabs twice daily = 3000 mg/d - May maintain driving privileges - If vomiting persists - then I recommend consultation with his PCP for assessment of possible effects from the previous abdominal trauma and surgery. Parents have intranasal midazolam for rescue for home use. For the school action plan, they would prefer to have school personnel call 911 in case of a prolonged seizure lasting > 3 to 5 minutes. Ongoing virtual visits are recommended for this patient, as travel is not advisable due to the COVID-19 pandemic. Stephani Pham M.D. Professor of Neurology, [facility] Staff Physician, Epilepsy Center [facility] [place] [id number] CC: [facility] [place] Referring Team Adarsh Perez MD Referring Team, Pediatrics [phone] [place] [id number] Stephani Pham MD Pediatric Neurology [phone] [place], [place] [id number] Leoncio Erika Mauricio [address] [place] [id number] The family of: Penny Robin [address] [facility] [address] [facility] [id number] documented in this encounter [facility] 05-22-2023 History of Presen t illness Narrative No chief complaint on file. HPI: Patient presents today for office visit for multiple concerns. Started mid last week with loss of appetite. Not eating as much as he normally does. No nausea or feeling sick just not hungry. Mom states the last time this happened his Keppra level was too high. Noted 10lb weight loss since February. Brand of keppra level has changed This past Thursday05/19/23 started with trouble sleeping. Not able to fall asleep. Lays awake. No sure if having anything causes it. Woke up this morning with nausea, vomiting, diarrhea and muscle aches. Mild stomach discomfort No black or bloody stools. No fever. None else at home has been ill. No urinary issues. Keep fluids down. No dizziness. No cough or chest pain or breathing issues. No seizures. MEDICATIONS: Current Outpatient Medications Medication Sig levETIRAcetam (KEPPRA) 500 mg tablet 5 tabs twice daily = 5000 mg/d lamoTRIgine (LAMICTAL) 200 mg tablet Take 1 tablet by mouth twice daily. (along with 100 mg tabs, = 600 mg/day) lamoTRIgine (LAMICTAL) 100 mg tablet Take 1 tablet by mouth twice daily. (along with 200 mg tabs, =600 mg/day) midazolam (NAYZILAM) 5 mg/spray (0.1 mL) nasal spray Use 1 spray in one nostril as needed for seizures. May repeat dose in alternate nostril after 10 minutes based on response and tolerability. No current facility-administered medications for this visit. ALLERGIES: ALLERGIES Allergen Reactions Amoxicillin Hives Dilaudid [Hydromorp* Vomiting PAST MEDICAL HISTORY Diagnosis Date Acute appendicitis with localized peritonitis 09/22/2016 Brain tumor (HCC) PMH - PAST MEDICAL HISTORY OF 02/05/2005 Febrile Seizure Simple febrile convulsions (HCC) 04/26/2020 PAST SURGICAL HISTORY Procedure Laterality Date LAPAROSCOPIC APPENDECTOMY 09/19/16 FAMILY HISTORY Problem Relation Age of Onset Hypertension Maternal Grandfather Heart Maternal Grandfather 2 MN, living Stroke Maternal Grandfather living No Known Problems Mother No Known Problems Father No Known Problems Maternal Grandmother Diabetes Paternal Grandmother Hypertension Paternal Grandfather No Known Problems Sister Social History Tobacco Use Smoking status: Never Passive exposure: Yes Smokeless tobacco: Never Tobacco comments: Both parents - outside the home Vaping Use Vaping Use: Never used Reviewed current medications, allergies, past medical history, surgical history, family history and social history today. REVIEW OF SYSTEMS All other reviewed and negative other than HPI. VITALS: BP 116/92 Pulse 68 Temp 36.2 C (97.2 F) Ht 170.2 cm (5' 7) Wt 59 kg (130 lb) SpO2 98% BMI 20.36 kg/m Last 4 Encounter Wt Readings: Date: Wt: 02/19/2023 63.7 kg (140 lb 6.9 oz) (27 %, Z= -0.61)* 11/28/2022 59 kg (130 lb) (13 %, Z= -1.12)* 09/02/2022 59.2 kg (130 lb 9.6 oz) (15 %, Z= -1.05)* 08/18/2022 60.9 kg (134 lb 4.2 oz) (20 %, Z= -0.84)* PHYSICAL EXAMINATION: General appearance: Well appearing, alert, in no acute distress, well-hydrated, well nourished. Skin: Skin color, texture, turgor normal, no suspicious rashes or lesions Head: Normocephalic, no masses, lesions, tenderness or abnormalities Oropharynx: Lips, mucosa, and tongue normal, teeth and gums normal, oropharynx normal and moist mucous membranes. Neck: Supple, no adenopath Lungs: Lungs clear to auscultation. No wheezing, rhonchi, rales Heart: RRR without murmur, gallop, or rubs. No ectopy Abdomen: Normal abdominal exam, Abdomen soft, non-tender. Bowel sounds normal. No masses, organomegaly ASSESSMENT/PLAN: 1. Vomiting, unspecified vomiting type, unspecified whether nausea present - ICD9: 787.03, ICD10: R11.10 (primary diagnosis) - rule out gastro vs med issue. Discussed hydration. Declines nausea meds. Red flags for re-assessment reviewed with patient in detail. - call if worsens at all. Follow weight closely. - CBC + DIFF - COMP METABOLIC PANEL 2. Partial symptomatic epilepsy with complex partial seizures, not intractable, without status epilepticus (HCC) - ICD9: 345.40, ICD10: G40.209 - LEVETIRACETAM - LAMOTRIGINE 3. Weight loss - ICD9: 783.21, ICD10: R63.4 - TSH BLD 4. Insomnia, unspecified type - ICD9: 780.52, ICD10: G47.00 - TSH BLD Leoncio Vallejo MD documented in this encounter [facility] 02-20-2023 History of Presen t illness Narrative Images from the original note were not included. [facility] [place], Epilepsy Center Pediatric Epilepsy Date of Service: 02/20/2023 EPILEPSY CENTER - CLINICAL UPDATE Last Epilepsy Visit: 10/24/2022 AGE: Penny is now 17 year old. 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 Previously, at 1 year of age, he had a single brief brief febrile seizure (his sister also had a single febrile seizure at 2 years of age). EEG in 04/2020 showed left temporo-parietal sharp waves (P7>T7,P3) and continuous slowing in that area. MRI in 04/2020 showed a focal region of cortical expansion and T2 / FLAIR hyperintensity centered along the mid to posterior aspect of the lateral left temporal lobe. Features are consistent with low grade tumor or malformation of cortical development. Dr. 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 In 04/2020, Penny was started on levetiracetam. On 05/20/2020, he was admitted following seizure recurrence (his second seizure ever). Levetiracetam was increased from 2000 mg/d to 4000 mg/d. Overnight video EEG again showed sharp waves and continuous slowing in the left temporo-parietal region. In 07/2020, repeat MRI showed no change in size or configuration of the low-grade tumor, with faint gadolinium enhancement. On 10/21/2020, on levetiracetam 4000 mg/d, Penny had a 3-minute generalized tonic clonic seizure with tongue bite, followed by vomiting, lethargy, and confusion. The seizure occurred shortly after going back to bed after awakening early to take his morning medication - his mother heard a thud, went into the room, and found him in the convulsion. In summary - Penny has experienced the following generalized tonic clonic seizures. - 04/21/2020 - on no medication - 05/20/2020 - on levetiracetam 2000 mg/d, with level 13.1 mg/l - 10/21/2020 - on levetiracetam 4000 mg/d, with level 35.7 mg/l in 08/2020 (usual range 12-45 mg/l) In 10/2020, We discussed the potential risks and benefits of surgery for tumor resection in detail, as well as the potential risks of ongoing epilepsy. On 10/22/2020, Penny expressed that he wished to defer surgery if possible. On 10/26/2020, Penny expressed that he had changed his mind and wanted to pursue surgery sooner rather than later. In 01/2021, functional MRI showed significant left dominance for language tasks. Rhyming / passive listening task activation overlaped with the left temporal cortical lesion. Surgical options may be complicated. If seizures persist despite strong trials of at least 2 medications, then we will proceed to Epilepsy Management Conference. After extensive discussion, it was elected to try at least one more medications before proceeding to consider surgery. In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 than HPI. VITALS: BP 108/78 Pulse 65 Ht 175.3 cm (5' 9) Wt 59 kg (130 lb) SpO2 98% BMI 19.20 kg/m Last 4 Encounter Wt Readings: Date: Wt: 09/02/2022 59.2 kg (130 lb 9.6 oz) (15 %, Z= -1.05)* 08/18/2022 60.9 kg (134 lb 4.2 oz) (20 %, Z= -0.84)* 08/18/2022 60.3 kg (133 lb) (18 %, Z= -0.91)* 08/18/2022 60.3 kg (133 lb) (18 %, Z= -0.91)* PHYSICAL EXAMINATION: General appearance: Well appearing, alert, in no acute distress, well-hydrated, well nourished. Skin: Skin color, texture, turgor normal, no suspicious rashes or lesions Head: Normocephalic, no masses, lesions, tenderness or abnormalities Lungs: Lungs clear to auscultation. No wheezing, rhonchi, rales Heart: RRR without murmur, gallop, or rubs. No ectopy Abdomen: Normal abdominal exam, Abdomen soft, non-tender. Bowel sounds normal. No masses, organomegaly Extremities: No deformities, edema, skin discoloration, clubbing or cyanosis. Good capillary refill. ASSESSMENT/PLAN: 1. Contusion of right lung, subsequent encounter - ICD9: V58.89, 861.21, ICD10: S27.321D (primary diagnosis) - resolved. Call if any isseus 2. Liver laceration, grade IV, without open wound into cavity, subsequent encounter - ICD9: V58.89,864.04, ICD10: S36.116D - continue to follow labs. Make sure is back to normal. Follow previous recommendations for no contact sports for total of six months. Return to office prn - HEPATIC FUNCTION PNL 3. Anemia, unspecified type - ICD9: 285.9, ICD10: D64.9 - recheck one more time. - CBC + DIFF Leoncio Vallejo MD documented in this encounterOur [facility] Miscellaneous Notes* Telephone Encounter - Simran Moss RN - 10/24/2022 1:54 PM EST BMV forms completed and sent via [employer]. Copy e-mailed to patient via [employer]. Simran Moss RN * Telephone Encounter - Simran Moss RN - 10/24/2022 12:14 PM EST BMV forms completed with the followng pertinent information: Date of onset of epilepsy: 2019 Date of last seizure: Oct 2020 Current ASMs / recent drug levels: Levetiracetam 5000 mg/day Lamotrigine 600 mg/day Driving related issues discussed with family, understanding verbalized. Driving privileges allowed with reevaluation in 12 months -Forms completed via [employer]. Simran Moss RN * Telephone Encounter - Simran Moss RN - 10/16/2022 11:18 AM EST Spoke with Ms. Duarte and advised of need for appt prior to completion of BMV forms. She verbalized understanding. Visit scheduled for 10/17 at 9 am. Simran Moss RN * Telephone Encounter - Ophelia Puga - 10/15/2022 4:46 PM EST Form received: From (agency / facility): BMV line service person (if given): Penny Robin Phone #: [phone] (home) Fax # : [phone] Information requested: Request for physician statement Patient of Dr. Pham Forwarded to nurse. documented in this encounterOur Lady Of [facility]01-[facility] History of Present illness Narrative* Stephani Pham MD - 10/24/2022 10:12 AM EST Images from the original note were not included. [facility] [place], [facility] Pediatric Epilepsy Date of Service: 10/24/2022 EPILEPSY CENTER - RETURN VISIT Last Epilepsy Visit: 11/13/2021 AGE: Penny is now 17 year old. The patient was accompanied during the visit by the: mother We had a visit using: [employer] I received consent from the patient/parent/guardian to perform the visit using this platform. 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 Previously, at 1 year of age, he had a single brief brief febrile seizure (his sister also had a singlefebrile seizure at 2 years of age). EEG in 04/2020 showed left temporo-parietal sharp waves (P7>T7,P3) and continuous slowing in thatarea. MRI in 04/2020 showed a focal region of cortical expansion and T2 / FLAIR hyperintensity centered along the mid to posterior aspect of the lateral left temporal lobe. Features are consistent with low grade tumor or malformation of cortical development. Dr. 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 In 04/2020, Penny was started on levetiracetam. On 05/20/2020, he was admitted following seizure recurrence (his second seizure ever). Levetiracetam was increased from 2000 mg/d to 4000 mg/d. Overnight video EEG again showed sharp waves and continuous slowing in the left temporo-parietal region. In 07/2020, repeat MRI showed no change in size or configuration of the low- grade tumor, with faintgadolinium enhancement. On 10/21/2020, on levetiracetam 4000 mg/d, Penny had a 3-minute generalized tonic clonic seizure withtongue bite, followed by vomiting, lethargy, and confusion. The seizure occurred shortly after going back to bed after awakening early to take his morning medication - his mother heard a thud, went into the room, and found him in the convulsion. In summary - Penny has experienced the following generalized tonic clonic seizures. - 04/21/2020 - on no medication - 05/20/2020 - on levetiracetam 2000 mg/d, with level 13.1 mg/l - 10/21/2020 - on levetiracetam 4000 mg/d, with level 35.7 mg/l in 08/2020 (usual range 12-45 mg/l) In 10/2020, We discussed the potential risks and benefits of surgery for tumor resection in detail, as well as the potential risks of ongoing epilepsy. On 10/22/2020, Penny expressed that he wished to defer surgery if possible. On 10/26/2020, Penny expressed that he had changed his mind and wanted to pursue surgery sooner rather than later. In 01/2021, functional MRI showed significant left dominance for language tasks. Rhyming / passive listening task activation overlaped with the left temporal cortical lesion. Surgical options may be complicated. If seizures persist despite strong trials of at least 2 medications, then we will proceed to Epilepsy Management Conference. After extensive discussion, it was elected to try at least one more medications before proceeding to consider surgery. In 10/2020, he changed to oxcarbazepine, with no further seizures since then. In 12/2020, a change to lamotrigine was initiated, because of stuttering speech on the oxcarbazepine. In 05/2021, on lamotrigine 400 mg/d, level was 6.3 mg/l on 400 mg/d (usual range 1-13 mg/l). Lamotrigine was increased to 500 mg/d and oxcarbazepine was weaned (last dose 07/17/2021). Lamotrigine levelon 07/24/2021 was 9.6 mg/l (with levetiracetam) and 7.9 mg/l on 08/14/2021. It was recommended to increase the lamotrigine to 600 mg/d. Since then, on lamotrigine and levetiracetam, Penny has had no further seizures and the stuttering resolved. On 08/16/2022, Penny sustained traumatic abdominal injury when he ran full force into a barricade while playing laser tag with friends. Injuries included right hepatic lobe laceration and hemoperitoneum, transverse fracture of the posterior ninth 9th rib and nondisplaced fractures of the right 7th,8th, and 10th ribs, and right lower lobe pulmonary contusion. He was admitted for care of the injuri es, and healed without sequelae. In 03/2022, levetiracetam level was again on the high side - 53.7 mg/l (usual range 12-45 mg/l). It was recommended to decrease the dose from 6000 to 5000 mg/d (with lamotrigine). . 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 MRIs have shown stable findings (most recently in 12/2021). Generalized tonic clonic seizures started at 14 years of age and persisted on high dose levetiracetam, then stopped when oxcarbazepine and then lamotrigine were added. Last seizure was in 10/2020, on levetiracetam alone. Lamotrigine was added, with no further seizures since then. In , Ji requested to make no change for now With the lesion not growing and seizures under good control, it was elected to defer resection for now. The lesion is close to speech (rhyming) and thus lesionectomy cannot be performed easily. Dr. Valentin is following and next MRI will be in 02/2023. REVIEW OF SYSTEMS: The patient / family did not report additional concerns. There were no symptoms suggestive of cardiac, gastrointestinal, or endocrinal dysfunction. No abnormal skin findings. No symptoms suggestive of respiratory, genitourinary or musculoskeletal dysfunction. SEIZURE / EPISODE TYPE(S) Seizure Type 1 Generalized tonic clonic seizures Description: Loss of awareness, arrest of activity, whole body stiffening, injurious fall (abrasion, bruises, and rib fracture), cyanosis, drooling, tongue bite, and unconsciousness for 5 minutes or less (untimed), followed by vomiting and confusion. Frequency: Infrequent ASSOCIATED CONDITIONS, DEVELOPMENTAL HISTORY, AND SCHOOL Kodleo earns straight A's in regular and gifted classes in public school. He enjoys cross country, track, baseball, and marching band (base drum). He is not driving currently. There are no behavioral or mental health issues. ANTISEIZURE THERAPIES CURRENT ANTISEIZURE THERAPIES - Lamotrigine 600 mg/d - level 10.7 mg/l in 03/2022 (usual range 1-13 mg/l) - Levetiracetam 5000 mg/d - on 6000 mg/d, level was 53.7 mgl in 03/2022 - level 44.2 mg/l in 11/2021 (usual range 12-45 mg/l) ANTISEIZURE MEDICATION LEVELS (LAST 3) Antiseizure Med Levels Latest Ref Rng & Units 04/17/2022 11/18/2021 08/14/2021 10HYDROXYCARBAZEPINE 3.0 - 35.0 ug/mL - - - LAMOTRIGINE 1.0 - 13.0 ug/mL 10.7 11.8 7.9 LEVETIRACETAM 12.0 - 46.0 ug/mL 53.7(H) 44.2 - CURRENT RESCUE MEDICATIONS Intranasal midazolam PRIOR/CURRENT ANTISEIZURE THERAPIES Lamotrigine Levetiracetam Oxcarbazepine ALLERGIES Allergen Reactions Amoxicillin Hives Dilaudid [Hydromorp* Vomiting PATIENT-ENTERED DATA: No Data Recorded No flowsheet data found. PREVIOUS EPILEPSY EVALUATIONS: HEAD CT 04/2020 Normal MRI 04/2020 There is a focal region of cortical expansion and T2 / FLAIR hyperintensity centered along the mid to posterior aspect of the lateral left temporal lobe. This region measures approximately 2.0 AP by 1.8 transverse centimeters. Features are consistent with low grade tumor or malformation of cortical development. EEG 04/2020 Sharp waves, regional left temporo-parietal (P7>T7,P3). Continuous slow, regional left temporo-parietal OVERNIGHT VIDEO EEG, 05/2020 Sharp waves and continuous slowing, regional left temporo-pareital No seizures recorded MRI 07/2020, with gadolinium No change in size or configuration of the low-grade tumor, with faint gadolinium enhancement. 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 Rhyming / passive listening task activation overlaps with the left temporal cortical lesion. Objective PHYSICAL EXAMINATION The examination during the virtual visit was observational. The following features were noted. GENERAL EXAMINATION: Penny was alert and in no apparent distress. Respiration was regular and unlabored. NEUROLOGICAL EXAMINATION: Mental status: Alert and interactive, conversational, friendly, and cooperative Cranial nerves: Eye movements appear full and no facial asymmetry Motor: Movements of all four limbs appear symmetrical. 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 MRIs have shown stable findings (most recently in 12/2021). Generalized tonic clonic seizures started at 14 years of age and persisted on high dose levetiracetam, then stopped when oxcarbazepine and then lamotrigine were added. Last seizure was in 10/2020, on levetiracetam alone. Lamotrigine was added, with no further seizures since then. In , Ji requested to make no change for now With the lesion not growing and seizures under good control, it was elected to defer resection for now. The lesion is close to speech (rhyming) and thus lesionectomy cannot be performed easily. Dr. Valentin is following and next MRI will be in 02/2023. RECOMMENDATIONS - Continue lamotrigine 600 mg/d and levetiracetam 5000 mg/d - May maintain driving privileges - Return for virtual visit after the MRI and lab work in 02/2023 Parents have intranasal midazolam for rescue for home use. For the school action plan, they would prefer to have school personnel call 911 in case of a prolonged seizure lasting > 3 to 5 minutes. The possible risks, benefits, and alternatives to this plan were discussed. I again went over general epilepsy education points and seizure precautions with the family. Ongoing virtual visits are recommended for this patient, as travel is not advisable due to the COVID-19 pandemic. I spent a total of 40 minutes on the date of the service which included preparing to see the patient, [id number] patient care, completing clinical documentation, counseling and educating the patient/family/caregiver, and ordering medications, tests, or procedures. Stephani Pham M.D. Professor of Neurology, [facility] Medicine Staff Physician, [facility] [place] [id number] CC: [facility] [place] Referring Team Adarsh Perez MD Referring Team, Pediatrics [phone] [place] [id number] Stephani Pham MD Pediatric Neurology [phone] [place], [place] [id number] Leoncio Vallejo [address] [place] [id number] The family of: Penny Prather [address] [facility] [address] documented in this encounterOur Lady Of Mercy Hospital11-17-2022 Miscellaneous Notes* Telephone Encounter - Jackie Sr RN - 09/04/2022 9:57 AM EST Patient's mother notified that new orders placed for patient. Voices understanding. Jackie Sr RN * Telephone Encounter - Leoncio Vallejo MD - 09/03/2022 5:56 PM EST Could be simply lab error but to be on safe side. Recheck non fasting glucose and a1c since he ate.Call if any symptoms. * Telephone Encounter - Mary Jane Juárez - 09/03/2022 4:27 PM EST Patients mother Rashard informed. States Penny did eat prior to appointment and is having no complaints or symptoms that she is aware of. No hypoglycemic spells in past. Advise. Mary Jane Juárez * Telephone Encounter - Leoncio Vallejo MD - 09/03/2022 3:22 PM EST Already aware. He was asymptomatic when here. Let him know labs are otherwise ok other than a low sugar. Might have been lab error. Had he eaten before he saw me? Any low sugar type spells in the past? * Telephone Encounter - Jazmyn Dorsey RN - 09/03/2022 2:[address] Stephani Pham's office calling to alert Dr. Vallejo's office of critical lab value result she received from labs drawn yesterday that were ordered by PCP. Glucose=34. Results in Epic. Jazmyn Dorsey RN documented in this encounterOur Lady Of Mercy Hospital11-15-2022 History of Present illness Narrative* Leoncio Vallejo MD - 09/02/2022 1:52 PM EST Patient presents with: Hospital F/U HPI: Patient presents today for office visit for hospital follow up. Was admitted to [facility] on 08/18/22 after a collision with an object while playing [employer]. Suffered liver laceration, multiple rib fractures and contusion of right lung. Still has complaints of rib pain. No chest pain. Some shortness of breath. Was told to limit lifting for 6 weeks above 15 lbs. No contact sports for six months. Has noted his rib cage appears different. No dizziness or lightheadedness. No issues with chest pain or shortness of breath. Using salon pas. No abd pain. No itching or jaundice. [facility] phone call 08/22 ADMIT DATE: 08/18/2022 DISCHARGE DATE: 08/21/2022 MY DOCTORS AND MEDICAL TEAM: My Main Hospital Doctor: Melissa Eller MD Primary Care Provider: Leoncio Vallejo MD My Medical Team Members: Treatment Team: Attending Provider: Melissa Eller MD MY CONDITION AT DISCHARGE: Stable REASON I WAS IN THE HOSPITAL: Collision with object SUMMARY OF WHAT HAPPENED WHILE I WAS IN THE HOSPITAL: You were admitted at [facility] on 08/18/2022 following a collision with an object while playing [employer] As part of your trauma evaluation you received CT scans of your chest, abdomen, and pelvis. These images revealed the following injuries: 1. RLL pulmonary contusion 2. Right 7-10 rib fractures 3. Grade IV liver injury with hemoperitoneum You were monitored closely and your blood counts remained stable. You were able to tolerate solid food and walk without assistance. Your injuries will heal over time without intervention. You will need to make follow up appointments with your primary care provider. Please call our trauma clinic at [phone] with any questions or concerns. OTHER PROBLEMS/DIAGNOSIS: Principal Problem: Liver laceration, grade IV, without open wound into cavity Active Problems: Closed fracture of multiple ribs of right side Contusion of right lung ABLA (acute blood loss anemia) Resolved Problems: Accidental collision with stationary object OPERATIONS PERFORMED WHILE IN THE HOSPITAL: None IMPORTANT TEST/PROCEDURES: No procedures performed TEST RESULTS NOT AVAILABLE AT THIS TIME: No pending results Discharge Disposition Discharge Disposition: Home With Self Care MEDICATIONS: Current Outpatient Medications Medication Sig lidocaine (SALONPAS) 4 % patch Apply 1 Patch as directed once daily as needed (pain) for up to 7 doses. levETIRAcetam (KEPPRA) 500 mg tablet 5 tabs twice daily = 5000 mg/d (Patient taking differently: 2,500 mg twice daily.) midazolam (NAYZILAM) 5 mg/spray (0.1 mL) nasal spray Use 1 spray in one nostril as needed for seizures. May repeat dose in alternate nostril after 10 minutes based on response and tolerability. lamoTRIgine (LAMICTAL) 200 mg tablet Take 1 tablet by mouth twice daily. (along with 100 mg tabs, =600 mg/day) lamoTRIgine (LAMICTAL) 100 mg tablet Take 1 tablet by mouth twice daily. (along with 200 mg tabs, =600 mg/day) No current facility-administered medications for this visit. ALLERGIES: ALLERGIES Allergen Reactions Amoxicillin Hives Dilaudid [Hydromorp* Vomiting PAST MEDICAL HISTORY Diagnosis Date Acute appendicitis with localized peritonitis 09/22/2016 Brain tumor (HCC) PMH - PAST MEDICAL HISTORY OF 02/05/2005 Febrile Seizure Simple febrile convulsions (HCC) 04/26/2020 PAST SURGICAL HISTORY Procedure Laterality Date LAPAROSCOPIC APPENDECTOMY 09/19/16 FAMILY HISTORY Problem Relation Age of Onset Hypertension Maternal Grandfather Heart Maternal Grandfather 2 MN, living Stroke Maternal Grandfather living No Known Problems Mother No Known Problems Father No Known Problems Maternal Grandmother Diabetes Paternal Grandmother Hypertension Paternal Grandfather No Known Problems Sister Social History Tobacco Use Smoking status: Never Passive exposure: Yes Smokeless tobacco: Never Tobacco comments: Both parents - outside the home Vaping Use Vaping Use: Never used Reviewed current medications, allergies, past medical history, surgical history, family history andsocial history today. REVIEW OF SYSTEMS All other reviewed and negative other than HPI. VITALS: BP 92/58 Pulse 72 Ht 175.3 cm (5' 9) Wt 59.2 kg (130 lb 9.6 oz) SpO2 97% BMI 19.29 kg/m Last 4 Encounter Wt Readings: Date: Wt: 08/18/2022 60.9 kg (134 lb 4.2 oz) (20 %, Z= -0.84)* 08/18/2022 60.3 kg (133 lb) (18 %, Z= -0.91)* 08/18/2022 60.3 kg (133 lb) (18 %, Z= -0.91)* 06/25/2022 59.1 kg (130 lb 3 oz) (15 %, Z= -1.03)* PHYSICAL EXAMINATION: General appearance: Well appearing, alert, in no acute distress, well-hydrated, well nourished. Skin: abrasion is healing. Slight discoloration. Head: Normocephalic, no masses, lesions, tenderness or abnormalities Chest: no step off. Lungs: Lungs clear to auscultation. No wheezing, rhonchi, rales Heart: RRR without murmur, gallop, or rubs. No ectopy Abdomen: Normal abdominal exam, Abdomen soft, non-tender. Bowel sounds normal. No masses, organomegaly ASSESSMENT/PLAN: 1. Liver laceration, grade IV, without open wound into cavity, subsequent encounter - ICD9: V58.89,864.04, ICD10: S36.116D (primary diagnosis) - observe. Follow recommendations. Red flags for re-assessment reviewed with patient in detail. - IRON + TIBC - COMP METABOLIC PANEL 2. CKD (chronic kidney disease) stage 2, GFR 60-89 ml/min - ICD9: 585.2, ICD10: N18.2 - COMP METABOLIC PANEL 3. ABLA (acute blood loss anemia) - ICD9: 285.1, ICD10: D62 - recheck. - CBC + DIFF - IRON + TIBC 4. Closed fracture of multiple ribs of right side with delayed healing, subsequent encounter - ICD9: V54.19, ICD10: S22.41XG - will follow. Leoncio Vallejo MD RTO in six weeks or prn. documented in this encounterOur [facility] Miscellaneous Notes* Telephone Encounter - Kimberly Paige RN - 08/29/2022 9:41 AM EST PATIENT INFORMATION Record ID: [id number] Patient Name: [facility]: [facility] [place]: [facility] Attending: Melissa Eller Center: General Surgery [facility] INSTRUCTIONS All Clear SN to remind patient of next upcoming appointment date, time, location All Clear All Clear All Clear SURVEY INFORMATION Medical/Nurse Biology Professor: Kimberly Paige 1. Your discharge instructions are important in guiding you through the recovery process. Is there anything I could help you clarify on your discharge instructions? (Standard Question) No 2. Do you have your follow up appointment related to your hospital stay scheduled within the next 30 days? (Standard Question) Yes 3. Do you have all the necessary equipment and supplies at home? (Standard Question) Yes 4. Many patients have concerns about their medications once they are home. Do you have any questions about getting or taking your medications? (Standard Question) No 5. Do you have any new or different symptoms? (Standard Question) No documented in this encounterOur [facility]11-04-2022 Miscellaneous Notes* Telephone Encounter - Debbie Sung LPN - 08/22/2022 3:[address] Aguilera, ok to take motrin, Mom notified. Jessee WILCOX * Telephone Encounter - Debbie Sung LPN - 08/22/2022 2:55 PM EDT S/p rib fx, liver injury, d/c on 08/21/22- Mom wanted to know if he can take motrin for pain , only tylenol and oxycodone are listed on AVS? Jessee WILCOX documented in this encounterOur [facility]11-04-2022 Miscellaneous Notes* Telephone Encounter - Jackie Sr RN - 08/22/2022 1:03 PM EDT TRANSITION CARE MANAGEMENT (TCM) INITIAL CONTACT Design Engineer Outreach Provider Action/FYI: Initial contact with patient post discharge, spoke to mother. Patient identified by name and . TRANSITION CARE MANAGEMENT INITIAL OUTREACH DOCUMENTATION: No flowsheet data found. SUMMARY: -Pt discharged from [facility] on 08/21/2022. -Admitted for: Liver Laceration; 4 fractured ribs, bruised lung Do you have a hospital follow up appointment with your PCP? Appointment on 09/02/2022 with . Yes. Remind patient of appointment date, time, and location. If not within 14 calendar days of discharge - please reschedule accordingly. MEDICATIONS: Many patients have questions or concerns about their medications once they are home. Were you prescribed any new medications? Yes If yes, what are those medications? Oxycodone; Lidocaine patchs; stool softener Were you told to hold any medications? No Were any of your medications discontinued? No Do you have any questions about getting or taking your medications? No Your discharge instructions/After visit Summary (AVS) are important in guiding you through the recovery process. Is there anything I might help you understand? No Do you have all the necessary equipment and supplies at home? Yes Medical records from recent hospitalization: Epic documented in this encounterOur [facility] Of [facility]11-03-2022 NoteHNO ID: [id number] Author: Brandi Figueroa RN Service: Care Management Author Type: Registered Nurse Type: Care Mgt Progress Note Filed: 08/21/2022 4:42 PM Note Text: CARE MANAGEMENT DISCHARGE NOTE SERVICE DATE: 08/21/2022 SERVICE TIME: 3:14 PM LOS: 3 days Admission Date: 08/18/2022 DISCHARGE ARRANGEMENT (list agency and phone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 kg/m? O2 Therapy: Room Air IANDO: Date 08/18/22699 - 08/19/22 0659 08/19/22 07 - 08/20/22 0659 Shift 7981-0192 5511-4705 4339-7937 24 Hour Total 6283-0591 1686-3210 2283-3815 24 Hour Total INTAKE Shift Total OUTPUT Urine 765 705 3786 1250 Void (ml) 520 737 7351 1250 Shift Total 027 990 8297 1250 Weight (kg) 62.1 59.9 59.9 59.9 59.9 59.9 59.9 MEDICATIONS: Current Facility-Administered Medications Medication Dose Route Frequency ipratropium-albuterol 3 mL nebulizer solution (DUONEB) 3 mL INHALATION q 4 H PRN acetaminophen 1,000 mg tab(s) (TYLENOL) 1,000 mg ORAL QID potassium chloride ER 40 mEq tab(s) (K-DUR, KLOR-CON) 40 mEq ORAL ONCE potassium chloride ER 20-40 mEq tab(s) (K-DUR, KLOR-CON) 20-40 mEq ORAL/FEEDING TUBE PRN Or potassium chloride iv piggyback 20 mEq/100 mL 20 mEq INTRAVENOUS PRN magnesium sulfate 2 g in sterile water 50 ml 2 g INTRAVENOUS PRN phosphorus 500 mg tab(s) (K PHOS NEUTRAL) 500 mg ORAL/FEEDING TUBE PRN(NO DISPENSE) calcium gluconate 4 g in NaCl 0.9% 250 mL 4 g INTRAVENOUS PRN NaCl 0.9% iv flush bag 20 mL INTRAVENOUS PRN sodium chloride 0.9 % (flush) 3-5 mL (BD POSIFLUSH) 3-5 mL INTRAVENOUS q 12 H oxyCODONE IR 5-10 mg tab(s) (ROXICODONE) 5-10 mg ORAL q 6 H PRN lidocaine 4 % 1 Patch (SALONPAS) 1 Patch TRANSDERMAL DAILY AT 9 PM And lidocaine patch - REMOVE OTHER DAILY And lidocaine - VERIFY PATCH OTHER q 8 H methocarbamol 750 mg tab(s) (ROBAXIN) 750 mg ORAL QID PRN morphine 2 mg injection 2 mg INTRAVENOUS q 3 H PRN senna 8.6 mg tab(s) (SENOKOT) 8.6 mg ORAL BID lamoTRIgine 300 mg tab(s) (LaMICtal) 300 mg ORAL BID levETIRAcetam (KEPPRA) tab(s) 2,500 mg 2,500 mg ORAL BID Labs: Recent Labs 08/19/22 0356 08/18/22 1915 08/18/22 1515 NA 140 -- 135* K 3.6* -- 3.8 CHLOR 101 -- 98 CO2 31* -- 28 BUN 11 -- 15 CREAT 1.02 -- 0.98 GLUC 100* -- 94 ANION 8* -- 9 CA 9.1 -- 8.9 MG 2.0 -- -- P 3.7 -- -- ALB 4.3 -- 4.4 AST 101* -- 132* ALT 239* -- 266* ALKPHOS 79 -- 76 TBILI 0.4 -- 0.5 WBC 6.61 8.21 7.28 HB 8.1* 8.1* 8.0* HCT 24.9* 24.4* 24.8* PLT 193 197 190 INR -- -- 1.0 PHYSICAL EXAM: Genl: Appears age appropriate. No acute distress. Resting comfortably. Head/Face: Normocephalic. Atraumatic. Eyes: EOMI. Sclera not icteric, not injected Neck: No mid-line masses. Resp: unlabored breathing, equal chest rise, on RA CVS: RR GI: soft, mildly tender to palpation diffusely, non distended MSK: Extremities without clubbing, cyanosis, edema. Normal ROM x 4. Skin: Warm and dry. Not jaundiced. Neuro: AANDOx3. Strength and sensation normal. [place]. GCS15. Psych: Normal mood. Normal affect. Appropriate insight into current situation. ASSESSMENT AND PLAN: Assessment Active Hospital Problems Diagnosis Date Noted Liver laceration, grade IV, with open wound into cavity, initial encounter 08/18/2022 Assessment: 16 year old male s/p collision w barricade in laser tag Imaging performed: CT AP, CXR Traumatic Injuries: Grade IV hepatic lac R posterolateral minimally displaced 9th rib fracture Operations/Procedures: 1. none Care Plan: Liver laceration Hgb trend has been stable Bedrest Monitor for bleeding Rib fracture Pulmonary hygiene Multimodal pain control Ok for slow diet advancement Current diet order: DIET LIQUID Pain regimen: multimodal Bowel regimen: none Labs: SICU labs PPX: DVT: held Ulcer: none Vit D level if > 65 yo: na Consulted Services: Sicu, trauma Dispo Planning: PT/OT recs na. Case management following. Incidentals: none Follow Up Needs: Tbd Staff Trauma Surgeon: Dr. Ortiz (more content not included)...[facility]11-01-2022 NoteHNO ID: [id number] Author: Melvin Blevins MD Service: General Surgery Author Type: Resident Type: Progress Notes Filed: 08/19/2022 11:57 AM Note Text: Attestation signed by Leoncio Aguilera MD at 09/03/2022 4:10 PM Surgical Critical Care Addendum/Attestation: I evaluated Penny Robin on 08/19/2022 . I provided 30 minutes of critical care services which were necessary due to above specified injuries and illnesses. This patient has a high probability of sudden, clinical significant deterioration, which required the highest level of care and preparedness to intervene urgently. I managed and supervised life or organ supporting interventions that require frequent assessments. This time does not include time devoted to teaching and to any procedure I billed separately. I have personally seen and examined this patient and participated in the valle components of this encounter with the multi-disciplinary ICU team. I discussed the management of this case with the resident and reviewed/confirmed their documentation, attached or in separate note. I personally reviewed today's actual images, the associated image reports, and current labs. I supervised the ordering of additional testing, imaging, labs, and/or consultations. The patient and/or family were fully informed of the findings and plan of care. They had the opportunity to ask questions and raise any issues of concern, all of which were answered and dealt with by me to their stated satisfaction. The critical care treatment was mainly directed to address the following issues: Grade 4 liver lac with elevated transaminases Multi-modal pain management Aggressive pulm toilet, slowly advancing diet, Serial CBC, Daily LFT until downtrending Anticipate transfer to floor with CBC stable on repeat Management included sedation, pain control and ventilation assessment including need for ventilator, weaning and/or extubation as indicated. Management of critical care illnesses are edited above by me, including system by system plan and are not only limited to infectious disease and tailoring the antibiotic therapy, nutrition assessment and supplementation, electrolyte correction and prevention of ICU related complications using ventilator bundle, sedation holiday and assessment and removal of lines and tubes where indicated. Leoncio Aguilera MD Delayed entry INPATIENT SICU PROGRESS NOTE SERVICE DATE: 08/19/2022 SERVICE TIME: 8:50 AM Subjective Patient seen and examined this morning, resting in bed comfortably. No new concerns this morning. He mentions his belly pain is similar to that of yesterday. He is currently breathing without difficulty however noted discomfort with maximal expiration on spirometry. Current Facility-Administered Medications Medication Dose Route Frequency potassium chloride ER 20-40 mEq tab(s) (K-DUR, KLOR-CON) 20-40 mEq ORAL/FEEDING TUBE PRN Or potassium chloride iv piggyback 20 mEq/100 mL 20 mEq INTRAVENOUS PRN magnesium sulfate 2 g in sterile water 50 ml 2 g INTRAVENOUS PRN phosphorus 500 mg tab(s) (K PHOS NEUTRAL) 500 mg ORAL/FEEDING TUBE PRN(NO DISPENSE) calcium gluconate 4 g in NaCl 0.9% 250 mL 4 g INTRAVENOUS PRN NaCl 0.9% iv flush bag 20 mL INTRAVENOUS PRN sodium chloride 0.9 % (flush) 3-5 mL (BD POSIFLUSH) 3-5 mL INTRAVENOUS q 12 H oxyCODONE IR 5-10 mg tab(s) (ROXICODONE) 5-10 mg ORAL q 6 H PRN lidocaine 4 % 1 Patch (SALONPAS) 1 Patch TRANSDERMAL DAILY AT 9 PM And lidocaine patch - REMOVE OTHER DAILY And lidocaine - VERIFY PATCH OTHER q 8 H methocarbamol 750 mg tab(s) (ROBAXIN) 750 mg ORAL QID PRN acetaminophen 1,000 mg tab(s) (TYLENOL) 1,000 mg ORAL q 6 H morphine 2 mg injection 2 mg INTRAVENOUS q 3 H PRN senna 8.6 mg tab(s) (SENOKOT) 8.6 mg ORAL BID lamoTRIgine 300 mg tab(s) (LaMICtal) 300 mg ORAL BID levETIRAcetam (KEPPRA) tab(s) 2,500 mg 2,500 mg ORAL BID ipratropium-albuterol 3 mL nebulizer solution (DUONEB) 3 mL INHALATION q 4 H PRN Objective VITAL SIGNS BP 114/61 Pulse 65 Temp (Src) 97.7 (Axillary) Resp 10 Ht 5' 8 (1.73m) Wt 132 lb 0.9 oz (59.9kg) SpO2 98% BMI 20.08 kg/(m2). O2 Therapy: Room Air Temp (24hrs), Av.2 ?C (97.1 ?F), Min:34.5 ?C (94.1 ?F), Max:36.7 ?C (98.1 ?F) Date 08/18/22 07 - 08/19/22 0659 08/19/22 07 - 08/20/22 0659 Shift 5509-1465 5857-2516 4146-7351 24 Hour Total 2754-4318 6509-9594 0870-4317 24 Hour Total INTAKE Shift Total OUTPUT Urine 700 700 650 650 Void (ml) 700 700 650 650 Shift Total 700 700 650 650 Weight (kg) 62.1 59.9 59.9 59.9 59.9 59.9 59.9 PHYSICAL EXAM: GENERAL: Alert. No distress. Resting comfortably. NEURO: AANDOx3. No focal neurologic deficits. Sensation grossly intact. HEENT: Normocephalic. Atraumatic. EOMI. LUNGS (more content not included)...[facility]11-01-2022 History of Present illness Narrative* Stephani Pham MD - 08/19/2022 9:44 AM EDT Images from the original note were not included. [facility] [place] Pediatric Epilepsy Date of Service: 08/19/2022 EPILEPSY CENTER - CLINICAL UPDATE Last Epilepsy Visit: 11/13/2021 AGE: Penny is now 16 year old. 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 Previously, at 1 year of age, he had a single brief brief febrile seizure (his sister also had a singlefebrile seizure at 2 years of age). EEG in 04/2020 showed left temporo-parietal sharp waves (P7>T7,P3) and continuous slowing in thatarea. MRI in 04/2020 showed a focal region of cortical expansion and T2 / FLAIR hyperintensity centered along the mid to posterior aspect of the lateral left temporal lobe. Features are consistent with low grade tumor or malformation of cortical development. Dr. 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 In 04/2020, Penny was started on levetiracetam. On 05/20/2020, he was admitted following seizure recurrence (his second seizure ever). Levetiracetam was increased from 2000 mg/d to 4000 mg/d. Overnight video EEG again showed sharp waves and continuous slowing in the left temporo-parietal region. In 07/2020, repeat MRI showed no change in size or configuration of the low- grade tumor, with faintgadolinium enhancement. On 10/21/2020, on levetiracetam 4000 mg/d, Penny had a 3-minute generalized tonic clonic seizure withtongue bite, followed by vomiting, lethargy, and confusion. The seizure occurred shortly after going back to bed after awakening early to take his morning medication - his mother heard a thud, went into the room, and found him in the convulsion. In summary - Penny has experienced the following generalized tonic clonic seizures. - 04/21/2020 - on no medication - 05/20/2020 - on levetiracetam 2000 mg/d, with level 13.1 mg/l - 10/21/2020 - on levetiracetam 4000 mg/d, with level 35.7 mg/l in 08/2020 (usual range 12-45 mg/l) In 10/2020, We discussed the potential risks and benefits of surgery for tumor resection in detail, as well as the potential risks of ongoing epilepsy. On 10/22/2020, Penny expressed that he wished to defer surgery if possible. On 10/26/2020, Penny expressed that he had changed his mind and wanted to pursue surgery sooner rather than later. In 01/2021, functional MRI showed significant left dominance for language tasks. Rhyming / passive listening task activation overlaped with the left temporal cortical lesion. Surgical options may be complicated. If seizures persist despite strong trials of at least 2 medications, then we will proceed to Epilepsy Management Conference. After extensive discussion, it was elected to try at least one more medications before proceeding to consider surgery. In 10/2020, he changed to oxcarbazepine, with no further seizures since then. In 12/2020, a change tolamotrigine was initiated, because of stuttering on the oxcarbazepine. In 05/2021, on lamotrigine 400 mg/d, level was 6.3 mg/l on 400 mg/d (usual range 1-13 mg/l). Lamotrigine was increased to 500 mg/d and oxcarbazepine was weaned (last dose 07/17/2021). Lamotrigine levelon 07/24/2021 was 9.6 mg/l (with levetiracetam) and 7.9 mg/l on 08/14/2021. It was recommended to increase the lamotrigine to 600 mg/d. Since then, on lamotrigine and levetiracetam, Penny has had no further seizures and the stuttering resolved. In 03/2022, Ms. Duarte reported that Desire has chronic fatigue and intermittent episodes of coughing, gagging, vomiting, and clamminess every 2 to 3 days, typically occurring when he takes his morning medication and then does not eat. Symptoms began after he had COVID. He is working with his PCP on this. On 08/16/2022, Penny sustained traumatic abdominal injury when he ran full force into a barricade while playing laser tag with friends. Injuries included right hepatic lobe laceration and hemoperitoneum, transverse fracture of the posterior ninth 9th rib and nondisplaced fractures of the right 7th,8th, and 10th ribs, and right lower lobe pulmonary contusion. He was admitted for care of the injuri es. 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 MRIs have shown stable findings (most recently in 12/2021). Generalized tonic clonic seizures started at 14 years of age and persisted on high dose levetiracetam, then stopped when oxcarbazepine and then lamotrigine were added. Last seizure was in 10/2020, onlevetiracetam alone. In 03/2022, levetiracetam level was again on the high side - 53.7 mg/l (usual range 12-45 mg/l). It was recommended to decrease the dose from 6000 to 5000 mg/d (with lamotrigine). SEIZURE / EPISODE TYPE(S) Seizure Type 1 Generalized tonic clonic seizures Description: Loss of awareness, arrest of activity, whole body stiffening, injurious fall (abrasion, bruises, and rib fracture), cyanosis, drooling, tongue bite, and unconsciousness for 5 minutes or less (untimed), followed by vomiting and confusion. Frequency: Infrequent ASSOCIATED CONDITIONS, DEVELOPMENTAL HISTORY, AND SCHOOL Penny earns straight A's in regular and gifted classes in public school. He enjoys cross country, track, baseball, and marching band (base drum). He is not driving currently. There are no behavioral or mental health issues. ANTISEIZURE THERAPIES CURRENT ANTISEIZURE THERAPIES - Lamotrigine 600 mg/d - level 10.7 mg/l in 03/2022 (usual range 1-13 mg/l) - Levetiracetam 6000 mg/d - level 53.7 mgl in 03/2022 - level 44.2 mg/l in 11/2021 (usual range 12-45mg/l) ANTISEIZURE MEDICATION LEVELS (LAST 3) Antiseizure Med Levels Latest Ref Rng & Units 04/17/2022 11/18/2021 08/14/2021 10HYDROXYCARBAZEPINE 3.0 - 35.0 ug/mL - - - LAMOTRIGINE 1.0 - 13.0 ug/mL 10.7 11.8 7.9 LEVETIRACETAM 12.0 - 46.0 ug/mL 53.7(H) 44.2 - CURRENT RESCUE MEDICATIONS Intranasal midazolam PRIOR/CURRENT ANTISEIZURE THERAPIES Lamotrigine Levetiracetam Oxcarbazepine ALLERGIES Allergen Reactions Amoxicillin Hives PREVIOUS EPILEPSY EVALUATIONS: HEAD CT 04/2020 Normal MRI 04/2020 There is a focal region of cortical expansion and T2 / FLAIR hyperintensity centered along the mid to posterior aspect of the lateral left temporal lobe. This region measures approximately 2.0 AP by 1.8 transverse centimeters. Features are consistent with low grade tumor or malformation of cortical development. EEG 04/2020 Sharp waves, regional left temporo-parietal (P7>T7,P3). Continuous slow, regional left temporo-parietal OVERNIGHT VIDEO EEG, 05/2020 Sharp waves and continuous slowing, regional left temporo-pareital No seizures recorded MRI 07/2020, with gadolinium No change in size or configuration of the low-grade tumor, with faint gadolinium enhancement. 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 Rhyming / passive listening task activation overlaps with the left temporal cortical lesion. 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 MRIs have shown stable findings (most recently in 12/2021). Generalized tonic clonic seizures started at 14 years of age and persisted on high dose levetiracetam, then stopped when oxcarbazepine and then lamotrigine were added. Last seizure was in 10/2020, onlevetiracetam alone. In 03/2022, levetiracetam level was again on the high side - 53.7 mg/l (usual range 12-45 mg/l). It was recommended to decrease the dose from 6000 to 5000 mg/d (with lamotrigine). RECOMMENDATIONS - Continue lamotrigine 600 mg/d (with levetiracetam) - Offer to reduce levetiracetam from 6000 to 5000 mg/d - May maintain driving privileges - Return for virtual visit in 6 months Parents have intranasal midazolam for rescue for home use. For the school action plan, they would prefer to have school personnel call 911 in case of a prolonged seizure lasting > 3 to 5 minutes. Ongoing virtual visits are recommended for this patient, as travel is not advisable due to the COVID-19 pandemic. Stephani Pham M.D. Professor of Neurology, [facility] Staff Physician, Epilepsy Center [facility] [place] [facility] [address] [place] [id number] CC: [facility] [place] Referring Team Adarsh Perez MD Referring Team, Pediatrics [phone] [facility] [address] Stephani Pham MD Pediatric Neurology [phone] [place] [address] Leoncio Vallejo [address] [place] [address] The family of: Penny Robin [address] [facility] [address] documented in this encounterOur Lady Of Mercy Hospital11-01-2022 NoteHNO ID: [id number] Author: Porfirio Burch MD Service: General Surgery Author Type: Resident Type: Progress Notes Filed: 08/18/2022 10:45 PM Note Text: Attestation signed by Chris Bui MD at 09/19/2022 11:56 AM Attending Note I personally saw and examined the patient. I reviewed the resident's note. I agree with the resident's assessment and plan unless otherwise noted. Signature: Chris Bui MD Surgical Intensive Care Unit Consult Note SERVICE DATE: 08/18/2022 SERVICE TIME: 10:39 PM REASON FOR CONSULT: Grade IV liver lac REQUESTING PHYSICIAN: Dr. Porfirio Burch Subjective 16 year old male whom went to [employer] with his friends. At laser tag he ran full force into a barricade and hit the right side of his body. He has significant pain, and dyspnea. Patient states that he eventually was able to get his breath, but went straight to the ED. Patient was discharged home, but his pain progressively worsened.. FUNCTIONAL STATUS: Independent PAST MEDICAL HISTORY Diagnosis Date Acute appendicitis with localized peritonitis 09/22/2016 Brain tumor (HCC) PMH - PAST MEDICAL HISTORY OF 02/05/2005 Febrile Seizure Simple febrile convulsions (HCC) 04/26/2020 PAST SURGICAL HISTORY Procedure Laterality Date LAPAROSCOPIC APPENDECTOMY 09/19/16 FAMILY HISTORY Problem Relation Age of Onset Hypertension Maternal Grandfather Heart Maternal Grandfather 2 MN, living Stroke Maternal Grandfather living No Known Problems Mother No Known Problems Father No Known Problems Maternal Grandmother Diabetes Paternal Grandmother Hypertension Paternal Grandfather No Known Problems Sister Social History Tobacco Use Smoking status: Never Passive exposure: Yes Smokeless tobacco: Never Tobacco comments: Both parents - outside the home Vaping Use Vaping Use: Never used (Not in a hospital admission) Current Facility-Administered Medications Medication Dose Route Frequency potassium chloride ER 20-40 mEq tab(s) (K-DUR, KLOR-CON) 20-40 mEq ORAL/FEEDING TUBE PRN Or potassium chloride iv piggyback 20 mEq/100 mL 20 mEq INTRAVENOUS PRN magnesium sulfate 2 g in sterile water 50 ml 2 g INTRAVENOUS PRN phosphorus 500 mg tab(s) (K PHOS NEUTRAL) 500 mg ORAL/FEEDING TUBE PRN(NO DISPENSE) calcium gluconate 4 g in NaCl 0.9% 250 mL 4 g INTRAVENOUS PRN NaCl 0.9% iv flush bag 20 mL INTRAVENOUS PRN sodium chloride 0.9 % (flush) 3-5 mL (BD POSIFLUSH) 3-5 mL INTRAVENOUS q 12 H oxyCODONE IR 5-10 mg tab(s) (ROXICODONE) 5-10 mg ORAL q 6 H PRN lidocaine 4 % 1 Patch (SALONPAS) 1 Patch TRANSDERMAL DAILY AT 9 PM And [START ON 08/19/2022] lidocaine patch - REMOVE OTHER DAILY And lidocaine - VERIFY PATCH OTHER q 8 H methocarbamol 750 mg tab(s) (ROBAXIN) 750 mg ORAL QID PRN acetaminophen 1,000 mg tab(s) (TYLENOL) 1,000 mg ORAL q 6 H morphine 2 mg injection 2 mg INTRAVENOUS q 3 H PRN senna 8.6 mg tab(s) (SENOKOT) 8.6 mg ORAL BID lamoTRIgine 300 mg tab(s) (LaMICtal) 300 mg ORAL BID levETIRAcetam (KEPPRA) tab(s) 2,500 mg 2,500 mg ORAL BID Allergies As of Date: 08/18/2022 Allergen Noted Reaction AMOXICILLIN 06/09/2005 Hives Fully Assessed 08/18/2022 COMPLETE REVIEW OF SYSTEMS: GENERAL: No weight loss, malaise or fevers. HEENT: Negative for frequent or significant headaches, No changes in hearing or vision, no nose bleeds or other nasal problems. NECK: Negative for lumps, goiter, pain and significant neck swelling. RESPIRATORY: Negative for cough, hemoptysis, wheezing, COPD, dyspnea or shortness of breath. CARDIOVASCULAR: Negative for chest pain, leg swelling, hypertension, CHF or palpitations. GI: No nausea, vomiting, or diarrhea. MUSCULOSKELETAL: Negative for joint pain or swelling, back pain or muscle pain. SKIN: Negative for lesions, rash, and itching. PSYCH: Negative for sleep disturbance, mood disorder and recent psychosocial stressors. NEURO: No history of headaches, syncope, paralysis, seizures or tremors. Objective PHYSICAL EXAM: BP 111/58 Pulse 80 Temp (Src) 98.1 (Oral) Resp 16 Ht 5' 8 (1.73m) Wt 137 lb (62.1kg) SpO2 98% BMI 20.84 kg/(m2). O2 Therapy: Room Air GENERAL: Alert. No distress. Resting comfortably. NEURO: AANDOx3. No focal neurologic deficits. Sensation grossly intact. HEENT: Normocephalic. Atraumatic. EOMI. LUNGS: Unlabored breathing on RA. Equal excursion bilaterally. CARDIAC: Regular rate. Good perfusion throughout. CHEST: Ecchymosis to right lateral-inferior chest wall. No subQ emphysema noted. ABDOMEN: Soft, non-tender, non-distended. No rebound or guarding. EXTREMITIES: [place]. No deformities. SKIN: No obvious jaundice or pallor. DATA: Labs: Recent Labs 08/18/22 19108/18/22 1515 NA -- 135* K -- 3.8 CHLOR -- 98 CO2 -- 28 BUN -- (more content not included)...[facility]10-31-2022 History of Present illness Narrative* Leoncio Vallejo MD - 08/18/2022 11:19 AM EDT Patient presents with: ER F/U HPI: Patient presents today for office visit for ER follow up. Seen at [facility] on 08/22 Fell while playing [employer]. ER Doc felt he had an 8th rib fracture. Radiology felt he did not. Had a vasovagal episode after dilaudid. Has some bruising around the area. Still uncomfortable to take a breath. No cough. No head injury. Using tylenol and advil are helping. Has noted some worsening abd pain and constipation since it occurred. Pain is mostly upper abdomen. He does have significant ecchymosis extending across the right lower rib cage on to the upper abdomen. No current nausea or vomiting. No bm in several days. No urinary issues or hematuria. MEDICATIONS: Current Outpatient Medications Medication Sig levETIRAcetam (KEPPRA) 500 mg tablet 5 tabs twice daily = 5000 mg/d midazolam (NAYZILAM) 5 mg/spray (0.1 mL) nasal spray Use 1 spray in one nostril as needed for seizures. May repeat dose in alternate nostril after 10 minutes based on response and tolerability. lamoTRIgine (LAMICTAL) 200 mg tablet Take 1 tablet by mouth twice daily. (along with 100 mg tabs, =600 mg/day) lamoTRIgine (LAMICTAL) 100 mg tablet Take 1 tablet by mouth twice daily. (along with 200 mg tabs, =600 mg/day) No current facility-administered medications for this visit. ALLERGIES: ALLERGIES Allergen Reactions Amoxicillin Hives PAST MEDICAL HISTORY Diagnosis Date Acute appendicitis with localized peritonitis 09/22/2016 Brain tumor (HCC) PMH - PAST MEDICAL HISTORY OF 02/05/2005 Febrile Seizure Simple febrile convulsions (HCC) 04/26/2020 PAST SURGICAL HISTORY Procedure Laterality Date LAPAROSCOPIC APPENDECTOMY 09/19/16 FAMILY HISTORY Problem Relation Age of Onset Hypertension Maternal Grandfather Heart Maternal Grandfather 2 [place], living Stroke Maternal Grandfather living No Known Problems Mother No Known Problems Father No Known Problems Maternal Grandmother Diabetes Paternal Grandmother Hypertension Paternal Grandfather No Known Problems Sister Social History Tobacco Use Smoking status: Never Passive exposure: Yes Smokeless tobacco: Never Tobacco comments: Both parents - outside the home Vaping Use Vaping Use: Never used Reviewed current medications, allergies, past medical history, surgical history, family history andsocial history today. REVIEW OF SYSTEMS All other reviewed and negative other than HPI. VITALS: BP 102/68 Pulse 83 Wt 60.3 kg (133 lb) SpO2 98% Last 4 Encounter Wt Readings: Date: Wt: 06/25/2022 59.1 kg (130 lb 3 oz) (15 %, Z= -1.03)* 05/09/2022 58.1 kg (128 lb) (13 %, Z= -1.13)* 04/04/2022 61.8 kg (136 lb 3.2 oz) (25 %, Z= -0.67)* 12/19/2021 63.8 kg (140 lb 10.5 oz) (35 %, Z= -0.39)* PHYSICAL EXAMINATION: General appearance: Well appearing, alert, in no acute distress, well-hydrated, well nourished. Skin:ecchymosis as above. Head: Normocephalic, no masses, lesions, tenderness or abnormalities Eyes: Anicteric sclera. Pupils are equally round and reactive to light. Extraocular movements are intact. Lungs: Lungs clear to auscultation. No wheezing, rhonchi, rales Chest: tender over right rib cage Heart: RRR without murmur, gallop, or rubs. No ectopy Abdomen: bs positive. No rebound. Positive guarding. Tender in RUQ and LUQ. No palpable masses. Extremities: No deformities, edema, skin discoloration, clubbing or cyanosis. Good capillary refill. ASSESSMENT/PLAN: 1. Contusion of rib on right side, subsequent encounter - ICD9: V58.89, 922.1, ICD10: S20.211D (primary diagnosis) - continue current regimen. Ice and heat prn. Does lifting at work. 2. Right upper quadrant abdominal pain - ICD9: 789.01, ICD10: R10.11 - check labs and ct today given recent trauma. Can use miralax prn constipation. Red flags for re-assessment reviewed with patient in detail. - CBC + DIFF - COMP METABOLIC PANEL - LIPASE BLD - CT ABD/PEL W IVCON - IV CONTRAST (RADIOLOGY PROCEDURE) - ENTERIC CONTRAST (RADIOLOGY PROCEDURE) - CBC + DIFF - COMP METABOLIC PANEL - LIPASE BLD - CT ABD/PEL W IVCON - IV CONTRAST (RADIOLOGY PROCEDURE) - ENTERIC CONTRAST (RADIOLOGY PROCEDURE) 4. Contusion of abdominal wall, subsequent encounter - ICD9: V58.89, ICD10: S30.1XXD - CT ABD/PEL W IVCON - IV CONTRAST (RADIOLOGY PROCEDURE) - ENTERIC CONTRAST (RADIOLOGY PROCEDURE) 5. Abdominal pain, unspecified abdominal location - ICD9: 789.00, ICD10: R10.9 - CT ABD/PEL W IVCON - IV CONTRAST (RADIOLOGY PROCEDURE) - ENTERIC CONTRAST (RADIOLOGY PROCEDURE) Leoncio Vallejo Follow up after testing. * Leoncio Vallejo MD - 08/18/2022 11:17 AM EDT Call prn documented in this encounterOur Lady Of Mercy Hospital09-07-2022 History of Present illness Narrative* Eric Le, - 06/25/2022 1:01 PM EDT Consultation requested by Dr. Leoncio Vallejo MD for an opinion regarding CKD. My final recommendations will be communicated back to the requesting physician by way of shared medical record or lettervia US mail Mr. 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 Not much protein loading Occasional NSAIDS No creatinie REVIEW OF SYMPTOMS: No CP No SOB Medications Reviewed Social History Graduated high school Working at [employer] Family history for kidney disease: none AOBP - Standardized BP Measurement BP #1: 115/71 Pulse #1: 76 beats/min BP #2 : 114/72 Pulse #2 : 80 beats/min BP #3 : 110/72 Pulse #3 : 76 beats/min Average BP: 113/72 Average Pulse: 77 beats/min BP cuff location: Right upper arm BP cuff size: regular adult Comments for BP values: none First BP (Left): 112/75 First BP (Right): 121/76 PHYSICAL EXAM: Constitutional: No acute distress, Responsive, Thin habitus Eyes: Conjunctiva clear Cardiovascular:No peripheral edema Respiratory: Normal respiratory effort. Musculoskeletal: Normocephalic. Psychiatric: Alert and oriented x self, place, time, and setting Normal mood/affect Labs: Reviewed 06/20/2022 US Kidney: RESULT: Right Kidney: -Renal length: 11 cm -Parenchyma: Normal parenchymal echogenicity. Normal parenchymal thickness. -Collecting system: No hydronephrosis. -Calculus: No echogenic, shadowing calculus. -Lesion: None. Left Kidney: -Renal length: 11.5 cm -Parenchyma: Normal parenchymal echogenicity. Normal parenchymal thickness. -Collecting system: No hydronephrosis. -Calculus: No echogenic, shadowing calculus. -Lesion: None. Bladder: Normal sonographic appearance. Prevoid bladder volume 79 mL. No significant post void residual volume ASSESSMENT: Elevated serum creatinine-muscle related? PLAN: Cystain C, ACR If need be iGFR. Will discuss on mychart for next steps RTC PRN Eric Le DO documented in this encounterOur Lady Of Mercy Hospital09-02-2022 History of Present illness Narrative* RT Femi(R) - 06/20/2022 8:30 AM EDT Radiology Service Progress Note PATIENT NAME: Penny Robin DATE OF SERVICE: June 20, 2022 TIME: 8:55 AM PATIENT IDENTITY VERIFICATION COMPLETED USING TWO (2) IDENTIFIERS: Name and Date of confirmedby patient verbally. FALL SCREENING: Has the patient had 2 falls in the last year or 1 fall with injury or currently using an Ambulatory Assistive Device (Walker, Cane, Wheelchair, Crutches, etc.)? No PATIENT GENDER DATA: Male PATIENT RELEVANT IMPLANT DATA REVIEWED: Not Applicable RADIOLOGY DEPARTMENT: Ultrasound PERIPHERAL IV DATA: Not applicable SIGNED BY: RT Femi(R) June 20, 2022 8:55 AM documented in this encounterOur Lady Of Mercy Hospital08-29-2022 Miscellaneous Notes* Telephone Encounter - Sandra Hadley RN - 06/16/2022 11:20 AM EDT Pts mother called and is notified of providers results and instructions. She voices understanding. She was put through to scheduling to make appointment for US. Sandra Hadley RN * Telephone Encounter - Leoncio Vallejo MD - 06/15/2022 1:11 PM EDT Kidney function is stable. It is not at a dangerous level but is a little low for someone his age. Also showing ? Protein in the urine. Do 24 hour urine and renal us documented in this encounterOur Lady Of Mercy Hospital08-04-2022 Miscellaneous Notes* Telephone Encounter - Stephani Pham MD - 05/22/2022 3:28 PM EDT The following approved medication requests have been transmitted electronically. Signed Prescriptions Disp Refills levETIRAcetam (KEPPRA) 500 mg tablet 900 tablet 1 Si tabs twice daily = 5000 mg/d WILLY: No Authorizing Provider: STEPHANI PHAM MD * Telephone Encounter - Simran Moss RN - 05/22/2022 8:56 AM EDT Spoke with pharmacy and confirmed PA. Updated prescription needed. -Prescription appropriate, please file and document electronically. Thank you. Routed to Dr. Vero Moss RN * Telephone Encounter - Ophelia Puga - 05/21/2022 4:57 PM EDT Received approval for Levetiracetam from [employer]. Approval Dates: 05/21/22-05/21/23. REF #: [id number] Approval uploaded to [employer]. * Telephone Encounter - Simran Moss RN - 05/20/2022 3:18 PM EDT Spoke with PA department and provided information needed for PA, will await determination. Ref # [id number] Simran Moss RN * Telephone Encounter - SWAPNIL Singleton - 05/20/2022 3:07 PM EDT Prior Authorization Needed: Received by: Phone Requested by (pharmacy name): [facility] Phone number: [phone] Name of medication: Keppra Strength and dosage: 500mg 5tabs twice daily Insurance company name and phone #: [employer] Patient of Dr. Pham documented in this encounterOur Lady Of Mercy Hospital07-27-2022 Miscellaneous Notes* Telephone Encounter - Sandra Hadley RN - 05/14/2022 9:33 AM EDT Pts mother called and is notified of providers results and instructions. She voices understanding. Sandra Hadley RN * Telephone Encounter - Leoncio Vallejo MD - 05/12/2022 8:45 AM EDT His kidney function is slightly reduced. He may just not be drinking enough. Push fluids and recheck bpm and ua and one month documented in this encounterOur Lady Of Mercy Hospital07-22-2022 History of Present illness Narrative* Leoncio Vallejo MD - 05/09/2022 8:39 AM EDT Patient presents with: Establish Care: peds transfer HPI: Patient presents today for office visit for check up/transfer NEURO: Next episode in december 2022. Last episode of epilepsy in oct 2020. No headache. No lightheadedness. No dizziness. No changes in vision or hearing. GASTROENTEROLOGY: Hx of nausea and vomiting. Currently not taking anything for the nausea and vomiting. Last episode a week ago. Mainly occurs in the morning. Not tender to touch. No heartburn - no longer taking the pepcid. No difficulty swallowing. Recently lowered kreppra dose and seems to be improving. REPRODUCTIVE: Stable. No hx of STDs. CHEST: No chest pain. No chest tightness. No SOB. Hx of COVID - no technician terminal and repeater symptoms noted. PSYCH: Overall in a good mood. Sleeping well. Fluctuating appetite and good fluid intake. Denies depressive episodes. Exercising. Seeing Dr. Valentin for LICENSED OPTICAL DISPENSER lesion. Will follow again in summer. MEDICATIONS: Current Outpatient Medications Medication Sig levETIRAcetam (KEPPRA) 500 mg tablet 5 tabs twice daily = 5000 mg/d famotidine (PEPCID) 20 mg tablet Take 1 tablet by mouth twice daily. albuterol HFA (PROVENTIL HFA, VENTOLIN HFA) 90 mcg/actuation inhaler Inhale 2 Puffs as instructed every 4 hours as needed for wheezing/shortness of breath (and 20 min prior to exercise). midazolam (NAYZILAM) 5 mg/spray (0.1 mL) nasal spray Use 1 spray in one nostril as needed for seizures. May repeat dose in alternate nostril after 10 minutes based on response and tolerability. lamoTRIgine (LAMICTAL) 200 mg tablet Take 1 tablet by mouth twice daily. (along with 100 mg tabs, =600 mg/day) lamoTRIgine (LAMICTAL) 100 mg tablet Take 1 tablet by mouth twice daily. (along with 200 mg tabs, =600 mg/day) No current facility-administered medications for this visit. ALLERGIES: ALLERGIES Allergen Reactions Amoxicillin Hives PAST MEDICAL HISTORY Diagnosis Date Acute appendicitis with localized peritonitis 09/22/2016 Brain tumor (HCC) PMH - PAST MEDICAL HISTORY OF 02/05/2005 Febrile Seizure Simple febrile convulsions (HCC) 04/26/2020 PAST SURGICAL HISTORY Procedure Laterality Date LAPAROSCOPIC APPENDECTOMY 09/19/16 FAMILY HISTORY Problem Relation Age of Onset Hypertension Maternal Grandfather Heart Maternal Grandfather 2 MN, living Stroke Maternal Grandfather living No Known Problems Mother No Known Problems Father No Known Problems Maternal Grandmother Diabetes Paternal Grandmother Hypertension Paternal Grandfather No Known Problems Sister Social History Tobacco Use Smoking status: Passive Smoke Exposure - Never Smoker Smokeless tobacco: Never Used Tobacco comment: Both parents - outside the home Vaping Use Vaping Use: Never used Substance Use Topics Alcohol use: Not on file Drug use: Not on file Reviewed current medications, allergies, past medical history, surgical history, family history andsocial history today. REVIEW OF SYSTEMS All other reviewed and negative other than HPI. HEALTH MAINTENANCE: Reviewed health maintenance issues today and recommended the following in detail. COVID-19 VACCINE(1) Never done MENINGOCOCCAL B: Consider based on risk(1 of 2 - Risk Bexsero 2-dose series) Never done. Patient refused. HPV VACCINE(1 - Male 2-dose series) Never done. Patient refused. SPIROMETRY Never done HEPATITIS C SCREENING Never done HIV SCREENING Never done ASTHMA CONTROL TEST due on 09/15/2021 VITALS: BP 98/62 Pulse 60 Wt 58.1 kg (128 lb) Last 4 Encounter Wt Readings: Date: Wt: 04/04/2022 61.8 kg (136 lb 3.2 oz) (25 %, Z= -0.67)* 12/19/2021 63.8 kg (140 lb 10.5 oz) (35 %, Z= -0.39)* 08/01/2021 64 kg (141 lb) (38 %, Z= -0.30)* 07/31/2021 63.5 kg (140 lb) (37 %, Z= -0.34)* PHYSICAL EXAMINATION: General appearance: Well appearing, alert, in no acute distress, well-hydrated, well nourished. Skin: Skin color, texture, turgor normal, no suspicious rashes or lesions Head: Normocephalic, no masses, lesions, tenderness or abnormalities Eyes: Anicteric sclera. Pupils are equally round and reactive to light. Extraocular movements are intact. Ears: External ears normal, canals clear Oropharynx: Lips, mucosa, and tongue normal, teeth and gums normal, oropharynx normal Neck: Supple, no adenopathy; thyroid symmetric, normal size, no bruits Lungs: Lungs clear to auscultation. No wheezing, rhonchi, rales Heart: RRR without murmur, gallop, or rubs. No ectopy Abdomen: Normal abdominal exam, Abdomen soft, non-tender. Bowel sounds normal. No masses, organomegaly Extremities: No deformities, edema, skin discoloration, clubbing or cyanosis. Good capillary refill. Musculoskeletal: No joint swelling, deformity, or tenderness Peripheral pulses: Normal Neuro: Hx of epilepsy - see above. Stable. ASSESSMENT/PLAN: 1. Well adult exam - ICD9: V70.0, ICD10: Z00.00 (primary diagnosis) - check baseline labs. 2. 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 Partial symptomatic epilepsy with complex partial seizures, not intractable, without status epilepticus (HCC) - ICD9: 345.40, ICD10: G40.209 - check labs. Neuro is going to see him every 18 months, we will follow in between. - CBC + DIFF - COMP METABOLIC PANEL 4. Mild intermittent asthma without complication - ICD9: 493.90, ICD10: J45.20 - stable. 5. GERD without esophagitis - ICD9: 530.81, ICD10: K21.9 - gi issues are better since adjusting meds. Red flags for re-assessment reviewed with patient in detail. 6. 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 Leoncio Vallejo RTO in six months and prn. documented in this encounterOur Lady Of Mercy Hospital07-04-2022 History of Present illness Narrative* Stephani Pham MD - 04/21/2022 4:30 PM EDT Images from the original note were not included. [facility] Date of Service: 04/21/2022 EPILEPSY CENTER - CLINICAL UPDATE Last Epilepsy Visit: 11/13/2021 AGE: Penny is now 16 year old. 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 Previously, at 1 year of age, he had a single brief brief febrile seizure (his sister also had a singlefebrile seizure at 2 years of age). EEG in 04/2020 showed left temporo-parietal sharp waves (P7>T7,P3) and continuous slowing in thatarea. MRI in 04/2020 showed a focal region of cortical expansion and T2 / FLAIR hyperintensity centered along the mid to posterior aspect of the lateral left temporal lobe. Features are consistent with low grade tumor or malformation of cortical development. Dr. 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 In 04/2020, Penny was started on levetiracetam. On 05/20/2020, he was admitted following seizure recurrence (his second seizure ever). Levetiracetam was increased from 2000 mg/d to 4000 mg/d. Overnight video EEG again showed sharp waves and continuous slowing in the left temporo-parietal region. In 07/2020, repeat MRI showed no change in size or configuration of the low- grade tumor, with faintgadolinium enhancement. On 10/21/2020, on levetiracetam 4000 mg/d, Penny had a 3-minute generalized tonic clonic seizure withtongue bite, followed by vomiting, lethargy, and confusion. The seizure occurred shortly after going back to bed after awakening early to take his morning medication - his mother heard a thud, went into the room, and found him in the convulsion. In summary - Penny has experienced the following generalized tonic clonic seizures. - 04/21/2020 - on no medication - 05/20/2020 - on levetiracetam 2000 mg/d, with level 13.1 mg/l - 10/21/2020 - on levetiracetam 4000 mg/d, with level 35.7 mg/l in 08/2020 (usual range 12-45 mg/l) In 10/2020, We discussed the potential risks and benefits of surgery for tumor resection in detail, as well as the potential risks of ongoing epilepsy. On 10/22/2020, Penny expressed that he wished to defer surgery if possible. On 10/26/2020, Penny expressed that he had changed his mind and wanted to pursue surgery sooner rather than later. In 01/2021, functional MRI showed significant left dominance for language tasks. Rhyming / passive listening task activation overlaped with the left temporal cortical lesion. Surgical options may be complicated. If seizures persist despite strong trials of at least 2 medications, then we will proceed to Epilepsy Management Conference. After extensive discussion, it was elected to try at least one more medications before proceeding to consider surgery. In 10/2020, he changed to oxcarbazepine, with no further seizures since then. In 12/2020, a change tolamotrigine was initiated, because of stuttering on the oxcarbazepine. In 05/2021, on lamotrigine 400 mg/d, level was 6.3 mg/l on 400 mg/d (usual range 1-13 mg/l). Lamotrigine was increased to 500 mg/d and oxcarbazepine was weaned (last dose 07/17/2021). Lamotrigine levelon 07/24/2021 was 9.6 mg/l (with levetiracetam) and 7.9 mg/l on 08/14/2021. It was recommended to increase the lamotrigine to 600 mg/d. Since then, on lamotrigine and levetiracetam, Penny has had no further seizures and the stuttering resolved. In 03/2022, Ms. Duarte reported that Desire has chronic fatigue and intermittent episodes of coughing, gagging, vomiting, and clamminess every 2 to 3 days, typically occurring when he takes his morning medication and then does not eat. Symptoms began after he had COVID. He is working with his PCP on this. 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 MRIs have shown stable findings (most recently in 12/2021). Generalized tonic clonic seizures started at 14 years of age and persisted on high dose levetiracetam, then stopped when oxcarbazepine and then lamotrigine were added. Last seizure was in 10/2020, onlevetiracetam alone. In 03/2022, levetiracetam level was again on the high side - 53.7 mg/l (usual range 12-45 mg/l). It was recommended to decrease the dose from 6000 to 5000 mg/d (with lamotrigine). SEIZURE / EPISODE TYPE(S) Seizure Type 1 Generalized tonic clonic seizures Description: Loss of awareness, arrest of activity, whole body stiffening, injurious fall (abrasion, bruises, and rib fracture), cyanosis, drooling, tongue bite, and unconsciousness for 5 minutes or less (untimed), followed by vomiting and confusion. Frequency: Infrequent ASSOCIATED CONDITIONS, DEVELOPMENTAL HISTORY, AND SCHOOL Penny earns straight A's in regular and gifted classes in public school. He enjoys cross country, track, baseball, and marching band (base drum). He is not driving currently. There are no behavioral or mental health issues. ANTISEIZURE THERAPIES CURRENT ANTISEIZURE THERAPIES - Lamotrigine 600 mg/d - level 10.7 mg/l in 03/2022 (usual range 1-13 mg/l) - Levetiracetam 6000 mg/d - level 53.7 mgl in 03/2022 - level 44.2 mg/l in 11/2021 (usual range 12-45mg/l) ANTISEIZURE MEDICATION LEVELS (LAST 3) Antiseizure Med Levels Latest Ref Rng & Units 04/17/2022 11/18/2021 08/14/2021 10HYDROXYCARBAZEPINE 3.0 - 35.0 ug/mL - - - LAMOTRIGINE 1.0 - 13.0 ug/mL 10.7 11.8 7.9 LEVETIRACETAM 12.0 - 46.0 ug/mL 53.7(H) 44.2 - CURRENT RESCUE MEDICATIONS Intranasal midazolam PRIOR/CURRENT ANTISEIZURE THERAPIES Lamotrigine Levetiracetam Oxcarbazepine ALLERGIES Allergen Reactions Amoxicillin Hives PREVIOUS EPILEPSY EVALUATIONS: HEAD CT 04/2020 Normal MRI 04/2020 There is a focal region of cortical expansion and T2 / FLAIR hyperintensity centered along the mid to posterior aspect of the lateral left temporal lobe. This region measures approximately 2.0 AP by 1.8 transverse centimeters. Features are consistent with low grade tumor or malformation of cortical development. EEG 04/2020 Sharp waves, regional left temporo-parietal (P7>T7,P3). Continuous slow, regional left temporo-parietal OVERNIGHT VIDEO EEG, 05/2020 Sharp waves and continuous slowing, regional left temporo-pareital No seizures recorded MRI 07/2020, with gadolinium No change in size or configuration of the low-grade tumor, with faint gadolinium enhancement. 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 Rhyming / passive listening task activation overlaps with the left temporal cortical lesion. 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 MRIs have shown stable findings (most recently in 12/2021). Generalized tonic clonic seizures started at 14 years of age and persisted on high dose levetiracetam, then stopped when oxcarbazepine and then lamotrigine were added. Last seizure was in 10/2020, onlevetiracetam alone. In 03/2022, levetiracetam level was again on the high side - 53.7 mg/l (usual range 12-45 mg/l). It was recommended to decrease the dose from 6000 to 5000 mg/d (with lamotrigine). RECOMMENDATIONS - Continue lamotrigine 600 mg/d (with levetiracetam) - Offer to reduce levetiracetam from 6000 to 5000 mg/d - May maintain driving privileges - Return for virtual visit in 6 months Parents have intranasal midazolam for rescue for home use. For the school action plan, they would prefer to have school personnel call 911 in case of a prolonged seizure lasting > 3 to 5 minutes. Ongoing virtual visits are recommended for this patient, as travel is not advisable due to the COVID-19 pandemic. Stephani Pham M.D. Professor of Neurology, [facility] Staff Physician, [facility] [place] [id number] CC: [facility] [place] Referring Team Adarsh Perez MD Referring Team, Pediatrics [phone] [facility] [id number] Adarsh Perez [address] [place] [address] The family of: Penny Prather Robin [address] [facility] [address] [facility] [address] documented in this encounterOur Lady Of [facility]cy [facility]06-27-2022 Miscellaneous Notes* Telephone Encounter - Pete Ramírez MD - 04/14/2022 4:18 PM EDT Labs ordered. Pete Ramírez MD * Telephone Encounter - Simran Moss RN - 04/14/2022 2:38 PM EDT Ms. Duarte would states that Penny is doing better, side effects have improved since taking meds with meals. She would like to have levels checked again. Routed to Dr. Ramírez to please file pending lab orders, if appropriate. Thank you. Simran Moss RN * Telephone Encounter - SWAPNIL Singleton - 04/14/2022 12:15 PM EDT General call : Full name of person calling: Rashard Duarte Relationship to patient: mom Phone # : [phone] Reason for call: Eating with morning meds has improved.Would like a med level check Patient of Dr. Pham documented in this encounterOur Lady Of Mercy Hospital06-27-2022 Miscellaneous Notes* Telephone Encounter - Gabriela Sainz LPN - 04/14/2022 12:07 PM EDT Mom was notified of advice and/or results. * Telephone Encounter - Caro Ferreira RN - 04/10/2022 9:08 AM EDT Attempted to call, no answer and unable to leave a message due to voicemail not set up yet Caro Ferreira RN * Telephone Encounter - Adarsh Perez MD - 04/10/2022 8:56 AM EDT please call the patient Glucose tolerance test does not hypoglycemia after the ingestion of glucose. Have they noted any improvement in morning vomiting with the addition of Pepcid? documented in this encounterOur Lady Of Mercy Hospital06-17-2022 History of Present illness Narrative* Adarsh Perez MD - 04/04/2022 8:23 AM EDT PEDIATRIC SICK VISIT SERVICE DATE: 04/04/2022 Patient presents with: Illness: Clammy, coughing/gagging until vomits, no fevers SUBJECTIVE: Penny Robin is a 16 year old male accompanied by mother for evaluation of cough post-tussive emesis. no sour taste no pain with eating mostly daily Sept- most frequently in am sometimes at night occ waking from sleep no assn with activity no fatigue no brain fog At night time- if waiting long to eat- gets shaky tends to be more shaky if skipping meals History was obtained from: mother and patient Duration of Symptoms: 9 months Severity of Symptoms: not improving Modifying factors attempted: Eating- improved after starting to eat in am Sick contacts: No known sick contacts. Smoking Exposure: Does your child spend a significant amount of time in the care of anyone who smokes? 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 midazolam (NAYZILAM) 5 mg/spray (0.1 mL) nasal spray Use 1 spray in one nostril as needed for seizures. May repeat dose in alternate nostril after 10 minutes based on response and tolerability. levETIRAcetam (KEPPRA) 500 mg tablet 6 tabs twice daily = 6000 mg/d lamoTRIgine (LAMICTAL) 200 mg tablet Take 1 tablet by mouth twice daily. (along with 100 mg tabs, =600 mg/day) lamoTRIgine (LAMICTAL) 100 mg tablet Take 1 tablet by mouth twice daily. (along with 200 mg tabs, =600 mg/day) famotidine (PEPCID) 20 mg tablet Take 1 tablet by mouth twice daily. REVIEW OF SYSTEMS: one day recently fatigue, clammy, dizzy GENERAL: Negative for fevers HEENT: Negative for congestion or rhinorrhea. RESPIRATORY: Negative for wheezing or respiratory distress -used albuterol during track GI: Negative for nausea. SKIN: Negative for lesions, rash, and itching. OBJECTIVE: Pulse 60 Temp 36.4 C (97.6 F) (Temporal Artery) Resp 18 Wt 61.8 kg (136 lb 3.2 oz) General: alert and active in no apparent distress Eyes: conjunctiva clear Ears: TMs translucent: bilaterally Nose: no erythema or exudate OP: moist without lesions Neck: supple, no adenopathy Lungs: clear to auscultation bilaterally, good air exchange, no retractions CVS: Normal rate, regular rhythm, no murmur Abdomen: soft, nondistended, nontender, no hepatosplenomegaly or masses Skin: No rashes, lesions or skin changes neuro: Slight tremor noted when hands held fully extended. This does not interfere with activities.No other neurologic deficits noted. ASSESSMENT/PLAN: Encounter Diagnosis ICD-10-CM 1. Post-tussive emesis R11.10 GLUC RYANN, 5-HR NON-GEST, 75 GM, FASTING ESTABLISH WITH PRIMARY CARE NEW PATIENT 2. Essential tremor G25.0 GLUC RYANN, 5-HR NON-GEST, 75 GM, FASTING ESTABLISH WITH PRIMARY CARE NEW PATIENT 3. Mild intermittent asthma without complication J45.20 4. Partial symptomatic epilepsy with complex partial seizures, not intractable, without status epilepticus (HCC) G40.209 With a combination of tremor, an episode of clamminess and shakiness and these episodes improved byeating as well as occurring at times when it has been a while since he has eaten I wonder if hypoglycemia is playing a role. Additionally even though he does not complain of reflux symptoms I do wonder if his cough that leads to his posttussive emesis is being triggered by reflux given that it doeshappen more in the morning or as he is getting ready for bed. I will do a trial of Pepcid twice daily 5-hour glucose tolerance test to evaluate for hypoglycemia. It does not sound like this cough is asthma related. He did have asthma exacerbations with exerciseduring the recent season. He has not tried albuterol for these episodes of coughing. That is also reasonable. I would encourage him to continue to have breakfast as it is helped with his symptoms. Regular meals that contain both protein and complex carbohydrates may also further help with symptoms. We also discussed beginning the process of transitioning care to an adult provider. SIGNATURE: Adarsh Perez MD PATIENT NAME: Penny Robin DATE: April 04, 2022 TIME: 8:23 AM documented in this encounterOur Lady Of Mercy Hospital06-13-2022 History of Present illness Narrative* Stephani Pham MD - 03/31/2022 3:18 PM EDT Images from the original note were not included. Neurological [facility] Pediatric Epilepsy Date of Service: 03/31/2022 EPILEPSY CENTER - CLINICAL UPDATE Last Epilepsy Visit: 11/13/2021 AGE: Penny is now 16 year old. 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 Previously, at 1 year of age, he had a single brief brief febrile seizure (his sister also had a singlefebrile seizure at 2 years of age). EEG in 04/2020 showed left temporo-parietal sharp waves (P7>T7,P3) and continuous slowing in thatarea. MRI in 04/2020 showed a focal region of cortical expansion and T2 / FLAIR hyperintensity centered along the mid to posterior aspect of the lateral left temporal lobe. Features are consistent with low grade tumor or malformation of cortical development. Dr. 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 In 04/2020, Penny was started on levetiracetam. On 05/20/2020, he was admitted following seizure recurrence (his second seizure ever). Levetiracetam was increased from 2000 mg/d to 4000 mg/d. Overnight video EEG again showed sharp waves and continuous slowing in the left temporo-parietal region. In 07/2020, repeat MRI showed no change in size or configuration of the low- grade tumor, with faintgadolinium enhancement. On 10/21/2020, on levetiracetam 4000 mg/d, Penny had a 3-minute generalized tonic clonic seizure withtongue bite, followed by vomiting, lethargy, and confusion. The seizure occurred shortly after going back to bed after awakening early to take his morning medication - his mother heard a thud, went into the room, and found him in the convulsion. In summary - Penny has experienced the following generalized tonic clonic seizures. - 04/21/2020 - on no medication - 05/20/2020 - on levetiracetam 2000 mg/d, with level 13.1 mg/l - 10/21/2020 - on levetiracetam 4000 mg/d, with level 35.7 mg/l in 08/2020 (usual range 12-45 mg/l) In 10/2020, We discussed the potential risks and benefits of surgery for tumor resection in detail, as well as the potential risks of ongoing epilepsy. On 10/22/2020, Penny expressed that he wished to defer surgery if possible. On 10/26/2020, Penny expressed that he had changed his mind and wanted to pursue surgery sooner rather than later. In 01/2021, functional MRI showed significant left dominance for language tasks. Rhyming / passive listening task activation overlaped with the left temporal cortical lesion. Surgical options may be complicated. If seizures persist despite strong trials of at least 2 medications, then we will proceed to Epilepsy Management Conference. After extensive discussion, it was elected to try at least one more medications before proceeding to consider surgery. In 10/2020, he changed to oxcarbazepine, with no further seizures since then. In 12/2020, a change tolamotrigine was initiated, because of stuttering on the oxcarbazepine. In 05/2021, on lamotrigine 400 mg/d, level was 6.3 mg/l on 400 mg/d (usual range 1-13 mg/l). Lamotrigine was increased to 500 mg/d and oxcarbazepine was weaned (last dose 07/17/2021). Lamotrigine levelon 07/24/2021 was 9.6 mg/l (with levetiracetam) and 7.9 mg/l on 08/14/2021. It was recommended to increase the lamotrigine to 600 mg/d. Since then, on lamotrigine and levetiracetam, Penny has had no further seizures and the stuttering resolved. In 03/2022, Ms. Duarte reported that Desire has chronic fatigue and intermittent episodes of coughing, gagging, vomiting, and clamminess every 2 to 3 days, typically occurring when he takes his morning medication and then does not eat. Symptoms began after he had COVID. He is working with his PCP on this. 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 MRIs have shown stable findings (most recently in 12/2021). Generalized tonic clonic seizures started at 14 years of age and persisted on high dose levetiracetam, then stopped when oxcarbazepine and then lamotrigine were added. Last seizure was in 10/2020, on levetiracetam alone. We discussed options and elected to make no change for now. Levetiracetam dose could be reduced at some point. SEIZURE / EPISODE TYPE(S) Seizure Type 1 Generalized tonic clonic seizures Description: Loss of awareness, arrest of activity, whole body stiffening, injurious fall (abrasion, bruises, and rib fracture), cyanosis, drooling, tongue bite, and unconsciousness for 5 minutes or less (untimed), followed by vomiting and confusion. Frequency: Infrequent ASSOCIATED CONDITIONS, DEVELOPMENTAL HISTORY, AND SCHOOL Penny earns straight A's in regular and gifted classes in public school. He enjoys cross country, track, baseball, and marching band (base drum). He is not driving currently. There are no behavioral or mental health issues. ANTISEIZURE THERAPIES CURRENT ANTISEIZURE THERAPIES - Lamotrigine 600 mg/d - level 11.8 mg/l in (usual range 1-13 mg/l) - Levetiracetam 6000 mg/d - level 44.2 mg/l in 11/2021 (usual range 12-45 mg/l) ANTISEIZURE MEDICATION LEVELS (LAST 3) Antiseizure Med Levels Latest Ref Rng & Units 11/18/2021 08/14/2021 07/24/2021 10HYDROXYCARBAZEPINE 3.0 - 35.0 ug/mL - - - LAMOTRIGINE 1 - 13 ug/mL 11.8 7.9 9.6 LEVETIRACETAM 12.0 - 46.0 ug/mL 44.2 - - CURRENT RESCUE MEDICATIONS Intranasal midazolam PRIOR/CURRENT ANTISEIZURE THERAPIES Lamotrigine Levetiracetam Oxcarbazepine ALLERGIES Allergen Reactions Amoxicillin Hives PREVIOUS EPILEPSY EVALUATIONS: HEAD CT 04/2020 Normal MRI 04/2020 There is a focal region of cortical expansion and T2 / FLAIR hyperintensity centered along the mid to posterior aspect of the lateral left temporal lobe. This region measures approximately 2.0 AP by 1.8 transverse centimeters. Features are consistent with low grade tumor or malformation of cortical development. EEG 04/2020 Sharp waves, regional left temporo-parietal (P7>T7,P3). Continuous slow, regional left temporo-parietal OVERNIGHT VIDEO EEG, 05/2020 Sharp waves and continuous slowing, regional left temporo-pareital No seizures recorded MRI 07/2020, with gadolinium No change in size or configuration of the low-grade tumor, with faint gadolinium enhancement. 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 Rhyming / passive listening task activation overlaps with the left temporal cortical lesion. 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 MRIs have shown stable findings (most recently in 12/2021). Generalized tonic clonic seizures started at 14 years of age and persisted on high dose levetiracetam, then stopped when oxcarbazepine and then lamotrigine were added. Last seizure was in 10/2020, on levetiracetam alone. We discussed options and elected to make no change for now. Levetiracetam dose could be reduced at some point. RECOMMENDATIONS - Continue lamotrigine 600 mg/d (with levetiracetam) - May consider reducing levetiracetam at some point - May maintain driving privileges - Return for virtual visit in 6 months Parents have intranasal midazolam for rescue for home use. For the school action plan, they would prefer to have school personnel call 911 in case of a prolonged seizure lasting > 3 to 5 minutes. Ongoing virtual visits are recommended for this patient, as travel is not advisable due to the COVID-19 pandemic. Stephani Pham M.D. Professor of Neurology, [facility] Staff Physician, [facility] [place] [id number] CC: Neurological [place] Referring Team Adarsh Perez MD Referring Team, Pediatrics [phone] [facility] [id number] Adarsh Perez [address] [place] [address] The family of: Penny Robin [address] [facility] [address] [facility] [address] documented in this encounterOur Lady Of Mercy Hospital05-25-2022 Miscellaneous Notes* Telephone Encounter - Simran Moss RN - 03/12/2022 8:36 AM EDT Form completed and sent via [employer] on 03/07/22. Simran Moss RN * Telephone Encounter - Simran Moss RN - 03/06/2022 3:18 PM EDT Forms routed to Dr. Pham via [employer] for completion. Simran Moss RN * Telephone Encounter - Jessi Ortiz - 03/06/2022 2:06 PM EDT Form received: From (agency / facility / parent): [facility] line service person (if given): Phone #: [phone] Fax # : [phone] Email: N/A Information requested: Prescriber information Patient of Dr. Pham documented in this encounterOur Lady Of Mercy Hospital10-15-2020 History of Past illness Narrative* Problem Noted Date Resolved Date Generalized seizure 08/02/2020 10/22/2020 Recurrent seizures 05/20/2020 10/22/2020 Epilepsy 04/30/2020 10/22/2020 Last Assessment & Plan: Assessment: 14 YO right handed boy with PMHX of recently diagnosed epilepsy in the setting of 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 Neurological examination is nonfocal. He has been maintained on keppra 2000 mg /daily however continues to have seizures without clear provoking factors. Admitted for medication management. At OSH found to have high creatinine. PLAN: 1. Continuous video-EEG monitoring to assess seizure burden and to adjust antiepileptic medications 2. Continue increased dose of Keppra 1500 mg BID 3. 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 Simple febrile convulsions 04/26/202008/02 Convulsions 04/26/2020 10/22/2020 Acute appendicitis with localized peritonitis 08/02/2020 documented as of this encounter (statuses as of 02/04/2022) [facility] History of Past illness Narrative* Problem Noted Date Resolved Date Generalized seizure 08/02/2020 10/22/2020 Recurrent seizures 05/20/2020 10/22/2020 Epilepsy 04/30/2020 10/22/2020 Last Assessment & Plan: Assessment: 14 YO right handed boy with PMHX of recently diagnosed epilepsy in the setting of 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 Neurological examination is nonfocal. He has been maintained on keppra 2000 mg /daily however continues to have seizures without clear provoking factors. Admitted for medication management. At OSH found to have high creatinine. PLAN: 1. Continuous video-EEG monitoring to assess seizure burden and to adjust antiepileptic medications 2. Continue increased dose of Keppra 1500 mg BID 3. 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 Simple febrile convulsions 04/26/202008/02 Convulsions 04/26/2020 10/22/2020 Acute appendicitis with localized peritonitis 08/02/2020 documented as of this encounter (statuses as of 03/12/2022) [facility] History of Past illness Narrative* Problem Noted Date Resolved Date Generalized seizure 08/02/2020 10/22/2020 Recurrent seizures 05/20/2020 10/22/2020 Epilepsy 04/30/2020 10/22/2020 Last Assessment & Plan: Assessment: 14 YO right handed boy with PMHX of recently diagnosed epilepsy in the setting of 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 Neurological examination is nonfocal. He has been maintained on keppra 2000 mg /daily however continues to have seizures without clear provoking factors. Admitted for medication management. At OSH found to have high creatinine. PLAN: 1. Continuous video-EEG monitoring to assess seizure burden and to adjust antiepileptic medications 2. Continue increased dose of Keppra 1500 mg BID 3. 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 Simple febrile convulsions 04/26/202008/02 Convulsions 04/26/2020 10/22/2020 Acute appendicitis with localized peritonitis 08/02/2020 documented as of this encounter (statuses as of 03/31/2022) [facility] History of Past illness Narrative* Problem Noted Date Resolved Date Generalized seizure 08/02/2020 10/22/2020 Recurrent seizures 05/20/2020 10/22/2020 Epilepsy 04/30/2020 10/22/2020 Last Assessment & Plan: Assessment: 14 YO right handed boy with PMHX of recently diagnosed epilepsy in the setting of 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 Neurological examination is nonfocal. He has been maintained on keppra 2000 mg /daily however continues to have seizures without clear provoking factors. Admitted for medication management. At OSH found to have high creatinine. PLAN: 1. Continuous video-EEG monitoring to assess seizure burden and to adjust antiepileptic medications 2. Continue increased dose of Keppra 1500 mg BID 3. 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 Simple febrile convulsions 04/26/202008/02 Convulsions 04/26/2020 10/22/2020 Acute appendicitis with localized peritonitis 08/02/2020 documented as of this encounter (statuses as of 04/04/2022) [facility] History of Past illness Narrative* Problem Noted Date Resolved Date Generalized seizure 08/02/2020 10/22/2020 Recurrent seizures 05/20/2020 10/22/2020 Epilepsy 04/30/2020 10/22/2020 Last Assessment & Plan: Assessment: 14 YO right handed boy with PMHX of recently diagnosed epilepsy in the setting of 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 Neurological examination is nonfocal. He has been maintained on keppra 2000 mg /daily however continues to have seizures without clear provoking factors. Admitted for medication management. At OSH found to have high creatinine. PLAN: 1. Continuous video-EEG monitoring to assess seizure burden and to adjust antiepileptic medications 2. Continue increased dose of Keppra 1500 mg BID 3. 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 Simple febrile convulsions 04/26/202008/02 Convulsions 04/26/2020 10/22/2020 Acute appendicitis with localized peritonitis 08/02/2020 documented as of this encounter (statuses as of 04/14/2022) [facility] History of Past illness Narrative* Problem Noted Date Resolved Date Generalized seizure 08/02/2020 10/22/2020 Recurrent seizures 05/20/2020 10/22/2020 Epilepsy 04/30/2020 10/22/2020 Last Assessment & Plan: Assessment: 14 YO right handed boy with PMHX of recently diagnosed epilepsy in the setting of 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 Neurological examination is nonfocal. He has been maintained on keppra 2000 mg /daily however continues to have seizures without clear provoking factors. Admitted for medication management. At OSH found to have high creatinine. PLAN: 1. Continuous video-EEG monitoring to assess seizure burden and to adjust antiepileptic medications 2. Continue increased dose of Keppra 1500 mg BID 3. 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 Simple febrile convulsions 04/26/202008/02 Convulsions 04/26/2020 10/22/2020 Acute appendicitis with localized peritonitis 08/02/2020 documented as of this encounter (statuses as of 04/14/2022) [facility] History of Past illness Narrative* Problem Noted Date Resolved Date Generalized seizure 08/02/2020 10/22/2020 Recurrent seizures 05/20/2020 10/22/2020 Epilepsy 04/30/2020 10/22/2020 Last Assessment & Plan: Assessment: 14 YO right handed boy with PMHX of recently diagnosed epilepsy in the setting of 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 Neurological examination is nonfocal. He has been maintained on keppra 2000 mg /daily however continues to have seizures without clear provoking factors. Admitted for medication management. At OSH found to have high creatinine. PLAN: 1. Continuous video-EEG monitoring to assess seizure burden and to adjust antiepileptic medications 2. Continue increased dose of Keppra 1500 mg BID 3. 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 Simple febrile convulsions 04/26/202008/02 Convulsions 04/26/2020 10/22/2020 Acute appendicitis with localized peritonitis 08/02/2020 documented as of this encounter (statuses as of 04/21/2022) [facility] History of Past illness Narrative* Problem Noted Date Resolved Date Generalized seizure 08/02/2020 10/22/2020 Recurrent seizures 05/20/2020 10/22/2020 Epilepsy 04/30/2020 10/22/2020 Last Assessment & Plan: Assessment: 14 YO right handed boy with PMHX of recently diagnosed epilepsy in the setting of 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 Neurological examination is nonfocal. He has been maintained on keppra 2000 mg /daily however continues to have seizures without clear provoking factors. Admitted for medication management. At OSH found to have high creatinine. PLAN: 1. Continuous video-EEG monitoring to assess seizure burden and to adjust antiepileptic medications 2. Continue increased dose of Keppra 1500 mg BID 3. 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 Simple febrile convulsions 04/26/202008/02 Convulsions 04/26/2020 10/22/2020 Acute appendicitis with localized peritonitis 08/02/2020 documented as of this encounter (statuses as of 05/09/2022) [facility] History of Past illness Narrative* Problem Noted Date Resolved Date Generalized seizure 08/02/2020 10/22/2020 Recurrent seizures 05/20/2020 10/22/2020 Epilepsy 04/30/2020 10/22/2020 Last Assessment & Plan: Assessment: 14 YO right handed boy with PMHX of recently diagnosed epilepsy in the setting of 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 lesion Partial symptomatic epilepsy with complex partial seizures, not intractable, without status epilepticus (HCC) Procedures MRI BRAIN WO/W IVCON MRI BRAIN BRAIN STEM W/O W/CONTRAST MATERIAL Yeny Do, 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 DATE CREATED AUTHOR AUTHOR'S ORGANIZ ATION 05/11/2020 [facility] DATE CREATED AUTHOR AUTHOR'S ORGANIZ ATION 08/22/2022 [facility] DATE CREATED AUTHOR AUTHOR'S ORGANIZ ATION 09/20/2022 [facility] DATE CREATED AUTHOR AUTHOR'S ORGANIZ ATION 08/17/2025 [facility] Source Comments (unrecognize d section and content) In the event this informatio n is protected by the Federal Confidentiality of Alcohol and Drug Abuse Patient Records regulations: The Federal rules restrict any use of the information to criminally investigate or prosecute any alcohol or drug abuse patient.[facility] the event this information is protected by the Federal Confidentiality of Alcohol and Drug Abuse Patient Records regulations: The Federal rules restrict any use of the information to criminally investigate or prosecute any alcohol or drug abuse patient.[facility] the event this information is protected by the Federal Confidentiality of Alcohol and Drug Abuse Patient Records regulations: The Federal rules restrict any use of the information to criminally investigate or prosecute any alcohol or drug abuse patient.[facility] the event this information is protected by the Federal Confidentiality of Alcohol and Drug Abuse Patient Records regulations: The Federal rules restrict any use of the information to criminally investigate or prosecute any alcohol or drug abuse patient.[facility] the event this information is protected by the Federal Confidentiality of Alcohol and Drug Abuse Patient Records regulations: The Federal rules restrict any use of the information to criminally investigate or prosecute any alcohol or drug abuse patient.[facility] the event this information is protected by the Federal Confidentiality of Alcohol and Drug Abuse Patient Records regulations: The Federal rules restrict any use of the information to criminally investigate or prosecute any alcohol or drug abuse patient.[facility]In the event this information is protected by the Federal Confidentiality of Alcohol and Drug Abuse Patient Records regulations: The Federal rules restrict any use of the information to criminally investigate or prosecute any alcohol or drug abuse patient.[facility] the event this information is protected by the Federal Confidentiality of Alcohol and Drug Abuse Patient Records regulations: The Federal rules restrict any use of the information to criminally investigate or prosecute any alcohol or drug abuse patient.[facility] the event this information is protected by the Federal Confidentiality of Alcohol and Drug Abuse Patient Records regulations: The Federal rules restrict any use of the information to criminally investigate or prosecute any alcohol or drug abuse patient.[facility] the event this information is protected by the Federal Confidentiality of Alcohol and Drug Abuse Patient Records regulations: The Federal rules restrict any use of the information to criminally investigate or prosecute any alcohol or drug abuse patient.[facility]In the event this information is protected by the Federal Confidentiality of Alcohol and Drug Abuse Patient Records regulations: The Federal rules restrict any use of the information to criminally investigate or prosecute any alcohol or drug abuse patient.[facility]In the event this information is protected by the Federal Confidentiality of Alcohol and Drug Abuse Patient Records regulations: The Federal rules restrict any use of the information to criminally investigate or prosecute any alcohol or drug abuse patient.[facility] the event this information is protected by the Federal Confidentiality of Alcohol and Drug Abuse Patient Records regulations: The Federal rules restrict any use of the information to criminally investigate or prosecute any alcohol or drug abuse patient.[facility]In the event this information is protected by the Federal Confidentiality of Alcohol and Drug Abuse Patient Records regulations: The Federal rules restrict any use of the information to criminally investigate or prosecute any alcohol or drug abuse patient.[facility] HospitalIn the event this information is protected by the Federal Confidentiality of Alcohol and Drug Abuse Patient Records regulations: The Federal rules restrict any use of the information to criminally investigate or prosecute any alcohol or drug abuse patient.[facility]In the event this information is protected by the Federal Confidentiality of Alcohol and Drug Abuse Patient Records regulations: The Federal rules restrict any use of the information to criminally investigate or prosecute any alcohol or drug abuse patient.[facility]In the event this information is protected by the Federal Confidentiality of Alcohol and Drug Abuse Patient Records regulations: The Federal rules restrict any use of the information to criminally investigate or prosecute any alcohol or drug abuse patient.[facility]In the event this information is protected by the Federal Confidentiality of Alcohol and Drug Abuse Patient Records regulations: The Federal rules restrict any use of the information to criminally investigate or prosecute any alcohol or drug abuse patient.[facility] HospitalIn the event this information is protected by the Federal Confidentiality of Alcohol and Drug Abuse Patient Records regulations: The Federal rules restrict any use of the information to criminally investigate or prosecute any alcohol or drug abuse patient.[facility] HospitalIn the event this information is protected by the Federal Confidentiality of Alcohol and Drug Abuse Patient Records regulations: The Federal rules restrict any use of the information to criminally investigate or prosecute any alcohol or drug abuse patient.[facility] HospitalIn the event this information is protected by the Federal Confidentiality of Alcohol and Drug Abuse Patient Records regulations: The Federal rules restrict any use of the information to criminally investigate or prosecute any alcohol or drug abuse patient.[facility] HospitalIn the event this information is protected by the Federal Confidentiality of Alcohol and Drug Abuse Patient Records regulations: The Federal rules restrict any use of the information to criminally investigate or prosecute any alcohol or drug abuse patient.[facility]In the event this information is protected by the Federal Confidentiality of Alcohol and Drug Abuse Patient Records regulations: The Federal rules restrict any use of the information to criminally investigate or prosecute any alcohol or drug abuse patient.[facility] HospitalIn the event this information is protected by the Federal Confidentiality of Alcohol and Drug Abuse Patient Records regulations: The Federal rules restrict any use of the information to criminally investigate or prosecute any alcohol or drug abuse patient.[facility] HospitalIn the event this information is protected by the Federal Confidentiality of Alcohol and Drug Abuse Patient Records regulations: The Federal rules restrict any use of the information to criminally investigate or prosecute any alcohol or drug abuse patient.[facility]In the event this information is protected by the Federal Confidentiality of Alcohol and Drug Abuse Patient Records regulations: The Federal rules restrict any use of the information to criminally investigate or prosecute any alcohol or drug abuse patient.[facility]In the event this information is protected by the Federal Confidentiality of Alcohol and Drug Abuse Patient Records regulations: The Federal rules restrict any use of the information to criminally investigate or prosecute any alcohol or drug abuse patient.[facility] HospitalIn the event this information is protected by the Federal Confidentiality of Alcohol and Drug Abuse Patient Records regulations: The Federal rules restrict any use of the information to criminally investigate or prosecute any alcohol or drug abuse patient.[facility] HospitalIn the event this information is protected by the Federal Confidentiality of Alcohol and Drug Abuse Patient Records regulations: The Federal rules restrict any use of the information to criminally investigate or prosecute any alcohol or drug abuse patient.[facility]In the event this information is protected by the Federal Confidentiality of Alcohol and Drug Abuse Patient Records regulations: The Federal rules restrict any use of the information to criminally investigate or prosecute any alcohol or drug abuse patient.[facility] HospitalIn the event this information is protected by the Federal Confidentiality of Alcohol and Drug Abuse Patient Records regulations: The Federal rules restrict any use of the information to criminally investigate or prosecute any alcohol or drug abuse patient.[facility]In the event this information is protected by the Federal Confidentiality of Alcohol and Drug Abuse Patient Records regulations: The Federal rules restrict any use of the information to criminally investigate or prosecute any alcohol or drug abuse patient.[facility] HospitalIn the event this information is protected by the Federal Confidentiality of Alcohol and Drug Abuse Patient Records regulations: The Federal rules restrict any use of the information to criminally investigate or prosecute any alcohol or drug abuse patient.[facility] HospitalIn the event this information is protected by the Federal Confidentiality of Alcohol and Drug Abuse Patient Records regulations: The Federal rules restrict any use of the information to criminally investigate or prosecute any alcohol or drug abuse patient.[facility]In the event this information is protected by the Federal Confidentiality of Alcohol and Drug Abuse Patient Records regulations: The Federal rules restrict any use of the information to criminally investigate or prosecute any alcohol or drug abuse patient.[facility] HospitalIn the event this information is protected by the Federal Confidentiality of Alcohol and Drug Abuse Patient Records regulations: The Federal rules restrict any use of the information to criminally investigate or prosecute any alcohol or drug abuse patient.[facility] HospitalIn the event this information is protected by the Federal Confidentiality of Alcohol and Drug Abuse Patient Records regulations: The Federal rules restrict any use of the information to criminally investigate or prosecute any alcohol or drug abuse patient.[facility] HospitalIn the event this information is protected by the Federal Confidentiality of Alcohol and Drug Abuse Patient Records regulations: The Federal rules restrict any use of the information to criminally investigate or prosecute any alcohol or drug abuse patient.[facility] HospitalIn the event this information is protected by the Federal Confidentiality of Alcohol and Drug Abuse Patient Records regulations: The Federal rules restrict any use of the information to criminally investigate or prosecute any alcohol or drug abuse patient.[facility] HospitalIn the event this information is protected by the Federal Confidentiality of Alcohol and Drug Abuse Patient Records regulations: The Federal rules restrict any use of the information to criminally investigate or prosecute any alcohol or drug abuse patient.[facility] HospitalIn the event this information is protected by the Federal Confidentiality of Alcohol and Drug Abuse Patient Records regulations: The Federal rules restrict any use of the information to criminally investigate or prosecute any alcohol or drug abuse patient.[facility] HospitalIn the event this information is protected by the Federal Confidentiality of Alcohol and Drug Abuse Patient Records regulations: The Federal rules restrict any use of the information to criminally investigate or prosecute any alcohol or drug abuse patient.[facility] HospitalIn the event this information is protected by the Federal Confidentiality of Alcohol and Drug Abuse Patient Records regulations: The Federal rules restrict any use of the information to criminally investigate or prosecute any alcohol or drug abuse patient.[facility] HospitalIn the event this information is protected by the Federal Confidentiality of Alcohol and Drug Abuse Patient Records regulations: The Federal rules restrict any use of the information to criminally investigate or prosecute any alcohol or drug abuse patient.[facility] HospitalIn the event this information is protected by the Federal Confidentiality of Alcohol and Drug Abuse Patient Records regulations: The Federal rules restrict any use of the information to criminally investigate or prosecute any alcohol or drug abuse patient.[facility] HospitalIn the event this information is protected by the Federal Confidentiality of Alcohol and Drug Abuse Patient Records regulations: The Federal rules restrict any use of the information to criminally investigate or prosecute any alcohol or drug abuse patient.[facility] HospitalIn the event this information is protected by the Federal Confidentiality of Alcohol and Drug Abuse Patient Records regulations: The Federal rules restrict any use of the information to criminally investigate or prosecute any alcohol or drug abuse patient.[facility] HospitalIn the event this information is protected by the Federal Confidentiality of Alcohol and Drug Abuse Patient Records regulations: The Federal rules restrict any use of the information to criminally investigate or prosecute any alcohol or drug abuse patient.[facility] HospitalIn the event this information is protected by the Federal Confidentiality of Alcohol and Drug Abuse Patient Records regulations: The Federal rules restrict any use of the information to criminally investigate or prosecute any alcohol or drug abuse patient.[facility] HospitalIn the event this information is protected by the Federal Confidentiality of Alcohol and Drug Abuse Patient Records regulations: The Federal rules restrict any use of the information to criminally investigate or prosecute any alcohol or drug abuse patient.[facility] HospitalIn the event this information is protected by the Federal Confidentiality of Alcohol and Drug Abuse Patient Records regulations: The Federal rules restrict any use of the information to criminally investigate or prosecute any alcohol or drug abuse patient.[facility] HospitalIn the event this information is protected by the Federal Confidentiality of Alcohol and Drug Abuse Patient Records regulations: The Federal rules restrict any use of the information to criminally investigate or prosecute any alcohol or drug abuse patient.[facility] HospitalIn the event this information is protected by the Federal Confidentiality of Alcohol and Drug Abuse Patient Records regulations: The Federal rules restrict any use of the information to criminally investigate or prosecute any alcohol or drug abuse patient.[facility] HospitalIn the event this information is protected by the Federal Confidentiality of Alcohol and Drug Abuse Patient Records regulations: The Federal rules restrict any use of the information to criminally investigate or prosecute any alcohol or drug abuse patient.[facility] HospitalIn the event this information is protected by the Federal Confidentiality of Alcohol and Drug Abuse Patient Records regulations: The Federal rules restrict any use of the information to criminally investigate or prosecute any alcohol or drug abuse patient.[facility] HospitalIn the event this information is protected by the Federal Confidentiality of Alcohol and Drug Abuse Patient Records regulations: The Federal rules restrict any use of the information to criminally investigate or prosecute any alcohol or drug abuse patient.[facility] HospitalIn the event this information is protected by the Federal Confidentiality of Alcohol and Drug Abuse Patient Records regulations: The Federal rules restrict any use of the information to criminally investigate or prosecute any alcohol or drug abuse patient.[facility] HospitalIn the event this information is protected by the Federal Confidentiality of Alcohol and Drug Abuse Patient Records regulations: The Federal rules restrict any use of the information to criminally investigate or prosecute any alcohol or drug abuse patient.[facility] HospitalIn the event this information is protected by the Federal Confidentiality of Alcohol and Drug Abuse Patient Records regulations: The Federal rules restrict any use of the information to criminally investigate or prosecute any alcohol or drug abuse patient.[facility] HospitalIn the event this information is protected by the Federal Confidentiality of Alcohol and Drug Abuse Patient Records regulations: The Federal rules restrict any use of the information to criminally investigate or prosecute any alcohol or drug abuse patient.[facility] HospitalIn the event this information is protected by the Federal Confidentiality of Alcohol and Drug Abuse Patient Records regulations: The Federal rules restrict any use of the information to criminally investigate or prosecute any alcohol or drug abuse patient.[facility] HospitalIn the event this information is protected by the Federal Confidentiality of Alcohol and Drug Abuse Patient Records regulations: The Federal rules restrict any use of the information to criminally investigate or prosecute any alcohol or drug abuse patient.[facility] HospitalIn the event this information is protected by the Federal Confidentiality of Alcohol and Drug Abuse Patient Records regulations: The Federal rules restrict any use of the information to criminally investigate or prosecute any alcohol or drug abuse patient.[facility] HospitalIn the event this information is protected by the [facility] Confidentiality of Alcohol and Drug Abuse Patient Records regulations: The Federal rules restrict any use of the information to criminally investigate or prosecute any alcohol or drug abuse patient.[facility] HospitalIn the event this information is protected by the Federal Confidentiality of Alcohol and Drug Abuse Patient Records regulations: The Federal rules restrict any use of the information to criminally investigate or prosecute any alcohol or drug abuse patient.[facility] Care Teams (unrecognized sec tion and content) Design Leader Relationship Specialty Start Date End Date Adarsh Perez MD [address] [place] [address] PCP - General Pediatrics 06/02/18 Adarsh Perez MD [address] [place] [address] NI Referring Team Pediatrics 01/21/21 Design Leader Relationship Specialty Start Date End Date Adarsh Perez MD [address] [place] [address] PCP - General Pediatrics 06/02/18 Adarsh Perez MD [address] [place] [address] NI Referring Team Pediatrics 01/21/21 Design Leader Relationship Specialty Start Date End Date Adarsh Perez MD [address] [facility] [place] [address] PCP - General Pediatrics 06/02/18 Adarsh Perez MD [address] [facility] [place] [address] NI Referring Team Pediatrics 01/21/21 Design Leader Relationship Specialty Start Date End Date Adarsh Perez MD [address] [facility] [place] [address] PCP - General Pediatrics 06/02/18 Adarsh Perez MD [address] [facility] [place] [address] NI Referring Team Pediatrics 01/21/21 Design Leader Relationship Specialty Start Date End Date Adarsh Perez MD [address] [facility] [place] [address] PCP - General Pediatrics 06/02/18 Adarsh Perez MD [address] [facility] [place] [address] NI Referring Team Pediatrics 01/21/21 Design Leader Relationship Specialty Start Date End Date Adarsh Perez MD [address] [facility] [place] [address] PCP - General Pediatrics 06/02/18 Adarsh Perez MD [address] [facility] [place] [address] NI Referring Team Pediatrics 01/21/21 Design Leader Relationship Specialty Start Date End Date Adarsh Perez MD [address] [facility] [place] [address] PCP - General Pediatrics 06/02/18 Adarsh Perez MD [address] [facility] [place] [address] NI Referring Team Pediatrics 01/21/21 Design Leader Relationship Specialty Start Date End Date Leoncio Vallejo MD [address] [facility] [place] [address] PCP - General Family Practice 05/09/22 Adarsh Perez MD [address] [facility] [place] [address] NI Referring Team Pediatrics 01/21/21 Design Leader Relationship Specialty Start Date End Date Leoncio Vallejo MD [address] [facility] [place] [address] PCP - General Family Practice 05/09/22 Adarsh Perez MD [facility]0 [facility] [place] [address] NI Referring Team Pediatrics 01/21/21 Design Leader Relationship Specialty Start Date End Date Leoncio Vallejo MD [address] [facility] [place] [address] PCP - General Family Practice 05/09/22 Adarsh Perez MD [address] [facility] [place] [address] NI Referring Team Pediatrics 01/21/21 Design Leader Relationship Specialty Start Date End Date Leoncio Vallejo MD [address] [facility] [place] [address] PCP - General Family Practice 05/09/22 Adarsh Perez MD [address] [facility] [place] [address] NI Referring Team Pediatrics 01/21/21 Design Leader Relationship Specialty Start Date End Date Leoncio Vallejo MD [address] [facility] [place] [address] PCP - General Family Practice 05/09/22 Adarsh Perez MD [address] [facility] [place] [address] NI Referring Team Pediatrics 01/21/21 Design Leader Relationship Specialty Start Date End Date Leoncio Vallejo MD [address] [facility] [place] [address] PCP - General Family Medicine 05/09/22 Adarsh Perez MD [address] [place] [address] [place] [address] NI Referring Team Pediatrics 01/21/21 Design Leader Relationship Specialty Start Date End Date Leoncio Vallejo MD [address] [place] [address] PCP - General Family Medicine 05/09/22 Adarsh Perez MD [address] [place] [address] NI Referring Team Pediatrics 01/21/21 Stephani Pham MD [address] [place] [address] Pediatric Neurology 08/18/22 Design Leader Relationship Specialty Start Date End Date Leoncio Vallejo MD [facility] [place] [address] PCP - General Family Medicine 05/09/22 Adarsh Perez MD [address] [place] [address] [place] [address] NI Referring Team Pediatrics 01/21/21 Stephani Pham MD [address] [place] [address] Pediatric Neurology 08/18/22 Design Leader Relationship Specialty Start Date End Date Leoncio Vallejo MD [facility] [place] [address] PCP - General Family Medicine 05/09/22 Adarsh Perez MD [address] [place] [address] NI Referring Team Pediatrics 01/21/[address] [facility] [facility] [place] [place] [id number] Pediatric Neurology 08/18/22 Ya Hampton, addictions counselor assistant [employer] Of [employer] Internal Medicine 08/22/22 09/20/22 Design Leader Relationship Specialty Start Date End Date Leoncio Vallejo MD [address] [place] [address] PCP - General Family Medicine 05/09/22 Adarsh Perez MD [address] [place] [address] NI Referring Team Pediatrics 01/21/21 Stephani Pham MD [address] [place] [address] Pediatric Neurology 08/18/22 Ya Hampton, addictions counselor assistant [employer] Of [employer] Internal Medicine 08/22/22 09/20/22 Design Leader Relationship Specialty Start Date End Date Leoncio Vallejo MD [address] [place] [address] PCP - General Family Medicine 05/09/22 Adarsh Perez MD [address] [place] [address] NI Referring Team Pediatrics 01/21/21 Stephani Pham MD [address] [place] [address] Pediatric Neurology 08/18/22 Design Leader Relationship Specialty Start Date End Date Leoncio Vallejo MD [address] [place] [address] PCP - General Family Medicine 05/09/22 Adarsh Perez MD [address] [place] [address] NI Referring Team Pediatrics 01/21/21 Stephani Pham MD [address] [place] [address] Pediatric Neurology 08/18/22 Design Leader Relationship Specialty Start Date End Date Leoncio Vallejo MD [address] [place] [address] PCP - General Family Medicine 05/09/22 Adarsh Perez MD [facility] [place] [address] NI Referring Team Pediatrics 01/21/21 Stephani Pham MD [address] [place] [address] Pediatric Neurology 08/18/22 Design Leader Relationship Specialty Start Date End Date Leoncio Vallejo MD [address] [place] [address] PCP - General Family Medicine 05/09/22 Adarsh Perez MD [address] [place] [address] NI Referring Team Pediatrics 01/21/21 Stephani Pham MD [address] [place] [address] Pediatric Neurology 08/18/22 Design Leader Relationship Specialty Start Date End Date Leoncio Vallejo MD [address] [place] [address] PCP - General Family Medicine 05/09/22 Adarsh Perez MD [address] [place] [address] NI Referring Team Pediatrics 01/21/21 Stephani Pham MD [address] [place] [address] Pediatric Neurology 08/18/22 Design Leader Relationship Specialty Start Date End Date Leoncio Vallejo MD [facility] [place] [address] PCP - General Family Medicine 05/09/22 Adarsh Perez MD [address] [place] [address] NI Referring Team Pediatrics 01/21/21 Stephani Pham MD [address] [place] [address] Pediatric Neurology 08/18/22 Design Leader Relationship Specialty Start Date End Date Leoncio Vallejo MD [facility] [place] [address] PCP - General Family Medicine 05/09/22 Adarsh Perez MD [facility] [place] [address] NI Referring Team Pediatrics 01/21/21 Stephani Pham MD [address] [place] [address] Pediatric Neurology 08/18/22 Design Leader Relationship Specialty Start Date End Date Leoncio Vallejo MD [address] [place] [address] PCP - General Family Medicine 05/09/22 Adarsh Perez MD [address] [facility] [place] [address] NI Referring Team Pediatrics 01/21/21 Stephani Pham MD [address] [place] [address] Pediatric Neurology 08/18/22 Design Leader Relationship Specialty Start Date End Date Leoncio Vallejo MD [address] [place] [address] PCP - General Family Medicine 05/09/22 Adarsh Perez MD [address] [place] [address] NI Referring Team Pediatrics 01/21/21 Stephani Pham MD [address] [place], [place] [id number] Pediatric Neurology 08/18/22 Design Leader Relationship Specialty Start Date End Date Leoncio Vallejo MD [address] [place] [address] PCP - General Family Medicine 05/09/22 Adarsh Perez MD [address] [place] [address] NI Referring Team Pediatrics 01/21/21 Stephani Pham MD [address] [place] [address] Pediatric Neurology 08/18/22 Design Leader Relationship Specialty Start Date End Date Leoncio Vallejo MD [address] [place] [address] PCP - General Family Medicine 05/09/22 Adarsh Perez MD [address] [place] [address] NI Referring Team Pediatrics 01/21/21 Stephani Pham MD [address] [place] [address] Pediatric Neurology 08/18/22 Design Leader Relationship Specialty Start Date End Date Leoncio Vallejo MD [address] [facility] [place] [place] [address] PCP - General Family Medicine 05/09/22 Adarsh Perez MD [address] [facility] [place] [address] NI Referring Team Pediatrics 01/21/21 Stephani Pham MD [address] [place], [place] [id number] Pediatric Neurology 08/18/22 Design Leader Relationship Specialty Start Date End Date Leoncio Vallejo MD [address] [facility] [place] [address] PCP - General Family Medicine 05/09/22 Adarsh Perez MD [address] [facility] [place] [address] NI Referring Team Pediatrics 01/21/21 Stephani Pham MD [address] [place], [place] [id number] Pediatric Neurology 08/18/22 Design Leader Relationship Specialty Start Date End Date Leoncio Vallejo MD [address] [facility] [place] [address] PCP - General Family Medicine 05/09/22 Adarsh Perez MD [address] [facility] [place] [address] NI Referring Team Pediatrics 01/21/21 Stephani Pham MD [address] [place] [address] Pediatric Neurology 08/18/22 Design Leader Relationship Specialty Start Date End Date Leoncio Vallejo MD [address] [place] [address] PCP - General Family Medicine 05/09/22 Adarsh Perez MD [address] [place] [address] NI Referring Team Pediatrics 01/21/21 Stephani Pham MD [address] [place], [place] [id number] Pediatric Neurology 08/18/22 Design Leader Relationship Specialty Start Date End Date Leoncio Vallejo MD [address] [place] [address] PCP - General Family Medicine 05/09/22 Adarsh Perez MD [address] [place] [address] NI Referring Team Pediatrics 01/21/21 Stephani Pham MD [address] [place] [address] Pediatric Neurology 08/18/22 Design Leader Relationship Specialty Start Date End Date Leoncio Vallejo MD [address] [place] [address] PCP - General Family Medicine 05/09/22 Adarsh Perez MD [address] [place] [address] NI Referring Team Pediatrics 01/21/21 Stephani Pham MD [address] [place] [place], [place] [id number] Pediatric Neurology 08/18/22 Design Leader Relationship Specialty Start Date End Date Leoncio Vallejo MD [address] [facility] [place] [address] PCP - General Family Medicine 05/09/22 Adarsh Perez MD [address] [place] [address] NI Referring Team Pediatrics 01/21/21 Stephani Pham MD [address] [place] [address] Pediatric Neurology 08/18/22 Design Leader Relationship Specialty Start Date End Date Leoncio Vallejo MD [address] [place] [address] PCP - General Family Medicine 05/09/22 Adarsh Perez MD [address] [place] [address] NI Referring Team Pediatrics 01/21/21 Stephani Pham MD [address] [place] [address] Pediatric Neurology 08/18/22 Design Leader Relationship Specialty Start Date End Date Leoncio Vallejo MD [address] [place] [address] PCP - General Family Medicine 05/09/22 Adarsh Peerz MD [address] [place] [address] NI Referring Team Pediatrics 01/21/21 Stephani Pham MD [address] [facility] [place] [address] Pediatric Neurology 08/18/22 Design Leader Relationship Specialty Start Date End Date Leoncio Vallejo MD [address] [place] [address] PCP - General Family Medicine 05/09/22 Adarsh Perez MD [address] [place] [address] NI Referring Team Pediatrics 01/21/21 Stephani Pham MD [address] [place] [address] Pediatric Neurology 08/18/22 Design Leader Relationship Specialty Start Date End Date Leoncio Vallejo MD [address] [facility] [place] [address] PCP - General Family Medicine 05/09/22 Adarsh Perez MD [address] [place] [address] NI Referring Team Pediatrics 01/21/21 Stephani Pham MD [address] [place] [address] Pediatric Neurology 08/18/22 Design Leader Relationship Specialty Start Date End Date Leoncio Vallejo MD [address] [place] [address] PCP - General Family Medicine 05/09/22 Adarsh Perez MD [address] [place] [address] NI Referring Team Pediatrics 01/21/21 Stephani Pham MD [address] [facility] [place] [address] Pediatric Neurology 08/18/22 Design Leader Relationship Specialty Start Date End Date Leoncio Vallejo MD [address] [place] [address] PCP - General Family Medicine 05/09/22 Adarsh Perez MD [address] [place] [address] NI Referring Team Pediatrics 01/21/21 Stephani Pham MD [address] [facility] [place] [address] Pediatric Neurology 08/18/22 Design Leader Relationship Specialty Start Date End Date Leoncio Vallejo MD [address] [place] [address] PCP - General Family Medicine 05/09/22 Adarsh Perez MD [address] [facility] [place] [address] NI Referring Team Pediatrics 01/21/21 Stephani Pham MD [address] [place] [address] Pediatric Neurology 08/18/22 Design Leader Relationship Specialty Start Date End Date Leoncio Vallejo MD [address] [facility] [place] [address] PCP - General Family Medicine 05/09/22 Adarsh Perez MD [address] [place] [address] NI Referring Team Pediatrics 01/21/21 Stephani Pham MD [address] [facility] [place] [address] Pediatric Neurology 08/18/22 Design Leader Relationship Specialty Start Date End Date Leoncio Vallejo MD [address] [facility] [place] [address] PCP - General Family Medicine 05/09/22 Adarsh Perez MD [address] [place] [address] NI Referring Team Pediatrics 01/21/21 Stephani Pham MD [address] [facility] [place] [address] Pediatric Neurology 08/18/22 Glenis Perez APRN.PAPER TESTING SUPERVISOR [address] [facility] [address] [facility] 09/[facility]/24 Lesley Awad APRN.PAPER TESTING SUPERVISOR [address] [facility] [place] [address] [facility] 09/26/24 Design Leader Relationship Specialty Start Date End Date Leoncio Vallejo MD [address] [facility] [place] [address] PCP - General Family Medicine 05/09/22 Adarsh Perez MD [address] [facility] [place] [address] NI Referring Team Pediatrics 01/21/21 Stephani Pham MD [address] [facility] [place] [address] Pediatric Neurology 08/18/22 Glenis Perez APRN.PAPER TESTING SUPERVISOR [address] [facility] [place] [address] [facility] 09/26/24 Lesley Awad APRN.PAPER TESTING SUPERVISOR [address] [facility] [place] [address] Activity Coordinator [facility] 09/26/24 Design Leader Relationship Specialty Start Date End Date Leoncio Vallejo MD [address] [place] [address] PCP - General Family Medicine 05/09/22 Adarsh Perez MD [address] [place] [address] NI Referring Team Pediatrics 01/21/21 Stephani Pham MD [address] [facility] [place] [address] Pediatric Neurology 08/18/22 Glenis Perez APRN.PAPER TESTING SUPERVISOR [address] [place] [address] [facility] 09/26/24 Lesley Awad APRN.PAPER TESTING SUPERVISOR [address] [place] [address] [facility] 09/26/24 Design Leader Relationship Specialty Start Date End Date Leoncio Vallejo MD [address] [place] [address] PCP - General Family Medicine 05/09/22 Adarsh Perez MD [address] [place] [address] NI Referring Team Pediatrics 01/21/21 Stephani Pham MD [address] [place] [address] Pediatric Neurology 08/18/22 Glenis Perez, KELLY MACHINE OPERATOR.PAPER TESTING SUPERVISOR [address] [place] [address] [facility]24 Lesley Awad KELLY MACHINE OPERATOR.PAPER TESTING SUPERVISOR [address] [facility] [place] [address] Activity Coordinator [facility] 09/26/24 Design Leader Relationship Specialty Start Date End Date Leoncio Vallejo MD [address] [place] [address] PCP - General Family Medicine 05/09/22 Adarsh Perez MD [address] [facility] [place] [address] NI Referring Team Pediatrics 01/21/21 Stephani Pham MD [address] [facility] [place] [address] Pediatric Neurology 08/18/22 Glenis Perez, KELLY MACHINE OPERATOR.PAPER TESTING SUPERVISOR [address] [facility] [address] Activity Coordinator [facility] 09/26/24 Lesley Awad KELLY MACHINE OPERATOR.PAPER TESTING SUPERVISOR [address] [facility] [place] [address] [facility] 09/26[facility] Design Leader Relationship Specialty Start Date End Date Leoncio Vallejo MD [address] [place] [address] PCP - General Family Medicine 05/09/22 Adarsh Perez MD [address] [facility] [place] [address] NI Referring Team Pediatrics 01/21/21 Stephani Pham MD [address] [facility] [place] [address] Pediatric Neurology 08/18/22 Glenis Perez, KELLY MACHINE OPERATOR.PAPER TESTING SUPERVISOR [address] [place] [address] Activity Coordinator [facility] 09/26/24 Lesley Awad KELLY MACHINE OPERATOR.PAPER TESTING SUPERVISOR [address] [place] [address] Activity Coordinator [facility] 09/26/24 Design Leader Relationship Specialty Start Date End Date Leoncio Vallejo MD [address] [place] [address] PCP - General Family Medicine 05/09/22 Adarsh Perez MD [address] [place] [address] NI Referring Team Pediatrics 01/21/21 Stephani Pham MD [address] [facility] [place] [address] Pediatric Neurology 08/18/22 Glenis Perez, KELLY MACHINE OPERATOR.PAPER TESTING SUPERVISOR [address] [place] [address] [facility] 09/26/24 Lesley Awad, KELLY MACHINE OPERATOR.PAPER TESTING SUPERVISOR [address] [place] [address] [facility]/26[facility] Design Leader Relationship Specialty Start Date End Date Leocnio Vallejo MD [address] [place] [address] PCP - General Family Medicine 05/09/22 Adarsh Perez MD [address] [place] [address] NI Referring Team Pediatrics 01/21/21 Stephani Pham MD [address] [facility] [place] [address] Pediatric Neurology 08/18/22 Glenis Perez APRN.PAPER TESTING SUPERVISOR [address] [place] [address] Activity Coordinator [facility] 09/26/24 Lesley Awad APRN.PAPER TESTING SUPERVISOR [address] [facility] [place] [address] Activity Coordinator [facility] 09/26/24 Design Leader Relationship Specialty Start Date End Date Leoncio Vallejo MD [address] [facility] [place] [address] PCP - General Family Medicine 05/09/22 Adarsh Perez MD [address] [facility] [place] [address] NI Referring Team Pediatrics 01/21/21 Stephani Pham MD [address] [facility] [place] [address] Pediatric Neurology 08/18/22 Glenis Perez, KELLY MACHINE OPERATOR.PAPER TESTING SUPERVISOR [address] [place] [address] Activity Coordinator [facility] 09/26/24 Lesley Awad APRN.PAPER TESTING SUPERVISOR [address] [facility] [place] [address] Activity Coordinator [facility] 09/26/24 Design Leader Relationship Specialty Start Date End Date Leoncio Vallejo MD [address] [facility] [place] [address] PCP - General Family Medicine 05/09/22 Adarsh Perez MD [address] [facility] [place] [address] NI Referring Team Pediatrics 01/21/21 Stephani Pham MD [address] [facility] [place] [address] Pediatric Neurology 08/18/22 Glenis Perez APRN.PAPER TESTING SUPERVISOR [address] [place], [place] [address] [facility] 09/26/24 Lesley Awad APRN.PAPER TESTING SUPERVISOR [address] [place], [place] [address] [facility] 09/26/24 Design Leader Relationship Specialty Start Date End Date Leoncio Vallejo MD [address] [place], [place] [address] PCP - General Family Medicine 05/09/22 Adarsh Perez MD [address] [place] [address] NI Referring Team Pediatrics 01/21/21 Stephani Pham MD [address] [facility] [place] [address] Pediatric Neurology 08/18/22 Glenis Perez, DARRYL.PAPER TESTING SUPERVISOR [address] [place] [address] [facility] 09/26/24 Lesley Awad APRN.PAPER TESTING SUPERVISOR [address] [place], [place] [address] [facility] 09/26/24 Reason for Visit (unrecogniz ed section and content) Reason Comments Forms [facility] - Patient Assist ance Program Application Reason Comments Clinical Update Reason Comments Illness Clammy, coughing/gag ging until vomits, no fevers Reason Comments Results Reason Comments Patient Update Reason Comments Establish Care peds transfer Reason Comments Medication Authorization Reason Comments Results Appointment Additional Labs Reason Comments Radiology US Specialty Diagnoses / Procedures Referred By Contac t Referred To Contact US IMAGING Diagnoses CKD (chronic kidney disease) stage 2, GFR 60-89 ml/min Procedures US KIDNEY/BLADDER US RETROPERITONEAL REAL TIME W/IMAGE COMPLETE Leoncio Vallejo MD [address] [place] [address] Us Imaging Referral ID Status Reason Start Date Expiration Date V isits Requested Visits Authorized [id number] Closed Auto-Generate d Referral 06/15/2022 07/15/2023 1 1 Reason Comments Consult Reason Comments ER F/U Specialty Diagnoses / Procedures Referred By Contac t Referred To Contact CT IMAGING Diagnoses Right upper quadrant abdominal pain Left upper quadrant abdominal pain Contusion of abdominal wall, subsequent encounter Abdominal pain, unspecified abdominal location Procedures CT ABD/PEL W IVCON CT ABD & PELVIS W/CONTRAST Leoncio Vallejo MD [address] [place] [address] Ct Imaging Referral ID Status Reason Start Date Expiration Date Visits Requested Visits Authorized [id number] Authorized Auto-Generat ed Referral 2 10/18/2022 2 2 Reason Comments Follow Up Phone Call Reason Comments Question Reason Comments Follow Up Phone Call All Clear Reason Comments Hospital F/U Reason Comments critical lab value Results Reason Comments Follow Up Reason Comments Forms BMV Reason Onset Date Comments Refill Request 02/16/2023 Reason Comments Medication Authorization Nayzilam Reason Comments Established Patient Reason Comments Patient Update Treatment Planning Reason Onset Date Comments Refill Request 07/29/2023 Reason Onset Date Comments Refill Request 08/07/2023 Reason Comments Rash Rash on lower left l eg x 2 days Reason Comments Rash Reason Comments Other Call to discuss next physician after Dr. 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 Chest tightness and shortness of breath. Some wheezing. Goals (unrecognized section and content) Goals may be documented in a n alternate section FOR RECORDS PERTAINING TO PATIENTS WHO ARE OR HAVE BEEN ENROLLED IN A CHEMICAL DEPENDENCY/SUBSTANCEABUSE PROGRAM, SOME INFORMATION MAY BE OMITTED. This clinical summary was aggregated from multiple sources. Caution should be exercised in using it in the provision of clinical care. This summary normalizes information from multiple sources, and as a consequence, information in this document may materially change the coding, format and clinical context of patient data. In addition, data may be omitted in some cases. CLINICAL DECISIONS SHOULD BE BASED ON THE PRIMARY CLINICAL RECORDS. [facility]. provides no warranty or guarantee of the accuracy or completeness of information in this document.
[2025-09-29 16:17] VITALS: BP 122/82; PULSE 54; RESP 17; TEMP 35.8; O2SAT 99
== END 2025-09-29 16:18 | disposition home or self-care (01) ==
PROVIDERS: Emergency Provider Emergency Medicine; PCP Family Medicine; Visit Provider Emergency Medicine
DX: S61.011A Laceration without foreign body of right thumb without damage to nail, initial encounter (principal); R56.9 Unspecified convulsions; W26.0XXA Contact with knife, initial encounter; F17.290 Nicotine dependence, other tobacco product, uncomplicated; Z79.899 Other long term (current) drug therapy
CPT/HCPCS: 12001; 99283